=== PATIENT | male | born 1935 | race Caucasian/White ===

== ENCOUNTER → 2020-03-21 13:08 | Outpatient (BNVA) | payer MEDICARE, SELFPAY | PROVIDERS: PCP Internal Medicine; Referring Provider Internal Medicine; Visit Provider Internal Medicine | DX: R60.0 Localized edema (principal); T78.3XXS Angioneurotic edema, sequela; I10 Essential (primary) hypertension | CPT/HCPCS: 99214 ==

== ENCOUNTER → 2020-03-22 09:27 | Outpatient (REF) | payer MEDICARE, SELFPAY ==
--- NOTE | 2020-03-22 09:38 | CA_ITS ---
Transthoracic Echocardiogram Patient (Last, First, Middle): Corby Faith R Gender: Male Date of : 1935 Age: 85 Procedure Date: 03/22/2020 Procedure Type: Transthoracic Echocardiogram Location: OP Height: 175.26 cm Weight: 77.11 kg BSA: 1.93 m2 Heart Rate: bpm BP: 137 / 64 mmHg Non Destructive Testing Inspector: DSG Referring MD: Meño Shepherd MD Symptoms: HMC R60.0 Leg Edema Study Quality: Good ECG Rhythm: Sinus Conclusions: - The left ventricular systolic function is normal. The visually estimated ejection fraction is between 60-65%. Findings Left Ventricle Normal left ventricular cavity size. The left ventricular systolic function is normal. The visually estimated ejection fraction is between 60-65%. There is no evidence of regional wall motion abnormalities. Right Ventricle Normal right ventricular cavity size and systolic function. Prior Study Comparison No significant change compared to prior study dated: 01/08/2020. Measurements 2D Systolic Function EF 4C: 69.60 >55% Mitral Valve MV Pk E: 0.90 MV PK A: 0.45 MV Decel Time: 190.00 E/A: 2.00 E'Lateral: 8.41 E'Medial: 7.45 E/E' Med: 12.10 E/E' Lat: 10.70 PHT: 56.00 MVA PHT: 3.93 Decel [place]: 4.74 Diastolic Function MV Pk E: 0.90 MV Pk A: 0.45 E/A: 2.00 E'Medial: 7.45 E/E' Med: 12.10 E' Laterial: 8.41 E/E' Lat: 10.70 Updated in Other Vendor System with Status of Final Meño Shepherd MD electronically signed on 03/23/2020 4:31:31 PM with status of Final
== END ==
LOC: HO.CARD 09:27
PROVIDERS: PCP Internal Medicine; Visit Provider Internal Medicine
DX: R60.0 Localized edema (principal)
CPT/HCPCS: 93308

== ENCOUNTER 2020-03-30 13:25 | Outpatient (REF) | payer MEDICARE, SELFPAY ==
--- NOTE | 2020-04-01 09:24 | MHC.AU.P13 ---
Adult Audiological Evaluation Date of Visit: 03/30/20 Reason for Appointment: Patient has been noticing gradually increasing hearing difficulty over the last 5 years. 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 History: History: No Medical History: Medical History: High Blood Pressure Otoscopy: Right Ear: Unremarkable Left Ear: Unremarkable Tympanometry: Right Ear: Reduced Middle Ear Compliance (Type As) Left Ear: Reduced Middle Ear Compliance (Type As) Hearing Evaluation: Transducer(s) Used: Insert Earphones Method: Conventional Audiometry Stimuli Used: Pure Tones Right Ear: Description of Hearing: Borderline/mild sloping to moderately-severe sensorineural hearing loss Left Ear: Description of Hearing: Borderline/mild sloping to moderately-severe sensorineural hearing loss Speech Recognition Threshold (SRT): Method Used: Recorded Lists Stimuli Used: [place] Words Right Ear: 40 Left Ear: 35 Word Discrimination: Method: Recorded Lists Word Lists Used: NU-6 Right Ear: With inserts: 76% at 75 dBHL, 72% at 80 dBHL With circumaural headphones: 64% at 75 dBHL Significantly lower scores compared to left-ear word discrimination Left Ear: 92% at 75 dBHL Most Comfortable Level (MCL): Right Ear: 75 dBHL Left Ear: 75 dBHL Recommendations: Recommendations: Audiological re-evaluation in one year. Patient reports that he recently had a follow-up with ENT, Dr. Ny, but hearing testing was not performed that day. Another follow-up with Dr. Ny is recommended to address the newly-discovered word discrimination asymmetry. Patient is interested in amplification. See hearing aid evaluation report for more details. Diagnosis: Primary Diagnosis: H90.3 Bilateral Sensorineural Hearing Loss Services Performed: Services Performed: Comprehensive Audiological Evaluation (CPT 39215) Tympanometry (CPT 35113) Signature: Provider: Gosia Richardson, [facility]
--- NOTE | 2020-04-01 09:27 | MHC.AU.P13 ---
Hearing Aid Evaluation- Right Ear Date of Visit: 03/30/20 Description of Hearing: Borderline/mild sloping to moderately-severe sensorineural hearing loss bilaterally Summary: Patient is interested in amplification. He feels strongly that he only wants one hearing aid, and wants a CIC. His has a Jose 3 Series CIC that she is pleased with, and he would like something similar. Discussed possible benefits of right-sided vs. left-sided vs. binaural amplification, as his word discrimination is in the 64-76% range in the right ear vs. 92% in the left ear. Patient talks on the phone with his right ear, and would prefer the hearing aid for his right ear. An impression was taken of the right ear without complication. Hearing Instrument Selection: Right Ear: Community Cultural Development Officer: Amadesa Model: Solomon Battery Size: 312 Color: [place] faceplate/clear shell Recommendations: Recommendations: Fitting will be scheduled when all materials have arrived. Diagnosis Code(s): Primary Diagnosis: H90.3 Bilateral Sensorineural Hearing Loss Secondary Diagnosis: N/A Signature: Provider: Gosia Richardson, [facility]
== END 2020-03-30 13:26 | disposition home or self-care (01) ==
LOC: HO.SH 13:25
PROVIDERS: Visit Provider Internal Medicine
DX: Z46.1 Encounter for fitting and adjustment of hearing aid (principal)
CPT/HCPCS: 92557; 92567

== ENCOUNTER → 2020-04-07 11:00 | Outpatient (BNVA) | payer MEDICARE, SELFPAY | PROVIDERS: PCP Internal Medicine; Referring Provider Internal Medicine; Visit Provider Urology | DX: R35.1 Nocturia (principal); N40.1 Benign prostatic hyperplasia with lower urinary tract symptoms; N52.9 Male erectile dysfunction, unspecified; R30.0 Dysuria; N64.4 Mastodynia; I10 Essential (primary) hypertension; T78.3XXA Angioneurotic edema, initial encounter; Z88.1 Allergy status to other antibiotic agents; Z88.8 Allergy status to other drugs, medicaments and biological substances | CPT/HCPCS: 99214 ==

== ENCOUNTER 2020-04-28 08:49 | Outpatient (REF) | payer SELFPAY ==
--- NOTE | 2020-04-28 13:05 | MHC.AU.P13 ---
Hearing Instrument Fitting- Adult- Right Ear Date of Visit: 04/28/20 Hearing Instrument(s) Dispensed: Right Ear: Amortization Schedule Clerk: Guidesly Model: Solomon Serial Number: [id number] Color: [place] faceplate/clear shell Warranty: 05/09/2022 Battery Size: 312 Summary of Fitting: Feedback canceler run. Experience level set to 2. Verifit performed and levels adjusted to better reach targets. At first patient felt his voice was too loud, but this improved as the appointment went on. Patient was pleased with the sound of the instrument. Program button is deactivated for now. Hearing aid care and maintenance discussed and practiced. Recommendations: Recommendations: A hearing instrument follow-up was scheduled. Please call our clinic with any questions or concerns. Paid $800 Diagnosis Code(s): Primary Diagnosis: H90.3 Bilateral Sensorineural Hearing Loss Secondary Diagnosis: N/A Services Performed: Hearing Instrument Services: LUZ 2 R Signature: Provider: Gosia Richardson, [facility]
== END 2020-04-28 08:50 | disposition home or self-care (01) ==
LOC: HO.HAP 08:49
PROVIDERS: PCP Internal Medicine; Referring Provider Internal Medicine; Visit Provider Internal Medicine
DX: Z46.1 Encounter for fitting and adjustment of hearing aid (principal); H90.3 Sensorineural hearing loss, bilateral
CPT/HCPCS: V5255

== ENCOUNTER → 2020-05-06 10:58 | Outpatient (BNVA) | payer MEDICARE, SELFPAY | PROVIDERS: PCP Internal Medicine; Visit Provider Urology | DX: R39.15 Urgency of urination (principal); R35.1 Nocturia; N52.9 Male erectile dysfunction, unspecified; Z79.899 Other long term (current) drug therapy | CPT/HCPCS: 81002; 99212 ==

== ENCOUNTER 2020-05-10 08:23 | Outpatient (REF) | payer MEDICARE, SELFPAY ==
[2020-05-10 10:22] LABS: Alanine Aminotransferase 17 U/L (0-40); Albumin Level 4.4 g/dL (3.5-5.0); Alkaline Phosphatase 50 U/L (39-117); Anion Gap 15 (12-20); Aspartate Amino Transferase 19 U/L (5-37); Bilirubin Direct 0.2 mg/dL (0.0-0.5); Bilirubin Total 0.4 mg/dL (0.0-1.0); Blood Urea Nitrogen 19 mg/dL (9-16); Calcium 9.3 mg/dL (8.4-10.2); Carbon Dioxide 24 mmol/L (22-29); Chloride 102 mmol/L (96-108); Cholesterol 298 mg/dL; Estimated Glomerular Filt Rate > 60; Glucose Random 156 mg/dL (60-115); HDL Cholesterol 46 mg/dL; LDL Cholesterol Calculated 174 mg/dl; Potassium 4.1 mmol/l (3.3-5.1); Sodium 137 mmol/L (135-145); Total Protein 7.1 g/dL (6.5-8.0); Triglycerides 391 mg/dL
== END 2020-05-10 08:24 | disposition home or self-care (01) ==
LOC: HO.LAB 08:23
PROVIDERS: PCP Internal Medicine; Visit Provider Internal Medicine
DX: E78.00 Pure hypercholesterolemia, unspecified (principal)
CPT/HCPCS: 80048; 80061; 80076

== ENCOUNTER 2020-05-19 10:48 | Outpatient (REF) | payer SELFPAY ==
--- NOTE | 2020-05-19 15:49 | MHC.AU.P13 ---
Hearing Instrument Follow-Up Date of Visit: 05/19/20 Right Ear: Dairy Technician: Jose Model: Solomon Serial Number: [id number] Warranty: 05/09/2022 Battery Size: 312 Color: [place] faceplate/clear shell Dispensed By: [facility] Follow-Up Summary: Patient reports that he has overall been pleased with the hearing aid sound. He has noticed he places the television at a lower level. He thinks he is ready to have the volume slightly increased. He also noted that he cannot get the hearing aid in by himself. His has to pull up on his ear and force it in. The hearing aid does have a sharp appearing curve in it. A new impression was taken and will be sent along with the hearing aid to [employer] for remake. Recommendations: Patient will be contacted when materials have arrived. Adjustments to the hearing aid will be made at the next visit when the hearing aid has returned. Diagnosis Code(s): Primary Diagnosis: H90.3 Bilateral Sensorineural Hearing Loss Signature: Provider: Gosia Richardson, CCC-A
== END 2020-05-19 10:49 | disposition home or self-care (01) ==
LOC: HO.HAP 10:48
PROVIDERS: PCP Internal Medicine; Referring Provider Internal Medicine; Visit Provider Internal Medicine
DX: Z13.89 Encounter for screening for other disorder (principal)
CPT/HCPCS: 92700

== ENCOUNTER → 2020-05-25 13:00 | Outpatient (BNVA) | payer MEDICARE, SELFPAY | PROVIDERS: PCP Internal Medicine; Referring Provider Internal Medicine; Visit Provider Internal Medicine | DX: I10 Essential (primary) hypertension (principal); T78.3XXS Angioneurotic edema, sequela | CPT/HCPCS: 99212 ==

== ENCOUNTER → 2020-05-27 09:35 | Outpatient (BNVA) | payer MEDICARE, SELFPAY | PROVIDERS: PCP Internal Medicine; Visit Provider Student in an Organized Health Care Education/Training Program | DX: M05.9 Rheumatoid arthritis with rheumatoid factor, unspecified (principal); M10.9 Gout, unspecified; R60.0 Localized edema | CPT/HCPCS: Q3014 ==

== ENCOUNTER 2020-06-06 11:37 | Outpatient (REF) | payer MEDICARE, SELFPAY ==
[2020-06-06 14:46] LABS: MANUAL DIFF FLAG NO
[2020-06-06 14:56] LABS: Basophils Absolute Auto 0.1 X10*3/uL (0.0-0.2); Basophils Percent Auto 0.9 % (0-2); Eosinophils Absolute Auto 0.1 X10*3/uL (0.0-0.4); Eosinophils Percent Auto 1.1 % (0-4); Hematocrit 39.7 % (42-52); Hemoglobin 12.8 g/dl (14.0-18.0); Imm Gran Abs Auto 0.13 X10*3/uL (0.00-0.03); Imm Gran Pct Auto 1.1 % (0.0-0.4); Lymphocytes Absolute Auto 1.1 X10*3/uL (1.2-4.9); Lymphocytes Percent Auto 8.8 % (20-40); Mean Corpuscular HGB Conc 32.2 g/dl (31.0-36.0); Mean Corpuscular Hemoglobin 28.4 pg (27.0-33.0); Mean Corpuscular Volume 88.2 fL (80-98); Mean Platelet Volume 12.4 fL (9.4-12.4); Monocytes Percent Auto 8.4 % (2-11); Neutrophils Absolute Auto 9.7 X10*3/uL (2.0-8.3); Neutrophils Percent Auto 79.7 % (45-73); Platelet Count 375 X10*3/uL (160-400); Red Cell Distribution Width 13.8 % (11.0-16.0); White Blood Count 12.2 X10*3/uL (4.8-10.8)
[2020-06-06 16:02] LABS: Erythrocyte Sedimentation Rate 34 MM/HR (0-15)
[2020-06-06 17:14] LABS: Alanine Aminotransferase 14 U/L (0-40); Albumin Level 4.6 g/dL (3.5-5.0); Alkaline Phosphatase 53 U/L (39-117); Anion Gap 18 (12-20); Aspartate Amino Transferase 18 U/L (5-37); Bilirubin Total 0.5 mg/dL (0.0-1.0); Blood Urea Nitrogen 33 mg/dL (9-16); C Reactive Protein 0.36 mg/dL (< or = 0.50); Calcium 9.5 mg/dL (8.4-10.2); Carbon Dioxide 24 mmol/L (22-29); Chloride 99 mmol/L (96-108); Estimated Glomerular Filt Rate > 60; Glucose Random 168 mg/dL (60-115); Potassium 4.2 mmol/l (3.3-5.1); Sodium 137 mmol/L (135-145); Total Protein 7.6 g/dL (6.5-8.0); Uric Acid 6.5 mg/dL (3.4-7.0)
== END 2020-06-06 11:38 | disposition home or self-care (01) ==
LOC: HO.HMGCLDS 11:37
PROVIDERS: Student in an Organized Health Care Education/Training Program; PCP Internal Medicine; Visit Provider Internal Medicine
DX: M05.9 Rheumatoid arthritis with rheumatoid factor, unspecified (principal); M10.9 Gout, unspecified; Z20.828 Contact with and (suspected) exposure to other viral communicable diseases
CPT/HCPCS: 36415; 80053; 84550; 85025; 85652; 86140; C9803; U0003

== ENCOUNTER 2020-06-13 07:59 | Outpatient (REF) | payer MEDICARE, SELFPAY ==
[2020-06-13 11:48] LABS: Glucose Urine UA NEG (NEG); Leukocyte Esterase Urine NEG (NEG); Nitrite Urine NEG (NEG); PH 5.5 (5.0-8.0); Specific Gravity - Urine 1.025 (1.005-1.025); Urine Blood NEG (NEG); Urine Ketones NEG (NEG); Urine Protein 2+ MG/DL (NEG-TRACE)
[2020-06-13 11:54] LABS: Anion Gap 15 (12-20); Blood Urea Nitrogen 27 mg/dL (9-16); Calcium 9.3 mg/dL (8.4-10.2); Carbon Dioxide 27 mmol/L (22-29); Chloride 100 mmol/L (96-108); Estimated Glomerular Filt Rate > 60; Phosphorus 2.8 mg/dL (2.7-4.5); Potassium 4.1 mmol/l (3.3-5.1); Sodium 138 mmol/L (135-145); Total Protein 7.1 g/dL (6.5-8.0)
[2020-06-13 11:57] LABS: Appearance Urine CLEAR; Color Urine YELLOW
[2020-06-13 12:04] LABS: Creatinine Urine 124.63 mg/dL; Microalbum/Creatinine Ratio Ur 376.3 ug/mg cr
[2020-06-13 12:05] LABS: Creatinine Urine 125.27 mg/dL; Protein/Creatinine Ratio, Ur 0.66 (<0.2); Total Protein Urine Random 83 mg/dL (<12)
[2020-06-13 12:40] LABS: RBC Urine 0 /HPF (0); WBC Urine 0 /HPF (0-4)
[2020-06-13 13:15] LABS: Renal w Reflex Lab Use Only Order verified
== END 2020-06-13 08:00 | disposition home or self-care (01) ==
LOC: HO.HMGCLDS 07:59
PROVIDERS: PCP Internal Medicine; Visit Provider Internal Medicine Nephrology
DX: I12.9 Hypertensive chronic kidney disease with stage 1 through stage 4 chronic kidney disease, or unspecified chronic kidney disease (principal); N18.30 Chronic kidney disease, stage 3 unspecified; E78.5 Hyperlipidemia, unspecified
CPT/HCPCS: 80051; 81001; 82043; 82310; 82565; 84100; 84155; 84156; 84520

== ENCOUNTER → 2020-06-16 11:06 | Outpatient (BNVA) | payer MEDICARE, SELFPAY | PROVIDERS: PCP Internal Medicine; Visit Provider Urology | DX: N40.1 Benign prostatic hyperplasia with lower urinary tract symptoms (principal); N13.8 Other obstructive and reflux uropathy; R35.1 Nocturia; R39.15 Urgency of urination | CPT/HCPCS: Q3014 ==

== ENCOUNTER 2020-06-23 10:42 | Outpatient (REF) | payer SELFPAY | END 2020-06-23 10:43 | disposition home or self-care (01) | LOC: HO.HAP 10:42 | PROVIDERS: Visit Provider Internal Medicine | DX: Z13.89 Encounter for screening for other disorder (principal) ==

== ENCOUNTER 2020-08-26 09:21 | Outpatient (REF) | payer MEDICARE, SELFPAY ==
[2020-08-26 10:54] LABS: MANUAL DIFF FLAG NO
[2020-08-26 10:59] LABS: Basophils Absolute Auto 0.1 X10*3/uL (0.0-0.2); Eosinophils Absolute Auto 0.3 X10*3/uL (0.0-0.4); Eosinophils Percent Auto 2.9 % (0-4); Hematocrit 38.8 % (42-52); Hemoglobin 12.7 g/dl (14.0-18.0); Imm Gran Abs Auto 0.07 X10*3/uL (0.00-0.03); Imm Gran Pct Auto 0.8 % (0.0-0.4); Lymphocytes Percent Auto 11.2 % (20-40); Mean Corpuscular HGB Conc 32.7 g/dl (31.0-36.0); Mean Corpuscular Hemoglobin 28.7 pg (27.0-33.0); Mean Corpuscular Volume 87.6 fL (80-98); Mean Platelet Volume 11.8 fL (9.4-12.4); Monocytes Absolute Auto 0.9 X10*3/uL (0.1-1.2); Monocytes Percent Auto 9.9 % (2-11); Neutrophils Absolute Auto 6.9 X10*3/uL (2.0-8.3); Neutrophils Percent Auto 74.2 % (45-73); Platelet Count 326 X10*3/uL (160-400); Red Blood Count 4.43 X10*6/uL (4.60-5.80); Red Cell Distribution Width 13.6 % (11.0-16.0); White Blood Count 9.3 X10*3/uL (4.8-10.8)
[2020-08-26 11:24] LABS: Alanine Aminotransferase 19 U/L (0-40); Albumin Level 4.4 g/dL (3.5-5.0); Alkaline Phosphatase 62 U/L (39-117); Anion Gap 14 (12-20); Aspartate Amino Transferase 20 U/L (5-37); Bilirubin Total 0.4 mg/dL (0.0-1.0); Blood Urea Nitrogen 22 mg/dL (9-16); C Reactive Protein 0.81 mg/dL (< or = 0.50); Calcium 9.7 mg/dL (8.4-10.2); Carbon Dioxide 26 mmol/L (22-29); Chloride 98 mmol/L (96-108); Estimated Glomerular Filt Rate > 60; Glucose Random 239 mg/dL (60-115); Potassium 4.3 mmol/L (3.3-5.1); Sodium 134 mmol/L (135-145); Total Protein 7.1 g/dL (6.5-8.0); Uric Acid 6.1 mg/dL (3.4-7.0)
[2020-08-26 12:03] LABS: Erythrocyte Sedimentation Rate 34 MM/HR (0-15)
== END 2020-08-26 09:22 | disposition home or self-care (01) ==
LOC: HO.LAB 09:21
PROVIDERS: PCP Internal Medicine; Visit Provider Student in an Organized Health Care Education/Training Program
DX: M05.9 Rheumatoid arthritis with rheumatoid factor, unspecified (principal); M10.9 Gout, unspecified; Z79.899 Other long term (current) drug therapy
CPT/HCPCS: 36415; 80053; 84550; 85025; 85652; 86140; 99212

== ENCOUNTER → 2020-09-12 13:07 | Outpatient (BNVA) | payer OTHER, SELFPAY | PROVIDERS: PCP Internal Medicine; Visit Provider Internal Medicine ==

== ENCOUNTER → 2020-09-14 10:52 | Outpatient (BNVA) | payer MEDICARE, SELFPAY | PROVIDERS: PCP Internal Medicine; Visit Provider Urology | DX: R97.20 Elevated prostate specific antigen [PSA] (principal); R35.1 Nocturia | CPT/HCPCS: 51798; 99212 ==

== ENCOUNTER → 2020-09-28 09:57 | Outpatient (BNVA) | payer MEDICARE, SELFPAY | PROVIDERS: PCP Internal Medicine; Visit Provider Urology | DX: Z13.89 Encounter for screening for other disorder (principal) | CPT/HCPCS: Q3014 ==

== ENCOUNTER → 2020-10-13 10:24 | Outpatient (BNVA) | payer MEDICARE, SELFPAY | PROVIDERS: PCP Internal Medicine; Visit Provider Surgery Vascular Surgery | DX: M79.89 Other specified soft tissue disorders (principal) | CPT/HCPCS: 99202 ==

== ENCOUNTER 2020-12-13 15:12 | Outpatient (REF) | payer MEDICARE, SELFPAY ==
[2020-12-13 16:48] LABS: MANUAL DIFF FLAG NO
[2020-12-13 16:50] LABS: Basophils Absolute Auto 0.1 X10*3/uL (0.0-0.2); Basophils Percent Auto 1.1 % (0-2); Eosinophils Absolute Auto 0.3 X10*3/uL (0.0-0.4); Eosinophils Percent Auto 3.8 % (0-4); Hematocrit 38.2 % (42-52); Hemoglobin 12.2 g/dl (14.0-18.0); Imm Gran Abs Auto 0.04 X10*3/uL (0.00-0.03); Imm Gran Pct Auto 0.5 % (0.0-0.4); Lymphocytes Absolute Auto 1.2 X10*3/uL (1.2-4.9); Lymphocytes Percent Auto 15.3 % (20-40); Mean Corpuscular HGB Conc 31.9 g/dl (31.0-36.0); Mean Corpuscular Hemoglobin 28.3 pg (27.0-33.0); Mean Corpuscular Volume 88.6 fL (80-98); Mean Platelet Volume 11.9 fL (9.4-12.4); Monocytes Absolute Auto 0.8 X10*3/uL (0.1-1.2); Monocytes Percent Auto 10.7 % (2-11); Neutrophils Absolute Auto 5.2 X10*3/uL (2.0-8.3); Neutrophils Percent Auto 68.6 % (45-73); Platelet Count 306 X10*3/uL (160-400); Red Blood Count 4.31 X10*6/uL (4.60-5.80); Red Cell Distribution Width 13.5 % (11.0-16.0); White Blood Count 7.5 X10*3/uL (4.8-10.8)
[2020-12-13 17:11] LABS: Alanine Aminotransferase 15 U/L (0-40); Albumin Level 4.5 g/dL (3.5-5.0); Alkaline Phosphatase 63 U/L (39-117); Anion Gap 16 (12-20); Aspartate Amino Transferase 20 U/L (5-37); Bilirubin Total 0.2 mg/dL (0.0-1.0); Blood Urea Nitrogen 25 mg/dL (9-16); C Reactive Protein 0.56 mg/dL (< or = 0.50); Calcium 9.7 mg/dL (8.4-10.2); Carbon Dioxide 23 mmol/L (22-29); Chloride 101 mmol/L (96-108); Estimated Glomerular Filt Rate 56; Glucose Random 167 mg/dL (60-115); Sodium 136 mmol/L (135-145); Total Protein 7.2 g/dL (6.5-8.0)
[2020-12-13 17:35] LABS: Erythrocyte Sedimentation Rate 34 MM/HR (0-15)
== END 2020-12-13 15:13 | disposition home or self-care (01) ==
LOC: HO.LAB 15:12
PROVIDERS: PCP Internal Medicine; Visit Provider Student in an Organized Health Care Education/Training Program
DX: M05.9 Rheumatoid arthritis with rheumatoid factor, unspecified (principal); M10.9 Gout, unspecified
CPT/HCPCS: 36415; 80053; 84550; 85025; 85652; 86140; 99212

== ENCOUNTER 2020-12-28 13:42 | Outpatient (REF) | payer MEDICARE, SELFPAY ==
--- NOTE | ~2020-12-28 | XR_ITS ---
EXAMINATION: XR LUMBOSACRAL SPINE CLINICAL INFORMATION: Lower back pain. COMPARISON: Lumbar spine MRI dated 04/22/2017. TECHNIQUE: Three views of the lumbosacral spine. FINDINGS: Minimal grade 1 retrolisthesis of L3 and L4, unchanged. No acute fracture. No loss of vertebral body height. Multilevel loss of intervertebral disc height with prominent degenerative endplate changes and endplate osteophytes. Bilateral facet arthropathy at L4-S1. Atherosclerotic calcifications. XR/XR lumbar spine 2-3V IMPRESSION: Minimal grade 1 retrolisthesis of L3 on L4, unchanged. Prominent multilevel degenerative disc disease as well as bilateral facet arthropathy are unchanged.
== END 2020-12-28 13:43 | disposition home or self-care (01) ==
LOC: HO.XRAY 13:42
PROVIDERS: PCP Internal Medicine; Visit Provider Student in an Organized Health Care Education/Training Program
DX: M54.5 Low back pain (principal)
CPT/HCPCS: 72100

== ENCOUNTER → 2021-01-12 12:54 | Outpatient (BNVA) | payer MEDICARE, SELFPAY | PROVIDERS: PCP Internal Medicine; Referring Provider Internal Medicine; Visit Provider Internal Medicine | DX: I10 Essential (primary) hypertension (principal); T78.3XXS Angioneurotic edema, sequela | CPT/HCPCS: 93005; 99212 ==

== ENCOUNTER 2021-02-08 09:00 | Outpatient (RCR) | payer MEDICARE, SELFPAY ==
--- NOTE | 2021-01-25 10:00 | MHC.PT.EP ---
[facility] [place] Office [place] Office [place] Office [address] Anne-Marie Velazquez [address] [phone] F: [phone] F: [phone] F: [phone] F: [phone] Physical Therapy Plan of Care Date of Evaluation: Date of Surgery: n/a Diagnosis: Low back pain Assessment: Patient is an 86 year old R handed male who presents with s/s consistent with low back/hip pain. He does not work but does enjoy walking and taking care of his house. He does tend to carry his wallet in his L back pocket and he has been educated about this. Patient past medical history includes gout and hernia repair. Current impairments include pain, ROM, strength, activity tolerance and functional mobility. Functional limitations include decreased ability to walk, stand, transfer, negotiate stairs, and perform weight bearing activities.. Patient is motivated with good rehab potential. Skilled PT will address impairments and functional limitations in order to achieve goals. Frequency and Duration: The patient will be seen 2x/week for 5 weeks Short Term Goals: I with HEP - 2 weeks No longer with wallet in back pocket - 2 weeks TTP min in piriformis - 3 weeks Family Support Worker Goals: Sit <> stand pain - 2/10 - 4 weeks Oswestry 20% or less - 5 weeks Pain with ADLs 2/10 max - 5 weeks Treatment Plan: Modalities to reduce pain, spasms and effusion. Manual therapy to restore motion and function. Therapeutic exercise to improve strength and flexibility. Neuromuscular re-education for posture and balance. Therapeutic activities to return to functional activities of daily living. Electronically signed by: Coleman Olsen, PT Please sign and return to therapist. Thank you for your referral.
--- NOTE | 2021-05-24 13:30 | MHC.PT.DC ---
[facility] [place] Office [place] Office [place] Office [address] Anne-Marie Velazquez 140 [facility] [phone] F: [phone] F: [phone] F: [phone] F: [phone] Physical Therapy Discharge Report Diagnosis: Low back pain Date of Surgery: n/a Date of Evaluation: 01/25/21 Date of Discharge: 03/10/21 Treatments to Date: 3 Cancellations to Date: 0 No Shows to Date: 0 Discharge Status: Patient Elected to Stop Discharge Summary: Pt decided to stop PT due to lack of progress through a few visits. Electronically signed by: Coleman Olsen, PT Please sign and return to therapist. Thank you for your referral.
== END 2021-05-24 13:31 | disposition home or self-care (01) ==
LOC: HO.PTCHIC 09:00
PROVIDERS: PCP Internal Medicine; Visit Provider Internal Medicine
DX: M54.5 Low back pain (principal)
CPT/HCPCS: 97110; 97116; 97161; 97530

== ENCOUNTER 2021-03-02 08:41 | Outpatient (REF) | payer MEDICARE, SELFPAY ==
[2021-03-02 11:15] LABS: MANUAL DIFF FLAG NO
[2021-03-02 11:24] LABS: Basophils Absolute Auto 0.1 X10*3/uL (0.0-0.2); Basophils Percent Auto 1.1 % (0-2); Eosinophils Absolute Auto 0.3 X10*3/uL (0.0-0.4); Hematocrit 37.4 % (42-52); Hemoglobin 12.2 g/dl (14.0-18.0); Imm Gran Abs Auto 0.03 X10*3/uL (0.00-0.03); Imm Gran Pct Auto 0.5 % (0.0-0.4); Lymphocytes Absolute Auto 0.8 X10*3/uL (1.2-4.9); Lymphocytes Percent Auto 14.2 % (20-40); Mean Corpuscular HGB Conc 32.6 g/dl (31.0-36.0); Mean Corpuscular Hemoglobin 28.8 pg (27.0-33.0); Mean Corpuscular Volume 88.2 fL (80-98); Mean Platelet Volume 12.5 fL (9.4-12.4); Monocytes Absolute Auto 0.7 X10*3/uL (0.1-1.2); Monocytes Percent Auto 11.7 % (2-11); Neutrophils Absolute Auto 3.8 X10*3/uL (2.0-8.3); Neutrophils Percent Auto 67.5 % (45-73); Platelet Count 283 X10*3/uL (160-400); Red Blood Count 4.24 X10*6/uL (4.60-5.80); Red Cell Distribution Width 13.7 % (11.0-16.0); White Blood Count 5.6 X10*3/uL (4.8-10.8)
[2021-03-02 11:38] LABS: Estimated Average Glucose 140 mg/dL; Hemoglobin A1c % 6.5 %
[2021-03-02 11:40] LABS: Mean Corpuscular HGB Conc 32.4 g/dl (31.0-36.0); Mean Corpuscular Hemoglobin 28.8 pg (27.0-33.0); Mean Corpuscular Volume 88.7 fL (80-98); Mean Platelet Volume 12.2 fL (9.4-12.4); Platelet Count 264 X10*3/uL (160-400); Red Blood Count 4.17 X10*6/uL (4.60-5.80); Red Cell Distribution Width 13.7 % (11.0-16.0); White Blood Count 5.5 X10*3/uL (4.8-10.8)
[2021-03-02 11:46] LABS: Alanine Aminotransferase 18 U/L (0-40); Albumin Level 4.5 g/dL (3.5-5.0); Alkaline Phosphatase 52 U/L (39-117); Anion Gap 12 (12-20); Appearance Urine CLEAR; Aspartate Amino Transferase 22 U/L (5-37); Bilirubin Direct 0.2 mg/dL (0.0-0.5); Bilirubin Total 0.6 mg/dL (0.0-1.0); Blood Urea Nitrogen 23 mg/dL (9-16); Calcium 9.7 mg/dL (8.4-10.2); Carbon Dioxide 24 mmol/L (22-29); Chloride 102 mmol/L (96-108); Cholesterol 259 mg/dL; Color Urine YELLOW; Estimated Glomerular Filt Rate > 60; Glucose Random 196 mg/dL (60-115); Glucose Urine UA 250 MG/DL (NEG); HDL Cholesterol 45 mg/dL; LDL Cholesterol Calculated 141 mg/dl; Leukocyte Esterase Urine NEG (NEG); Nitrite Urine NEG (NEG); PH 5.5 (5.0-8.0); Potassium 4.2 mmol/L (3.3-5.1); Sodium 134 mmol/L (135-145); Specific Gravity - Urine >= 1.030 (1.005-1.025); Total Protein 7.1 g/dL (6.5-8.0); Triglycerides 365 mg/dL; Urine Blood NEG (NEG); Urine Ketones NEG (NEG); Urine Protein 2+ MG/DL (NEG-TRACE)
[2021-03-02 11:51] LABS: Albumin Level 4.4 g/dL (3.5-5.0); Anion Gap 13 (12-20); Blood Urea Nitrogen 23 mg/dL (9-16); Calcium 9.7 mg/dL (8.4-10.2); Carbon Dioxide 23 mmol/L (22-29); Chloride 102 mmol/L (96-108); Estimated Glomerular Filt Rate > 60; Magnesium 2.1 mg/dL (1.6-2.6); Phosphorus 2.8 mg/dL (2.7-4.5); Potassium 4.2 mmol/L (3.3-5.1); Sodium 134 mmol/L (135-145)
[2021-03-02 12:02] LABS: Vitamin D 25-OH Total 29.7 ng/mL (>30)
[2021-03-02 12:03] LABS: RBC Urine 0 /HPF (0); WBC Urine 0-2 /HPF (0-4)
[2021-03-02 12:12] LABS: Thyroid Stimulating Hormone 2.46 uIU/mL (0.32-4.0)
[2021-03-02 12:48] LABS: Creatinine Urine 124.48 mg/dL; Microalbum/Creatinine Ratio Ur 441.8 ug/mg cr; Protein/Creatinine Ratio, Ur 0.83 (<0.2); Total Protein Urine Random 103 mg/dL (<12)
[2021-03-06 14:02] LABS: Calcium (PTHI) 9.8 mg/dL (8.6-10.3); PTHI 24 pg/mL (14-64)
== END 2021-03-02 08:42 | disposition home or self-care (01) ==
LOC: HO.HMGCLDS 08:41
PROVIDERS: PCP Internal Medicine; Visit Provider Internal Medicine Nephrology
DX: I12.9 Hypertensive chronic kidney disease with stage 1 through stage 4 chronic kidney disease, or unspecified chronic kidney disease (principal); N18.31 Chronic kidney disease, stage 3a; E78.5 Hyperlipidemia, unspecified; M54.5 Low back pain
CPT/HCPCS: 36415; 80048; 80051; 80061; 80076; 81001; 82040; 82043; 82306; 82310; 82565; 83036; 83735; 83970; 84100; 84156; 84443; 84520; 85025; 85027; 87086

== ENCOUNTER → 2021-03-23 12:48 | Outpatient (BNVA) | payer MEDICARE, SELFPAY | PROVIDERS: PCP Internal Medicine; Referring Provider Internal Medicine; Visit Provider Internal Medicine | DX: T78.3XXD Angioneurotic edema, subsequent encounter (principal); I10 Essential (primary) hypertension; R60.0 Localized edema | CPT/HCPCS: 99212 ==

== ENCOUNTER 2021-04-18 09:27 | Outpatient (REF) | payer MEDICARE, SELFPAY ==
--- NOTE | ~2021-04-18 | XR_ITS ---
EXAMINATION: X-RAY RIGHT AND LEFT HANDS CLINICAL INFORMATION: Rheumatoid arthritis. Unspecified rheumatoid factor. COMPARISON: Radiograph of the hands dated from 12/08/2018. TECHNIQUE: 3 views of each hand were obtained. FINDINGS: Right hand: No evidence of acute fractures or malalignment. Redemonstration of mild osteoarthritis at the first carpometacarpal joint and triscaphe space manifested by joint space narrowing and subcortical sclerosis. There are stable enthesophytes in the distal interphalangeal joint of the second digit and marginal erosions in the distal interphalangeal joint of the fifth digit. Chronic deformity at the tuft of the fourth digit. Similar rounded lucency in the head of the third proximal phalanx. Minimal anterior osteophyte in the ulnar surface of the third interphalangeal joint. Left hand: No evidence of acute fractures or malalignment. There is redemonstration of moderate osteoarthritis at the first carpometacarpal joint and triscaphe space, more prominent than when compared to the right side and not significantly changed since 2019. There are also mild to moderate degenerative changes in the interphalangeal joints, more prominent in the third proximal interphalangeal joint. No erosive changes. XR/XR hand LT min 3V IMPRESSION: Overall the examination remains stable since 2019 without evidence of acute fractures or malalignment. The degree of osteoarthritis remains unchanged as above.
--- NOTE | ~2021-04-18 | XR_ITS ---
EXAMINATION: X-RAY RIGHT AND LEFT HANDS CLINICAL INFORMATION: Rheumatoid arthritis. Unspecified rheumatoid factor. COMPARISON: Radiograph of the hands dated from 12/08/2018. TECHNIQUE: 3 views of each hand were obtained. FINDINGS: Right hand: No evidence of acute fractures or malalignment. Redemonstration of mild osteoarthritis at the first carpometacarpal joint and triscaphe space manifested by joint space narrowing and subcortical sclerosis. There are stable enthesophytes in the distal interphalangeal joint of the second digit and marginal erosions in the distal interphalangeal joint of the fifth digit. Chronic deformity at the tuft of the fourth digit. Similar rounded lucency in the head of the third proximal phalanx. Minimal anterior osteophyte in the ulnar surface of the third interphalangeal joint. Left hand: No evidence of acute fractures or malalignment. There is redemonstration of moderate osteoarthritis at the first carpometacarpal joint and triscaphe space, more prominent than when compared to the right side and not significantly changed since 2019. There are also mild to moderate degenerative changes in the interphalangeal joints, more prominent in the third proximal interphalangeal joint. No erosive changes. XR/XR hand RT min 3V IMPRESSION: Overall the examination remains stable since 2019 without evidence of acute fractures or malalignment. The degree of osteoarthritis remains unchanged as above.
[2021-04-18 10:37] LABS: MANUAL DIFF FLAG NO
[2021-04-18 10:57] LABS: Basophils Absolute Auto 0.1 X10*3/uL (0.0-0.2); Basophils Percent Auto 0.9 % (0-2); Eosinophils Absolute Auto 0.3 X10*3/uL (0.0-0.4); Eosinophils Percent Auto 3.7 % (0-4); Hematocrit 36.7 % (42.0-52.0); Hemoglobin 11.8 g/dl (14.0-18.0); Imm Gran Abs Auto 0.05 X10*3/uL (0.00-0.03); Imm Gran Pct Auto 0.6 % (0.0-0.4); Lymphocytes Percent Auto 12.8 % (20-40); Mean Corpuscular HGB Conc 32.2 g/dl (31.0-36.0); Mean Corpuscular Hemoglobin 28.9 pg (27.0-33.0); Mean Platelet Volume 11.8 fL (9.4-12.4); Monocytes Absolute Auto 0.8 X10*3/uL (0.1-1.2); Monocytes Percent Auto 9.8 % (2-11); Neutrophils Absolute Auto 5.67 x10*3/uL (2.0-8.3); Neutrophils Percent Auto 72.2 % (45-73); Platelet Count 268 X10*3/uL (160-400); Red Blood Count 4.08 X10*6/uL (4.60-5.80); White Blood Count 7.9 X10*3/uL (4.8-10.8)
[2021-04-18 11:15] LABS: Estimated Average Glucose 146 mg/dL; Hemoglobin A1c % 6.7 %
[2021-04-18 11:27] LABS: Alanine Aminotransferase 23 U/L (0-40); Albumin Level 4.4 g/dL (3.5-5.0); Alkaline Phosphatase 77 U/L (39-117); Anion Gap 14 (12-20); Aspartate Amino Transferase 22 U/L (5-37); Bilirubin Direct 0.2 mg/dL (0.0-0.5); Bilirubin Total 0.4 mg/dL (0.0-1.0); Blood Urea Nitrogen 24 mg/dL (9-16); C Reactive Protein 1.79 mg/dL (< or = 0.50); Calcium 9.5 mg/dL (8.4-10.2); Carbon Dioxide 25 mmol/L (22-29); Chloride 100 mmol/L (96-108); Cholesterol 268 mg/dL; Estimated Glomerular Filt Rate > 60; Glucose Random 189 mg/dL (60-115); HDL Cholesterol 43 mg/dL; Potassium 4.5 mmol/L (3.3-5.1); Sodium 134 mmol/L (135-145); Triglycerides 408 mg/dL
[2021-04-18 11:45] LABS: Appearance Urine CLEAR; Color Urine YELLOW; Glucose Urine UA NEG (NEG); Leukocyte Esterase Urine NEG (NEG); Nitrite Urine NEG (NEG); PH 6.5 (5.0-8.0); Specific Gravity - Urine 1.015 (1.005-1.025); Urine Blood NEG (NEG); Urine Ketones NEG (NEG); Urine Protein TRACE MG/DL (NEG-TRACE)
[2021-04-18 11:45] LABS: Uric Acid 4.5 mg/dL (3.4-7.0)
[2021-04-18 11:49] LABS: Thyroid Stimulating Hormone 4.87 uIU/mL (0.32-4.0)
[2021-04-18 12:12] LABS: Erythrocyte Sedimentation Rate 46 MM/HR (0-15)
[2021-04-18 12:13] LABS: Creatinine Urine 50.97 mg/dL; Microalbum/Creatinine Ratio Ur 207.9 ug/mg cr
== END 2021-04-18 09:28 | disposition home or self-care (01) ==
LOC: HO.XRAY 09:27
PROVIDERS: PCP Internal Medicine; Visit Provider Nurse Practitioner Family
DX: M05.9 Rheumatoid arthritis with rheumatoid factor, unspecified (principal); M10.9 Gout, unspecified; M79.642 Pain in left hand; M79.641 Pain in right hand; M54.50 Low back pain, unspecified; E11.9 Type 2 diabetes mellitus without complications; F41.1 Generalized anxiety disorder; I10 Essential (primary) hypertension
CPT/HCPCS: 36415; 73130; 80053; 80061; 80076; 81003; 82043; 82248; 83036; 84443; 84550; 85025; 85652; 86140; 99212

== ENCOUNTER → 2021-04-20 12:18 | Outpatient (BNVA) | payer MEDICARE, SELFPAY | PROVIDERS: PCP Internal Medicine; Referring Provider Internal Medicine; Visit Provider Internal Medicine | DX: T78.3XXD Angioneurotic edema, subsequent encounter (principal); I10 Essential (primary) hypertension; R60.0 Localized edema | CPT/HCPCS: 99212 ==

== ENCOUNTER 2021-04-24 09:46 | Outpatient (REF) | payer MEDICARE, SELFPAY ==
--- NOTE | ~2021-04-24 | XR_ITS ---
EXAMINATION: XR PELVIS CLINICAL INFORMATION: Pain in unspecified hip. COMPARISON: None TECHNIQUE: AP view of the pelvis. FINDINGS: Postsurgical changes of prior hernia repair is noted. Significant aortoiliac atherosclerotic disease is noted. Significant fecal residual is noted within the rectum. The bony alignments are intact. Multilevel degenerative spondylosis is seen within the visualized lower part of the lumbosacral spine. Diffuse joint space, subchondral sclerosis, subtle subchondral radiolucencies with [id number] osteoarthrosis is noted at the right hip. Note is made of periarticular soft tissue calcification seen overlying the superolateral part of the acetabulum. Radiographically unremarkable left hip. No evidence of any acute fracture, subluxation or dislocation. XR/XR pelvis 1-2V IMPRESSION: 1. [id number] osteoarthrosis of the right hip associated with periarticular calcification. 2. Radiographically unremarkable left hip. 3. Multilevel moderate degenerative spondylosis within the included visualized lower part of the lumbosacral spine 4. Postsurgical changes of prior hernia repair. 5. Calcific atherosclerotic disease of the aortoiliofemoral arteries.
== END 2021-04-24 09:47 | disposition home or self-care (01) ==
LOC: HO.HOSX 09:46
PROVIDERS: Visit Provider Orthopaedic Surgery
DX: M54.16 Radiculopathy, lumbar region (principal); M25.552 Pain in left hip
CPT/HCPCS: 72170; 99202

== ENCOUNTER → 2021-04-26 13:16 | Outpatient (BNVA) | payer MEDICARE, SELFPAY | PROVIDERS: PCP Internal Medicine; Visit Provider Urology | DX: N40.1 Benign prostatic hyperplasia with lower urinary tract symptoms (principal); R35.1 Nocturia; N13.8 Other obstructive and reflux uropathy; I11.9 Hypertensive heart disease without heart failure; I10 Essential (primary) hypertension; E78.00 Pure hypercholesterolemia, unspecified; M10.9 Gout, unspecified; Z83.3 Family history of diabetes mellitus; Z82.49 Family history of ischemic heart disease and other diseases of the circulatory system; Z88.1 Allergy status to other antibiotic agents; Z88.8 Allergy status to other drugs, medicaments and biological substances | CPT/HCPCS: 51798; 99212 ==

== ENCOUNTER → 2021-05-29 09:20 | Outpatient (BNVA) | payer MEDICARE, SELFPAY | PROVIDERS: PCP Internal Medicine; Visit Provider Anesthesiology | DX: M47.816 Spondylosis without myelopathy or radiculopathy, lumbar region (principal); M48.00 Spinal stenosis, site unspecified; M06.9 Rheumatoid arthritis, unspecified; M10.9 Gout, unspecified; G89.4 Chronic pain syndrome | CPT/HCPCS: 99202 ==

== ENCOUNTER 2021-06-02 10:14 | Outpatient (REF) | payer MEDICARE, SELFPAY ==
--- NOTE | ~2021-06-02 | MR_ITS ---
EXAMINATION: MR LUMBAR SPINE WITHOUT CONTRAST CLINICAL INFORMATION: Spinal stenosis. COMPARISON: Lumbar spine MRI April 22, 2017. TECHNIQUE: MRI of the lumbar spine was obtained using routine sequences without contrast. FINDINGS: The lumbar vertebral bodies maintain normal heights. There is mild retrolisthesis of L3 on L4 and mild anterolisthesis of L5 on S1. There is advanced disc height loss at L3-L4, L4-L5, and moderate disc height loss at L2-L3 and L5-S1. Endplate edema is seen from L2 through S1 and is most advanced at the L5-S1 level and is new compared with prior. The distal spinal cord appears normal. Conus medullaris terminates normally at the L1 level. The visualized paraspinal muscles and intra-abdominal and pelvic contents are within normal limits. Scattered colonic diverticula are incidentally noted. SPINAL LEVELS: L1-L2: No posterior disc abnormality. No spinal canal or neural foraminal stenosis. L2-L3: Progressive disc bulging with narrowing of the bilateral subarticular zones. Mild bilateral neural foraminal stenosis. New mild spinal canal stenosis. L3-L4: Disc bulging with ligamentum flavum infolding, moderate facet arthropathy, and bilateral foraminal protrusions resulting in moderate spinal canal stenosis, progressed from prior with bilateral subarticular stenosis. Abutment of the extraforaminal segment of the exiting right L3 nerve root, unchanged. L4-L5: Disc bulging with severe facet arthropathy and ligamentum flavum infolding resulting in left subarticular stenosis, with compression of the traversing left L5 nerve root, similar to prior. Bilateral neural foraminal stenosis with mild compression of the exiting left more than right L4 nerve roots, mildly progressed. L5-S1: Progressive disc height loss with disc bulging and severe facet arthropathy. No spinal canal stenosis. Severe right and moderate left neural foraminal stenosis, mildly progressed. MR/MR lumbar spine wo con IMPRESSION: Multilevel degenerative spondylotic changes are redemonstrated with some interval progression compared with April 22, 2017. Significant endplate edema is seen at L5-S1, progressed from prior. Milder endplate edema is also seen at L2-L3, L3-L4, and L4-L5. At L3-L4 there is progressive moderate spinal canal stenosis and unchanged abutment of the extraforaminal segment of the right L3 nerve root. At L4-L5 there is compression of the traversing left L5 nerve root without interval change. Mild progression of the left more than right L4 nerve root, mildly progressed. At L5-S1 there is severe right and moderate left neural foraminal stenosis, mildly progressed.
== END 2021-06-02 10:15 | disposition home or self-care (01) ==
LOC: HO.MRI 10:14
PROVIDERS: Visit Provider Anesthesiology
DX: M48.00 Spinal stenosis, site unspecified (principal); M47.816 Spondylosis without myelopathy or radiculopathy, lumbar region
CPT/HCPCS: 72148

== ENCOUNTER → 2021-06-28 10:06 | Outpatient (BNVA) | payer MEDICARE, SELFPAY | PROVIDERS: PCP Internal Medicine; Visit Provider Anesthesiology | DX: M47.26 Other spondylosis with radiculopathy, lumbar region (principal); M51.16 Intervertebral disc disorders with radiculopathy, lumbar region; G89.4 Chronic pain syndrome | CPT/HCPCS: 99212 ==

== ENCOUNTER → 2021-08-09 11:28 | Outpatient (BNVA) | payer MEDICARE, SELFPAY | PROVIDERS: PCP Internal Medicine; Visit Provider Urology | DX: N32.81 Overactive bladder (principal); R39.15 Urgency of urination; N40.1 Benign prostatic hyperplasia with lower urinary tract symptoms; N13.8 Other obstructive and reflux uropathy | CPT/HCPCS: 51798; 99212 ==

== ENCOUNTER 2021-08-15 10:02 | Outpatient (REF) | payer MEDICARE, SELFPAY ==
[2021-08-15 11:41] LABS: MANUAL DIFF FLAG NO
[2021-08-15 11:49] LABS: Basophils Absolute Auto 0.1 X10*3/uL (0.0-0.2); Basophils Percent Auto 1.1 % (0-2); Eosinophils Absolute Auto 0.4 X10*3/uL (0.0-0.4); Hematocrit 38.9 % (42.0-52.0); Hemoglobin 12.3 g/dl (14.0-18.0); Imm Gran Abs Auto 0.05 X10*3/uL (0.00-0.03); Imm Gran Pct Auto 0.6 % (0.0-0.4); Lymphocytes Absolute Auto 1.2 X10*3/uL (1.2-4.9); Mean Corpuscular HGB Conc 31.6 g/dl (31.0-36.0); Mean Corpuscular Hemoglobin 28.2 pg (27.0-33.0); Mean Corpuscular Volume 89.2 fL (80.0-98.0); Mean Platelet Volume 12.6 fL (9.4-12.4); Monocytes Absolute Auto 0.9 X10*3/uL (0.1-1.2); Monocytes Percent Auto 10.4 % (2-11); Neutrophils Absolute Auto 5.7 x10*3/uL (2.0-8.3); Neutrophils Percent Auto 68.9 % (45-73); Platelet Count 278 X10*3/uL (160-400); Red Blood Count 4.36 X10*6/uL (4.60-5.80); Red Cell Distribution Width 13.8 % (11.0-16.0); White Blood Count 8.3 X10*3/uL (4.8-10.8)
[2021-08-15 12:14] LABS: Alanine Aminotransferase 19 U/L (0-40); Albumin Level 4.4 g/dL (3.5-5.0); Alkaline Phosphatase 66 U/L (39-117); Anion Gap 16 (12-20); Aspartate Amino Transferase 23 U/L (5-37); Bilirubin Total 0.3 mg/dL (0.0-1.0); Blood Urea Nitrogen 25 mg/dL (9-16); C Reactive Protein 0.54 mg/dL (< or = 0.50); Calcium 9.8 mg/dL (8.4-10.2); Carbon Dioxide 20 mmol/L (22-29); Chloride 103 mmol/L (96-108); Estimated Glomerular Filt Rate > 60; Glucose Random 208 mg/dL (60-115); Potassium 4.2 mmol/L (3.3-5.1); Sodium 135 mmol/L (135-145); Total Protein 7.4 g/dL (6.5-8.0)
[2021-08-15 12:39] LABS: Erythrocyte Sedimentation Rate 28 MM/HR (0-15)
== END 2021-08-15 10:03 | disposition home or self-care (01) ==
LOC: HO.HMGCLDS 10:02
PROVIDERS: PCP Internal Medicine; Visit Provider Nurse Practitioner Family
DX: M06.9 Rheumatoid arthritis, unspecified (principal)
CPT/HCPCS: 36415; 80053; 85025; 85652; 86140

== ENCOUNTER → 2021-08-16 09:51 | Outpatient (BNVA) | payer MEDICARE, SELFPAY | PROVIDERS: PCP Internal Medicine; Visit Provider Nurse Practitioner Family | DX: M05.9 Rheumatoid arthritis with rheumatoid factor, unspecified (principal); M10.9 Gout, unspecified | CPT/HCPCS: 99212 ==

== ENCOUNTER → 2021-10-24 11:44 | Outpatient (BNVA) | payer MEDICARE, SELFPAY | PROVIDERS: PCP Internal Medicine; Visit Provider Urology | DX: N32.81 Overactive bladder (principal) | CPT/HCPCS: 99212 ==

== ENCOUNTER → 2021-10-25 12:16 | Outpatient (BNVA) | payer MEDICARE, SELFPAY | PROVIDERS: PCP Internal Medicine; Referring Provider Internal Medicine; Visit Provider Internal Medicine | DX: I10 Essential (primary) hypertension (principal); R60.0 Localized edema; T78.3XXS Angioneurotic edema, sequela | CPT/HCPCS: 99212 ==

== ENCOUNTER 2021-11-10 06:08 | Outpatient (REF) | payer MEDICARE, SELFPAY ==
--- NOTE | ~2021-11-10 | FL_ITS ---
EXAMINATION: XR FLUOROSCOPY WITH IMAGES CLINICAL INFORMATION: Radiculopathy. COMPARISON: None. TECHNIQUE: Fluoroscopy performed by Jess Vizcarra Fluoroscopy time: 0.5 minutes DAP: 1.30 Gycm2 Images: 3 FINDINGS: There is a needle positioned inferior to left L4 pedicle with contrast opacifying extradural space. There is loss of disc height virtually at every disc level with moderate ventral spondylosis. No aggressive lytic or sclerotic process seen. FL/FL guidance in treatment room IMPRESSION: Degenerative disc changes with moderate spondylosis. No visible acute fracture, dislocation or subluxation seen.
== END 2021-11-10 06:09 | disposition home or self-care (01) ==
LOC: HO.RADIR 06:08
PROVIDERS: Visit Provider Internal Medicine
DX: M54.16 Radiculopathy, lumbar region (principal)
CPT/HCPCS: 64483; J1100; Q9967

== ENCOUNTER 2021-11-17 09:58 | Outpatient (REF) | payer MEDICARE, SELFPAY ==
[2021-11-17 11:24] LABS: MANUAL DIFF FLAG NO
[2021-11-17 12:07] LABS: Basophils Absolute Auto 0.1 X10*3/uL (0.0-0.2); Basophils Percent Auto 1.3 % (0-2); Eosinophils Absolute Auto 0.4 X10*3/uL (0.0-0.4); Eosinophils Percent Auto 4.3 % (0-4); Hematocrit 39.4 % (42.0-52.0); Hemoglobin 12.6 g/dl (14.0-18.0); Imm Gran Pct Auto 1.2 % (0.0-0.4); Lymphocytes Absolute Auto 1.1 X10*3/uL (1.2-4.9); Lymphocytes Percent Auto 12.8 % (20-40); Mean Corpuscular Hemoglobin 28.8 pg (27.0-33.0); Mean Platelet Volume 12.6 fL (9.4-12.4); Monocytes Absolute Auto 0.9 X10*3/uL (0.1-1.2); Monocytes Percent Auto 10.5 % (2-11); Neutrophils Percent Auto 69.9 % (45-73); Platelet Count 268 X10*3/uL (160-400); Red Blood Count 4.38 X10*6/uL (4.60-5.80); Red Cell Distribution Width 13.8 % (11.0-16.0); White Blood Count 8.6 X10*3/uL (4.8-10.8)
[2021-11-17 12:29] LABS: Appearance Urine HAZY; Color Urine YELLOW; Glucose Urine UA NEG (NEG); Leukocyte Esterase Urine NEG (NEG); Nitrite Urine NEG (NEG); PH 7.5 (5.0-8.0); Specific Gravity - Urine 1.015 (1.005-1.025); Urine Blood NEG (NEG); Urine Ketones NEG (NEG); Urine Protein NEG (NEG-TRACE)
[2021-11-17 12:51] LABS: Creatinine Urine 34.03 mg/dL; Microalbum/Creatinine Ratio Ur 246.8 ug/mg cr; Protein/Creatinine Ratio, Ur 0.53 (<0.2); Total Protein Urine Random 18 mg/dL (<12)
[2021-11-17 14:09] LABS: Albumin Level 4.4 g/dL (3.5-5.0); Anion Gap 15 (12-20); Blood Urea Nitrogen 21 mg/dL (9-16); Carbon Dioxide 21 mmol/L (22-29); Chloride 103 mmol/L (96-108); Estimated Glomerular Filt Rate > 60; Phosphorus 2.7 mg/dL (2.7-4.5); Potassium 4.3 mmol/L (3.3-5.1); Sodium 135 mmol/L (135-145)
[2021-11-17 14:27] LABS: Vitamin D 25-OH Total 26.8 ng/mL (>30)
[2021-11-20 15:53] LABS: PTHI 21 pg/mL (16-77)
== END 2021-11-17 09:59 | disposition home or self-care (01) ==
LOC: HO.LAB 09:58
PROVIDERS: PCP Internal Medicine; Referring Provider Internal Medicine Nephrology; Visit Provider Nurse Practitioner Family
DX: E78.5 Hyperlipidemia, unspecified (principal); I10 Essential (primary) hypertension; M10.9 Gout, unspecified; M05.9 Rheumatoid arthritis with rheumatoid factor, unspecified; Z79.899 Other long term (current) drug therapy
CPT/HCPCS: 36415; 80051; 81003; 82040; 82043; 82306; 82310; 82565; 83735; 83970; 84100; 84156; 84520; 85025; 87086; 99212

== ENCOUNTER → 2021-12-11 08:46 | Outpatient (BNVA) | payer MEDICARE, SELFPAY | PROVIDERS: PCP Internal Medicine; Visit Provider Anesthesiology | DX: G89.4 Chronic pain syndrome (principal); M47.816 Spondylosis without myelopathy or radiculopathy, lumbar region; M48.00 Spinal stenosis, site unspecified; M06.9 Rheumatoid arthritis, unspecified; M10.9 Gout, unspecified; Z98.890 Other specified postprocedural states | CPT/HCPCS: 99212 ==

== ENCOUNTER 2021-12-29 08:38 | Outpatient (REF) | payer MEDICARE, SELFPAY ==
[2021-12-29 12:05] LABS: Alanine Aminotransferase 20 U/L (0-40); Aspartate Amino Transferase 21 U/L (5-37); Estimated Glomerular Filt Rate 58
== END 2021-12-29 08:39 | disposition home or self-care (01) ==
LOC: HO.HMGCLDS 08:38
PROVIDERS: PCP Internal Medicine; Visit Provider Nurse Practitioner Family
DX: Z79.899 Other long term (current) drug therapy (principal)
CPT/HCPCS: 36415; 82565; 84450; 84460

== ENCOUNTER 2022-02-11 18:05 | Observation (INO) | payer MEDICARE, SELFPAY ==
[2022-02-11] VITALS (7 sets, daily range): BP systolic 182–206; BP diastolic 72–79; PULSE 72–80; RESP 17–21; TEMP 36.7–37.1; O2SAT 92–96; BMI 25.8
--- NOTE | ~2022-02-11 | CT_ITS ---
EXAMINATION: HEAD CT WITHOUT CONTRAST CERVICAL SPINE CT WITHOUT CONTRAST CLINICAL INFORMATION: Fall. COMPARISON: None. TECHNIQUE: Contiguous axial imaging of the head was performed without the administration of IV contrast. Axial multidetector volumetric images were also performed through the cervical spine without intravenous contrast. Multiplanar reconstructed images in coronal and sagittal orientations were submitted. This CT examination was performed using dose optimization techniques as appropriate, variously including the following: *Automated exposure control *Adjustment of mA and/or kV according to patient size (this includes techniques or standardized protocols for targeted exams where dose is matched to indication/reason for exam; i.e. extremities or head) *Use of iterative reconstruction technique DOSE: 976 mGy-cm FINDINGS: HEAD: There is no evidence of acute intracranial hemorrhage or territorial infarction. No abnormal mass-effect or midline shift. No extra-axial fluid collections. Bey to white matter differentiation is well preserved. The ventricles are normal in size and configuration. A few subtle foci of hypoattenuation in the subcortical and periventricular white matter are most consistent with chronic microangiopathic changes. Calcific atherosclerosis is present within the cavernous segments of the internal carotid arteries. The soft tissues and osseous structures are normal. The sinuses and mastoid air cells are clear. CERVICAL SPINE: Vertebral body heights are normal. No fractures of the vertebral bodies or posterior elements. There is anterolisthesis of C3 on C4 by 3 mm. This is chronic and related to the facet arthropathy at this level. No additional malalignment. Degenerative changes are present at the craniocervical and atlantoaxial articulations, though normal alignment is maintained. Severe multilevel degenerative disc disease is noted from C3-C4 through C6-C7 with marked loss of vertebral disc height, end plate osteophytes, uncovertebral osteophytes, vacuum phenomenon, endplate sclerosis, and cystic change. There is ankylosis at C2-C3 involving both the vertebral bodies and facet joints. Marked multilevel facet arthropathy is seen bilaterally. Posterior disc osteophyte complexes produce central canal stenoses at multiple levels, most notably at C4-C5 and C5-C6. Multilevel neural foraminal encroachment due to uncovertebral osteophytes and facet osteophytes is noted from C3-C4 through C6-C7. No significant paravertebral soft tissue swelling. Atherosclerotic calcifications are present in the carotid arteries. Imaged portions of the lung apices are clear. CT/CT cervical spine wo con IMPRESSION: 1. No acute intracranial pathology. 2. No acute fracture or acute malalignment in the cervical spine. 3. Severe multilevel degenerative spondylosis in the cervical spine with chronic grade 1 anterolisthesis of C3 and C4 and multilevel central canal and neural foraminal narrowing.
--- NOTE | ~2022-02-11 | CT_ITS ---
EXAMINATION: CT CHEST WITHOUT CONTRAST CLINICAL INFORMATION: Status post fall COMPARISON: None TECHNIQUE: Multidetector volumetric CT imaging of the chest was done. Axial MIP volume rendering provided. Sagittal and coronal reformatted images were obtained. This CT examination was performed using dose optimization techniques as appropriate, variously including the following: *Automated exposure control *Adjustment of mA and/or kV according to patient size (this includes techniques or standardized protocols for targeted exams where dose is matched to indication/reason for exam; i.e. extremities or head) *Use of iterative reconstruction technique DLP: 338 mGy-cm FINDINGS: LUNGS: Mild bibasilar atelectasis. No airspace consolidation. No pneumothorax or emphysematous change. Multiple small lateral calcified granulomas. There is 7 mm mean diameter subpleural pulmonary nodule in the lingula on series 5 image 370. Small sub-6 mm perifissural nodule along the right ager fissure and 4 mm right upper lobe pulmonary nodule on image 236. Central through segmental airways are clear. MEDIASTINUM: No cardiomegaly or pericardial effusion. Moderate LAD coronary calcifications. Normal caliber thoracic aorta with mild vascular calcification. Nondilated central pulmonary trunk. No mediastinal or hilar lymphadenopathy. Small calcified right hilar and subcarinal lymph nodes noted. PLEURA: No pleural effusion. No pneumothorax. AXILLA: No lymphadenopathy. UPPER ABDOMEN: Possible small hiatal hernia. Diverticulosis of the colon at the splenic flexure. Imaged upper abdominal viscera otherwise unremarkable. OSSEOUS STRUCTURES: Minimally displaced fracture the anterolateral right seventh rib. Nondisplaced fractures of the anterolateral right fifth and sixth ribs. Nondisplaced left lateral fifth rib fracture. Mildly displaced left lateral sixth and seventh rib fractures. No traumatic subluxation or acute fracture in the thoracic spine. Mild multilevel degenerative disc disease. Small subcentimeter sclerotic lesion likely a bone island at T9. CT/CT chest wo con IMPRESSION: 1. Acute fractures of the bilateral fifth through seventh ribs. 2. No acute pulmonary process. 3. 3 small noncalcified pulmonary nodules, largest 7 mm in mean diameter in the lingula. Suggest follow-up CT in 3-6 months time per Fleischner Society guidelines. 4. Multiple calcified granulomas compatible with prior granulomatous infection/disease. Fleischner guidelines were followed.
--- NOTE | ~2022-02-11 | CT_ITS ---
EXAMINATION: CT ABDOMEN AND PELVIS WITH CONTRAST CLINICAL INFORMATION: Fall, bilateral rib fracture COMPARISON: Chest CT from earlier today TECHNIQUE: Multidetector volumetric images were obtained from the superior aspect of the liver through the pubic symphysis following administration 85 mL of Omnipaque 350 intravenous contrast. Sagittal and coronal reformatted images were obtained on the technologist's workstation. Oral contrast: No This CT examination was performed using dose optimization techniques as appropriate, variously including the following: *Automated exposure control *Adjustment of mA and/or kV according to patient size (this includes techniques or standardized protocols for targeted exams where dose is matched to indication/reason for exam; i.e. extremities or head) *Use of iterative reconstruction technique DLP: 623 mGy-cm FINDINGS: LUNG BASES: Dependent bibasilar opacities favor atelectasis. LIVER, GALLBLADDER, AND BILIARY TREE: There is hypoattenuation of the liver suggesting steatosis. No biliary ductal dilatation. Cholelithiasis is noted. PANCREAS: Unremarkable. SPLEEN: Unremarkable. ADRENAL GLANDS: Unremarkable. KIDNEYS AND URETERS: No hydronephrosis or obstructing calculus. There are multiple bilateral hypodense renal lesions favoring cysts, measuring up to approximately 4 cm in the left kidney; no follow-up recommended. BLADDER: Unremarkable. GASTROINTESTINAL TRACT: No evidence of bowel obstruction. There is colonic diverticulosis without convincing diverticulitis. Large amount of stool in the rectum. The appendix is unremarkable. No free fluid or free air is seen. ABDOMINAL WALL: No significant hernia is appreciated. LYMPH NODES: Normal. VASCULAR: There is atherosclerotic calcification along the aorta and iliac arteries. PELVIC VISCERA: Unremarkable. OSSEOUS STRUCTURES: Redemonstrated fractures of the bilateral anterior fifth, sixth, and seventh ribs. Degenerative changes are noted in the spine. CT/CT abdomen pelvis w con IMPRESSION: Redemonstrated bilateral fifth, sixth, and seventh rib fractures. No additional acute traumatic findings identified in the abdomen/pelvis. Chronic appearing changes as noted above.
--- NOTE | 2022-02-11 18:38 | ED_ITS ---
HPI - Syncope General Chief Complaint: Syncope Stated Complaint: Fall/Rib pain Time Seen by Provider: 02/11/22 18:38 Source: patient Mode of arrival: ambulatory Limitations: no limitations History of Present Illness HPI narrative: Patient wityh history of diabetes, htn no known coronary artery disease apparently eating was reddish choked on it start coughing and passed out fell to the ground woke up complaining of pain in bilateral ribs and slight headache no history of syncope in the past no history of cardiac arrhythmias or coronary disease no seizures post episode patient was alert oriented x3 complaining of pain bilateral ribs no headache no neck pain no hip pain no other injuries no history of similar episode in the past blood pressure on arrival was 203/78 pulse rate 75 Related Data Home Medications Medication Instructions Recorded Confirmed torsemide 10 mg tablet 10 mg PO DAILY 09/12/20 11/17/21 doxazosin 4 mg tablet (Cardura) 4 mg PO DAILY 08/16/21 11/17/21 blood-glucose meter (FreeStyle #1 ea 10/24/21 11/17/21 Lite Meter kit) Previous Rx's Medication Instructions Recorded spironolactone 25 mg tablet 25 mg PO DAILY 90 days #90 tabs 03/29/20 nifedipine 60 mg tablet,extended 60 mg PO DAILY #90 tabs 04/14/21 release blood-glucose meter #1 ea 08/03/21 metformin 500 mg tablet 500 mg PO DAILY 90 days #90 tabs 09/26/21 hydralazine 100 mg tablet 100 mg PO TID 90 days #270 tabs 10/03/21 solifenacin 10 mg tablet 10 mg PO DAILY 30 days #90 tabs 10/30/21 carvedilol 25 mg tablet (Coreg) 25 mg PO BID #180 tabs 12/19/21 fenofibrate nanocrystallized 145 145 mg PO DAILY #90 tabs 12/22/21 mg tablet lancets 28 gauge (FreeStyle #100 ea 12/29/21 Lancets) leflunomide 20 mg tablet 20 mg PO DAILY #90 caps 12/29/21 blood sugar diagnostic (Blood #50 ea 01/01/22 Glucose Test strips) lorazepam 0.5 mg tablet 0.5 mg PO BEDTIME #90 tabs 01/25/22 allopurinol 100 mg tablet 100 mg PO DAILY #90 tabs 02/05/22 Allergies Allergy/AdvReac Type Severity Reaction Status Date / Time levofloxacin [From LEVAQUIN] Allergy Severe ANGIOEDEMA Verified 12/11/21 09:03 (EXACT SOURCE UNCERTAIN) lisinopril [LISINOPRIL] Allergy Severe ANGIOEDEMA Verified 12/11/21 09:03 ( EXACT SOURCE UNCERTAIN) Review of Systems Review of Systems: Yes all other systems are reviewed and are negative PMFSH Past Medical History Medical History Angioedema Chronic pain syndrome Diabetes mellitus Diabetes mellitus Disc degeneration, lumbar Essential hypertension Gout, arthritis Hypercholesterolemia Leg edema Podagra Rheumatoid arthritis Seropositive rheumatoid arthritis Spinal stenosis Spondylosis of lumbar region without myelopathy or radiculopathy Swelling of both parotid glands Surgical History History of bilateral cataract extraction History of bladder surgery History of cryosurgery History of endoscopy History of hernia repair Family History Family History Father Cardiovascular disease Diabetes Mother Diabetes Brother No problems noted. Brother No problems noted. Sister No problems noted. Sister No problems noted. Son No problems noted. Son No problems noted. Daughter No problems noted. Daughter No problems noted. Daughter No problems noted. Other Mental health disorder Social History Social History Housing: House Alcohol intake: never Patient Tobacco Use Status: Never used Tobacco e-Cigarette/Vaping Use: Never Used Second Hand Smoke Exposure: No Use of substances other than those prescribed or required for medical reasons: No Advance Directives: No Advance Directives Information Provided: No service: No Current occupational status: retired Cognitive needs: No Hearing needs: No Vision needs: No Physical Exam Vital Signs: Vital Signs: Last Vital Signs Temp 98.1 F 02/11/22 19:53 Pulse 79 02/11/22 23:50 Resp 17 02/11/22 23:50 BP 185/75 H 02/11/22 23:50 Pulse Ox 96 02/11/22 23:50 O2 Del Method 02/11/22 23:50 O2 Flow Rate 2 02/11/22 22:46 BMI result Body Mass Index 25.8 Appearance: Alert. Oriented X3. No acute distress. Eyes: PERRLA, No Nystagmus HEENT: Pharynx normal. Oral Mucosa moist atraumatic normocephalic Neck: Normal inspection. Neck supple. No carotid bruit no midline tenderness CVS: Normal heart rate and rhythm. Pulses normal. Respiratory: No respiratory distress. Equal air entry bilateral, no wheezing/rales/rhonchi bilateral lower rib tenderness no ecchymosis or subcutaneous emphysema Abdomen: Soft and nontender. Bowel sounds are present, no mass palpable, no CVA tenderness Skin: Skin warm and dry. Normal skin color. Normal skin turgor. Extremities: No lower extremity edema. No calf tenderness Neuro: Oriented X 3. No motor deficit. No sensory deficit.No cerebellar signs , cranial nerves II-XII intact MDM - Syncope MDM Narrative Medical decision making narrative: 0010 Patient with syncope after choking is with fall with bilateral multiple rib fractures will admit patient for observation to rule out arrhythmia. At this time the snow signs of bleeding patient has slightly elevated D-dimer unable do CTA because of radiation patient denies any shortness of breath no leg swelling will give him prophylactically Lovenox plan for V/Q scan in the a.m. Differential Diagnosis Differential diagnosis: Likely vasovagal syncope Medical Records Attestation: I reviewed the patient's medical records. Lab Data Result diagrams: 02/11/22 19:37 02/11/22 19:37 Labs: Lab Results 02/11/22 02/11/22 02/11/22 Range/Units 19:37 19:37 19:37 WBC 8.8 (4.8-10.8) X10*3/uL RBC 4.23 L (4.60-5.80) X10*6/uL Hgb 12.2 L (14.0-18.0) g/dl Hct 36.8 L (42.0-52.0) % MCV 87.0 (80.0-98.0) fL MCH 28.8 (27.0-33.0) pg MCHC 33.2 (31.0-36.0) g/dl RDW 13.8 (11.0-16.0) % Plt Count 240 (160-400) X10*3/uL MPV 11.6 (9.4-12.4) fL Immature Gran % (Auto) 0.3 (0.0-0.4) % Neut % (Auto) 73.9 H (45-73) % Lymph % (Auto) 10.5 L (20-40) % Harmon % (Auto) 11.1 H (2-11) % Eos % (Auto) 3.4 (0-4) % Baso % (Auto) 0.8 (0-2) % Lymph # (Auto) 0.9 L (1.2-4.9) X10*3/uL Harmon # (Auto) 1.0 (0.1-1.2) X10*3/uL Eos # (Auto) 0.3 (0.0-0.4) X10*3/uL Baso # (Auto) 0.1 (0.0-0.2) X10*3/uL Abs Immat Gran (auto) 0.03 (0.00-0.03) X10*3/uL Absolute Neuts (auto) 6.5 (2.0-8.3) x10*3/uL Absolute Nucleated RBC 0.000 (0.0-0.012) X10*3/uL Nucleated RBC % (auto) 0.0 (0.0-0.2) /100WBC D-Dimer High Sensitivty NG/ML Sodium (135-145) mmol/L Potassium (3.3-5.1) mmol/L Chloride (96-108) mmol/L Carbon Dioxide (22-29) mmol/L Anion Gap (12-20) BUN (9-16) mg/dL Creatinine (0.5-1.4) mg/dL Estim Creat Clear Calc Estimated GFR Random Glucose (60-115) mg/dL Calcium (8.4-10.2) mg/dL Total Bilirubin (0.0-1.0) mg/dL AST (5-37) U/L ALT (0-40) U/L Alkaline Phosphatase (39-117) U/L Troponin I High Sens 14.6 (<3.5-35.0) ng/L Total Protein (6.5-8.0) g/dL Albumin (3.5-5.0) g/dL COVID-19 ([facility]) Negative (Negative) COVID-19 Clin Com See Note 08/28/22 08/28/22 Range/Units 19:37 21:04 WBC (4.8-10.8) X10*3/uL RBC (4.60-5.80) X10*6/uL Hgb (14.0-18.0) g/dl Hct (42.0-52.0) % MCV (80.0-98.0) fL MCH (27.0-33.0) pg MCHC (31.0-36.0) g/dl RDW (11.0-16.0) % Plt Count (160-400) X10*3/uL MPV (9.4-12.4) fL Immature Gran % (Auto) (0.0-0.4) % Neut % (Auto) (45-73) % Lymph % (Auto) (20-40) % Harmon % (Auto) (2-11) % Eos % (Auto) (0-4) % Baso % (Auto) (0-2) % Lymph # (Auto) (1.2-4.9) X10*3/uL Harmon # (Auto) (0.1-1.2) X10*3/uL Eos # (Auto) (0.0-0.4) X10*3/uL Baso # (Auto) (0.0-0.2) X10*3/uL Abs Immat Gran (auto) (0.00-0.03) X10*3/uL Absolute Neuts (auto) (2.0-8.3) x10*3/uL Absolute Nucleated RBC (0.0-0.012) X10*3/uL Nucleated RBC % (auto) (0.0-0.2) /100WBC D-Dimer High Sensitivty 420 NG/ML Sodium 134 L (135-145) mmol/L Potassium 4.0 (3.3-5.1) mmol/L Chloride 99 (96-108) mmol/L Carbon Dioxide 23 (22-29) mmol/L Anion Gap 16 (12-20) BUN 21 H (9-16) mg/dL Creatinine 1.13 (0.5-1.4) mg/dL Estim Creat Clear Calc 46.0 Estimated GFR > 60 Random Glucose 147 H (60-115) mg/dL Calcium 9.1 D (8.4-10.2) mg/dL Total Bilirubin 0.5 (0.0-1.0) mg/dL AST 31 D (5-37) U/L ALT 28 (0-40) U/L Alkaline Phosphatase 58 (39-117) U/L Troponin I High Sens (<3.5-35.0) ng/L Total Protein 7.0 (6.5-8.0) g/dL Albumin 4.4 (3.5-5.0) g/dL COVID-19 ([facility]) (Negative) COVID-19 Clin Com ECG Data Attestation: I personally reviewed and interpreted this ECG as follows: Interpretation: Normal sinus rhythm heart rate 67 beats per minute inverted nonspecific T-waves inverted inferior leads no acute ischemia Critical Care Time Critical Care Time Critical Care Time: Yes Total Critical Care Time: 55 Attestation: I spent 55 minutes of critical care, with interventions, assessments, speaking to patient, consultants, and family. Discharge Plan Discharge Clinical Impression: Fracture of multiple ribs of both sides, Syncope and collapse Patient Disposition: Admitted As Inpatient
--- NOTE | 2022-02-11 18:52 | ECG_ITS ---
Test Reason : FALL Blood Pressure : / mmHG Vent. Rate : 067 BPM Atrial Rate : 067 BPM P-R Int : 170 ms QRS Dur : 088 ms QT Int : 396 ms P-R-T Axes : 047 018 004 degrees QTc Int : 418 ms Normal sinus rhythm Nonspecific ST abnormality Abnormal ECG When compared with ECG of 08-DEC-2019 04:28, T wave inversion now evident in Inferior leads T wave amplitude has decreased in Lateral leads Referred By: Glenroy Lopez Electronically Signed By:GLORIA MORGAN
[2022-02-11 19:42] LABS: MANUAL DIFF FLAG NO
[2022-02-11 19:43] LABS: Basophils Absolute Auto 0.1 X10*3/uL (0.0-0.2); Basophils Percent Auto 0.8 % (0-2); Eosinophils Absolute Auto 0.3 X10*3/uL (0.0-0.4); Eosinophils Percent Auto 3.4 % (0-4); Hematocrit 36.8 % (42.0-52.0); Hemoglobin 12.2 g/dl (14.0-18.0); Imm Gran Abs Auto 0.03 X10*3/uL (0.00-0.03); Imm Gran Pct Auto 0.3 % (0.0-0.4); Lymphocytes Absolute Auto 0.9 X10*3/uL (1.2-4.9); Lymphocytes Percent Auto 10.5 % (20-40); Mean Corpuscular HGB Conc 33.2 g/dl (31.0-36.0); Mean Corpuscular Hemoglobin 28.8 pg (27.0-33.0); Mean Platelet Volume 11.6 fL (9.4-12.4); Monocytes Percent Auto 11.1 % (2-11); Neutrophils Absolute Auto 6.5 x10*3/uL (2.0-8.3); Neutrophils Percent Auto 73.9 % (45-73); Platelet Count 240 X10*3/uL (160-400); Red Blood Count 4.23 X10*6/uL (4.60-5.80); Red Cell Distribution Width 13.8 % (11.0-16.0); White Blood Count 8.8 X10*3/uL (4.8-10.8)
--- NOTE | 2022-02-11 19:44 | PC.NURSE ---
Assumed care of pt at 1900. Pt states he lost consciousness and fell at around noon time yesterday. He was eating a radish and choked on it prior to losing consciousness. Pt fell back and struck his head. Pt denies head pain, but states he has pain in his ribs. Pt states when he takes a deep breath he experiences pain in his ribs.
[2022-02-11 19:59] LABS: COVID-19 Test Negative (Negative); IDNOW Serial# 16C4AD1C
[2022-02-11 20:00] LABS: Alanine Aminotransferase 28 U/L (0-40); Albumin Level 4.4 g/dL (3.5-5.0); Alkaline Phosphatase 58 U/L (39-117); Anion Gap 16 (12-20); Aspartate Amino Transferase 31 U/L (5-37); Bilirubin Total 0.5 mg/dL (0.0-1.0); Blood Urea Nitrogen 21 mg/dL (9-16); Calcium 9.1 mg/dL (8.4-10.2); Carbon Dioxide 23 mmol/L (22-29); Chloride 99 mmol/L (96-108); Estimated Glomerular Filt Rate > 60; Glucose Random 147 mg/dL (60-115); Sodium 134 mmol/L (135-145)
[2022-02-11 20:06] LABS: Troponin-I High Sensitivity 14.6 ng/L (<3.5-35.0)
[2022-02-11 21:21] LABS: D Dimer High Sensitivity 420 NG/ML
[2022-02-11] MEDS: hydrALAZINE HCl 20 MG/ML VIAL 10 MG IVPUSH (21:48)
--- NOTE | 2022-02-11 22:55 | PC.NURSE ---
Pt bp of 182/72. MD aware.
[2022-02-11] MEDS: ondansetron HCL 4 MG/2 ML VIAL IVPUSH (22:56)
[2022-02-11] MEDS: Morphine Sulfate 4 MG/ML CARTRIDGE IVPUSH (22:57)
[2022-02-11] MEDS: iohexoL 350 MG/ML 100 ML INFUS..BTL IV (23:33)
--- NOTE | 2022-02-11 23:57 | PC.NURSE ---
Pt no longer on 2L O2 as he is maintaining O2Sat of 96% RA
[2022-02-12] VITALS (9 sets, daily range): BP systolic 126–197; BP diastolic 56–93; PULSE 65–96; RESP 16–21; TEMP 35.3–36.9; O2SAT 90–97
--- NOTE | 2022-02-12 01:01 | P.HPHOSP_ITS ---
History of Present Illness Date of Service: 02/12/22 Chief Complaint: syncope 87-year-old male with past medical history of chronic pain syndrome, diabetes, HTN, HLD, RA, spinal stenosis, BPH, DJD, presents the the ED with an episode of syncope. Patient reports that he was eating a reddish when all of a sudden he started choking on the reddish, he was coughing and choking for few minutes when all of a sudden he passed out. He was down to the floor for about 5 seconds, when his son ran to him after hearing a thud, he had already regained consciousness, he had no postictal symptoms. He denies feeling any palpitations, no chest pain, no dizziness or change in vision prior to passing out. He denies any loss of bladder or bowel control. Reports no previous similar episode. Reports no difficulty with Swallowing patient otherwise denies any abdominal pain nausea or vomiting, no diarrhea constipation, no urinary symptoms and no lower extremity edema. On arrival patient found to have blood pressure of 203/78 Labs are significant for WBC of 8.8, hemoglobin of 12.2, hematocrit 36.8, sodium 134, BUN of 21, creatinine of 1.13 which is around his baseline, he has a D- dimer of 420, troponin of 14.6, EKG shows normal sinus rhythm with T-wave inversion in leads 3 with no other abnormal findings on EKG, imaging including chest, abdominal pelvic CT shows acute fractures of the bilateral 5th through 7 ribs, no acute pulmonary process, 3 small noncalcified pulmonary nodules largest 7 mm, recommend follow-up CT in 3-6 month, multiple calcified granulomas compatible with prior granulomatous infection/disease patient will be admitted for observation Review of Systems Review of Systems: Yes all other systems are reviewed and are negative [facility] Medical History Angioedema Chronic pain syndrome Diabetes mellitus Diabetes mellitus Disc degeneration, lumbar Essential hypertension Gout, arthritis Hypercholesterolemia Leg edema Podagra Rheumatoid arthritis Seropositive rheumatoid arthritis Spinal stenosis Spondylosis of lumbar region without myelopathy or radiculopathy Swelling of both parotid glands Family History Father Cardiovascular disease Diabetes Mother Diabetes Brother No problems noted. Brother No problems noted. Sister No problems noted. Sister No problems noted. Son No problems noted. Son No problems noted. Daughter No problems noted. Daughter No problems noted. Daughter No problems noted. Other Mental health disorder Surgical History History of bilateral cataract extraction History of bladder surgery History of cryosurgery History of endoscopy History of hernia repair Social History Housing: House Alcohol intake: never Patient Tobacco Use Status: Never used Tobacco e-Cigarette/Vaping Use: Never Used Second Hand Smoke Exposure: No Use of substances other than those prescribed or required for medical reasons: No Advance Directives: No Advance Directives Information Provided: No service: No Current occupational status: retired Cognitive needs: No Hearing needs: No Vision needs: No Meds Allergies Allergy/AdvReac Type Severity Reaction Status Date / Time levofloxacin [From LEVAQUIN] Allergy Severe ANGIOEDEMA Verified 12/11/21 09:03 (EXACT SOURCE UNCERTAIN) lisinopril [LISINOPRIL] Allergy Severe ANGIOEDEMA Verified 12/11/21 09:03 ( EXACT SOURCE UNCERTAIN) Home Medications Medication Instructions Recorded Confirmed Last Taken Type torsemide 10 mg tablet 10 mg PO DAILY 09/12/20 02/12/22 Unknown History doxazosin 4 mg tablet (Cardura) 4 mg PO DAILY 08/16/21 02/12/22 Unknown History blood-glucose meter (FreeStyle #1 ea 10/24/21 11/17/21 Unknown History Lite Meter kit) Physical Exam Vital Signs and Narrative: Vital Signs: Last Vital Signs Temp 98.1 F 02/11/22 19:53 Pulse 79 02/11/22 23:50 Resp 17 02/11/22 23:50 BP 185/75 H 02/11/22 23:50 Pulse Ox 96 02/11/22 23:50 O2 Del Method 02/11/22 23:50 O2 Flow Rate 2 02/11/22 22:46 BMI result Body Mass Index 25.8 Const: General: cooperative and no acute distress Orientation/co nsciousness: patient oriented x3 Eyes: General: appearance normal, both eyes and all related structures Pupils: Equal, round and reactive pupils present Resp: Effort & Inspection: normal respiratory effort Auscultation: clear to auscultation bilaterally Cardio: Rate: regular rate Rhythm: regular rhythm GI: Palpation (GI): Soft to palpation Auscultation: normal bowel sounds Skin: General skin exam: no rashes or lesions noted Neuro: Other: no neurological deficits, cranial nerves 2-12 intact, strength 5/5 in all extremities General: patient oriented x3 Cranial nerves: Yes Equal, round and reactive pupils present Cognition (Neuro): normal cognition Extrem: General: Yes normal to inspection and Yes no pedal edema Results Labs CBC and Chem 7: 02/12/22 04:40 02/12/22 04:40 Labs: Laboratory Results - last 24 hr 02/11/22 02/11/22 02/11/22 19:37 19:37 19:37 MCV 87.0 MCH 28.8 MCHC 33.2 RDW 13.8 Plt Count 240 MPV 11.6 Immature Gran % (Auto) 0.3 Neut % (Auto) 73.9 H Lymph % (Auto) 10.5 L Lipscomb % (Auto) 11.1 H Eos % (Auto) 3.4 Baso % (Auto) 0.8 Lymph # (Auto) 0.9 L [place]comb # (Auto) 1.0 Eos # (Auto) 0.3 Baso # (Auto) 0.1 Abs Immat Gran (auto) 0.03 Absolute Neuts (auto) 6.5 Absolute Nucleated RBC 0.000 Nucleated RBC % (auto) 0.0 D-Dimer High Sensitivty Anion Gap 16 Estim Creat Clear Calc 46.0 Estimated GFR > 60 Random Glucose 147 H Calcium 9.1 D Total Bilirubin 0.5 AST 31 D ALT 28 Alkaline Phosphatase 58 Total Protein 7.0 Albumin 4.4 COVID-19 ([facility]) Negative COVID-19 Clin Com See Note 02/11/22 21:04 MCV MCH MCHC RDW Plt Count MPV Immature Gran % (Auto) Neut % (Auto) Lymph % (Auto) Lipscomb % (Auto) Eos % (Auto) Baso % (Auto) Lymph # (Auto) Lipscomb # (Auto) Eos # (Auto) Baso # (Auto) Abs Immat Gran (auto) Absolute Neuts (auto) Absolute Nucleated RBC Nucleated RBC % (auto) D-Dimer High Sensitivty 420 Anion Gap Estim Creat Clear Calc Estimated GFR Random Glucose Calcium Total Bilirubin AST ALT Alkaline Phosphatase Total Protein Albumin COVID-19 ([facility]) COVID-19 Clin Com Imaging Radiologist's Impressions: Impressions Head CT 02/11/22 20:42 IMPRESSION: 1. No acute intracranial pathology. 2. No acute fracture or acute malalignment in the cervical spine. 3. Severe multilevel degenerative spondylosis in the cervical spine with chronic grade 1 anterolisthesis of C3 and C4 and multilevel central canal and neural foraminal narrowing. Cervical Spine CT 02/11/22 20:48 IMPRESSION: 1. No acute intracranial pathology. 2. No acute fracture or acute malalignment in the cervical spine. 3. Severe multilevel degenerative spondylosis in the cervical spine with chronic grade 1 anterolisthesis of C3 and C4 and multilevel central canal and neural foraminal narrowing. Chest CT 02/11/22 20:49 IMPRESSION: 1. Acute fractures of the bilateral fifth through seventh ribs. 2. No acute pulmonary process. 3. 3 small noncalcified pulmonary nodules, largest 7 mm in mean diameter in the lingula. Suggest follow-up CT in 3-6 months time per Fleischner Society guidelines. 4. Multiple calcified granulomas compatible with prior granulomatous infection/disease. Fleischner guidelines were followed. Abdomen/Pelvis CT 02/11/22 23:32 IMPRESSION: Redemonstrated bilateral fifth, sixth, and seventh rib fractures. No additional acute traumatic findings identified in the abdomen/pelvis. Chronic appearing changes as noted above. Assessment and Plan (1) Syncope and collapse: Status: Acute (2) Fracture of multiple ribs of both sides: Status: Acute (3) Dysphagia: Status: Acute Plan is is an 87-year-old male with past medical history of diabetes, hypertension, GED, HLD, BPH, presents to the hospital with syncopal episode after choking on food # syncope - likely vasovagal secondary to choking episode - but given his age, and comorbidities, we cannot rule out rhythm - troponin negative, EKG shows no significant ST T wave changes - will admit to telemetry, will obtain echocardiogram # fracture of multiple ribs of both side - patient denies any pain at this time, no difficulty with respiration - incentive spirometry - p.r.n. pain control # dysphagia - denies any history of dysphagia - will obtain speech eval # diabetes - low-dose sliding scale insulin - diabetic diet # hypertension - elevated - received 2 doses of hydralazine with improvement his blood pressure - will resume home medications # history of gout - continue allopurinol DVT prophylaxis: Lovenox Quality Stroke Does the patient have a stroke diagnosis?: No VTE Prior VTE?: No VTE Risk Level:: Medical - low VTE Device Contraindication: N/A - Device Ordered VTE Drug Contraindication: Treatment Not Indicated
[2022-02-12] MEDS: Enoxaparin Sodium 80 MG/0.8 ML SYRINGE SUBCUT (01:56)
--- NOTE | 2022-02-12 01:58 | PC.NURSE ---
Pt resting quietly. VS and pain level assessed. Lovenox 80 mg administered per AUG. Will continue to monitor
--- NOTE | 2022-02-12 02:07 | PC.NURSE ---
Notified MD that pt's RR drops to 9 when sleeping. MD wants 2L NC O2 applied. Pt now on 2L NC.
[2022-02-12] MEDS: hydrALAZINE HCl 20 MG/ML VIAL 5 MG IVPUSH (02:31)
[2022-02-12 04:55] LABS: MANUAL DIFF FLAG NO
[2022-02-12 04:56] LABS: Basophils Absolute Auto 0.1 X10*3/uL (0.0-0.2); Basophils Percent Auto 0.8 % (0-2); Eosinophils Absolute Auto 0.3 X10*3/uL (0.0-0.4); Eosinophils Percent Auto 3.6 % (0-4); Hematocrit 36.5 % (42.0-52.0); Hemoglobin 12.1 g/dl (14.0-18.0); Imm Gran Abs Auto 0.02 X10*3/uL (0.00-0.03); Imm Gran Pct Auto 0.3 % (0.0-0.4); Lymphocytes Percent Auto 12.9 % (20-40); Mean Corpuscular HGB Conc 33.2 g/dl (31.0-36.0); Mean Corpuscular Hemoglobin 29.2 pg (27.0-33.0); Mean Platelet Volume 12.1 fL (9.4-12.4); Monocytes Absolute Auto 0.8 X10*3/uL (0.1-1.2); Monocytes Percent Auto 10.9 % (2-11); Neutrophils Absolute Auto 5.4 x10*3/uL (2.0-8.3); Neutrophils Percent Auto 71.5 % (45-73); Platelet Count 234 X10*3/uL (160-400); Red Blood Count 4.15 X10*6/uL (4.60-5.80); Red Cell Distribution Width 13.7 % (11.0-16.0); White Blood Count 7.6 X10*3/uL (4.8-10.8)
[2022-02-12 05:27] LABS: Anion Gap 14 (12-20); Blood Urea Nitrogen 16 mg/dL (9-16); Carbon Dioxide 26 mmol/L (22-29); Chloride 100 mmol/L (96-108); Creatinine Clr Calc Pharmacy 56.5; Estimated Glomerular Filt Rate > 60; Glucose Random 136 mg/dL (60-115); Sodium 136 mmol/L (135-145)
--- NOTE | 2022-02-12 07:00 | CA_ITS ---
Transthoracic Echocardiogram Patient (Last, First, Middle): Corby Faith R Gender: Male Date of : 1935 Age: 87 Procedure Date: 02/12/2022 Procedure Type: Transthoracic Echocardiogram Location: ER Height: 172.72 cm Weight: 79.38 kg BSA: 1.93 m2 Heart Rate: 63 bpm BP: 161 / 72 mmHg Day Habilitation Specialist: MEJIA Referring MD: Karen Logan MD Food And Beverage Controller: Reagan Candelario MD Symptoms: syncope Study Quality: Adequate ECG Rhythm: Sinus Conclusions: - 1. Normal LV systolic function with impaired relaxation filling pattern 2. Early to mild aortic stenosis 3. No gross pericardial effusion Findings Left Ventricle Normal left ventricular size, thickness, and systolic function. The visually estimated ejection fraction is between 60-65%. Spectral Doppler is indicative of an impaired relaxation filling pattern. Right Ventricle Normal right ventricular cavity size and systolic function. Atria The left atrium is likely dilated. Interatrial shunt cannot be excluded. The right atrium is normal in size. Aortic Valve There is mild calcification of the aortic valve. There is mild thickening of the aortic valve. There is mild aortic valve stenosis. The mean gradient is 9 mmHg. The aortic valve area is 1.85 cm2. There is no aortic valve regurgitation. Mitral Valve There is mild anterior and posterior mitral leaflet thickening. There is moderate mitral annular calcification. There is trace mitral valve regurgitation. There is no mitral valve stenosis. Pulmonic Valve The pulmonic valve was not well visualized. Tricuspid Valve Likely normal tricuspid valve structure and function. Tricuspid regurgitation envelope is inadequate for calculation of right ventricular systolic pressure. Normal right atrial pressure. Great Vessels All visible segments of the aorta are normal in size. The pulmonary artery was not well visualized. Venous The inferior vena cava is normal in size and collapses greater than 50% with inspiration. Pericardium/Pleural There is no evidence of pericardial effusion. Prior Study Comparison Changes noted compared to prior study dated: 03/22/2020. Early to mild aortic stenosis Measurements 2D Linear Measurements IVSd: 0.99 0.6-0.9/0.6-1.0 cm LVIDd: 4.36 3.9-5.3/4.2-5.9 cm LVIDd Index: 2.26 2.4-3.2/2.2-3.1 cm/m2 LVIDs: 2.64 2.0-3.6 cm LVPWd: 0.74 0.7-1.1 cm LA Diam: 3.90 2.7-3.8/3.0-4.0 cm LAIDs Index: 2.02 1.5-2.3 cm/m2 LV Mass: 148.47 67-162/88-224 g LV Mass Index: 76.93 43-95/49-115 g/m2 LVOT Diam: 2.10 3.0+(-)1.3 cm 2D Systolic Function EF 4C: 63.40 >55% EF 2C: 75.70 >55% EF BiP: 69.90 >55% Mitral Valve MV Pk E: 0.90 MV PK A: 0.96 MV Decel Time: 277.00 E/A: 0.90 E'Lateral: 9.03 E'Medial: 7.29 E/E' Med: 12.30 E/E' Lat: 10.00 PHT: 81.00 MVA PHT: 2.72 Decel Routt: 3.25 Aortic Valve AoV Pk Rohith: 2.02 AoV Mn Rohith: 1.48 AoV VTI: 0.48 AoV Pk Grad: 16.00 Aov Mn Grad: 9.00 ALVIN Cont.VTI: 1.85 LVOT LVOT Pk Rohith: 0.99 LVOT Mn Rohith: 0.72 LVOT VTI: 0.26 LVOT Pk Grad: 4.00 LVOT Mn Grad: 3.00 LVOT Diam: 2.10 LVOT Area: 3.46 Diastolic Function MV Pk E: 0.90 MV Pk A: 0.96 E/A: 0.90 E'Medial: 7.29 E/E' Med: 12.30 E' Laterial: 9.03 E/E' Lat: 10.00 Right Ventricle TAPSE (mm): 22.40 TVS' Rohith: 13.20 Tricuspid Valve RA Press: 3.00 Great Vessels Aorta Sinus of Valsalva: 2.70 2.0-3.5 cm Ao Asc: 3.40 2.1-3.4 cm Pulmonary Veins Pulm Vein S/D 2.00 Pulmonary Valve PV Pk Rohith: 0.94 Peak PV Grad: 4.00 Updated in Other Vendor System with Status of Final Reagan Candelario MD electronically signed on 02/12/2022 11:25:10 AM with status of Final
--- NOTE | 2022-02-12 07:11 | PHA.MEDREC ---
Pharmacy Consult ? Medication Reconciliation Pharmacy has reviewed the medication reconciliation completed by nursing. Jacklyn Gonzales, SusieD
[2022-02-12 07:23] LABS: Glucose, Whole Blood 145 mg/dL (60-115)
--- NOTE | 2022-02-12 09:43 | PC.NURSE ---
Pt alert to self this am, calm and cooperative. Pt has no complaints of pain. Awaiting transport to bed upstairs, report called 8:15am. Ambulated to bathroom with target aircraft technicianrobert Zhou.
--- NOTE | 2022-02-12 09:57 | PC.NURSE ---
US TECH IN ROOM @ THIS TIME WITH PT
[2022-02-12] MEDS: allopurinoL 100 MG TABLET PO (10:26)
[2022-02-12] MEDS: carvediloL 25 MG TABLET PO ×2 (10:26→20:34)
[2022-02-12] MEDS: Doxazosin Mesylate 2 MG TABLET 4 MG PO (10:26)
[2022-02-12] MEDS: Torsemide 20 MG TABLET 10 MG PO (10:26)
[2022-02-12] MEDS: hydrALAZINE HCl 50 MG TABLET 100 MG PO ×3 (10:28→20:34)
[2022-02-12] MEDS: Spironolactone 25 MG TABLET PO (10:28)
[2022-02-12] MEDS: Tolterodine Tartrate LA 4 MG CAP.ER.24H PO (11:32)
[2022-02-12] MEDS: Fenofibrate 160 MG TABLET PO (11:32)
[2022-02-12] MEDS: NIFEdipine ER 60 MG TAB.ER.24 PO (11:32)
[2022-02-12 11:51] LABS: Glucose, Whole Blood 174 mg/dL (60-115)
--- NOTE | 2022-02-12 12:12 | P.PNIM_ITS ---
Subjective Subjective Date of Service: 02/12/22 Review of Systems Follow up Syncope no dizziness Physical Exam Vital Signs: Vital Signs: Last Vital Signs Temp 97.7 F 02/12/22 11:02 Pulse 73 02/12/22 11:02 Resp 18 02/12/22 11:02 BP 197/91 H 02/12/22 11:02 Pulse Ox 95 02/12/22 11:02 O2 Del Method 02/12/22 11:02 O2 Flow Rate 2 02/12/22 11:02 BMI result Body Mass Index 25.8 Appearing in no acute distress lung sounds are clear to auscultation heart regular rate rhythm, clear S1, S2 positive bowel sounds, abdomen is soft, nontender neuro patient is alert x3, no focal deficits Objective Data Active Medications Acetaminophen (Acetaminophen 325 Mg Tablet) 650 mg PO Q6H PRN PRN Reason: Pain, Mild (Pain Scale 1-3) Allopurinol (Allopurinol 100 Mg Tablet) 100 mg PO DAILY [facility] Last Admin: 02/12/22 10:26 Dose: 100 mg Documented By: ARSENIO Carvedilol (Carvedilol 25 Mg Tablet) 25 mg PO BID [facility]; Protocol Last Admin: 02/12/22 10:26 Dose: 25 mg Documented By: ARSENIO Dextrose (Dextrose 50 % 25 Gm/50 Ml Syringe) 25 gm IVPUSH Q15M PRN; Protocol PRN Reason: per Hypoglycemia Standing Ord. Docusate Sodium (Docusate Sodium 100 Mg Capsule) 100 mg PO DAILY PRN PRN Reason: Constipation Doxazosin Mesylate (Doxazosin Mesylate 2 Mg Tablet) 4 mg PO DAILY [facility]; Protocol Last Admin: 02/12/22 10:26 Dose: 4 mg Documented By: ARSENIO Fenofibrate (Fenofibrate 160 Mg Tablet) 160 mg PO DAILY [facility] Last Admin: 02/12/22 11:32 Dose: 160 mg Documented By: ROSELYN Glucose (Glucose Gel 15 Gm Gel..Gram.) 15 gm PO Q15M PRN; Protocol PRN Reason: per Hypoglycemia Standing Ord. Hydralazine HCl (Hydralazine Hcl 50 Mg Tablet) 100 mg PO TID [facility]; Protocol Last Admin: 02/12/22 10:28 Dose: 100 mg Documented By: ARSENIO Insulin Human Lispro (Insulin Lispro 100 Unit/Ml 3 Ml Vial) 0 unit SUBCUT QIDACHS [facility]; Protocol Last Admin: 02/12/22 07:37 Dose: Not Given Documented By: TRENT Non-Admin Reason: No Insulin Coverage Comments: No insulin coverage needed Lorazepam (Lorazepam 0.5 Mg Tablet) 0.5 mg PO BEDTIME [facility] Nifedipine (Nifedipine Er 60 Mg Tab.Er.24) 60 mg PO DAILY [facility] Last Admin: 02/12/22 11:32 Dose: 60 mg Documented By: ROSELYN Non-Formulary Medication (Leflunomide) 20 mg PO DAILY [facility] Ondansetron HCl (Ondansetron Hcl 4 Mg/2 Ml Vial) 4 mg IVPUSH Q8H PRN PRN Reason: Nausea and Vomiting Sodium Chloride (0.9 % Sodium Chloride Flush 3 Ml Syringe) 3 ml IVFLUSH QSHIFT [facility] Last Admin: 02/12/22 09:04 Dose: Not Given Documented By: TRENT Non-Admin Reason: Med Not Available Spironolactone (Spironolactone 25 Mg Tablet) 25 mg PO DAILY [facility]; Protocol Last Admin: 02/12/22 10:28 Dose: 25 mg Documented By: ARSENIO Tolterodine Tartrate (Tolterodine Tartrate La 4 Mg Cap.Er.24h) 4 mg PO DAILY [facility] Last Admin: 02/12/22 11:32 Dose: 4 mg Documented By: ROSELYN Torsemide (Torsemide 20 Mg Tablet) 10 mg PO DAILY [facility]; Protocol Last Admin: 02/12/22 10:26 Dose: 10 mg Documented By: ARSENIO Labs CBC & Chem 7: 02/12/22 04:40 02/12/22 04:40 Labs: Laboratory Results - last 24 hr 02/11/22 02/11/22 02/11/22 19:37 19:37 19:37 MCV 87.0 MCH 28.8 MCHC 33.2 RDW 13.8 Plt Count 240 MPV 11.6 Immature Gran % (Auto) 0.3 Neut % (Auto) 73.9 H Lymph % (Auto) 10.5 L [place] % (Auto) 11.1 H Eos % (Auto) 3.4 Baso % (Auto) 0.8 Lymph # (Auto) 0.9 L [place] # (Auto) 1.0 Eos # (Auto) 0.3 Baso # (Auto) 0.1 Abs Immat Gran (auto) 0.03 Absolute Neuts (auto) 6.5 Absolute Nucleated RBC 0.000 Nucleated RBC % (auto) 0.0 D-Dimer High Sensitivty Anion Gap 16 Estim Creat Clear Calc 46.0 Estimated GFR > 60 POC Glucose Random Glucose 147 H Calcium 9.1 D Total Bilirubin 0.5 AST 31 D ALT 28 Alkaline Phosphatase 58 Total Protein 7.0 Albumin 4.4 COVID-19 ([facility]) Negative COVID-19 Clin Com See Note 02/11/22 02/12/22 02/12/22 21:04 04:40 04:40 MCV 88.0 MCH 29.2 MCHC 33.2 RDW 13.7 Plt Count 234 MPV 12.1 Immature Gran % (Auto) 0.3 Neut % (Auto) 71.5 Lymph % (Auto) 12.9 L [place] % (Auto) 10.9 Eos % (Auto) 3.6 Baso % (Auto) 0.8 Lymph # (Auto) 1.0 L [place] # (Auto) 0.8 Eos # (Auto) 0.3 Baso # (Auto) 0.1 Abs Immat Gran (auto) 0.02 Absolute Neuts (auto) 5.4 Absolute Nucleated RBC 0.000 Nucleated RBC % (auto) 0.0 D-Dimer High Sensitivty 420 Anion Gap 14 Estim Creat Clear Calc 56.5 Estimated GFR > 60 POC Glucose Random Glucose 136 H Calcium 9.0 Total Bilirubin AST ALT Alkaline Phosphatase Total Protein Albumin COVID-19 ([facility]) COVID-19 Clin Com 02/12/22 02/12/22 07:18 11:00 MCV MCH MCHC RDW Plt Count MPV Immature Gran % (Auto) Neut % (Auto) Lymph % (Auto) [place] % (Auto) Eos % (Auto) Baso % (Auto) Lymph # (Auto) [place] # (Auto) Eos # (Auto) Baso # (Auto) Abs Immat Gran (auto) Absolute Neuts (auto) Absolute Nucleated RBC Nucleated RBC % (auto) D-Dimer High Sensitivty Anion Gap Estim Creat Clear Calc Estimated GFR POC Glucose 145 H 174 H Random Glucose Calcium Total Bilirubin AST ALT Alkaline Phosphatase Total Protein Albumin COVID-19 ([facility]) COVID-19 Clin Com Quality Stroke Does the patient have a stroke diagnosis?: No VTE Prior VTE?: No VTE Risk Level:: Medical - low VTE Device Contraindication: N/A - Device Ordered VTE Drug Contraindication: Treatment Not Indicated
[2022-02-12] MEDS: Insulin Lispro 100 UNIT/ML 3 ML VIAL SUBCUT ×2 (12:39→16:46)
--- NOTE | 2022-02-12 12:39 | PM.EVENT ---
Event Note Date of Service: 02/12/22 Event Note: is is an 87-year-old? male with past medical history of diabetes, hypertension, GED, HLD, BPH, presents to the hospital with syncopal episode after choking on? food Syncope Likely vasovagal secondary to choking episode Negative troponin, no ST wave abnormalities No arrhythmia on telemetry Normal echocardiogram Bilateral rib fractures Secondary to fall Encourage incentive spirometer Pain control Dysphagia/choking episode Speech evaluation pending Diabetes mellitus type 2 Sliding scale, ADA diet Hypertension Elevated blood pressure Continue nifedipine, hydralazine, Coreg and Cardura 9 follow blood pressure closely Gout Continue allopurinol DVT prophylaxis Lovenox Attending Dr. [place] Full code Observation
--- NOTE | 2022-02-12 12:48 | MHC.CM.PN ---
spoke with pts who explains that she and her were managing at home with servceis she does not expect they will need servceis when dc d ,her is vax x 4 pt will have own bray sport home
[2022-02-12] MEDS: oxyCODONE HCl Immed Release 5 MG TABLET PO (12:57)
[2022-02-12 16:15] LABS: Glucose, Whole Blood 175 mg/dL (60-115)
[2022-02-12] MEDS: 0.9 % Sodium Chloride Flush 3 ML SYRINGE IVFLUSH ×2 (16:48→20:34)
--- NOTE | 2022-02-12 17:09 | MHC.SL.SWA ---
Speech Pathologist Impression: WFL Risk of Aspiration Due to: None Dysphasia Diet Status: No Change Liquid Consistency and Strategies for Safe Swallow: Liquid Intake Recommendation: Thin Liquid Intake Strategies: Small Sips Solid Food Consistency: Dietary Recommendations: Regular Additional Modifications to Solid Foods: Bedside dysphagia evaluation was unremarkable. Recommend REGULAR solids (w/ sauces and gravies as needed) and THIN liquids, pills WHOLE with LIQUID. Recommend safe eating strategies: take small bites, moisten w/ sauce and gravy as needed, chew food well, alternate bites of food with sips of liquid, upright 90 degree position when eating and drinking). Avoid certain foods which cause more difficulty (i.e. apples, radishes). Pt reports difficulty chewing apples and radishes, but otherwise denies dysphagia. No changes made to diet order. Updated MD, RN, RD via [facility] Message. Further ST intervention no longer warranted. Please re-refer w/ any further concern. Oral Medication Intake: Whole with Liquid Please contact the pharmacy regarding appropriate crushable or liquid drug formulations that are available whenever modified delivery is recommended. Compensatory Strategies and Precautions to be Taken for Safe Swallow: Sitting Upright (90 deg) Small Bites and Sips Alternate Liquids/Solids Rate of Ingestion Change Avoid Specific Foods Supervision While Eating and Drinking for Safe Swallow: Intermittent Supervision Foods to Avoid: hard difficult to chew solids Swallowing Recommended Treatments: Recommendation for Speech: NA:Typical Evaluation Joint Maker Machine Clinican/Clinical Fellow: No Supervisory Statement: I have reviewed and agree with the student/clinical fellow's documentation: N/A Speech Language Pathologist: Debbie Chaney M.A., CCC-METER READER
[2022-02-12 19:46] LABS: Glucose, Whole Blood 147 mg/dL (60-115)
[2022-02-13] MEDS: oxyCODONE HCl Immed Release 5 MG TABLET PO ×3 (00:15→21:06)
[2022-02-13] MEDS: LORazepam 0.5 MG TABLET PO ×2 (00:18→21:03)
[2022-02-13 02:59] VITALS: BP 174/79; PULSE 74; RESP 16; TEMP 36.4; O2SAT 96
[2022-02-13 07:15] VITALS: BP 162/70; PULSE 84; RESP 18; TEMP 36.6; O2SAT 97
[2022-02-13 07:35] LABS: Glucose, Whole Blood 141 mg/dL (60-115)
[2022-02-13] MEDS: Torsemide 20 MG TABLET 10 MG PO (08:32)
[2022-02-13] MEDS: Lidocaine 4 % Patch ADH..PATCH 1 PATCH TRANSDERMA (08:33)
[2022-02-13] MEDS: hydrALAZINE HCl 50 MG TABLET 100 MG PO ×3 (08:33→21:03)
[2022-02-13] MEDS: allopurinoL 100 MG TABLET PO (08:34)
[2022-02-13] MEDS: Tolterodine Tartrate LA 4 MG CAP.ER.24H PO (08:34)
[2022-02-13] MEDS: Spironolactone 25 MG TABLET PO (08:34)
[2022-02-13] MEDS: Doxazosin Mesylate 2 MG TABLET 4 MG PO (08:34)
[2022-02-13] MEDS: NIFEdipine ER 60 MG TAB.ER.24 PO (08:34)
[2022-02-13] MEDS: Fenofibrate 160 MG TABLET PO (08:34)
[2022-02-13] MEDS: carvediloL 25 MG TABLET PO ×2 (08:34→21:03)
[2022-02-13] MEDS: 0.9 % Sodium Chloride Flush 3 ML SYRINGE IVFLUSH ×3 (08:42→21:04)
[2022-02-13] MEDS: Leflunomide 10 MG TABLET 20 MG PO (09:40)
[2022-02-13 11:16] LABS: Glucose, Whole Blood 192 mg/dL (60-115)
[2022-02-13 11:31] VITALS: BP 154/69; PULSE 70; RESP 16; TEMP 36.7; O2SAT 95
[2022-02-13] MEDS: Insulin Lispro 100 UNIT/ML 3 ML VIAL SUBCUT ×3 (11:42→21:03)
[2022-02-13] MEDS: Acetaminophen 325 MG TABLET 650 MG PO ×3 (11:42→23:30)
--- NOTE | 2022-02-13 12:37 | HO.PM.IMPN ---
Subjective Subjective Date of Service: 02/13/22 Review of Systems Follow up syncope feeling better oob to bathroom pain to right rib fx Physical Exam Vital Signs: Vital Signs: Last Vital Signs Temp 98.0 F 02/13/22 11:31 Pulse 70 02/13/22 11:31 Resp 16 02/13/22 11:31 BP 154/69 H 02/13/22 11:31 Pulse Ox 95 02/13/22 11:31 O2 Del Method 02/13/22 11:31 O2 Flow Rate 2 02/13/22 11:31 BMI result Body Mass Index 25.8 Appearing in no acute distress lung sounds are clear to auscultation heart regular rate rhythm, clear S1, S2 positive bowel sounds, abdomen is soft, nontender neuro patient is alert x3, no focal deficits Objective Data Active Medications Acetaminophen (Acetaminophen 325 Mg Tablet) 650 mg PO Q6H PRN PRN Reason: Pain, Mild (Pain Scale 1-3) Last Admin: 02/13/22 11:42 Dose: 650 mg Documented By: MERCY Allopurinol (Allopurinol 100 Mg Tablet) 100 mg PO DAILY [facility] Last Admin: 02/13/22 08:34 Dose: 100 mg Documented By: MERCY Carvedilol (Carvedilol 25 Mg Tablet) 25 mg PO BID [facility]; Protocol Last Admin: 02/13/22 08:34 Dose: 25 mg Documented By: MERCY Dextrose (Dextrose 50 % 25 Gm/50 Ml Syringe) 25 gm IVPUSH Q15M PRN; Protocol PRN Reason: per Hypoglycemia Standing Ord. Docusate Sodium (Docusate Sodium 100 Mg Capsule) 100 mg PO DAILY PRN PRN Reason: Constipation Doxazosin Mesylate (Doxazosin Mesylate 2 Mg Tablet) 4 mg PO DAILY [facility]; Protocol Last Admin: 02/13/22 08:34 Dose: 4 mg Documented By: MERCY Fenofibrate (Fenofibrate 160 Mg Tablet) 160 mg PO DAILY [facility] Last Admin: 02/13/22 08:34 Dose: 160 mg Documented By: MERCY Glucose (Glucose Gel 15 Gm Gel..Gram.) 15 gm PO Q15M PRN; Protocol PRN Reason: per Hypoglycemia Standing Ord. Hydralazine HCl (Hydralazine Hcl 50 Mg Tablet) 100 mg PO TID [facility]; Protocol Last Admin: 02/13/22 08:33 Dose: 100 mg Documented By: MERCY Insulin Human Lispro (Insulin Lispro 100 Unit/Ml 3 Ml Vial) 0 unit SUBCUT QIDACHS [facility]; Protocol Last Admin: 02/13/22 11:42 Dose: 2 unit Documented By: MERCY Leflunomide (Leflunomide 10 Mg Tablet) 20 mg PO DAILY [facility] Last Admin: 02/13/22 09:40 Dose: 20 mg Documented By: MERCY Lidocaine (Lidocaine 4 % Patch Adh..Patch) 1 patch TRANSDERMA DAILY [facility]; Protocol Last Admin: 02/13/22 08:33 Dose: 1 patch Documented By: MRECY Lorazepam (Lorazepam 0.5 Mg Tablet) 0.5 mg PO BEDTIME [facility] Last Admin: 02/13/22 00:18 Dose: 0.5 mg Documented By: FLAVIO Nifedipine (Nifedipine Er 60 Mg Tab.Er.24) 60 mg PO DAILY [facility] Last Admin: 02/13/22 08:34 Dose: 60 mg Documented By: EMRCY Ondansetron HCl (Ondansetron Hcl 4 Mg/2 Ml Vial) 4 mg IVPUSH Q8H PRN PRN Reason: Nausea and Vomiting Oxycodone HCl (Oxycodone Hcl Immed Release 5 Mg Tablet) 5 mg PO Q4H PRN PRN Reason: Pain, Moderate (Pain Scale 4-6 Last Admin: 02/13/22 08:30 Dose: 5 mg Documented By: MERCY Sodium Chloride (0.9 % Sodium Chloride Flush 3 Ml Syringe) 3 ml IVFLUSH [facility] Last Admin: 02/13/22 08:42 Dose: 3 ml Documented By: MERCY Spironolactone (Spironolactone 25 Mg Tablet) 25 mg PO DAILY [facility]; Protocol Last Admin: 02/13/22 08:34 Dose: 25 mg Documented By: MERCY Tolterodine Tartrate (Tolterodine Tartrate La 4 Mg Cap.Er.24h) 4 mg PO DAILY [facility] Last Admin: 02/13/22 08:34 Dose: 4 mg Documented By: MERCY Torsemide (Torsemide 20 Mg Tablet) 10 mg PO DAILY [facility]; Protocol Last Admin: 02/13/22 08:32 Dose: 10 mg Documented By: MERCY Labs CBC & Chem 7: 02/12/22 04:40 02/12/22 04:40 Labs: Laboratory Results - last 24 hr 02/12/22 02/12/22 02/13/22 15:57 19:42 07:14 POC Glucose 175 H 147 H 141 H 02/13/22 11:07 POC Glucose 192 H Assessment and Plan (1) Fracture of multiple ribs of both sides: Status: Acute Plan 87-year-old? male with past medical history of diabetes, hypertension, GED, HLD, BPH, presents to the hospital with syncopal episode after choking on? food Syncope Likely vasovagal secondary to choking episode Negative troponin, no ST wave abnormalities No arrhythmia on telemetry Normal echocardiogram Bilateral rib fractures still with some rib pain, added lidocaine patch Secondary to fall Encourage incentive spirometer Pain control with scheduled tylenol Dysphagia/choking episode Speech evaluation pending Diabetes mellitus type 2 Sliding scale, ADA diet Hypertension Elevated blood pressure Continue nifedipine, hydralazine, Coreg and Cardura 9 follow blood pressure closely Gout Continue allopurinol DVT prophylaxis Lovenox Attending Dr. Denton Full code Observation Quality Stroke Does the patient have a stroke diagnosis?: No VTE Prior VTE?: No VTE Risk Level:: Medical - low VTE Device Contraindication: N/A - Device Ordered VTE Drug Contraindication: Treatment Not Indicated
[2022-02-13 15:31] VITALS: BP 143/69; PULSE 75; RESP 20; TEMP 37; O2SAT 90
[2022-02-13 16:23] LABS: Glucose, Whole Blood 194 mg/dL (60-115)
[2022-02-13 19:20] VITALS: BP 153/70; PULSE 77; RESP 20; TEMP 37.3; O2SAT 92
[2022-02-13 20:02] LABS: Glucose, Whole Blood 185 mg/dL (60-115)
[2022-02-13 23:06] VITALS: BP 151/70; PULSE 72; RESP 20; TEMP 36.4; O2SAT 92
[2022-02-14 03:24] VITALS: BP 160/75; PULSE 73; RESP 20; TEMP 36.6; O2SAT 94
[2022-02-14] MEDS: Acetaminophen 325 MG TABLET 650 MG PO ×2 (05:51→12:26)
[2022-02-14 07:36] VITALS: BP 165/76; PULSE 76; RESP 17; TEMP 36.5; O2SAT 93
[2022-02-14 07:49] LABS: Glucose, Whole Blood 158 mg/dL (60-115)
[2022-02-14] MEDS: Lidocaine 4 % Patch ADH..PATCH 1 PATCH TRANSDERMA (08:09)
[2022-02-14] MEDS: carvediloL 25 MG TABLET PO (08:10)
[2022-02-14] MEDS: allopurinoL 100 MG TABLET PO (08:10)
[2022-02-14] MEDS: Tolterodine Tartrate LA 4 MG CAP.ER.24H PO (08:10)
[2022-02-14] MEDS: Spironolactone 25 MG TABLET PO (08:10)
[2022-02-14] MEDS: hydrALAZINE HCl 50 MG TABLET 100 MG PO (08:10)
[2022-02-14] MEDS: Doxazosin Mesylate 2 MG TABLET 4 MG PO (08:10)
[2022-02-14] MEDS: Fenofibrate 160 MG TABLET PO (08:10)
[2022-02-14] MEDS: Leflunomide 10 MG TABLET 20 MG PO (08:10)
[2022-02-14] MEDS: 0.9 % Sodium Chloride Flush 3 ML SYRINGE IVFLUSH (08:11)
[2022-02-14] MEDS: NIFEdipine ER 60 MG TAB.ER.24 PO (08:11)
[2022-02-14] MEDS: Torsemide 20 MG TABLET 10 MG PO (08:11)
[2022-02-14] MEDS: Insulin Lispro 100 UNIT/ML 3 ML VIAL SUBCUT ×2 (08:11→12:27)
[2022-02-14 09:18] VITALS: BP 165/76; PULSE 76; O2SAT 93
[2022-02-14 11:27] VITALS: BP 174/75; PULSE 73; RESP 18; TEMP 36.2; O2SAT 92
--- NOTE | 2022-02-14 11:36 | MHC.CM.PN ---
pt dcd home no skilled servceis ordered by
[2022-02-14 11:37] LABS: Glucose, Whole Blood 199 mg/dL (60-115)
--- NOTE | 2022-02-14 12:18 | P.DS_ITS ---
DS: Providers Provider Date of Service: 02/14/22 Date of admission: 02/12/22 00:56 Primary care physician: Kenney Beal MD DS: Diagnosis Discharge Diagnosis (1) Fracture of multiple ribs of both sides: Status: Acute DS: Summary Hospital Course Hospital Course: from initial hpi: Chief Complaint:? syncope ?87-year-old male with past medical history of chronic pain syndrome, diabetes, HTN, HLD, RA, spinal stenosis, BPH, DJD,? presents the? the ED with an episode of syncope.? Patient reports that he was eating a reddish when all of a sudden he started choking on the reddish, he was coughing and choking for few minutes when all of a sudden he passed out.? He? was down to the floor for about 5 seconds, when his son ran to him after hearing a thud, he had already regained consciousness, he had no postictal symptoms. ? He denies feeling any palpitations, no chest pain, no dizziness or change in vision prior to passing out.? He denies any loss of bladder or bowel control.? Reports no previous similar episode.? Reports no difficulty with ? Swallowing ?patient otherwise denies any abdominal pain nausea or vomiting, no diarrhea constipation, no urinary symptoms and no lower extremity edema.? On arrival patient found to have blood pressure of 203/78 Labs are significant for WBC of 8.8, hemoglobin of 12.2, hematocrit 36.8, sodium 134, BUN of 21, creatinine of 1.13 which is around his baseline, he has a D- dimer of 420, troponin of 14.6, ?EKG shows normal sinus rhythm with T-wave inversion? in leads 3 with no other abnormal findings on EKG, ?imaging including chest, abdominal pelvic CT shows acute fractures of the bilateral 5th through 7 ribs,? no acute pulmonary process, 3 small noncalcified pulmonary nodules largest 7 mm, recommend follow-up CT in 3-6 month, multiple calcified granulomas compatible with prior granulomatous infection/disease? hospital course: Patient was admitted for syncope likely vasovagal in the setting of choking event. Tele was unremarkable and echocardiogram was unremarkable. Patient was seen by [employer]OL DES[employer]ER APPRENTICE who recommended regular solids with thin liquids. Patient had chest pain due to rib fractures from fall. He said pain decently controlled with Lidoderm patch and oxycodone which will be continued on discharge. For his diabetes he was continued on insulin. For hypertension he was continued on nifedipine, hydralazine, carvedilol, Cardura. For his gout he was continued on allopurinol. Patient is feeling better and will be discharged home. Time Spent with Patient Time attestation: Total time spent providing and/or coordinating discharge services: Discharge coordination time: Greater than 30 minutes Quality: Safe Use of Opioids Does Pt have an Active Cancer Diagnosis on the Problem List?: No Quality: Stroke Does the patient have a stroke diagnosis?: No Physical Exam Vital Signs: Vital Signs: Last Vital Signs Temp 97.1 F 02/14/22 11:27 Pulse 73 02/14/22 11:27 Resp 18 02/14/22 11:27 BP 174/75 H 02/14/22 11:27 Pulse Ox 92 02/14/22 11:27 O2 Del Method 02/14/22 11:27 O2 Flow Rate 2 02/13/22 11:31 BMI result Body Mass Index 25.8 General: AO X 3, no acute distress Resp: CTA bilateral, no accessory muscles used CVS: S1,S2,RRR GI: soft, non tender, non distended Neuro: motor grossly intact, alert Psych: appropriate affect, appropriate insight DS: Data Data Completed and Pending Labs on day of discharge: Laboratory Results - last 24 hr 02/13/22 02/13/22 02/14/22 16:19 19:57 07:40 POC Glucose 194 H 185 H 158 H 02/14/22 11:30 POC Glucose 199 H Discharge Plan Discharge Patient Disposition: Home Health Service Discharge Diagnosis: choking syncope Referrals: Kenney Beal MD [Primary Care Provider] - 1 Week Discharge Medications: New lidocaine [Lidocaine Pain Relief] 4 % Adhesive Patch,Medicated 1 patch transdermal DAILY Qty: 30 0RF Protocol: Apply to: Apply to: ribs oxycodone 5 mg Tablet 5 mg PO Q4H PRN (Reason: Pain, Moderate (Pain Scale 4-6) Qty: 15 0RF Rx Instructions: Partial Fill upon patient request. Continued spironolactone 25 mg tablet 25 mg PO DAILY 90 Days Qty: 90 3RF nifedipine 60 mg tablet extended release 60 mg PO DAILY Qty: 90 3RF (DME) blood-glucose meter Misc See Rx Instructions .Route Qty: 1 0RF Rx Instructions: Test Daily - [place] Blood glucose Meter metformin 500 mg tablet 500 mg PO DAILY 90 Days Qty: 90 1RF hydralazine 100 mg tablet 100 mg PO TID 90 Days Qty: 270 3RF solifenacin 10 mg tablet 10 mg PO DAILY 30 Days Qty: 90 1RF carvedilol [Coreg] 25 mg tablet 25 mg PO BID Qty: 180 3RF Rx Instructions: must administer with a meal/food fenofibrate nanocrystallized 145 mg tablet 145 mg PO DAILY Qty: 90 0RF leflunomide 20 mg tablet 20 mg PO DAILY Qty: 90 0RF (DME) lancets [FreeStyle Lancets] 28 gauge misc See Rx Instructions .ROUTE .COMPLEX Qty: 100 1RF Dose Instruction: USE TO TEST DAILY Rx Instructions: USE TO TEST DAILY (DME) Blood Glucose Test Strip See Rx Instructions .Route Qty: 50 1RF Rx Instructions: Test Daily lorazepam 0.5 mg tablet 0.5 mg PO BEDTIME Qty: 90 0RF allopurinol 100 mg tablet 100 mg PO DAILY Qty: 90 1RF torsemide 10 mg tablet 10 mg PO DAILY doxazosin [Cardura] 4 mg tablet 4 mg PO DAILY (DME) blood-glucose meter [FreeStyle Lite Meter] Kit See Rx Instructions .ROUTE DAILY Qty: 1 Rx Instructions: As directed Discharge Orders: Discharge Order (Routine); Ordered 02/14/22 Ordered By: Dalton King Diet: Advance to usual diet Activity on Discharge: As tolerated Stand Alone Forms: Patient Portal Discharge page Care Plan Goals: pain control Health Concerns: rib fractures Plan of Treatment: lidoderm, oxycodone Assessment: see above
--- NOTE | 2022-02-14 13:24 | P.F2F_ITS ---
Service Date Service Date: 02/14/22 Encounter Date of encounter: 02/14/22 Reasons for Services Signs and symptoms assessed: weakness Reason for senior care: medication management, medication treatment and teach disease management Reason for physical therapy: home safety and mobility and therapeutic exercises Homebound: Leaving the home is medically contraindicated at this time without the asist of a device and/or another person due th the listed conditions above and below. Reason homebound: unsteady gait / fall risk Certification: Based on the above findings, I certify that this patient is confined to the home and needs intermittent senior care care, physical therapy and/or speech therapy, or continues to need occupational therapy. The patient is under my care, and I have initiated the establishment of the plan of care. The patient will be followed by a physician who will periodically review the plan of care.
--- NOTE | 2022-02-14 14:26 | MHC.CM.PN ---
pt dc home with [facility] dgter and aware and willl be transporting pt home
== END 2022-02-14 15:07 | disposition home health service (06) ==
LOC: HO.ED 02-12 01:03 → HO.EDOVER 02-12 01:10 → HO.IMC 02-12 07:32
PROVIDERS: Nurse Practitioner Acute Care; Admitting Provider Internal Medicine; Emergency Provider Internal Medicine; PCP Internal Medicine; Visit Provider Internal Medicine
DX: R55 Syncope and collapse (principal); R13.10 Dysphagia, unspecified; S22.43XA Multiple fractures of ribs, bilateral, initial encounter for closed fracture; W17.89XA Other fall from one level to another, initial encounter; E11.9 Type 2 diabetes mellitus without complications; I10 Essential (primary) hypertension; E78.5 Hyperlipidemia, unspecified; G89.4 Chronic pain syndrome; N32.81 Overactive bladder; M05.9 Rheumatoid arthritis with rheumatoid factor, unspecified; M48.00 Spinal stenosis, site unspecified; M51.36 Other intervertebral disc degeneration, lumbar region; M47.812 Spondylosis without myelopathy or radiculopathy, cervical region; M47.816 Spondylosis without myelopathy or radiculopathy, lumbar region; N40.0 Benign prostatic hyperplasia without lower urinary tract symptoms; M10.9 Gout, unspecified; F41.1 Generalized anxiety disorder; Y93.89 Activity, other specified; Y92.019 Unspecified place in single-family (private) house as the place of occurrence of the external cause; Y99.9 Unspecified external cause status; Z20.822 Contact with and (suspected) exposure to COVID-19; Z79.84 Long term (current) use of oral hypoglycemic drugs; Z79.899 Other long term (current) drug therapy
CPT/HCPCS: 36415; 70450; 71250; 72125; 74177; 80048; 80053; 82947; 84484; 85025; 85379; 87635; 92610; 93005; 93306; 94010; 96372; 96374; 96375; 96376; 97116; 97162; 99219; 99285; J1650; J2270; J2405; Q9967

== ENCOUNTER 2022-04-09 09:03 | Outpatient (REF) | payer MEDICARE, SELFPAY ==
[2022-04-09 11:16] LABS: MANUAL DIFF FLAG NO
[2022-04-09 11:34] LABS: Basophils Absolute Auto 0.1 X10*3/uL (0.0-0.2); Basophils Percent Auto 1.5 % (0-2); Eosinophils Absolute Auto 0.4 X10*3/uL (0.0-0.4); Hematocrit 38.2 % (42.0-52.0); Hemoglobin 12.2 g/dl (14.0-18.0); Imm Gran Abs Auto 0.06 X10*3/uL (0.00-0.03); Imm Gran Pct Auto 0.9 % (0.0-0.4); Lymphocytes Absolute Auto 1.1 X10*3/uL (1.2-4.9); Lymphocytes Percent Auto 16.7 % (20-40); Mean Corpuscular HGB Conc 31.9 g/dl (31.0-36.0); Mean Corpuscular Hemoglobin 28.2 pg (27.0-33.0); Mean Corpuscular Volume 88.4 fL (80.0-98.0); Mean Platelet Volume 12.4 fL (9.4-12.4); Monocytes Absolute Auto 0.7 X10*3/uL (0.1-1.2); Monocytes Percent Auto 10.5 % (2-11); Neutrophils Absolute Auto 4.3 x10*3/uL (2.0-8.3); Neutrophils Percent Auto 64.4 % (45-73); Platelet Count 299 X10*3/uL (160-400); Red Blood Count 4.32 X10*6/uL (4.60-5.80); Red Cell Distribution Width 14.3 % (11.0-16.0); White Blood Count 6.7 X10*3/uL (4.8-10.8)
[2022-04-09 12:18] LABS: C Reactive Protein 0.32 mg/dL (< or = 0.50); Uric Acid 5.2 mg/dL (3.4-7.0)
[2022-04-09 12:27] LABS: Erythrocyte Sedimentation Rate 23 MM/HR (0-15)
== END 2022-04-09 09:04 | disposition home or self-care (01) ==
LOC: HO.HMGCLDS 09:03
PROVIDERS: PCP Internal Medicine; Visit Provider Nurse Practitioner Family
DX: M05.9 Rheumatoid arthritis with rheumatoid factor, unspecified (principal)
CPT/HCPCS: 36415; 84550; 85025; 85652; 86140

== ENCOUNTER → 2022-04-11 10:18 | Outpatient (BNVA) | payer MEDICARE, SELFPAY | PROVIDERS: PCP Internal Medicine; Visit Provider Nurse Practitioner Family | DX: M05.9 Rheumatoid arthritis with rheumatoid factor, unspecified (principal); M10.9 Gout, unspecified | CPT/HCPCS: 99212 ==

== ENCOUNTER 2022-04-11 11:29 | Outpatient (REF) | payer MEDICARE, SELFPAY ==
[2022-04-11 14:21] LABS: Alanine Aminotransferase 19 U/L (0-40); Aspartate Amino Transferase 24 U/L (5-37); Blood Urea Nitrogen 22 mg/dL (9-16); Estimated Glomerular Filt Rate > 60
== END 2022-04-11 11:30 | disposition home or self-care (01) ==
LOC: HO.10HDL 11:29
PROVIDERS: Visit Provider Nurse Practitioner Family
DX: M06.9 Rheumatoid arthritis, unspecified (principal); Z79.899 Other long term (current) drug therapy
CPT/HCPCS: 36415; 82565; 84450; 84460; 84520

== ENCOUNTER → 2022-04-26 08:21 | Outpatient (BNVA) | payer MEDICARE, SELFPAY | PROVIDERS: PCP Internal Medicine; Visit Provider Urology | DX: N40.1 Benign prostatic hyperplasia with lower urinary tract symptoms (principal); N32.81 Overactive bladder; R39.15 Urgency of urination; N13.8 Other obstructive and reflux uropathy | CPT/HCPCS: Q3014 ==

== ENCOUNTER → 2022-05-02 12:24 | Outpatient (BNVA) | payer MEDICARE, SELFPAY | PROVIDERS: PCP Internal Medicine; Referring Provider Internal Medicine; Visit Provider Internal Medicine | DX: I10 Essential (primary) hypertension (principal); T78.3XXD Angioneurotic edema, subsequent encounter | CPT/HCPCS: 99212 ==

== ENCOUNTER 2022-06-12 06:22 | Outpatient (REF) | payer MEDICARE, SELFPAY ==
--- NOTE | ~2022-06-12 | FL_ITS ---
EXAMINATION: XR FLUOROSCOPY WITH IMAGES CLINICAL INFORMATION: M54.16 - Radiculopathy, lumbar region COMPARISON: Fluoroscopic spot views 11/10/2021 TECHNIQUE: Fluoroscopy Supervised By: Dr. Anjel Garrett. Fluoroscopy Time: 0.8 minutes. Cumulative Dose: 34.9 mGy. DAP: 9.51 Gycm2. Images: 3. FINDINGS: There are spinal needles overlying the outer left L4 and outer right L5 neural foramen. There is contrast seen in the respective nerve sheaths. Some early transforaminal epidural extension is suggested. No visible vascular communication. There are multilevel degenerative changes lumbosacral spine. FL/FL guidance in treatment room IMPRESSION: Fluoroscopy for pain management procedures.
== END 2022-06-12 06:23 | disposition home or self-care (01) ==
LOC: CF 06:22
PROVIDERS: Visit Provider Anesthesiology
DX: M54.16 Radiculopathy, lumbar region (principal); M51.36 Other intervertebral disc degeneration, lumbar region; G89.4 Chronic pain syndrome; M48.00 Spinal stenosis, site unspecified
CPT/HCPCS: 64483; 64484; J3301

== ENCOUNTER 2022-07-13 09:53 | Outpatient (REF) | payer MEDICARE, SELFPAY ==
--- NOTE | ~2022-07-13 | XR_ITS ---
EXAMINATION: XR FOOT, RIGHT CLINICAL INFORMATION: Rheumatoid arthritis; pain. COMPARISON: None TECHNIQUE: AP, lateral, and oblique views of the right foot. FINDINGS: Bony alignment and mineralization are normal. No fracture, dislocation or joint effusion is seen. Boehler's angle is normal. There are small posterior and plantar calcaneal spurs. No abnormal bone erosion is noted. There is no focal soft tissue swelling, gas or foreign body. XR/XR foot LT 2V IMPRESSION: 1. No fracture, dislocation or right ankle joint effusion is seen. 2. There is no abnormal bone erosion. 3. There are small calcaneal spurs, as detailed. EXAMINATION: XR FOOT, LEFT CLINICAL INFORMATION: Rheumatoid arthritis; pain. COMPARISON: None TECHNIQUE: AP, lateral, and oblique views of the left foot. FINDINGS: Bony alignment and mineralization are normal. There is no calcaneal fracture of the second metatarsal shaft. No acute fracture, dislocation or left ankle joint effusion is seen. Boehler's angle is normal. There are small posterior and plantar calcaneal spurs. No focal soft tissue swelling, gas or foreign body is seen. There are atherosclerotic calcifications. IMPRESSION: 1. No acute fracture, dislocation or left ankle joint effusion is seen. 2. There is no abnormal bone erosion. 3. There are small calcaneal spurs.
--- NOTE | ~2022-07-13 | XR_ITS ---
EXAMINATION: XR FOOT, RIGHT CLINICAL INFORMATION: Rheumatoid arthritis; pain. COMPARISON: None TECHNIQUE: AP, lateral, and oblique views of the right foot. FINDINGS: Bony alignment and mineralization are normal. No fracture, dislocation or joint effusion is seen. Boehler's angle is normal. There are small posterior and plantar calcaneal spurs. No abnormal bone erosion is noted. There is no focal soft tissue swelling, gas or foreign body. XR/XR foot RT 2V IMPRESSION: 1. No fracture, dislocation or right ankle joint effusion is seen. 2. There is no abnormal bone erosion. 3. There are small calcaneal spurs, as detailed. EXAMINATION: XR FOOT, LEFT CLINICAL INFORMATION: Rheumatoid arthritis; pain. COMPARISON: None TECHNIQUE: AP, lateral, and oblique views of the left foot. FINDINGS: Bony alignment and mineralization are normal. There is no calcaneal fracture of the second metatarsal shaft. No acute fracture, dislocation or left ankle joint effusion is seen. Boehler's angle is normal. There are small posterior and plantar calcaneal spurs. No focal soft tissue swelling, gas or foreign body is seen. There are atherosclerotic calcifications. IMPRESSION: 1. No acute fracture, dislocation or left ankle joint effusion is seen. 2. There is no abnormal bone erosion. 3. There are small calcaneal spurs.
--- NOTE | ~2022-07-13 | XR_ITS ---
EXAMINATION: XR HAND, RIGHT CLINICAL INFORMATION: Rheumatoid arthritis. COMPARISON: None TECHNIQUE: PA, lateral, and oblique views of the right hand. FINDINGS: Bony alignment and mineralization are normal. There is a slight ulnar minus variance. 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 Mild osteoarthritic change is seen of the second and third distal interphalangeal joints and of the third proximal interphalangeal joint. Again, there is a marginal erosion of the fifth distal interphalangeal joint. No fracture or dislocation is seen. The ulnar styloid is intact. No focal soft tissue swelling, gas or foreign body is seen. XR/XR hand RT min 3V IMPRESSION: Osteoarthritic changes are seen of the right hand and wrist. Again, there is marginal erosion of the fifth distal interphalangeal joint. No fracture or dislocation is seen. EXAMINATION: XR HAND, LEFT CLINICAL INFORMATION: Rheumatoid arthritis. COMPARISON: None TECHNIQUE: PA, lateral, and oblique views of the left hand. FINDINGS: Bony alignment and mineralization are normal. There is a neutral ulnar variance. There is marked osteoarthritic change of the first carpometacarpal joint. There is moderate osteoarthritic change of the fifth distal interphalangeal joint. There is mild osteoarthritic change of the third proximal interphalangeal joint. No fracture or dislocation is seen. No focal bone erosion is seen. The ulnar styloid is intact. No focal soft tissue swelling, gas or foreign body is seen. IMPRESSION: Osteoarthritic change is seen of the left hand and wrist, most pronounced of the first carpometacarpal joint and the fifth distal interphalangeal joint. No focal bone erosion is appreciated. There is no fracture or dislocation.
--- NOTE | ~2022-07-13 | XR_ITS ---
EXAMINATION: XR HAND, RIGHT CLINICAL INFORMATION: Rheumatoid arthritis. COMPARISON: None TECHNIQUE: PA, lateral, and oblique views of the right hand. FINDINGS: Bony alignment and mineralization are normal. There is a slight ulnar minus variance. 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 Mild osteoarthritic change is seen of the second and third distal interphalangeal joints and of the third proximal interphalangeal joint. Again, there is a marginal erosion of the fifth distal interphalangeal joint. No fracture or dislocation is seen. The ulnar styloid is intact. No focal soft tissue swelling, gas or foreign body is seen. XR/XR hand LT min 3V IMPRESSION: Osteoarthritic changes are seen of the right hand and wrist. Again, there is marginal erosion of the fifth distal interphalangeal joint. No fracture or dislocation is seen. EXAMINATION: XR HAND, LEFT CLINICAL INFORMATION: Rheumatoid arthritis. COMPARISON: None TECHNIQUE: PA, lateral, and oblique views of the left hand. FINDINGS: Bony alignment and mineralization are normal. There is a neutral ulnar variance. There is marked osteoarthritic change of the first carpometacarpal joint. There is moderate osteoarthritic change of the fifth distal interphalangeal joint. There is mild osteoarthritic change of the third proximal interphalangeal joint. No fracture or dislocation is seen. No focal bone erosion is seen. The ulnar styloid is intact. No focal soft tissue swelling, gas or foreign body is seen. IMPRESSION: Osteoarthritic change is seen of the left hand and wrist, most pronounced of the first carpometacarpal joint and the fifth distal interphalangeal joint. No focal bone erosion is appreciated. There is no fracture or dislocation.
[2022-07-13 11:30] LABS: MANUAL DIFF FLAG NO
[2022-07-13 11:41] LABS: Basophils Absolute Auto 0.1 X10*3/uL (0.0-0.2); Basophils Percent Auto 1.4 % (0-2); Eosinophils Absolute Auto 0.4 X10*3/uL (0.0-0.4); Eosinophils Percent Auto 5.3 % (0-4); Hematocrit 36.6 % (42.0-52.0); Hemoglobin 12.2 g/dl (14.0-18.0); Imm Gran Abs Auto 0.06 X10*3/uL (0.00-0.03); Imm Gran Pct Auto 0.8 % (0.0-0.4); Lymphocytes Absolute Auto 1.2 X10*3/uL (1.2-4.9); Lymphocytes Percent Auto 16.5 % (20-40); Mean Corpuscular HGB Conc 33.3 g/dl (31.0-36.0); Mean Corpuscular Hemoglobin 29.7 pg (27.0-33.0); Mean Corpuscular Volume 89.1 fL (80.0-98.0); Mean Platelet Volume 11.6 fL (9.4-12.4); Monocytes Absolute Auto 0.8 X10*3/uL (0.1-1.2); Monocytes Percent Auto 10.4 % (2-11); Neutrophils Absolute Auto 4.8 x10*3/uL (2.0-8.3); Neutrophils Percent Auto 65.6 % (45-73); Platelet Count 282 X10*3/uL (160-400); Red Blood Count 4.11 X10*6/uL (4.60-5.80); White Blood Count 7.3 X10*3/uL (4.8-10.8)
[2022-07-13 12:20] LABS: Erythrocyte Sedimentation Rate 38 MM/HR (0-15)
[2022-07-13 12:25] LABS: Alanine Aminotransferase 17 U/L (0-40); Aspartate Amino Transferase 19 U/L (5-37); C Reactive Protein 0.79 mg/dL (< or = 0.50); Estimated Glomerular Filt Rate > 60; Uric Acid 4.1 mg/dL (3.4-7.0)
== END 2022-07-13 09:54 | disposition home or self-care (01) ==
LOC: HO.LAB 09:53
PROVIDERS: PCP Internal Medicine; Visit Provider Nurse Practitioner Family
DX: M05.9 Rheumatoid arthritis with rheumatoid factor, unspecified (principal); M10.9 Gout, unspecified; R60.9 Edema, unspecified; N18.9 Chronic kidney disease, unspecified; Z79.899 Other long term (current) drug therapy
CPT/HCPCS: 36415; 73130; 73620; 82565; 84450; 84460; 84550; 85025; 85652; 86140; 99212

== ENCOUNTER → 2022-07-16 09:55 | Outpatient (BNVA) | payer MEDICARE, SELFPAY | PROVIDERS: PCP Internal Medicine; Visit Provider Anesthesiology | DX: M47.816 Spondylosis without myelopathy or radiculopathy, lumbar region (principal); M48.00 Spinal stenosis, site unspecified; M06.9 Rheumatoid arthritis, unspecified; M10.9 Gout, unspecified; G89.4 Chronic pain syndrome | CPT/HCPCS: 99212 ==

== ENCOUNTER 2022-09-18 09:27 | Outpatient (REF) | payer MEDICARE, SELFPAY ==
[2022-09-18 12:45] LABS: Thyroid Stimulating Hormone 3.04 uIU/mL (0.32-4.0); Vitamin B12 1027 pg/mL (200-900)
[2022-09-21 00:39] LABS: Prot Elec - Albumin 4.4 g/dL (3.8-4.8); Prot Elec - Alpha1 0.3 g/dL (0.2-0.3); Prot Elec - Alpha2 0.9 g/dL (0.5-0.9); Prot Elec - Beta 1 0.5 g/dL (0.4-0.6); Prot Elec - Beta 2 0.3 g/dL (0.2-0.5); Prot Elec - Gamma 0.7 g/dL (0.8-1.7)
[2022-09-21 15:14] LABS: Anti Nuclear Antibody Screen NEGATIVE (NEGATIVE)
== END 2022-09-18 09:28 | disposition home or self-care (01) ==
LOC: HO.HMGCLDS 09:27
PROVIDERS: Internal Medicine; PCP Internal Medicine; Visit Provider Psychiatry & Neurology Neurology
DX: R20.0 Anesthesia of skin (principal); G62.9 Polyneuropathy, unspecified
CPT/HCPCS: 36415; 82607; 84165; 84443; 86038; 86039

== ENCOUNTER 2022-10-05 08:07 | Outpatient (REF) | payer MEDICARE, SELFPAY ==
--- NOTE | ~2022-10-05 | MR_ITS ---
MR CERVICAL SPINE WITHOUT CONTRAST CLINICAL INFORMATION: Ataxia. COMPARISON: None available. TECHNIQUE: MRI of the cervical spine was obtained using routine sequences without contrast. FINDINGS: There is mild anterior subluxation of C3 on C4 and there is retrosubluxation of C4 on C5. Severe disc volume loss at all cervical levels with exception of C7-T1. There are no acute fractures. Multilevel endplate osteophytes. There is a left atlantooccipital joint effusion. Partially attenuated proximal cervical arterial flow voids bilaterally that could result plaque underlying significant stenoses or partial occlusions. No significant extraspinal soft tissue findings. Partially imaged intracranial compartment is unremarkable. C2-C3: Uncovertebral joint spurring and facet arthropathy result in mild to moderate right and mild left foraminal encroachment. C3-C4: Mild anterior subluxation. Disc osteophyte and ligamentum flavum thickening result in moderate central canal stenosis and flattening of the cord. Advanced uncovertebral joint hypertrophy and hypertrophic facet arthropathy result in moderate to severe bilateral foraminal stenosis. C4-C5: Disc osteophyte and ligamentum flavum thickening result in moderate central canal stenosis and flattening of the cord. Advanced uncovertebral joint hypertrophy and hypertrophic facet arthropathy result in severe bilateral foraminal stenosis. C5-C6: Disc osteophyte and ligamentum flavum thickening result in mild central canal stenosis. Uncovertebral joint spurring and facet arthropathy result in severe right and moderate left foraminal stenosis. C6-C7: Disc osteophyte mildly narrows the central canal. Uncovertebral joint spurring and facet arthropathy result in moderate right-sided foraminal stenosis. No central canal and no left foraminal stenosis. C7-T1: Disc contour is normal. No central canal stenosis and no foraminal stenosis. MR/MR cervical spine wo con IMPRESSION: - Advanced cervical spondylosis with spondylitic changes resulting in moderate central canal stenosis and flattening of the cervical spinal cord at C3-C4 and C4-C5 as well as varying degrees of moderate to severe foraminal stenosis throughout the cervical spine as described. - There is a left atlantooccipital joint effusion. - Partially attenuated proximal cervical arterial flow voids bilaterally that could result plaque underlying significant stenoses or partial occlusions.
[2022-10-05 09:03] LABS: MANUAL DIFF FLAG NO
[2022-10-05 09:06] LABS: Basophils Absolute Auto 0.1 X10*3/uL (0.0-0.2); Basophils Percent Auto 1.5 % (0-2); Eosinophils Absolute Auto 0.4 X10*3/uL (0.0-0.4); Eosinophils Percent Auto 5.5 % (0-4); Hematocrit 38.8 % (42.0-52.0); Hemoglobin 12.7 g/dl (14.0-18.0); Imm Gran Abs Auto 0.04 X10*3/uL (0.00-0.03); Imm Gran Pct Auto 0.6 % (0.0-0.4); Lymphocytes Percent Auto 13.9 % (20-40); Mean Corpuscular HGB Conc 32.7 g/dl (31.0-36.0); Mean Corpuscular Hemoglobin 29.3 pg (27.0-33.0); Mean Corpuscular Volume 89.4 fL (80.0-98.0); Mean Platelet Volume 11.9 fL (9.4-12.4); Monocytes Absolute Auto 0.8 X10*3/uL (0.1-1.2); Monocytes Percent Auto 10.5 % (2-11); Neutrophils Absolute Auto 4.9 x10*3/uL (2.0-8.3); Platelet Count 250 X10*3/uL (160-400); Red Blood Count 4.34 X10*6/uL (4.60-5.80); Red Cell Distribution Width 13.5 % (11.0-16.0); White Blood Count 7.2 X10*3/uL (4.8-10.8)
[2022-10-05 09:49] LABS: Alanine Aminotransferase 17 U/L (0-40); Albumin Level 4.4 g/dL (3.5-5.0); Alkaline Phosphatase 64 U/L (39-117); Anion Gap 14 (12-20); Aspartate Amino Transferase 21 U/L (5-37); Bilirubin Total 0.4 mg/dL (0.0-1.0); Blood Urea Nitrogen 22 mg/dL (9-16); C Reactive Protein 0.27 mg/dL (< or = 0.50); Calcium 9.9 mg/dL (8.4-10.2); Carbon Dioxide 22 mmol/L (22-29); Chloride 103 mmol/L (96-108); Erythrocyte Sedimentation Rate 26 MM/HR (0-15); Estimated Glomerular Filt Rate > 60; Glucose Random 179 mg/dL (60-115); Potassium 4.4 mmol/L (3.3-5.1); Sodium 135 mmol/L (135-145); Total Protein 6.9 g/dL (6.5-8.0)
== END 2022-10-05 08:08 | disposition home or self-care (01) ==
LOC: HO.MRI 08:07
PROVIDERS: Nurse Practitioner Family; PCP Internal Medicine; Visit Provider Psychiatry & Neurology Neurology
DX: M06.9 Rheumatoid arthritis, unspecified (principal); R20.0 Anesthesia of skin; R26.0 Ataxic gait
CPT/HCPCS: 36415; 72141; 80053; 85025; 85652; 86140

== ENCOUNTER → 2022-10-26 10:00 | Outpatient (BNVA) | payer MEDICARE, SELFPAY | PROVIDERS: PCP Internal Medicine; Visit Provider Nurse Practitioner Family | DX: M05.9 Rheumatoid arthritis with rheumatoid factor, unspecified (principal); M10.9 Gout, unspecified | CPT/HCPCS: 99212 ==

== ENCOUNTER → 2022-11-02 08:37 | Outpatient (BNVA) | payer MEDICARE, SELFPAY | PROVIDERS: PCP Internal Medicine; Visit Provider Urology | DX: R39.15 Urgency of urination (principal); R35.1 Nocturia; E11.69 Type 2 diabetes mellitus with other specified complication; N52.1 Erectile dysfunction due to diseases classified elsewhere | CPT/HCPCS: 51798; 99212 ==

== ENCOUNTER 2022-11-07 09:52 | Outpatient (REF) | payer MEDICARE, SELFPAY ==
--- NOTE | ~2022-11-07 | US_ITS ---
EXAMINATION: US EXTRACRANIAL CAROTID DUPLEX, BILATERAL CLINICAL INFORMATION: Carotid stenosis. Syncope. Diabetes. COMPARISON: None available. TECHNIQUE: Real-time ultrasound and Doppler techniques (integrating B-mode 2-D vascular images, Doppler spectral analysis and color-flow Doppler imaging) were utilized to interrogate the extracranial carotid arteries, the vertebral arteries and proximal subclavian arteries bilaterally. The degree of stenosis is determined by criteria similar to NASCET. FINDINGS: Right Side: 1. There is moderate atherosclerotic plaque seen in the bifurcation/proximal ICA region. 2. The common carotid artery PSV proximally is 137 cm/s and distally 114 cm/s. 3. The proximal internal carotid artery velocities are 111 cm/s systolic and 21 cm/s diastolic. 4. The proximal external carotid artery PSV is 164 cm/s. 5. The vertebral artery shows antegrade flow. 6. The subclavian artery waveforms are normal. Left Side: 1. There is moderate atherosclerotic plaque seen in the bifurcation/proximal ICA region. 2. The common carotid artery PSV proximally is 107 cm/s and distally 97 cm/s. 3. The proximal internal carotid artery velocities are 151 cm/s systolic and 32 cm/s diastolic. 4. The proximal external carotid artery PSV is 153 cm/s. 5. The vertebral artery shows antegrade flow. 6. The subclavian artery waveforms are normal. US/US carotid duplex BI IMPRESSION: 1. RIGHT: Minimal, non-hemodynamically significant stenosis of the proximal right internal carotid artery corresponding to a 0-49% stenosis by velocity criteria. 2. LEFT: Moderate, hemodynamically significant stenosis of the proximal left internal carotid artery corresponding to a 50-79% stenosis by velocity criteria.
== END 2022-11-07 09:53 | disposition home or self-care (01) ==
LOC: HO.US 09:52
PROVIDERS: PCP Internal Medicine; Visit Provider Psychiatry & Neurology Neurology
DX: I65.23 Occlusion and stenosis of bilateral carotid arteries (principal); I10 Essential (primary) hypertension; T78.3XXS Angioneurotic edema, sequela; X58.XXXS Exposure to other specified factors, sequela; Z79.899 Other long term (current) drug therapy
CPT/HCPCS: 93880; 99212

== ENCOUNTER 2022-12-10 08:39 | Outpatient (REF) | payer MEDICARE, SELFPAY ==
[2022-12-10 11:21] LABS: MANUAL DIFF FLAG NO
[2022-12-10 11:39] LABS: Basophils Absolute Auto 0.1 X10*3/uL (0.0-0.2); Basophils Percent Auto 1.1 % (0-2); Eosinophils Absolute Auto 0.4 X10*3/uL (0.0-0.4); Eosinophils Percent Auto 4.7 % (0-4); Hematocrit 36.5 % (42.0-52.0); Hemoglobin 11.8 g/dl (14.0-18.0); Imm Gran Abs Auto 0.05 X10*3/uL (0.00-0.03); Imm Gran Pct Auto 0.5 % (0.0-0.4); Lymphocytes Absolute Auto 1.1 X10*3/uL (1.2-4.9); Lymphocytes Percent Auto 12.1 % (20-40); Mean Corpuscular HGB Conc 32.3 g/dl (31.0-36.0); Mean Corpuscular Hemoglobin 29.1 pg (27.0-33.0); Mean Corpuscular Volume 90.1 fL (80.0-98.0); Mean Platelet Volume 12.9 fL (9.4-12.4); Monocytes Absolute Auto 0.8 X10*3/uL (0.1-1.2); Monocytes Percent Auto 8.4 % (2-11); Neutrophils Absolute Auto 6.9 x10*3/uL (2.0-8.3); Neutrophils Percent Auto 73.2 % (45-73); Platelet Count 270 X10*3/uL (160-400); Red Blood Count 4.05 X10*6/uL (4.60-5.80); Red Cell Distribution Width 14.1 % (11.0-16.0); White Blood Count 9.5 X10*3/uL (4.8-10.8)
[2022-12-10 11:58] LABS: Alanine Aminotransferase 15 U/L (0-40); Albumin Level 4.3 g/dL (3.5-5.0); Alkaline Phosphatase 52 U/L (39-117); Anion Gap 14 (12-20); Aspartate Amino Transferase 19 U/L (5-37); Bilirubin Total 0.4 mg/dL (0.0-1.0); Blood Urea Nitrogen 22 mg/dL (9-16); C Reactive Protein 0.42 mg/dL (< or = 0.50); Calcium 9.7 mg/dL (8.4-10.2); Carbon Dioxide 23 mmol/L (22-29); Chloride 104 mmol/L (96-108); Estimated Glomerular Filt Rate > 60; Glucose Random 168 mg/dL (60-115); Potassium 4.1 mmol/L (3.3-5.1); Sodium 137 mmol/L (135-145); Total Protein 7.1 g/dL (6.5-8.0)
[2022-12-10 13:04] LABS: Erythrocyte Sedimentation Rate 23 MM/HR (0-15)
[2022-12-10 14:22] LABS: Appearance Urine Clear; Color Urine Yellow; Glucose Urine UA Negative (Negative); Leukocyte Esterase Urine Negative (Negative); Nitrite Urine Negative (Negative); PH 5.5 (5.0-9.0); UMIC TRIGGER UA YES; Urine Blood Negative (Negative); Urine Ketones Negative (Negative); Urine Protein 100 (2+) mg/dL (Neg-Trace)
[2022-12-10 14:39] LABS: Bacteria Urine None Seen (None Seen); Hyaline Casts Urine 0-2 /LPF (0-2)
[2022-12-10 14:56] LABS: Creatinine Urine 93.17 mg/dL; Protein/Creatinine Ratio, Ur 0.96 (<0.2); Total Protein Urine Random 89 mg/dL (<12)
== END 2022-12-10 08:40 | disposition home or self-care (01) ==
LOC: HO.HMGCLDS 08:39
PROVIDERS: Absent Provider Internal Medicine Nephrology; PCP Internal Medicine; Visit Provider Nurse Practitioner Family
DX: M05.9 Rheumatoid arthritis with rheumatoid factor, unspecified (principal); N18.2 Chronic kidney disease, stage 2 (mild)
CPT/HCPCS: 36415; 80053; 81001; 82043; 84156; 85025; 85652; 86140

== ENCOUNTER 2023-01-08 14:53 | Outpatient (AMB) | payer MEDICARE, SELFPAY ==
--- NOTE | 2023-01-08 15:53 | A.SPINEOV_ITS ---
Intake Intake Visit Reasons: F/u from [facility] Intake Note: Mr. Faith is here to f/u last seen @ [place] office. 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 Faith who is here to follow-up and discuss his MRI and his EMG results. I saw the copy of your note, and it seems compatible with the previous diagnosis of neuropathy that we suspected during our visit back in August of this year. He does have stenosis in his lumbar spine, however he is very clear about the fact that his symptoms improve when he stands and walks. The majority of his symptoms are burning pain in his legs when he is sitting or an active. I reviewed his cervical MRI done at [facility], and while he does have a slight spondylolisthesis at C3-4 with moderate stenosis at C3-4 and C4-5 without cord signal change, clinically he is not reporting any of the classic signs of myelopathy but rather just to tingling in the left side of his hand in the 4th and 5th digits which I suspect may be also due to an ulnar nerve entrapment or some kind of peripheral neuropathy. On exam he is not demonstrating any signs of myelopathy either, has no discernible hand weakness atrophy, increased tone or hyperreflexia. He tells me he is able to do 30 pushups every day. I suspect what we are seeing is an incidental finding. He is going to follow-up with your office in March to discuss workup for his neuropathy. We would be glad to see him back if any of his symptoms change. I did educate him on the symptoms of myelopathy. Total amount of time spent in this visit was 20 minutes in discussion of symptoms, cervical spine imaging results and subsequent plan of care Jimenez Duggan MD,PhD [facility] [employer] Coding Level of Care Code Est Pt Level 3 (46102) Diagnoses Spinal stenosis M48.00
== END 2023-01-08 16:57 | disposition home or self-care (01) ==
PROVIDERS: PCP Internal Medicine; Visit Provider Neurological Surgery
DX: M48.00 Spinal stenosis, site unspecified (principal)
CPT/HCPCS: 99213

== ENCOUNTER → 2023-01-08 14:53 | Outpatient (BNVA) | payer MEDICARE, SELFPAY | PROVIDERS: PCP Internal Medicine; Visit Provider Neurological Surgery | DX: M48.02 Spinal stenosis, cervical region (principal); M43.12 Spondylolisthesis, cervical region | CPT/HCPCS: 99212 ==

== ENCOUNTER 2023-01-31 08:36 | Outpatient (AMB) | payer MEDICARE, SELFPAY ==
--- NOTE | 2023-01-31 08:37 | MHC.OFFVIS ---
Intake Vital Signs 01/31/23 08:38 Height 5 ft 9 in Weight 172 lb 2.896 oz BMI 25.4 BP 142/64 H Blood Pressure Location Rt brachial Position Sitting Pulse 81 Pulse Source Pulse Oximeter Temp 96.8 F Temp Source Skin Pulse Oximetry (%) 96 Intake Visit Reasons: rheumatoid arthritis Intake Note: Pt seen today for RA follow up. 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 Accompanied by: Spouse Allergies levofloxacin [From LEVAQUIN] Allergy (Severe, Verified 01/31/23 08:40) ANGIOEDEMA (EXACT SOURCE UNCERTAIN) lisinopril [LISINOPRIL] Allergy (Severe, Verified 01/31/23 08:40) ANGIOEDEMA ( EXACT SOURCE UNCERTAIN) Medication List - Last Reconciled 01/31/23 by Zechariah Munroe MD acetaminophen (Tylenol) 650 mg PO Q6H PRN allopurinol 100 mg PO DAILY blood sugar diagnostic ([employer]en MODStyle Lite Strips) USE TO TEST DAILY blood-glucose meter Test Daily - [employer] Blood glucose Meter blood-glucose meter (FreeStyle Lite Meter kit) As directed carvedilol (Coreg) 25 mg PO BID doxazosin (Cardura) 4 mg PO DAILY 90 days fenofibrate nanocrystallized 145 mg PO DAILY hydralazine 100 mg PO TID 90 days lancets ([employer]en MODStyle Lancets) USE TO TEST DAILY leflunomide 20 mg PO DAILY lorazepam 0.5 mg PO BEDTIME metformin 500 mg PO DAILY 90 days nifedipine ER 90 mg PO DAILY solifenacin 10 mg PO DAILY 90 days spironolactone 25 mg PO DAILY 90 days tadalafil 5 mg PO DAILY 90 days torsemide 10 mg PO DAILY tramadol 50 mg PO DAILY PRN HPI HPI Comments History of Present Illness Details This is an 88-year-old male with seropositive RA who returns for follow-up. On leflunomide 20 mg daily. Also on allopurinol 100 mg daily prescribed by his PCP. States that over the last 6 months or so he has been having burning pain in his toes, numbness in his feet. feels that his toes are turning. He has minor left big toe pain. He also has been having right ankle swelling, that is not tender, usually worse at night and improves in the morning. He was evaluated by a neurologist about 6 months ago and had an EMG done of his lower extremities. Patient does not know the results [facility] Medical History Angioedema Chronic pain syndrome Diabetes mellitus Diabetes mellitus Disc degeneration, lumbar Essential hypertension Gout, arthritis Hypercholesterolemia Leg edema Podagra Rheumatoid arthritis Seropositive rheumatoid arthritis Spinal stenosis Spondylosis of lumbar region without myelopathy or radiculopathy Swelling of both parotid glands Surgical History History of bilateral cataract extraction History of bladder surgery History of cryosurgery History of endoscopy History of hernia repair Family History Father Cardiovascular disease Diabetes Mother Diabetes Brother No problems noted. Brother No problems noted. Sister No problems noted. Sister No problems noted. Son No problems noted. Son No problems noted. Daughter No problems noted. Daughter No problems noted. Daughter No problems noted. Other Mental health disorder Social History Household Members: Spouse and Children Housing: House Do you presently have visiting nurse or other home services: No Alcohol intake: never Patient Tobacco Use Status: Never used Tobacco e-Cigarette/Vaping Use: Never Used Second Hand Smoke Exposure: No service: No Current occupational status: retired Cognitive needs: No Hearing needs: No Vision needs: No Review of Systems Musc Reports joint swelling and Reports numbness Neuro Reports numbness Physical Exam Vital Signs: Last Vital Signs Temp 96.8 F 01/31/23 08:38 Pulse 81 01/31/23 08:38 BP 142/64 H 01/31/23 08:38 Pulse Ox 96 01/31/23 08:38 BMI result Body Mass Index 25.4 Const General: cooperative, healthy appearing and comfortable Nutritional Appearance: average body habitus Orientation/consciousness: patient oriented x3 Limitations: no limitations HEENT Head: Yes normocephalic and Yes atraumatic Mouth: moist mucous membranes Resp Effort & Inspection: normal respiratory effort and able to speak in complete sentences Auscultation: clear to auscultation bilaterally Cardio Rate: regular rate Rhythm: regular rhythm Neuro General: patient oriented x3 Extrem Other: Osteoarthritic changes of both hands with no active synovitis A small non tender cyst on the dorsal aspect of the right wrist Small cyst in the right index DIP Trace pitting edema of right ankle without tenderness or warmth Bilateral feet numbness to palpation Osteoarthritic changes of both feet nontender to palpation Results Reviewed Results Reviewed: Laboratory Tests C-Reactive Protein 0.27 Ordering Physician: Key Bray TELECOMMUNICATIONS FIELD ENGINEER Date of Service: 07/13/22 Procedure(s): XR hand RT min 3V Accession Number(s): [id number] EXAMINATION: XR HAND, RIGHT CLINICAL INFORMATION: Rheumatoid arthritis.? COMPARISON: None? TECHNIQUE: PA, lateral, and oblique views of the right hand. FINDINGS: Bony alignment and mineralization are normal. There is a slight ulnar minus variance. 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 Mild osteoarthritic change is seen of the second and third distal interphalangeal joints and of the third proximal interphalangeal joint. Again, there is a marginal erosion of the fifth distal interphalangeal joint. No fracture or dislocation is seen. The ulnar styloid is intact. No focal soft tissue swelling, gas or foreign body is seen. XR/XR hand RT min 3V IMPRESSION: Osteoarthritic changes are seen of the right hand and wrist. Again, there is marginal erosion of the fifth distal interphalangeal joint. No fracture or dislocation is seen. ? ? EXAMINATION: XR HAND, LEFT ? CLINICAL INFORMATION: Rheumatoid arthritis.? ? COMPARISON: None? ? TECHNIQUE: PA, lateral, and oblique views of the left hand. ? FINDINGS: Bony alignment and mineralization are normal. There is a neutral ulnar variance. There is marked osteoarthritic change of the first carpometacarpal joint. There is moderate osteoarthritic change of the fifth distal interphalangeal joint. There is mild osteoarthritic change of the third proximal interphalangeal joint. No fracture or dislocation is seen. No focal bone erosion is seen. The ulnar styloid is intact. No focal soft tissue swelling, gas or foreign body is seen. ? IMPRESSION: Osteoarthritic change is seen of the left hand and wrist, most pronounced of the first carpometacarpal joint and the fifth distal interphalangeal joint. No focal bone erosion is appreciated. There is no fracture or dislocation. Ordering Physician: Key Bray TELECOMMUNICATIONS FIELD ENGINEER Date of Service: 07/13/22 Procedure(s): XR foot RT 2V Accession Number(s): [id number] EXAMINATION: XR FOOT, RIGHT CLINICAL INFORMATION: Rheumatoid arthritis; pain.? COMPARISON: None? TECHNIQUE: AP, lateral, and oblique views of the right foot. FINDINGS: Bony alignment and mineralization are normal. No fracture, dislocation or joint effusion is seen. Boehler's angle is normal. There are small posterior and plantar calcaneal spurs. No abnormal bone erosion is noted. There is no focal soft tissue swelling, gas or foreign body.? XR/XR foot RT 2V IMPRESSION: ? 1. No fracture, dislocation or right ankle joint effusion is seen. ? 2. There is no abnormal bone erosion. ? 3. There are small calcaneal spurs, as detailed. ? ? EXAMINATION: XR FOOT, LEFT ? CLINICAL INFORMATION: Rheumatoid arthritis; pain.? ? COMPARISON: None? ? TECHNIQUE: AP, lateral, and oblique views of the left foot. ? FINDINGS: Bony alignment and mineralization are normal. There is no calcaneal fracture of the second metatarsal shaft. No acute fracture, dislocation or left ankle joint effusion is seen. Boehler's angle is normal. There are small posterior and plantar calcaneal spurs. No focal soft tissue swelling, gas or foreign body is seen. There are atherosclerotic calcifications.? ? IMPRESSION: ? 1. No acute fracture, dislocation or left ankle joint effusion is seen. ? 2. There is no abnormal bone erosion. ? 3. There are small calcaneal spurs. Assessment & Plan Assessment & Plan (1) Seropositive rheumatoid arthritis: Comment: Plaquenil started age 50-stopped February 2019 Leflunomide 10 mg- December 2018 to May 2019 Leflunomide 20 mg- May 2019 to present Code(s): M05.9 - Rheumatoid arthritis with rheumatoid factor, unspecified Plan: This is an 88-year-old male with seropositive RA returns for follow-up. Doing well overall. No active synovitis on exam. Inflammatory markers within normal. Patient symptoms of burning pain and numbness of his feet is likely related to neuropathy. Follow-up with his neurologist Continue leflunomide 20 mg daily Labs before next visit in 4 month (2) Gout, arthritis: Code(s): M10.9 - Gout, unspecified Plan: History of gout. He is on allopurinol 100 mg daily. No gout flares for a long period of time. Most recent uric acid level was at goal Check uric acid level before next visit Plan I spent 27 minutes reviewing patient's chart, evaluating patient, ordering diagnostic workup, counseling patient and documenting in the chart Orders: Orders Comprehensive Met. Panel 4 Months M06.9 - Rheumatoid arthritis, unspecified C Reactive Protein 4 Months M06.9 - Rheumatoid arthritis, unspecified Hemoglobin A1c 4 Months E11.9 - Type 2 diabetes mellitus without complications Complete Blood Count Auto Diff 4 Months M06.9 - Rheumatoid arthritis, unspecified Erythrocyte Sedimentation Rate 4 Months M06.9 - Rheumatoid arthritis, unspecified Uric Acid 4 Months M10.9 - Gout, unspecified Coding Level of Care Code Est Pt Level 4 (99368) Diagnoses Seropositive rheumatoid arthritis M05.9 Gout, arthritis M10.9
[2023-01-31 08:38] VITALS: BP 142/64; PULSE 81; TEMP 36; O2SAT 96; BMI 25.4
== END 2023-01-31 09:13 | disposition home or self-care (01) ==
PROVIDERS: PCP Internal Medicine; Visit Provider Student in an Organized Health Care Education/Training Program
DX: M05.79 Rheumatoid arthritis with rheumatoid factor of multiple sites without organ or systems involvement (principal); M10.9 Gout, unspecified
CPT/HCPCS: 99214

== ENCOUNTER → 2023-01-31 08:36 | Outpatient (BNVA) | payer MEDICARE, SELFPAY | PROVIDERS: PCP Internal Medicine; Visit Provider Student in an Organized Health Care Education/Training Program | DX: M05.9 Rheumatoid arthritis with rheumatoid factor, unspecified (principal); M10.9 Gout, unspecified | CPT/HCPCS: 99212 ==

== ENCOUNTER 2023-02-05 09:24 | Outpatient (AMB) | payer MEDICARE, SELFPAY ==
--- NOTE | 2023-02-05 09:26 | A.OFFVIS_ITS ---
Intake Intake Visit Reasons: 3m follow up Intake Note: Patient is present for Telephone Follow up Urology Med: Doxazosin, Solifenacin, Tadalafil Antibiotic Allergy: Levoflaxacin Blood Thinner: None Pharmacy: [facility] Allergies levofloxacin [From LEVAQUIN] Allergy (Severe, Verified 01/31/23 08:40) ANGIOEDEMA (EXACT SOURCE UNCERTAIN) lisinopril [LISINOPRIL] Allergy (Severe, Verified 01/31/23 08:40) ANGIOEDEMA ( EXACT SOURCE UNCERTAIN) Medication List - Last Reconciled 02/05/23 by Barney Byrd MD acetaminophen (Tylenol) 650 mg PO Q6H PRN allopurinol 100 mg PO DAILY blood sugar diagnostic (Boondyle Lite Strips) USE TO TEST DAILY blood-glucose meter Test Daily - [employer] Blood glucose Meter blood-glucose meter ([employer]icon[employer]Style Lite Meter kit) As directed carvedilol (Coreg) 25 mg PO BID doxazosin (Cardura) 4 mg PO DAILY 90 days fenofibrate nanocrystallized 145 mg PO DAILY hydralazine 100 mg PO TID 90 days lancets ([employer] Lancets) USE TO TEST DAILY leflunomide 20 mg PO DAILY lorazepam 0.5 mg PO BEDTIME metformin 500 mg PO DAILY 90 days nifedipine ER 90 mg PO DAILY solifenacin 10 mg PO DAILY 90 days spironolactone 25 mg PO DAILY 90 days torsemide 10 mg PO DAILY tramadol 50 mg PO DAILY PRN HPI HPI Comments History of Present Illness Details Corby is a pleasant male. He is a patient of Dr. Beal. He is seen for the following urologic issues - lower urinary tract symptoms - nocturia - diabetic cystopathy with overactive bladder Telemedicine Evaluation 15 min Consultation [facility] Video attempted Stable bladder performance Current saroj combination therapy - nocturia x2 Minimal benefit from tadalafil Continued good response to solifenacin 10 mg with doxazosin 4 mg 6 month follow-up Lower Urinary Tract Symptoms: - bladder instability in diabetic Current visit is for further evaluation of, lower urinary tract symptoms, predominate obstructive symptoms - baseline 6x nocturia Current treatment includes solifenacin with doxazosin and tadalafil Prior treatments TURP, repeat BNC 04/04 Prostate Symptom Score 6/19 , Moderate (9-19), Bother 3. Symptoms include 12/03 , incomplete emptying, weak stream, nocturia (>2), and are progressing. Results from testing include cystoscopy BNC 04/04 - prior TURP PSA 11/02 PSA 10 (last PSA 2011 3.8) 04/04 3.3. Prostate volume 30-50gm. Associated conditions CAD No CVA No diabetes yes elevated PSA No Treatment plan legs higher than body in afternoon Erectile dysfunction Good result with Viagra 100 mg April 2020 [facility] Medical History Angioedema Chronic pain syndrome Diabetes mellitus Diabetes mellitus Disc degeneration, lumbar Essential hypertension Gout, arthritis Hypercholesterolemia Leg edema Podagra Rheumatoid arthritis Seropositive rheumatoid arthritis Spinal stenosis Spondylosis of lumbar region without myelopathy or radiculopathy Swelling of both parotid glands Surgical History History of bilateral cataract extraction History of bladder surgery History of cryosurgery History of endoscopy History of hernia repair Family History Father Cardiovascular disease Diabetes Mother Diabetes Brother No problems noted. Brother No problems noted. Sister No problems noted. Sister No problems noted. Son No problems noted. Son No problems noted. Daughter No problems noted. Daughter No problems noted. Daughter No problems noted. Other Mental health disorder Social History Household Members: Spouse and Children Housing: House Do you presently have visiting nurse or other home services: No Alcohol intake: never Patient Tobacco Use Status: Never used Tobacco e-Cigarette/Vaping Use: Never Used Second Hand Smoke Exposure: No service: No Current occupational status: retired Cognitive needs: No Hearing needs: No Vision needs: No Review of Systems Const All systems reviewed & are unremarkable except as noted in HPI and below Reports no additional complaints Resp Reports no additional complaints GI Reports no additional complaints Reports as per HPI Musc Reports no additional complaints Physical Exam Telemedicine evaluation Appropriate responses Regular breathing rate and rhythm HEENT Head: Yes normal to inspection Ears: hearing grossly normal bilaterally Eyes General: appearance normal, both eyes and all related structures Neck Neck: Yes normal visual inspection Chest Chest palpation & inspection: normal inspection of the chest Resp Effort & Inspection: normal respiratory effort and able to speak in complete sentences Assessment & Plan Assessment & Plan (1) Erectile dysfunction associated with type 2 diabetes mellitus: Code(s): E11.69 - Type 2 diabetes mellitus with other specified complication; N52.1 - Erectile dysfunction due to diseases classified elsewhere (2) Overactive bladder: Code(s): N32.81 - Overactive bladder Plan 6 month follow-up Orders: Orders Prostate Specific Antigen 6 Months N13.8 - Other obstructive and reflux uropathy, N40.1 - Benign prostatic hyperplasia with lower urinary tract symptoms Medications: Refilled solifenacin 10 mg PO DAILY 90 days 90 tabs 1RF N32.81 - Overactive bladder, R39.15 - Urgency of urination doxazosin (Cardura) 4 mg PO DAILY 90 days 90 tabs 1RF N32.81 - Overactive bladder Discontinued tadalafil Discontinued Reason: Doctor's Order 5 mg PO DAILY 90 days 90 tabs 0RF bph E11.69 - Type 2 diabetes mellitus with other specified complication, N52.1 - Erectile dysfunction due to diseases classified elsewhere Patient Instructions: Imaging studies, laboratory and physical exam results were discussed and reviewed in detail. No major barriers to patient understanding were identified. An opportunity to ask questions regarding the treatment plan was provided. All questions were answered. The patient expressed understanding and agreement with the above treatment plan. The patient is aware they should contact our office by phone for worsening of their current condition or the appearance of new urologic symptoms. Compliance is encouraged with any medications and followup testing that is ordered. It is a privilege to participate in the urologic care of your patient. If you have any questions or concerns regarding treatment for the above conditions, or other urologic issues, please do not hesitate to contact me. The office telephone contact is [phone]. This note is constructed using voice recognition software. While every effort has been made to ensure accuracy package liner errors may have been included. Yours sincerely, Dr Barney Byrd MD, [facility] - Urology Providers of Expert, Compassionate Care for the Genitourinary System Telehealth Telehealth Location of provider rendering services: practice address Location of patient: address on file Patient Identification confirmed using: Name, : Yes Telehealth method: video Patient verbally consented to treatment: Yes Patient verbally consented to billing insurance company: Yes Patient informed of any privacy concerns related to visit: Yes Coding Level of Care Code Tele Est Pt Level 3 (43526) Diagnoses Erectile dysfunction associated with type 2 diabetes mellitus E11.69; N52.1 Overactive bladder N32.81
== END 2023-02-05 11:58 | disposition home or self-care (01) ==
LOC: HO.HUSH 09:24
PROVIDERS: PCP Internal Medicine; Visit Provider Urology
DX: N32.81 Overactive bladder (principal); N52.1 Erectile dysfunction due to diseases classified elsewhere; E11.69 Type 2 diabetes mellitus with other specified complication
CPT/HCPCS: 99213

== ENCOUNTER → 2023-02-05 09:24 | Outpatient (BNVA) | payer MEDICARE, SELFPAY | PROVIDERS: PCP Internal Medicine; Visit Provider Urology | DX: E11.69 Type 2 diabetes mellitus with other specified complication (principal); N52.1 Erectile dysfunction due to diseases classified elsewhere; N32.81 Overactive bladder | CPT/HCPCS: Q3014 ==

== ENCOUNTER 2023-03-14 08:51 | Outpatient (AMB) | payer MEDICARE, SELFPAY ==
--- NOTE | 2023-03-14 08:55 | A.OFFPC_ITS ---
Vital Signs 03/14/23 08:57 03/14/23 09:06 Height 5 ft 9 in Weight 171 lb 8 oz BMI 25.3 BP 170/100 H 150/88 H Blood Pressure Location Lt brachial Lt brachial Position Sitting Sitting Pulse 74 Pulse Source Pulse Oximeter Pulse Oximetry (%) 97 Oxygen Delivery Method Room Air Intake Visit Reasons: 6mth f/u Intake Note: Patient is here to follow up on DM, RA, HTN, . Binder Stripper Hand Required: No Garage Door Hanger: Present Accompanied by: Spouse Allergies levofloxacin [From LEVAQUIN] Allergy (Severe, Verified 03/14/23 09:23) ANGIOEDEMA (EXACT SOURCE UNCERTAIN) lisinopril [LISINOPRIL] Allergy (Severe, Verified 03/14/23 09:23) ANGIOEDEMA ( EXACT SOURCE UNCERTAIN) Medication List - Last Reconciled 03/14/23 by Kenney Beal MD acetaminophen (Tylenol) 650 mg PO Q6H PRN allopurinol 100 mg PO DAILY blood sugar diagnostic (MeMeMeStyle Lite Strips) USE TO TEST DAILY blood-glucose meter Test Daily - [email or web address] Blood glucose Meter blood-glucose meter (FreeStyle Lite Meter kit) As directed carvedilol (Coreg) 25 mg PO BID doxazosin (Cardura) 4 mg PO DAILY 90 days fenofibrate nanocrystallized 145 mg PO DAILY hydralazine 100 mg PO TID 90 days lancets (FreeStyle Lancets) USE TO TEST DAILY leflunomide 20 mg PO DAILY NS lorazepam 0.5 mg PO BEDTIME metformin 500 mg PO DAILY 90 days nifedipine ER 90 mg PO DAILY solifenacin 10 mg PO DAILY 90 days spironolactone 25 mg PO DAILY 90 days torsemide 10 mg PO DAILY tramadol 50 mg PO DAILY PRN Tobacco use date assessed: 03/14/23 Fall risk assessment: No Falls in past year Last assessed Fall Risk: 03/14/23 Dental Screening Dental Screen Date: 03/14/23 Did you have a dental visit in the last 12 months?: Yes Did you have a dental problem in the last 6 months where you did not have access to dental care?: No Was dental information given to patient?: Patient has dentist HPI 6mth f/u HPI Details 88-year-old male presents to the office to discuss his chronic medical conditions. Patient has been having clear expectoration for the past few days. No fevers or chills. He is also complaining of ankle pain. Able to function and do activities of daily living. Does not drive. Compliant with all his medications. [facility] Medical History Diabetes mellitus Disc degeneration, lumbar Chronic pain syndrome Gout, arthritis Rheumatoid arthritis Spinal stenosis Spondylosis of lumbar region without myelopathy or radiculopathy Diabetes mellitus Swelling of both parotid glands Podagra Seropositive rheumatoid arthritis Hypercholesterolemia Leg edema Essential hypertension Angioedema Surgical History History of cryosurgery History of endoscopy History of bladder surgery History of bilateral cataract extraction History of hernia repair Family History Father Cardiovascular disease Diabetes Mother Diabetes Brother No problems noted. Brother No problems noted. Sister No problems noted. Sister No problems noted. Son No problems noted. Son No problems noted. Daughter No problems noted. Daughter No problems noted. Daughter No problems noted. Other Mental health disorder Social History Household Members: Spouse and Children Housing: House Do you presently have visiting nurse or other home services: No Alcohol intake: never Patient Tobacco Use Status: Never used Tobacco e-Cigarette/Vaping Use: Never Used Second Hand Smoke Exposure: No service: No Current occupational status: retired Cognitive needs: No Hearing needs: No Vision needs: No Questionnaire Thrive Questionnaire Date Thrive assessed: 10/12/22 REGINA-7 AMB Questionnaire REGINA-7 Date REGINA - 7 assessed: 10/12/22 Source: Developed by Drs. Poncho Morataya, Megan Callahan, Shane Hooper and colleagues, with an educational linus from [employer]. Physical exam (Primary Care) Vital Signs: Last Vital Signs Pulse 74 03/14/23 08:57 BP 150/88 H 03/14/23 09:06 Pulse Ox 97 03/14/23 08:57 Oxygen Delivery Method Room Air 03/14/23 08:57 Care Plan Goal for BP management: Elevated blood pressure noted. This is appropriate for him. Continue medications at same dosage. BMI result Body Mass Index 25.3 Tobacco/Smoking Status: Tobacco use Status Tobacco use date assessed 03/14/23 03/14/23 09:04 Patient Tobacco Use Status Never used Tobacco 03/14/23 09:04 e-Cigarette/Vaping Use Never Used 03/14/23 09:04 Thrive Assessment: Date of Thrive Assessment Date Thrive assessed 10/12/22 03/14/23 09:04 Const General: cooperative and healthy appearing Nutritional Appearance: well nourished Orientation/consciousness: patient oriented x3 Limitations: no limitations HENMT Head: Yes normal to inspection Eyes General: appearance normal, both eyes and all related structures Neck Neck: Yes normal visual inspection Chest Chest palpation & inspection: normal palpation of entire chest wall Resp Effort & Inspection: normal respiratory effort Neuro General: patient oriented x3 Results AMB Hemoglobin A1c AMB Hemoglobin A1c 5.8 % Last Edit by ALEXSANDER Flores on 03/14/23 09:13 Results Reviewed Results Reviewed: Laboratory Last Values Hgb A1c (Clinic) 5.8 % (4.0-6.0) 03/14/23 08:55 Assessment and Plan Assessment & Plan (1) Spinal stenosis: Code(s): M48.00 - Spinal stenosis, site unspecified Plan: Condition is stable. Continue current medications. (2) Rheumatoid arthritis: Code(s): M06.9 - Rheumatoid arthritis, unspecified Plan: Ankle pain is a part of his RA. Continue disease modifying agents. Continue to use tramadol once a day. (3) Diabetes mellitus: Code(s): E11.9 - Type 2 diabetes mellitus without complications Qualifiers: Diabetes mellitus type: type 2 Diabetes mellitus termite technician insulin use: without termite technician use Diabetes mellitus complication status: with hyperglycemia Qualified Code(s): E11.65 - Type 2 diabetes mellitus with hyperglycemia Plan: A1c is in range. Continue medications at same dosage. Orders: Orders AMB Hemoglobin A1c Today E11.9 - Type 2 diabetes mellitus without complications Coding Level of Care Code Est Pt Level 4 (30875) Diagnoses Spinal stenosis M48.00 Rheumatoid arthritis M06.9 Type 2 diabetes mellitus with hyperglycemia, without long-term current use of insulin E11.65 Diabetes mellitus type: type 2 Diabetes mellitus skilled nursing insulin use: without skilled nursing use Diabetes mellitus complication status: with hyperglycemia
[2023-03-14 08:57] VITALS: BP 170/100; PULSE 74; O2SAT 97; BMI 25.3
[2023-03-14 09:06] VITALS: BP 150/88
== END 2023-03-14 09:23 | disposition home or self-care (01) ==
PROVIDERS: Visit Provider Internal Medicine
DX: M48.00 Spinal stenosis, site unspecified (principal); M06.9 Rheumatoid arthritis, unspecified; E11.65 Type 2 diabetes mellitus with hyperglycemia; E11.9 Type 2 diabetes mellitus without complications
CPT/HCPCS: 83036; 99214

== ENCOUNTER 2023-05-16 10:11 | Outpatient (AMB) | payer MEDICARE, SELFPAY ==
[2023-05-16 10:26] VITALS: BP 180/80; PULSE 78; BMI 24.9
--- NOTE | 2023-05-16 10:26 | MHC.OFFVIS ---
Intake Vital Signs 05/16/23 10:26 Height 5 ft 8 in Weight 164 lb 0.383 oz BMI 24.9 BP 180/80 H Blood Pressure Location Lt brachial Position Sitting Pulse 78 Intake Visit Reasons: 6 mth f/up Intake Note: 6 month follow up w/ EKG Mail Clerk Required: No Accompanied by: Self / Same As Patient Allergies levofloxacin [From LEVAQUIN] Allergy (Severe, Verified 03/14/23 09:23) ANGIOEDEMA (EXACT SOURCE UNCERTAIN) lisinopril [LISINOPRIL] Allergy (Severe, Verified 03/14/23 09:23) ANGIOEDEMA ( EXACT SOURCE UNCERTAIN) Medication List - Last Reconciled 05/16/23 by Meño Shepherd MD acetaminophen (Tylenol) 650 mg PO Q6H PRN allopurinol 100 mg PO DAILY blood sugar diagnostic (FreeStyle Lite Strips) USE TO TEST DAILY blood-glucose meter Test Daily - [employer] Blood glucose Meter blood-glucose meter (FreeStyle Lite Meter kit) As directed carvedilol (Coreg) 25 mg PO BID doxazosin (Cardura) 4 mg PO DAILY 90 days fenofibrate nanocrystallized 145 mg PO DAILY hydralazine 100 mg PO TID 90 days lancets (FreeStyle Lancets) USE TO TEST DAILY leflunomide 20 mg PO DAILY lorazepam 0.5 mg PO BEDTIME metformin 500 mg PO DAILY 90 days nifedipine ER 90 mg PO DAILY solifenacin 10 mg PO DAILY 90 days spironolactone 25 mg PO DAILY 90 days torsemide 10 mg PO DAILY tramadol 50 mg PO DAILY PRN HPI HPI Comments History of Present Illness Details Corby returns for follow-up regarding hypertension. To recall, he originally came in 2019 for a urological procedure, but then subsequently developed swelling in the throat and submandibular area/ tongue and was diagnosed with angioedema. He was then admitted to the ICU and intubated. He was on lisinopril at that time, which was then stopped. Subsequently he improved and then was able to go home. Over the last few 3 years or so, blood pressures have been difficult to manage. Current med list includes Coreg, hydralazine, doxazosin, nifedipine, spironolactone, torsemide and blood pressure is still high. He states home blood pressure bit better than this but still around 150s or so. Sometimes lower than that. Clinically, he has got no symptoms like angina or anything else. [facility] Medical History Diabetes mellitus Disc degeneration, lumbar Chronic pain syndrome Gout, arthritis Rheumatoid arthritis Spinal stenosis Spondylosis of lumbar region without myelopathy or radiculopathy Diabetes mellitus Swelling of both parotid glands Podagra Seropositive rheumatoid arthritis Hypercholesterolemia Leg edema Essential hypertension Angioedema Surgical History History of cryosurgery History of endoscopy History of bladder surgery History of bilateral cataract extraction History of hernia repair Family History Father Cardiovascular disease Diabetes Mother Diabetes Brother No problems noted. Brother No problems noted. Sister No problems noted. Sister No problems noted. Son No problems noted. Son No problems noted. Daughter No problems noted. Daughter No problems noted. Daughter No problems noted. Other Mental health disorder Social History Household Members: Spouse and Children Housing: House Do you presently have visiting nurse or other home services: No Alcohol intake: never Patient Tobacco Use Status: Never used Tobacco e-Cigarette/Vaping Use: Never Used Second Hand Smoke Exposure: No service: No Current occupational status: retired Cognitive needs: No Hearing needs: No Vision needs: No Review of Systems Const Denies weakness ENT Denies dizziness Card Denies chest pain, Denies chest pain with activity, Denies syncope, Denies rapid heart rate, Denies pedal edema, Denies leg edema, Denies lightheadedness, Denies palpitations, Denies dyspnea, Denies dyspnea on exertion and Denies orthopnea Resp Denies cough, Denies dyspnea and Denies dyspnea on exertion GI Denies hematochezia and Denies change in stool character Musc Denies abnormal gait, Denies muscle cramps, Denies muscle weakness, Denies numbness, Denies radiating pain into limb and Denies tingling Neuro Denies abnormal gait, Denies dizziness, Denies syncope, Denies numbness, Denies tingling and Denies weakness Endo Denies palpitations Physical Exam Vital Signs: Last Vital Signs Pulse 78 05/16/23 10:26 BP 180/80 H 05/16/23 10:26 BMI result Body Mass Index 24.9 Const General: comfortable and no acute distress Orientation/consciousness: patient oriented x3 HEENT Other: Unremarkable Head: Yes normal to inspection Neck Neck: Yes normal visual inspection Chest Chest palpation & inspection: normal inspection of the chest Resp Auscultation: clear to auscultation bilaterally Cardio Palpation: normal PMI Heart sounds: S1 normal heart sound present, S2 normal heart sound present, no gallops, no murmurs and no rubs GI Palpation (GI): Soft to palpation Back/Spine/Pelvis Other: unremarkable Skin General skin exam: no rashes or lesions noted Neuro General: patient oriented x3 Extrem General: Yes normal to inspection Psych Mental Status: mental status grossly normal Office Procedures EKG Details: EKG with sinus rhythm at 78/Min; left ventricular hypertrophy with repolarization changes. [id number], Complete Assessment & Plan Assessment & Plan (1) Essential hypertension: Code(s): I10 - Essential (primary) hypertension Plan: Current regimen includes carvedilol, hydralazine, nifedipine, Cardura, spironolactone, torsemide. In the past, anaphylaxis when he was on lisinopril but do not know the true etiology. Hence not on EMILIANO inhibitor or ARB. Otherwise, has had amlodipine related leg swelling in the past. We will go up on the Coreg dose further to 37.5 mg b.i.d.. Referred to Nephrology as he has not seen anyone in a while. Consider 24 hour blood pressure monitor. (2) Leg edema: Code(s): R60.0 - Localized edema Plan: Suspected venous insufficiency. In the past echocardiogram as well as ultrasound unremarkable. No significant edema today. (3) Angioedema: Code(s): T78.3XXA - Angioneurotic edema, initial encounter Qualifiers: Encounter type: sequela Qualified Code(s): T78.3XXS - Angioneurotic edema, sequela Plan: Resolved. Uncertain culprit. Could have been lisinopril. Not on this anymore. Plan Discussed with who came for appointment. Orders: Referrals Nephrology Referral I10 - Essential (primary) hypertension Medications: Changed From leflunomide 20 mg PO DAILY 30 tabs 0RF To leflunomide 20 mg PO DAILY From carvedilol (Coreg) must administer with a meal/food 25 mg PO BID 180 tabs 3RF To carvedilol (Coreg) must administer with a meal/food 37.5 mg (1.5 x 25 mg) PO BID 270 tabs 3RF 90 days Coding Level of Care Code Est Pt Level 4 (57219) Diagnoses Essential hypertension I10 Leg edema R60.0 Angioedema, sequela T78.3XXS Encounter type: sequela CPT Codes EKG - CPT: 34629-[id number], Complete ([id number])
== END 2023-05-16 10:48 | disposition home or self-care (01) ==
PROVIDERS: Visit Provider Internal Medicine
DX: I10 Essential (primary) hypertension (principal); R60.0 Localized edema; T78.3XXS Angioneurotic edema, sequela
CPT/HCPCS: 93010; 99214

== ENCOUNTER → 2023-05-16 10:11 | Outpatient (BNVA) | payer MEDICARE, SELFPAY | PROVIDERS: Visit Provider Internal Medicine ==

== ENCOUNTER 2023-05-16 11:17 | Outpatient (REF) | payer MEDICARE, SELFPAY ==
[2023-05-16 13:06] LABS: MANUAL DIFF FLAG NO
[2023-05-16 13:25] LABS: Basophils Absolute Auto 0.1 X10*3/uL (0.0-0.2); Basophils Percent Auto 1.5 % (0-2); Eosinophils Absolute Auto 0.4 X10*3/uL (0.0-0.4); Eosinophils Percent Auto 5.1 % (0-4); Hematocrit 38.9 % (42.0-52.0); Hemoglobin 12.6 g/dl (14.0-18.0); Imm Gran Abs Auto 0.04 X10*3/uL (0.00-0.03); Imm Gran Pct Auto 0.6 % (0.0-0.4); Lymphocytes Absolute Auto 1.2 X10*3/uL (1.2-4.9); Lymphocytes Percent Auto 16.8 % (20-40); Mean Corpuscular HGB Conc 32.4 g/dl (31.0-36.0); Mean Corpuscular Hemoglobin 28.5 pg (27.0-33.0); Mean Platelet Volume 12.9 fL (9.4-12.4); Monocytes Absolute Auto 0.8 X10*3/uL (0.1-1.2); Monocytes Percent Auto 11.4 % (2-11); Neutrophils Absolute Auto 4.7 x10*3/uL (2.0-8.3); Neutrophils Percent Auto 64.6 % (45-73); Platelet Count 303 X10*3/uL (160-400); Red Blood Count 4.42 X10*6/uL (4.60-5.80); Red Cell Distribution Width 13.6 % (11.0-16.0); White Blood Count 7.3 X10*3/uL (4.8-10.8)
[2023-05-16 13:42] LABS: Estimated Average Glucose 148 mg/dL; Hemoglobin A1c % 6.8 % (<6.0)
[2023-05-16 13:57] LABS: Alanine Aminotransferase 16 U/L (0-40); Albumin Level 4.5 g/dL (3.5-5.0); Alkaline Phosphatase 68 U/L (39-117); Anion Gap 16 (12-20); Aspartate Amino Transferase 22 U/L (5-37); Bilirubin Total 0.3 mg/dL (0.0-1.0); Blood Urea Nitrogen 23 mg/dL (9-16); Calcium 9.9 mg/dL (8.4-10.2); Carbon Dioxide 22 mmol/L (22-29); Chloride 101 mmol/L (96-108); Estimated Glomerular Filt Rate > 60; Glucose Random 161 mg/dL (60-115); Potassium 3.9 mmol/L (3.3-5.1); Sodium 135 mmol/L (135-145); Total Protein 7.9 g/dL (6.5-8.0); Uric Acid 5.2 mg/dL (3.4-7.0)
[2023-05-16 14:35] LABS: Erythrocyte Sedimentation Rate 38 MM/HR (0-15)
== END 2023-05-16 11:18 | disposition home or self-care (01) ==
LOC: HO.HMGCLDS 11:17
PROVIDERS: PCP Internal Medicine; Visit Provider Student in an Organized Health Care Education/Training Program
DX: I10 Essential (primary) hypertension (principal); T78.3XXS Angioneurotic edema, sequela; M10.9 Gout, unspecified; M06.9 Rheumatoid arthritis, unspecified; E11.9 Type 2 diabetes mellitus without complications
CPT/HCPCS: 36415; 80053; 83036; 84550; 85025; 85652; 86140; 93005; 99212

== ENCOUNTER 2023-05-20 11:17 | Outpatient (AMB) | payer MEDICARE, SELFPAY ==
--- NOTE | 2023-05-20 11:18 | MHC.OFFVIS ---
Intake Vital Signs 05/20/23 11:19 Height 5 ft 8 in Weight 174 lb BMI 26.5 BP 186/90 H Blood Pressure Location Lt brachial Position Sitting Pulse 76 Pulse Source Pulse Oximeter Pulse Oximetry (%) 98 Oxygen Delivery Method Room Air Intake Visit Reasons: Hypertension Intake Note: New pt presents today for hypertension consult. Saw Dr Blanchard 05/16/23, carvedilol was increased. Senior Sql Server Developer Required: No Accompanied by: Spouse Allergies levofloxacin [From LEVAQUIN] Allergy (Severe, Verified 05/20/23 11:21) ANGIOEDEMA (EXACT SOURCE UNCERTAIN) lisinopril [LISINOPRIL] Allergy (Severe, Verified 05/20/23 11:21) ANGIOEDEMA ( EXACT SOURCE UNCERTAIN) HPI HPI Comments History of Present Illness Details Anthony is a elderly man with a history of longstanding hypertension which has been rather difficult to control. He is on multiple antihypertensive medications. He has undergone a 24 hour blood pressure monitoring back in 2020 which revealed suboptimally controlled blood pressure and a question of superimposed white coat effect. He has been re-referred for the management of hypertension and possible 24 hour ambulatory blood pressure monitoring. He was seen by different mental retardation aide in the past and has had no further follow-up since 2020. He is allergic to lisinopril which has caused angioedema. Today he is complaining of leg edema. He has been on nifedipine 90 mg a day. He has no shortness of breath. Has been marginal blood pressure at home and usually systolic blood pressure is in the 150s at home. [facility] Medical History Diabetes mellitus Disc degeneration, lumbar Chronic pain syndrome Gout, arthritis Rheumatoid arthritis Spinal stenosis Spondylosis of lumbar region without myelopathy or radiculopathy Diabetes mellitus Swelling of both parotid glands Podagra Seropositive rheumatoid arthritis Hypercholesterolemia Leg edema Essential hypertension Angioedema Surgical History History of cryosurgery History of endoscopy History of bladder surgery History of bilateral cataract extraction History of hernia repair Family History Father Cardiovascular disease Diabetes Mother Diabetes Brother No problems noted. Brother No problems noted. Sister No problems noted. Sister No problems noted. Son No problems noted. Son No problems noted. Daughter No problems noted. Daughter No problems noted. Daughter No problems noted. Other Mental health disorder Social History Household Members: Spouse and Children Housing: House Do you presently have visiting nurse or other home services: No Alcohol intake: never Patient Tobacco Use Status: Never used Tobacco e-Cigarette/Vaping Use: Never Used Second Hand Smoke Exposure: No service: No Current occupational status: retired Cognitive needs: No Hearing needs: No Vision needs: No Review of Systems Const Denies anorexia, Denies fever(s) and Denies weakness Eyes Denies blurry vision Card Denies no additional complaints and Denies dyspnea Resp Reports no additional complaints, Reports cough and Denies dyspnea GI Denies melena and Denies diarrhea Denies hematuria Musc Denies tingling Skin/Breast Denies rash Neuro Denies focal weakness, Denies tingling, Denies tremor(s) and Denies weakness Physical Exam Vital Signs: Last Vital Signs Pulse 76 05/20/23 11:19 BP 186/90 H 05/20/23 11:19 Pulse Ox 98 05/20/23 11:19 Oxygen Delivery Method Room Air 05/20/23 11:19 BMI result Body Mass Index 26.5 Const General: comfortable; No acute distress Orientation/consciousness: patient oriented x3 Eyes General: appearance normal, both eyes and all related structures Visual Headley: normal visual headley by confrontation Neck Neck: Yes supple and Yes no JVD Resp Effort & Inspection: normal respiratory effort and respiratory effort not decreased Auscultation: rhonchi Cardio Palpation: no palpable S3 and no palpable S4 Heart sounds: no rubs GI Inspection: Yes normal to inspection Palpation (GI): Soft to palpation Percussion: Yes normal to percussion Auscultation: normal bowel sounds General: Yes no CVA tenderness Back/Spine/Pelvis Back: no CVA tenderness Skin General skin exam: no petechiae and no purpura Neuro General: patient oriented x3 and no focal motor deficits Extrem General: No clubbing and Yes edema Results Reviewed Results Reviewed: Carotid Doppler in 2022 showed moderate atherosclerotic plaque at the bifurcation. Assessment & Plan Assessment & Plan (1) Essential hypertension: Code(s): I10 - Essential (primary) hypertension Plan: Elderly man with resistant hypertension. In the past he was told that he has superimposed white coat effect. At home systolic blood pressure is still around 150 mm Hg. Secondary causes should be considered. Underlying renal artery stenosis is a possibility. I will track down to see if he had any imaging for the same. I will recheck the 24 hour ABPM (2) CKD (chronic kidney disease): Code(s): N18.9 - Chronic kidney disease, unspecified Qualifiers: Chronic kidney disease stage: stage 2 (mild) Qualified Code(s): N18.2 - Chronic kidney disease, stage 2 (mild) Plan: Mild age-related decline in EGFR. Baseline serum creatinine is around 0.8 mg/dL. Back in 2020 serum creatinine was as high as 1.6 but this has since resolved. Goal is to slow the progression of renal disease Continue overt nephrotoxic agents. She will continue to monitor renal function closely (3) Edema: Code(s): R60.9 - Edema, unspecified Plan: Most likely due to high dose of calcium channel olimpia. With your permission I will decrease nifedipine from 90 mg down to 60 mg and see whether any improvement in the leg edema. In the meantime increase him to stay on low-sodium diet. Medications: New nifedipine ER 60 mg PO DAILY 30 tabs 3RF Discontinued nifedipine ER Discontinued Reason: Doctor's Order 90 mg PO DAILY 90 tabs 3RF Coding Level of Care Code New Pt Level 4 (33163) Diagnoses Essential hypertension I10 Stage 2 chronic kidney disease N18.2 Chronic kidney disease stage: stage 2 (mild) Edema R60.9
[2023-05-20 11:19] VITALS: BP 186/90; PULSE 76; O2SAT 98; BMI 26.5
== END 2023-05-20 11:44 | disposition home or self-care (01) ==
LOC: HO.HKA 11:17
PROVIDERS: PCP Internal Medicine; Visit Provider Internal Medicine Hypertension Specialist
DX: I12.9 Hypertensive chronic kidney disease with stage 1 through stage 4 chronic kidney disease, or unspecified chronic kidney disease (principal); N18.2 Chronic kidney disease, stage 2 (mild); R60.9 Edema, unspecified
CPT/HCPCS: 99204

== ENCOUNTER → 2023-05-20 11:17 | Outpatient (BNVA) | payer MEDICARE, SELFPAY | PROVIDERS: PCP Internal Medicine; Visit Provider Internal Medicine Hypertension Specialist | DX: I12.9 Hypertensive chronic kidney disease with stage 1 through stage 4 chronic kidney disease, or unspecified chronic kidney disease (principal); E11.9 Type 2 diabetes mellitus without complications; N18.2 Chronic kidney disease, stage 2 (mild); R60.9 Edema, unspecified | CPT/HCPCS: 99202 ==

== ENCOUNTER 2023-06-04 08:10 | Outpatient (AMB) | payer MEDICARE, SELFPAY ==
[2023-06-04 08:16] VITALS: BP 146/64; PULSE 71; TEMP 35.9; O2SAT 97; BMI 26.5
--- NOTE | 2023-06-04 08:16 | A.OFFVIS_ITS ---
Intake Vital Signs 06/04/23 08:16 Height 5 ft 8 in Weight 174 lb 2.643 oz BMI 26.5 BP 146/64 H Blood Pressure Location Rt brachial Position Sitting Pulse 71 Pulse Source Pulse Oximeter Temp 96.7 F L Temp Source Skin Pulse Oximetry (%) 97 Oxygen Delivery Method Room Air Intake Visit Reasons: RA Intake Note: Pt last seen 01/31/23, presents today for follow up and test results. Continues using leflunomide and allopurinol. Reports pain everywhere. Exchange Specialist Required: No Accompanied by: Spouse Allergies levofloxacin [From LEVAQUIN] Allergy (Severe, Verified 06/04/23 08:18) ANGIOEDEMA (EXACT SOURCE UNCERTAIN) lisinopril [LISINOPRIL] Allergy (Severe, Verified 06/04/23 08:18) ANGIOEDEMA ( EXACT SOURCE UNCERTAIN) Medication List - Last Reconciled 06/04/23 by Zechariah Munroe MD acetaminophen (Tylenol) 650 mg PO Q6H PRN allopurinol 100 mg PO DAILY blood sugar diagnostic ([employer] Lite Strips) USE TO TEST DAILY blood-glucose meter Test Daily - [employer] Blood glucose Meter blood-glucose meter (FreeStyle Lite Meter kit) As directed carvedilol (Coreg) 37.5 mg (1.5 x 25 mg) PO BID 90 days doxazosin (Cardura) 4 mg PO DAILY 90 days fenofibrate nanocrystallized 145 mg PO DAILY hydralazine 100 mg PO TID 90 days lancets ([employer] Lancets) USE TO TEST DAILY leflunomide 20 mg PO DAILY lorazepam 0.5 mg PO BEDTIME metformin 500 mg PO DAILY 90 days nifedipine ER 60 mg PO DAILY solifenacin 10 mg PO DAILY 90 days spironolactone 25 mg PO DAILY 90 days torsemide 10 mg PO DAILY tramadol 50 mg PO DAILY PRN HPI HPI Comments History of Present Illness Details This is an 88-year-old male with seropositive RA who returns for follow-up. On leflunomide 20 mg daily. Also on allopurinol 100 mg daily prescribed by his PCP. Patient states that he has multiple pains including his hands, ankles, forearms. States that his ankles are swollen, they are better in the morning. [facility] Medical History (Updated 06/04/23 @ 08:50 by Zechariah Munroe MD) Diabetes mellitus Disc degeneration, lumbar Chronic pain syndrome Gout, arthritis Spinal stenosis Spondylosis of lumbar region without myelopathy or radiculopathy Diabetes mellitus Swelling of both parotid glands Podagra Seropositive rheumatoid arthritis Hypercholesterolemia Leg edema Essential hypertension Angioedema Surgical History History of cryosurgery History of endoscopy History of bladder surgery History of bilateral cataract extraction History of hernia repair Family History Father Cardiovascular disease Diabetes Mother Diabetes Brother No problems noted. Brother No problems noted. Sister No problems noted. Sister No problems noted. Son No problems noted. Son No problems noted. Daughter No problems noted. Daughter No problems noted. Daughter No problems noted. Other Mental health disorder Social History Household Members: Spouse and Children Housing: House Do you presently have visiting nurse or other home services: No Alcohol intake: never Patient Tobacco Use Status: Never used Tobacco e-Cigarette/Vaping Use: Never Used Second Hand Smoke Exposure: No service: No Current occupational status: retired Cognitive needs: No Hearing needs: No Vision needs: No Review of Systems Musc Reports joint swelling and Reports numbness Neuro Reports numbness Physical Exam Vital Signs: Last Vital Signs Temp 96.7 F L 06/04/23 08:16 Pulse 71 06/04/23 08:16 BP 146/64 H 06/04/23 08:16 Pulse Ox 97 06/04/23 08:16 Oxygen Delivery Method Room Air 06/04/23 08:16 BMI result Body Mass Index 26.5 Const General: cooperative, healthy appearing and comfortable Nutritional Appearance: average body habitus Orientation/consciousness: patient oriented x3 Limitations: no limitations HEENT Head: Yes normocephalic and Yes atraumatic Mouth: moist mucous membranes Resp Effort & Inspection: normal respiratory effort and able to speak in complete sentences Auscultation: clear to auscultation bilaterally Cardio Rate: regular rate Rhythm: regular rhythm Neuro General: patient oriented x3 Extrem Other: Osteoarthritic changes of both hands with no active synovitis A small non tender cyst on the dorsal aspect of the right wrist Small cyst in the right index DIP Trace pitting edema of right ankle without tenderness or warmth Bilateral feet numbness to palpation Osteoarthritic changes of both feet nontender to palpation Results Reviewed Results Reviewed: Laboratory Tests C-Reactive Protein 0.27 Ordering Physician: Key Bray TOBACCO DRIER OPERATOR Date of Service: 07/13/22 Procedure(s): XR hand RT min 3V Accession Number(s): [id number] EXAMINATION: XR HAND, RIGHT CLINICAL INFORMATION: Rheumatoid arthritis.? COMPARISON: None? TECHNIQUE: PA, lateral, and oblique views of the right hand. FINDINGS: Bony alignment and mineralization are normal. There is a slight ulnar minus variance. 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 Mild osteoarthritic change is seen of the second and third distal interphalangeal joints and of the third proximal interphalangeal joint. Again, there is a marginal erosion of the fifth distal interphalangeal joint. No fracture or dislocation is seen. The ulnar styloid is intact. No focal soft tissue swelling, gas or foreign body is seen. XR/XR hand RT min 3V IMPRESSION: Osteoarthritic changes are seen of the right hand and wrist. Again, there is marginal erosion of the fifth distal interphalangeal joint. No fracture or dislocation is seen. ? ? EXAMINATION: XR HAND, LEFT ? CLINICAL INFORMATION: Rheumatoid arthritis.? ? COMPARISON: None? ? TECHNIQUE: PA, lateral, and oblique views of the left hand. ? FINDINGS: Bony alignment and mineralization are normal. There is a neutral ulnar variance. There is marked osteoarthritic change of the first carpometacarpal joint. There is moderate osteoarthritic change of the fifth distal interphalangeal joint. There is mild osteoarthritic change of the third proximal interphalangeal joint. No fracture or dislocation is seen. No focal bone erosion is seen. The ulnar styloid is intact. No focal soft tissue swelling, gas or foreign body is seen. ? IMPRESSION: Osteoarthritic change is seen of the left hand and wrist, most pronounced of the first carpometacarpal joint and the fifth distal interphalangeal joint. No focal bone erosion is appreciated. There is no fracture or dislocation. Ordering Physician: Key Bray TOBACCO DRIER OPERATOR Date of Service: 07/13/22 Procedure(s): XR foot RT 2V Accession Number(s): [id number] EXAMINATION: XR FOOT, RIGHT CLINICAL INFORMATION: Rheumatoid arthritis; pain.? COMPARISON: None? TECHNIQUE: AP, lateral, and oblique views of the right foot. FINDINGS: Bony alignment and mineralization are normal. No fracture, dislocation or joint effusion is seen. Boehler's angle is normal. There are small posterior and plantar calcaneal spurs. No abnormal bone erosion is noted. There is no focal soft tissue swelling, gas or foreign body.? XR/XR foot RT 2V IMPRESSION: ? 1. No fracture, dislocation or right ankle joint effusion is seen. ? 2. There is no abnormal bone erosion. ? 3. There are small calcaneal spurs, as detailed. ? ? EXAMINATION: XR FOOT, LEFT ? CLINICAL INFORMATION: Rheumatoid arthritis; pain.? ? COMPARISON: None? ? TECHNIQUE: AP, lateral, and oblique views of the left foot. ? FINDINGS: Bony alignment and mineralization are normal. There is no calcaneal fracture of the second metatarsal shaft. No acute fracture, dislocation or left ankle joint effusion is seen. Boehler's angle is normal. There are small posterior and plantar calcaneal spurs. No focal soft tissue swelling, gas or foreign body is seen. There are atherosclerotic calcifications.? ? IMPRESSION: ? 1. No acute fracture, dislocation or left ankle joint effusion is seen. ? 2. There is no abnormal bone erosion. ? 3. There are small calcaneal spurs. Assessment & Plan Assessment & Plan (1) Seropositive rheumatoid arthritis: Comment: Plaquenil started age 50-stopped February 2019 Leflunomide 10 mg- December 2018 to May 2019 Leflunomide 20 mg- May 2019 to present Code(s): M05.9 - Rheumatoid arthritis with rheumatoid factor, unspecified Plan: This is an 88-year-old male with seropositive RA returns for follow-up. Doing well overall. No active synovitis on exam. Patient symptoms of burning pain and numbness of his feet is likely related to neuropathy. He was recently evaluated by his neurologist Continue leflunomide 20 mg daily Labs before next visit in 4 month (2) Gout, arthritis: Code(s): M10.9 - Gout, unspecified Plan: History of gout. He is on allopurinol 100 mg daily prescribed by PCP. No gout flares for a long period of time. Most recent uric acid level was at goal (3) Immunization counseling: Code(s): Z71.85 - Encounter for immunization safety counseling Plan: Patient is up-to-date on his flu vaccine for this season and new COVID booster. (4) Screening for osteoporosis: Code(s): Z13.820 - Encounter for screening for osteoporosis Plan: Patient's gait is a little unsteady likely due to feet neuropathy. He has not had any recent falls per his but I would like to screen him for osteoporosis. Will check a DEXA scan Plan I spent 27 minutes reviewing patient's chart, evaluating patient, ordering diagnostic workup, counseling patient and documenting in the chart Orders: Orders Comprehensive Met. Panel 4 Months M05.9 - Rheumatoid arthritis with rheumatoid factor, unspecified C Reactive Protein 4 Months M05.9 - Rheumatoid arthritis with rheumatoid factor, unspecified XR DEXA axial skeleton Today M81.0 - Age-related osteoporosis without current pathological fracture Complete Blood Count Auto Diff 4 Months M05.9 - Rheumatoid arthritis with rheumatoid factor, unspecified Erythrocyte Sedimentation Rate 4 Months M05.9 - Rheumatoid arthritis with rheumatoid factor, unspecified Coding Level of Care Code Est Pt Level 4 (37364) Diagnoses Seropositive rheumatoid arthritis M05.9 Gout, arthritis M10.9 Immunization counseling Z71.85 Screening for osteoporosis Z13.820
== END 2023-06-04 08:48 | disposition home or self-care (01) ==
LOC: HO.RHE 08:10
PROVIDERS: PCP Internal Medicine; Visit Provider Student in an Organized Health Care Education/Training Program
DX: M05.79 Rheumatoid arthritis with rheumatoid factor of multiple sites without organ or systems involvement (principal); M10.9 Gout, unspecified; Z71.85 Encounter for immunization safety counseling; Z13.820 Encounter for screening for osteoporosis
CPT/HCPCS: 99214

== ENCOUNTER → 2023-06-04 08:10 | Outpatient (BNVA) | payer MEDICARE, SELFPAY | PROVIDERS: PCP Internal Medicine; Visit Provider Student in an Organized Health Care Education/Training Program | DX: M05.9 Rheumatoid arthritis with rheumatoid factor, unspecified (principal); Z71.85 Encounter for immunization safety counseling; Z13.820 Encounter for screening for osteoporosis; M10.9 Gout, unspecified | CPT/HCPCS: 99212 ==

== ENCOUNTER 2023-06-13 09:45 | Outpatient (AMB) | payer MEDICARE, SELFPAY ==
--- NOTE | 2023-06-13 09:47 | MHC.PC.OV ---
Vital Signs 06/13/23 09:48 06/13/23 09:54 Height 5 ft 8 in Weight 172 lb 2 oz BMI 26.2 BP 160/64 H 140/68 H Blood Pressure Location Lt brachial Lt brachial Position Sitting Sitting Pulse 77 Pulse Source Pulse Oximeter Pulse Oximetry (%) 97 Oxygen Delivery Method Room Air Intake Visit Reasons: pe Intake Note: Patient is here today for a physical. Train Controller Required: No Aircraft Inspector: Present Accompanied by: Spouse Allergies levofloxacin [From LEVAQUIN] Allergy (Severe, Verified 06/24/23 05:05) ANGIOEDEMA (EXACT SOURCE UNCERTAIN) lisinopril [LISINOPRIL] Allergy (Severe, Verified 06/24/23 05:05) ANGIOEDEMA ( EXACT SOURCE UNCERTAIN) Medication List - Last Reconciled 06/24/23 by Kenney Beal MD acetaminophen (Tylenol) 650 mg PO Q6H PRN allopurinol 100 mg PO DAILY blood sugar diagnostic ([employer]Style Lite Strips) USE TO TEST DAILY blood-glucose meter Test Daily - [employer] Blood glucose Meter blood-glucose meter (FreeStyle Lite Meter kit) As directed carvedilol (Coreg) 37.5 mg (1.5 x 25 mg) PO BID 90 days doxazosin (Cardura) 4 mg PO DAILY 90 days fenofibrate nanocrystallized 145 mg PO DAILY hydralazine 100 mg PO TID 90 days lancets (FreeStyle Lancets) USE TO TEST DAILY leflunomide 20 mg PO DAILY lorazepam 0.5 mg PO BEDTIME metformin 500 mg PO DAILY 90 days nifedipine ER 60 mg PO DAILY solifenacin 10 mg PO DAILY 90 days spironolactone 25 mg PO DAILY 90 days torsemide 10 mg PO DAILY tramadol 50 mg PO DAILY PRN Tobacco use date assessed: 06/13/23 Fall risk assessment: No Falls in past year Last assessed Fall Risk: 06/13/23 Dental Screening Dental Screen Date: 06/13/23 Did you have a dental visit in the last 12 months?: Yes Did you have a dental problem in the last 6 months where you did not have access to dental care?: No Was dental information given to patient?: Patient has dentist HPI pe HPI Details 88-year-old male presents to the office requesting an annual physical. For the last 2 weeks patient has been having an irritating cough. Nonproductive. Minimal postnasal drip. No fevers or chills. Patient is up-to-date on his flu vaccination. Compliant with all his medications. [facility] Medical History Diabetes mellitus Disc degeneration, lumbar Chronic pain syndrome Gout, arthritis Spinal stenosis Spondylosis of lumbar region without myelopathy or radiculopathy Diabetes mellitus Swelling of both parotid glands Podagra Seropositive rheumatoid arthritis Hypercholesterolemia Leg edema Essential hypertension Angioedema Surgical History History of cryosurgery History of endoscopy History of bladder surgery History of bilateral cataract extraction History of hernia repair Family History Father Cardiovascular disease Diabetes Mother Diabetes Brother No problems noted. Brother No problems noted. Sister No problems noted. Sister No problems noted. Son No problems noted. Son No problems noted. Daughter No problems noted. Daughter No problems noted. Daughter No problems noted. Other Mental health disorder Social History Household Members: Spouse and Children Housing: House Do you presently have visiting nurse or other home services: No Alcohol intake: never Patient Tobacco Use Status: Never used Tobacco e-Cigarette/Vaping Use: Never Used Second Hand Smoke Exposure: No service: No Current occupational status: retired Cognitive needs: No Hearing needs: No Vision needs: No Questionnaire Thrive Questionnaire Date Thrive assessed: 10/12/22 REGINA-7 AMB Questionnaire REGINA-7 Date REGINA - 7 assessed: 10/12/22 Source: Developed by Drs. Poncho Morataya, Megan Callahan, Shane Hooper and colleagues, with an educational linus from [employer]. Physical exam (Primary Care) Vital Signs: Last Vital Signs Pulse 77 06/13/23 09:48 BP 140/68 H 06/13/23 09:54 Pulse Ox 97 06/13/23 09:48 Oxygen Delivery Method Room Air 06/13/23 09:48 BMI result Body Mass Index 26.2 Tobacco/Smoking Status: Tobacco use Status Tobacco use date assessed 06/13/23 06/13/23 09:55 Patient Tobacco Use Status Never used Tobacco 06/13/23 09:55 e-Cigarette/Vaping Use Never Used 06/13/23 09:55 Thrive Assessment: Date of Thrive Assessment Date Thrive assessed 10/12/22 06/13/23 09:55 Const General: cooperative and healthy appearing Nutritional Appearance: well nourished Orientation/consciousness: patient oriented x3 Limitations: no limitations HENMT Head: Yes normal to inspection Eyes General: appearance normal, both eyes and all related structures Neck Neck: Yes normal visual inspection Chest Chest palpation & inspection: normal palpation of entire chest wall Resp Effort & Inspection: normal respiratory effort Neuro General: patient oriented x3 Assessment and Plan Assessment & Plan (1) Annual physical exam: Code(s): Z00.00 - Encounter for general adult medical examination without abnormal findings Plan: Patient is up-to-date on all his screening procedures. (2) Low back pain: Code(s): M54.5 - Low back pain Plan: Condition is stable. (3) Cough: Code(s): R05.9 - Cough, unspecified Plan: Chest x-ray has been ordered. Will call with the results. Orders: Orders XR chest 2V 06/13/23 R05.9 - Cough, unspecified Coding Level of Care Code Est Pt Prev Care >65y(88423) Diagnoses Annual physical exam Z00.00 Low back pain M54.5 Cough R05.9
[2023-06-13 09:48] VITALS: BP 160/64; PULSE 77; O2SAT 97; BMI 26.2
[2023-06-13 09:54] VITALS: BP 140/68
== END 2023-06-13 10:26 | disposition home or self-care (01) ==
PROVIDERS: PCP Internal Medicine; Visit Provider Internal Medicine
DX: Z00.00 Encounter for general adult medical examination without abnormal findings (principal); M54.50 Low back pain, unspecified; R05.9 Cough, unspecified
CPT/HCPCS: 99397

== ENCOUNTER 2023-06-13 12:16 | Outpatient (REF) | payer MEDICARE, SELFPAY ==
--- NOTE | ~2023-06-13 | XR_ITS ---
EXAMINATION: XR CHEST CLINICAL INFORMATION: Cough COMPARISON: Chest x-ray January 2020 CTA chest January 2022 TECHNIQUE: 2 views of the chest were obtained. FINDINGS: Lungs and pleural spaces: Rounded 3 mm nodular density in the right midlung and 2 mm nodular in the left midlung corresponds to calcific nodules on prior CT compatible with granuloma. Lungs otherwise clear. No effusion. Cardiac mediastinal silhouette normal. Bone and soft tissues: Spondylosis of the dorsal spine. XR/XR chest 2V IMPRESSION: 1. No acute pulmonary disease. 2. Evidence of prior granulomatous disease stable.
== END 2023-06-13 12:17 | disposition home or self-care (01) ==
LOC: HO.HMGCX 12:16
PROVIDERS: PCP Internal Medicine; Visit Provider Internal Medicine
DX: R05.9 Cough, unspecified (principal)
CPT/HCPCS: 71046

== ENCOUNTER 2023-06-26 10:41 | Outpatient (REF) | payer MEDICARE, SELFPAY ==
[2023-06-26 13:57] LABS: Appearance Urine Clear; Color Urine Yellow; Glucose Urine UA Negative (Negative); Leukocyte Esterase Urine Negative (Negative); Nitrite Urine Negative (Negative); PH 5.5 (5.0-9.0); UMIC TRIGGER UA YES; Urine Blood Moderate (2+) (Negative); Urine Ketones Negative (Negative); Urine Protein Trace mg/dL (Neg-Trace)
[2023-06-26 14:01] LABS: Bacteria Urine None Seen (None Seen); RBC Urine >20 /HPF (0-2); Squamous Epithelial Cell Urine 0-2 /HPF (0-2); WBC Urine 0-5 /HPF (0-5)
== END 2023-06-26 10:42 | disposition home or self-care (01) ==
LOC: HO.HMGCLDS 10:41
PROVIDERS: PCP Internal Medicine; Visit Provider Urology
DX: N40.1 Benign prostatic hyperplasia with lower urinary tract symptoms (principal); N13.8 Other obstructive and reflux uropathy
CPT/HCPCS: 81001; 87086

== ENCOUNTER 2023-07-09 13:16 | Emergency (ER) | payer MEDICARE, SELFPAY ==
--- NOTE | ~2023-07-09 | CT_ITS ---
EXAMINATION: CT ABDOMEN AND PELVIS WITHOUT CONTRAST CLINICAL INFORMATION: Gross hematuria COMPARISON: CT of chest, abdomen pelvis 02/11/2022 TECHNIQUE: Multidetector volumetric imaging was performed from the superior aspect of the liver through the pubic symphysis. Sagittal and coronal reformatted images were obtained on the technologist's workstation. This CT examination was performed using dose optimization techniques as appropriate, variously including the following: *Automated exposure control *Adjustment of mA and/or kV according to patient size (this includes techniques or standardized protocols for targeted exams where dose is matched to indication/reason for exam; i.e. extremities or head) *Use of iterative reconstruction technique DLP: 465 mGy-cm FINDINGS: LUNG BASES: There is a 7 mm noncalcified nodule present in the lingula (6:10), unchanged from 02/11/2022 (4:71). No other lung nodules are seen. No infiltrates or effusions. LIVER, GALLBLADDER, AND BILIARY TREE: The liver is normal in size, shape, and attenuation. No focal hepatic lesion or biliary ductal dilatation is present. The gallbladder contains a densely calcified 1.3 cm stone plus some other smaller dependent densities. No evidence of cholecystitis. PANCREAS: Unremarkable. SPLEEN: Unremarkable. ADRENAL GLANDS: Unremarkable. KIDNEYS AND URETERS: The kidneys are normal in size, shape, and attenuation. No hydronephrosis, hydroureter, or calculi seen. Multiple bilateral benign Bosniak class I and probably Bosniak class II renal cysts are noted, the largest measuring 4.7 cm which require no additional imaging or follow-up. The tube Bosniak class II cysts are all under a centimeter in size and measure 60-65 Hounsfield units on the noncontrast scans. All of these findings are unchanged when compared to 02/11/2022. No suspicious definite solid renal masses are seen. BLADDER AND PROSTATE: There is a lobular mass at the bladder base measuring 2.7 x 2.9 x 1.9 cm slightly to the left of midline which appears to be separate from the prostate. Finding is suspicious for transitional cell carcinoma. Was not present on the 02/11/2022 CT scan. The seminal vesicles appear normal. The prostate is mildly prominent. A TURP defect may be present. GASTROINTESTINAL TRACT: Extensive diverticular changes are present predominantly in the left colon without evidence of diverticulitis. The small and large bowel are otherwise unremarkable. The appendix is unremarkable. ABDOMINAL WALL: No significant hernia is appreciated. There has been prior abdominal wall surgery in the pelvis. LYMPH NODES: No retroperitoneal lymphadenopathy. VASCULAR: Calcific atherosclerotic changes are present in the aorta and iliofemoral vessels. There is no evidence of an abdominal aortic aneurysm. PELVIC VISCERA: No free fluid OSSEOUS STRUCTURES: Marked degenerative changes are present throughout the spine. No bony destructive lesions are seen. CT/CT abdomen pelvis wo IV con IMPRESSION: 1. 2.9 cm bladder mass suspicious for transitional cell carcinoma. Cystoscopy is recommended for further evaluation. 2. Incidental note made of cholelithiasis, benign Bosniak class I and Bosniak class II renal cysts which require no additional imaging or follow-up, colonic diverticulosis without diverticulitis and marked degenerative changes in the spine. 3. A 7 mm noncalcified nodule is present in the lingula, unchanged from 02/11/2022. Fleischner guidelines were followed.
[2023-07-09 13:18] VITALS: BP 193/76; PULSE 88; RESP 17; TEMP 36.6; O2SAT 97; BMI 25.8
--- NOTE | 2023-07-09 13:19 | ED.ABDPAIN ---
HPI - Abdominal Pain General Chief Complaint: Urogenital-Male Stated Complaint: Blood in Urine Time Seen by Provider: 07/09/23 20:30 Source: patient Mode of arrival: ambulatory Limitations: no limitations History of Present Illness HPI narrative: Patient is diabetic with history of overactive bladder no history of bladder cancer no history of kidney stone comes here for gross hematuria started earlier today. Patient has gross hematuria about 2 weeks call the PCP use and the urine for examination and gave him antibiotics after 1 week. Patient had hematuria lasted only for a day. Again today since morning patient has been having gross hematuria initially has clear urine done it becomes like pinkish coloration with small amounts of clots with some lower abdominal discomfort no flank pain no fever no chills also has bilateral flank pain patient not on any blood thinner Related Data Home Medications Medication Instructions Recorded Confirmed blood-glucose meter (FreeStyle #1 ea 10/24/21 06/24/23 Lite Meter kit) torsemide 10 mg tablet 10 mg PO DAILY 05/02/22 06/24/23 acetaminophen 325 mg tablet 650 mg PO Q6H PRN 07/16/22 06/24/23 (Tylenol) tramadol 50 mg tablet 50 mg PO DAILY PRN 01/31/23 06/24/23 Previous Rx's Medication Instructions Recorded spironolactone 25 mg tablet 25 mg PO DAILY 90 days #90 tabs 03/29/20 blood-glucose meter #1 ea 08/03/21 hydralazine 100 mg tablet 100 mg PO TID 90 days #270 tabs 10/04/22 fenofibrate nanocrystallized 145 145 mg PO DAILY #90 tabs 12/04/22 mg tablet doxazosin 4 mg tablet (Cardura) 4 mg PO DAILY 90 days #90 tabs 02/05/23 solifenacin 10 mg tablet 10 mg PO DAILY 90 days #90 tabs 02/05/23 blood sugar diagnostic (FreeStyle #50 strips 04/08/23 Lite Strips) allopurinol 100 mg tablet 100 mg PO DAILY #90 tabs 05/05/23 metformin 500 mg tablet 500 mg PO DAILY 90 days #90 tabs 05/05/23 carvedilol 25 mg tablet (Coreg) 37.5 mg (1.5 x 25 mg) PO BID 90 05/16/23 days #270 tabs lorazepam 0.5 mg tablet 0.5 mg PO BEDTIME #90 tabs 12/01/23 lancets 28 gauge (FreeStyle #100 ea 06/08/23 Lancets) nifedipine 60 mg tablet,extended 60 mg PO DAILY #90 tabs 06/14/23 release leflunomide 20 mg tablet 20 mg PO DAILY #30 tabs 06/24/23 Allergies Allergy/AdvReac Type Severity Reaction Status Date / Time levofloxacin [From LEVAQUIN] Allergy Severe ANGIOEDEMA Verified 07/09/23 13:18 (EXACT SOURCE UNCERTAIN) lisinopril [LISINOPRIL] Allergy Severe ANGIOEDEMA Verified 07/09/23 13:18 ( EXACT SOURCE UNCERTAIN) Review of Systems Review of Systems Yes all other systems are reviewed and are negative [facility] Past Medical History Medical History Diabetes mellitus Disc degeneration, lumbar Chronic pain syndrome Gout, arthritis Spinal stenosis Spondylosis of lumbar region without myelopathy or radiculopathy Diabetes mellitus Swelling of both parotid glands Podagra Seropositive rheumatoid arthritis Hypercholesterolemia Leg edema Essential hypertension Angioedema Surgical History History of cryosurgery History of endoscopy History of bladder surgery History of bilateral cataract extraction History of hernia repair Family History Family History Father Cardiovascular disease Diabetes Mother Diabetes Brother No problems noted. Brother No problems noted. Sister No problems noted. Sister No problems noted. Son No problems noted. Son No problems noted. Daughter No problems noted. Daughter No problems noted. Daughter No problems noted. Other Mental health disorder Social History Social History Household Members: Spouse and Children Housing: House Do you presently have visiting nurse or other home services: No Alcohol intake: never Patient Tobacco Use Status: Never used Tobacco Smoked in Last 30 Days: No e-Cigarette/Vaping Use: Never Used Second Hand Smoke Exposure: No Use of substances other than those prescribed or required for medical reasons: No Advance Directives: No Advance Directives Information Provided: No service: No Current occupational status: retired Cognitive needs: No Hearing needs: No Vision needs: No Physical Exam ED Vital Signs: Vital Signs - 24 hr 07/09/23 13:18 07/09/23 20:27 07/09/23 22:52 Temperature 98 F 97.7 F 98.0 F Pulse Rate 88 81 78 Respiratory Rate 17 14 16 Blood Pressure 193/76 H 188/79 H 177/76 H Pulse Oximetry 97 96 96 Oxygen Delivery Method Room Air Room Air Room Air BMI result Body Mass Index 25.8 Appearance: Alert. Oriented X3. No acute distress. Eyes: No pallor or icterus ENT: Pharynx normal. Oral Mucosa moist Neck: Normal inspection. Neck supple. CVS: Normal heart rate and rhythm. Pulses normal. Respiratory: No respiratory distress. Equal air entry bilateral, no wheezing/rales/rhonchi Abdomen: Soft and nontender. Bowel sounds are present, no mass palpable, no CVA tenderness Skin: Skin warm and dry. Normal skin color. Normal skin turgor. Extremities: No lower extremity edema. No calf tenderness Neuro: Oriented X 3. Course Course Course Narrative: RME: 88 year-old M w/ PMHx DM, HTN, BPH, Gout, presenting to the ED c/o gross hematuria x yesterday w/penile pain/dysuria and low back pain. Admits was recently tx w/abx for ?UTI which improved sx Labs, UA ordered Full HPI, ROS and PE to be performed by primary ED provider. Medical Decision Making Medical Decision Making [facility] Narrative: Patient intermittent hematuria workup showed 2.9 cm mass in the bladder likely the cause patient advised to follow with urologist, H&H stable no signs of UTI Differential Diagnosis Differential Diagnoses: The differential diagnosis associated with the presentation includes Kidney stone/bladder mass/UTI Lab Data [facility] Lab Attestation statement: I reviewed the patient's lab results. 07/09/23 16:23 07/09/23 16:23 Labs: Lab Results 07/09/23 Range/Units 16:23 WBC 11.7 H (4.8-10.8) X10*3/uL RBC 4.03 L (4.60-5.80) X10*6/uL Hgb 11.1 L (14.0-18.0) g/dl Hct 34.5 L (42.0-52.0) % MCV 85.6 (80.0-98.0) fL MCH 27.5 (27.0-33.0) pg MCHC 32.2 (31.0-36.0) g/dl RDW 15.0 (11.0-16.0) % Plt Count 389 D (160-400) X10*3/uL MPV 12.0 (9.4-12.4) fL Immature Gran % (Auto) 0.9 H (0.0-0.4) % Neut % (Auto) 73.4 H (45-73) % Lymph % (Auto) 11.8 L (20-40) % [place] % (Auto) 9.7 (2-11) % Eos % (Auto) 3.3 (0-4) % Baso % (Auto) 0.9 (0-2) % Lymph # (Auto) 1.4 (1.2-4.9) X10*3/uL [place] # (Auto) 1.1 (0.1-1.2) X10*3/uL Eos # (Auto) 0.4 (0.0-0.4) X10*3/uL Baso # (Auto) 0.1 (0.0-0.2) X10*3/uL Abs Immat Gran (auto) 0.10 H (0.00-0.03) X10*3/uL Absolute Neuts (auto) 8.6 H (2.0-8.3) x10*3/uL Absolute Nucleated RBC 0.000 (0.0-0.012) X10*3/uL Nucleated RBC % (auto) 0.0 (0.0-0.2) /100WBC PT 12.3 (11.1-13.3) SEC INR 1.0 (0.9-1.1) Sodium 135 (135-145) mmol/L Potassium 4.0 (3.3-5.1) mmol/L Chloride 102 (96-108) mmol/L Carbon Dioxide 23 (22-29) mmol/L Anion Gap 14 (12-20) BUN 27 H (9-16) mg/dL Creatinine 1.10 (0.5-1.4) mg/dL Estim Creat Clear Calc 44.9 Estimated GFR > 60 Random Glucose 159 H (60-115) mg/dL Calcium 10.3 H (8.4-10.2) mg/dL Total Bilirubin 0.4 (0.0-1.0) mg/dL Direct Bilirubin 0.2 (0.0-0.5) mg/dL AST 21 (5-37) U/L ALT 14 (0-40) U/L Alkaline Phosphatase 87 (39-117) U/L Total Protein 7.9 (6.5-8.0) g/dL Albumin 4.3 (3.5-5.0) g/dL Urine Color Yellow Urine Appearance Clear Urine pH 6.5 (5.0-9.0) Ur Specific [place] 1.020 (1.005-1.025) Urine Protein 300 (3+) H (Neg-Trace) mg/dL Urine Glucose (UA) Negative (Negative) mg/dL Urine Ketones Trace (Negative) mg/dL Urine Blood Large (3+) H (Negative) Urine Nitrite Negative (Negative) Ur Leukocyte Esterase Negative (Negative) Urine RBC >20 H (0-2) /HPF Urine WBC 0-5 (0-5) /HPF Ur Squamous Epith Cells 0-2 (0-2) /HPF Urine Bacteria None Seen (None Seen) Hyaline Casts 0-2 (0-2) /LPF Independent Interpretation I performed an independent interpretation of an: CT Scan Radiology Impression Discussion of test interpretation with radiology: I have reviewed the radiologist's reading. Radiologist Impression: [place] [id number] CT Scan Report Signed Patient: Corby Faith MR#: [id number] : 1935 Acct:[id number] Age/Sex: 88 / M ADM Date: 07/09/23 Loc: .ED Attending Dr: Ordering Physician: Glenroy Lopez MD Date of Service: 07/09/23 Procedure(s): CT abdomen pelvis wo IV con Accession Number(s): [id number] cc: Kenney Beal MD; Glenroy Lopez MD~ EXAMINATION: CT ABDOMEN AND PELVIS WITHOUT CONTRAST CLINICAL INFORMATION: Gross hematuria COMPARISON: CT of chest, abdomen pelvis 02/11/2022 TECHNIQUE: Multidetector volumetric imaging was performed from the superior aspect of the liver through the pubic symphysis. Sagittal and coronal reformatted images were obtained on the technologist's workstation. This CT examination was performed using dose optimization techniques as appropriate, variously including the following: *Automated exposure control *Adjustment of mA and/or kV according to patient size (this includes techniques or standardized protocols for targeted exams where dose is matched to indication/reason for exam; i.e. extremities or head) *Use of iterative reconstruction technique DLP: 465 mGy-cm FINDINGS: LUNG BASES: There is a 7 mm noncalcified nodule present in the lingula (6:10), unchanged from 02/11/2022 (4:71). No other lung nodules are seen. No infiltrates or effusions. LIVER, GALLBLADDER, AND BILIARY TREE: The liver is normal in size, shape, and attenuation. No focal hepatic lesion or biliary ductal dilatation is present. The gallbladder contains a densely calcified 1.3 cm stone plus some other smaller dependent densities. No evidence of cholecystitis. PANCREAS: Unremarkable. SPLEEN: Unremarkable. ADRENAL GLANDS: Unremarkable. KIDNEYS AND URETERS: The kidneys are normal in size, shape, and attenuation. No hydronephrosis, hydroureter, or calculi seen. Multiple bilateral benign Bosniak class I and probably Bosniak class II renal cysts are noted, the largest measuring 4.7 cm which require no additional imaging or follow-up. The tube Bosniak class II cysts are all under a centimeter in size and measure 60-65 Hounsfield units on the noncontrast scans. All of these findings are unchanged when compared to 02/11/2022. No suspicious definite solid renal masses are seen. BLADDER AND PROSTATE: There is a lobular mass at the bladder base measuring 2.7 x 2.9 x 1.9 cm slightly to the left of midline which appears to be separate from the prostate. Finding is suspicious for transitional cell carcinoma. Was not present on the 02/11/2022 CT scan. The seminal vesicles appear normal. The prostate is mildly prominent. A TURP defect may be present. GASTROINTESTINAL TRACT: Extensive diverticular changes are present predominantly in the left colon without evidence of diverticulitis. The small and large bowel are otherwise unremarkable. The appendix is unremarkable. ABDOMINAL WALL: No significant hernia is appreciated. There has been prior abdominal wall surgery in the pelvis. LYMPH NODES: No retroperitoneal lymphadenopathy. VASCULAR: Calcific atherosclerotic changes are present in the aorta and iliofemoral vessels. There is no evidence of an abdominal aortic aneurysm. PELVIC VISCERA: No free fluid OSSEOUS STRUCTURES: Marked degenerative changes are present throughout the spine. No bony destructive lesions are seen. CT/CT abdomen pelvis wo IV con IMPRESSION: 1. 2.9 cm bladder mass suspicious for transitional cell carcinoma. Cystoscopy is recommended for further evaluation. 2. Incidental note made of cholelithiasis, benign Bosniak class I and Bosniak class II renal cysts which require no additional imaging or follow-up, colonic diverticulosis without diverticulitis and marked degenerative changes in the spine. 3. A 7 mm noncalcified nodule is present in the lingula, unchanged from 02/11/2022. Fleischner guidelines were followed. Discharge Plan Discharge Clinical Impression: Hematuria, Bladder mass Patient Disposition: Home, Self-Care Instructions: Bladder Cancer (DC), Hematuria (ED) Additional Instructions: Drink plenty of fluid See urologist for further evaluation Prescriptions: No Action spironolactone 25 mg tablet 25 mg PO DAILY 90 Days Qty: 90 3RF (DME) blood-glucose meter Misc See Rx Instructions .Route Qty: 1 0RF Rx Instructions: Test Daily - [place] Blood glucose Meter hydralazine 100 mg tablet 100 mg PO TID 90 Days Qty: 270 3RF fenofibrate nanocrystallized 145 mg tablet 145 mg PO DAILY Qty: 90 3RF (DME) FreeStyle Lite Strips Strip See Rx Instructions .ROUTE .COMPLEX Qty: 50 1RF Dose Instruction: USE TO TEST DAILY Rx Instructions: USE TO TEST DAILY metformin 500 mg tablet 500 mg PO DAILY 90 Days Qty: 90 1RF allopurinol 100 mg tablet 100 mg PO DAILY Qty: 90 1RF lorazepam 0.5 mg tablet 0.5 mg PO BEDTIME Qty: 90 0RF (DME) lancets [FreeStyle Lancets] 28 gauge misc See Rx Instructions .ROUTE .COMPLEX Qty: 100 1RF Dose Instruction: USE TO TEST DAILY Rx Instructions: USE TO TEST DAILY nifedipine 60 mg tablet extended release 60 mg PO DAILY Qty: 90 1RF leflunomide 20 mg tablet 20 mg PO DAILY Qty: 30 0RF torsemide 10 mg tablet 10 mg PO DAILY (DME) blood-glucose meter [FreeStyle Lite Meter] Kit See Rx Instructions .ROUTE DAILY Qty: 1 Rx Instructions: As directed acetaminophen [Tylenol] 325 mg tablet 650 mg PO Q6H PRN tramadol 50 mg tablet 50 mg PO DAILY PRN carvedilol [Coreg] 25 mg tablet 37.5 mg PO BID 90 Days Qty: 270 3RF Rx Instructions: must administer with a meal/food solifenacin 10 mg tablet 10 mg PO DAILY 90 Days Qty: 90 1RF doxazosin [Cardura] 4 mg tablet 4 mg PO DAILY 90 Days Qty: 90 1RF Referrals: Barney Byrd MD [Physician] - 3 days Interventions: ED Discharge Assessment Last Done: 07/10/23 00:45 Discharge Date/Time: 07/10/23 00:46
[2023-07-09 16:29] LABS: MANUAL DIFF FLAG NO
[2023-07-09 16:44] LABS: Basophils Absolute Auto 0.1 X10*3/uL (0.0-0.2); Basophils Percent Auto 0.9 % (0-2); Eosinophils Absolute Auto 0.4 X10*3/uL (0.0-0.4); Eosinophils Percent Auto 3.3 % (0-4); Hematocrit 34.5 % (42.0-52.0); Hemoglobin 11.1 g/dl (14.0-18.0); Imm Gran Pct Auto 0.9 % (0.0-0.4); Lymphocytes Absolute Auto 1.4 X10*3/uL (1.2-4.9); Lymphocytes Percent Auto 11.8 % (20-40); Mean Corpuscular HGB Conc 32.2 g/dl (31.0-36.0); Mean Corpuscular Hemoglobin 27.5 pg (27.0-33.0); Mean Corpuscular Volume 85.6 fL (80.0-98.0); Monocytes Absolute Auto 1.1 X10*3/uL (0.1-1.2); Monocytes Percent Auto 9.7 % (2-11); Neutrophils Absolute Auto 8.6 x10*3/uL (2.0-8.3); Neutrophils Percent Auto 73.4 % (45-73); Platelet Count 389 X10*3/uL (160-400); Red Blood Count 4.03 X10*6/uL (4.60-5.80); White Blood Count 11.7 X10*3/uL (4.8-10.8)
[2023-07-09 16:54] LABS: Prothrombin Time 12.3 SEC (11.1-13.3)
[2023-07-09 16:57] LABS: Alanine Aminotransferase 14 U/L (0-40); Albumin Level 4.3 g/dL (3.5-5.0); Alkaline Phosphatase 87 U/L (39-117); Anion Gap 14 (12-20); Aspartate Amino Transferase 21 U/L (5-37); Bilirubin Direct 0.2 mg/dL (0.0-0.5); Bilirubin Total 0.4 mg/dL (0.0-1.0); Blood Urea Nitrogen 27 mg/dL (9-16); Calcium 10.3 mg/dL (8.4-10.2); Carbon Dioxide 23 mmol/L (22-29); Chloride 102 mmol/L (96-108); Creatinine Clr Calc Pharmacy 44.9; Estimated Glomerular Filt Rate > 60; Glucose Random 159 mg/dL (60-115); Sodium 135 mmol/L (135-145); Total Protein 7.9 g/dL (6.5-8.0)
[2023-07-09 20:27] VITALS: BP 188/79; PULSE 81; RESP 14; TEMP 36.5; O2SAT 96
[2023-07-09 22:52] VITALS: BP 177/76; PULSE 78; RESP 16; TEMP 36.7; O2SAT 96
[2023-07-09 23:06] LABS: Appearance Urine Clear; Color Urine Yellow; Glucose Urine UA Negative (Negative); Leukocyte Esterase Urine Negative (Negative); Nitrite Urine Negative (Negative); PH 6.5 (5.0-9.0); UMIC TRIGGER UACC YES; Urine Blood Large (3+) (Negative); Urine Ketones Trace mg/dL (Negative); Urine Protein 300 (3+) mg/dL (Neg-Trace)
[2023-07-09 23:08] LABS: Bacteria Urine None Seen (None Seen); Hyaline Casts Urine 0-2 /LPF (0-2); RBC Urine >20 /HPF (0-2); Squamous Epithelial Cell Urine 0-2 /HPF (0-2); WBC Urine 0-5 /HPF (0-5)
== END 2023-07-10 00:46 | disposition home or self-care (01) ==
PROVIDERS: Physician Assistant; Emergency Provider Internal Medicine; PCP Internal Medicine
DX: R31.0 Gross hematuria (principal); N32.9 Bladder disorder, unspecified; E11.9 Type 2 diabetes mellitus without complications; I10 Essential (primary) hypertension; E78.00 Pure hypercholesterolemia, unspecified; M05.9 Rheumatoid arthritis with rheumatoid factor, unspecified; Z79.84 Long term (current) use of oral hypoglycemic drugs
CPT/HCPCS: 36415; 74176; 80048; 80076; 81001; 85025; 85610; 99284

== ENCOUNTER 2023-07-16 12:55 | Outpatient (AMB) | payer MEDICARE, SELFPAY ==
--- NOTE | 2023-07-16 13:06 | A.OFFVIS_ITS ---
Intake Intake Visit Reasons: Cysto(BPH) Intake Note: Patient presents today for a CYSTOSCOPY Procedure: Meds: None Allergies to Antibiotic: Levofloxacin Blood Thinner: None Urinalysis test clear for cysto? yes Disposable Uro-G Cystoscope Cannula: Lot: [id number] Exp: 10/24/2024 Director Clinical Data Required: No Accompanied by: Self / Same As Patient Allergies levofloxacin [From LEVAQUIN] Allergy (Severe, Verified 07/16/23 13:07) ANGIOEDEMA (EXACT SOURCE UNCERTAIN) lisinopril [LISINOPRIL] Allergy (Severe, Verified 07/16/23 13:07) ANGIOEDEMA ( EXACT SOURCE UNCERTAIN) HPI HPI Comments History of Present Illness Details Corby is a pleasant male. He is a patient of Dr. Beal. 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 Symptoms include / , incomplete emptying, weak stream, nocturia (>2), and are progressing. Results from testing include cystoscopy [facility] 04/04 - prior TURP PSA 11/02 PSA 10 (last PSA 2011 3.8) 04/04 3.3. Prostate volume 30-50gm. Associated conditions CAD No CVA No diabetes yes elevated PSA No Treatment plan legs higher than body in afternoon Erectile dysfunction Good result with Viagra 100 mg April 2020 PFS Medical History Diabetes mellitus Disc degeneration, lumbar Chronic pain syndrome Gout, arthritis Spinal stenosis Spondylosis of lumbar region without myelopathy or radiculopathy Diabetes mellitus Swelling of both parotid glands Podagra Seropositive rheumatoid arthritis Hypercholesterolemia Leg edema Essential hypertension Angioedema Surgical History History of cryosurgery History of endoscopy History of bladder surgery History of bilateral cataract extraction History of hernia repair Family History Father Cardiovascular disease Diabetes Mother Diabetes Brother No problems noted. Brother No problems noted. Sister No problems noted. Sister No problems noted. Son No problems noted. Son No problems noted. Daughter No problems noted. Daughter No problems noted. Daughter No problems noted. Other Mental health disorder Social History Household Members: Spouse and Children Housing: House Do you presently have visiting nurse or other home services: No Alcohol intake: never Patient Tobacco Use Status: Never used Tobacco e-Cigarette/Vaping Use: Never Used Second Hand Smoke Exposure: No service: No Current occupational status: retired Cognitive needs: No Hearing needs: No Vision needs: No Review of Systems Const Denies chills and Denies fever(s) Card Reports no additional complaints and Denies syncope Resp Denies cough GI Denies abdominal pain and Denies heartburn Reports as per HPI and Denies change in libido Neuro Denies syncope Psych Denies change in libido Endo Denies change in libido Physical Exam Const General: cooperative, healthy appearing, comfortable and no acute distress Orientation/consciousness: patient oriented x3 HEENT Face and sinus: Yes normal facial exam Mouth: moist mucous membranes Neck Neck: Yes normal visual inspection, Yes full ROM and Yes trachea midline Chest Chest palpation & inspection: normal inspection of the chest Resp Effort & Inspection: normal respiratory effort, able to speak in complete sentences and no respiratory distress GI Inspection: Yes normal to inspection Back/Spine/Pelvis Cervical Spine: normal cervical lordosis Thoracic/Lumbar Spine: thoracic and lumbar spine normal to inspection Skin General skin exam: no rashes or lesions noted Neuro General: patient oriented x3, gait normal, tone normal and moves all extremities Extrem General: Yes normal to inspection and Yes capillary refill normal Office Procedures Cystoscopy Consent Discussed risk and benefit or proposed procedure with the patient. Information consent for procedure given to the patient. Discussed technical aspects, risks, benefits and alternatives in full. Addressed all of the patient's questions and concerns regarding the procedure. The patient demonstrated knowledge and understanding. They wish to proceed with this procedure. Preparation The patient was prepped in the usual manner. A family assistant was present and in the room. Genitalia was prepped with betadine solution in a sterile manner. Lidocaine Jelly 2% was placed into the urethra and 16Fr flexible Olympus cystoscope was inserted into the meatus after adequate lubrication. Procedure Meatus circumcised Urethra anterior and posterior urethra normal Prostatic Urethra unremarkable Bladder examination with retroflexion of cystoscope Bladder Orifices normal shape and position Bladder Capacity medium Trabeculations grade 2 Cellule Formation - Diverticulum Formation - Mucosal Erythema - Bladder Tumor small tumor left side [id number] DISPOSABLE SCOPE URO-G FLEXIBLE SCOPE Procedure code (CPT) selection complete Office Meds lidocaine HCl 2 % mucosal jelly in applicator Performing Provider: Barney Byrd MD [place] [facility] [place] [facility] Administered by: Jenny March RN on 07/16/23 13:18 Dose Route Admin Location Dispensed Lot Number Expiration Date NDC Relations Director 10 mL intra-urethral 10 mL nitrofurantoin monohydrate/macrocrystals 100 mg capsule Performing Provider: Barney Byrd MD [place] [facility] [place] [facility] Administered by: Jenny March RN on 07/16/23 13:18 Dose Route Admin Location Dispensed Lot Number Expiration Date NDC Relations Director 100 mg PO 1 cap naproxen 500 mg tablet Performing Provider: Barney Byrd MD [place] [facility] [place] [facility] Administered by: Jenny March RN on 07/16/23 13:18 Dose Route Admin Location Dispensed Lot Number Expiration Date NDC Relations Director 500 mg PO 1 tab Results AMB Urinalysis, Automated UA Leukoctes 0 Neto/uL Last Edit by Josie Bell CMA on 07/16/23 13 :17 UA Nitrite Negative Last Edit by Josie Bell CMA on 07/16/23 13: 17 UA Urobilinogen 0.2 mg/dL Last Edit by Josie Bell CMA on 4 13:17 UA Protein 30 mg/dL Last Edit by Josie Salesa, [facility] on 07/16/23 13:1 7 UA pH 6.0 [facility] on 07/16/23 13:17 UA Blood 0 Alejandro/uL Last Edit by [facility], [facility] on 07/16/23 13:17 UA Specific [place] 1.020 Last Edit by [facility] on 13:17 UA Ketone Negative Last Edit by [facility] on 07/16/23 13:1 7 UA Bilirubin 0 mg/dL Last Edit by [facility] on 07/16/23 13: 17 UA Glucose 1000 mg/dL Last Edit by [facility] on 07/16/23 13 :17 Results Reviewed Results Reviewed: Laboratory Last Values Urine pH (Auto) 6.0 07/16/23 13:15 Specific [place] (Auto) 1.020 07/16/23 13:15 Urine Protein (Auto) 30 mg/dL 07/16/23 13:15 Glucose (UA)(Auto) 1000 mg/dL 07/16/23 13:15 Urine Ketones (Auto) Negative 07/16/23 13:15 Urine Blood (Auto) 0 Alejandro/uL 07/16/23 13:15 Urine Nitrite (Auto) Negative 07/16/23 13:15 Urine Bilirubin (Auto) 0 mg/dL 07/16/23 13:15 Urine Urobilinogen (Auto) 0.2 mg/dL 07/16/23 13:15 Leukocyte Esterase (Auto) 0 Neto/uL 07/16/23 13:15 Assessment & Plan Assessment & Plan (1) BPH w urinary obs/LUTS: Code(s): N40.1 - Benign prostatic hyperplasia with lower urinary tract symptoms; N13.8 - Other obstructive and reflux uropathy (2) Bladder cancer: Code(s): C67.9 - Malignant neoplasm of bladder, unspecified Plan Transurethral resection of bladder tumor with/without adjuvant cytotoxic bladder installation We discussed the nature of the decision and reasonable options for performing the above surgery. Interventions include TURBT with or without intravesical administration of immunotherapy or cytotoxic medication. The relative uncertainties and benefits related to each alternate procedure were adequately discussed. General surgical risks including, but not limited to, pain, bleeding, infection, myocardial infarction, pulmonary embolus, deep vein thrombosis and cerebrovascular accident which may result in further hospitalization were discussed. Full disclosure of the procedure as well as all major risks, benefits and complications were discussed including but not limited to damage to the urethra or bladder neck, need for ureteric stenting, perforation of the bladder, chemical cystitis, chemical peritonitis, epididymitis, and meatal stenosis. The success rate of the procedure was discussed. Success of the procedure in the short-term does not necessarily guarantee that long-term success will be maintained. Suitable follow up will need to be maintained. The patient showed understanding of discussion and wishes to proceed as above. Orders: Orders AMB Cystoscopy 07/16/23 N40.1 - Benign prostatic hyperplasia with lower urinary tract symptoms, N13.8 - Other obstructive and reflux uropathy AMB Urinalysis Automated 07/16/23 R33.9 - Retention of urine, unspecified Patient Instructions: Imaging studies, laboratory and physical exam results were discussed and reviewed in detail. No major barriers to patient understanding were identified. An opportunity to ask questions regarding the treatment plan was provided. All questions were answered. The patient expressed understanding and agreement with the above treatment plan. The patient is aware they should contact our office by phone for worsening of their current condition or the appearance of new urologic symptoms. Compliance is encouraged with any medications and followup testing that is ordered. It is a privilege to participate in the urologic care of your patient. If you have any questions or concerns regarding treatment for the above conditions, or other urologic issues, please do not hesitate to contact me. The office telephone contact is [phone]. This note is constructed using voice recognition software. While every effort has been made to ensure accuracy rehabilitation manager errors may have been included. Yours sincerely, Dr Barney Byrd MD, [facility] - Urology Providers of Expert, Compassionate Care for the Genitourinary System Coding Level of Care Code Est Pt Level 4 (24431) Diagnoses BPH w urinary obs/LUTS N40.1; N13.8 Bladder cancer C67.9 CPT Codes Cystoscopy - CPT: [id number] ([id number])
== END 2023-07-16 14:40 | disposition home or self-care (01) ==
PROVIDERS: PCP Internal Medicine; Visit Provider Urology
DX: N40.1 Benign prostatic hyperplasia with lower urinary tract symptoms (principal); N13.8 Other obstructive and reflux uropathy; R33.9 Retention of urine, unspecified
CPT/HCPCS: 52000; 99214

== ENCOUNTER → 2023-07-16 12:55 | Outpatient (BNVA) | payer MEDICARE, SELFPAY | PROVIDERS: PCP Internal Medicine; Visit Provider Urology | DX: C67.9 Malignant neoplasm of bladder, unspecified (principal); N40.1 Benign prostatic hyperplasia with lower urinary tract symptoms; N13.8 Other obstructive and reflux uropathy | CPT/HCPCS: 52000; 81003; 99212 ==

== ENCOUNTER 2023-07-26 15:35 | Outpatient (AMB) | payer MEDICARE, SELFPAY ==
[2023-07-26 15:40] VITALS: BP 182/70; PULSE 77; TEMP 36.6; O2SAT 97; BMI 26.2
--- NOTE | 2023-07-26 15:40 | AM.OFFWIN_ITS ---
Intake Vital Signs 07/26/23 15:40 Height 5 ft 8 in Weight 172 lb 4 oz BMI 26.2 BP 182/70 H Blood Pressure Location Rt brachial Position Sitting Pulse 77 Pulse Source Pulse Oximeter Temp 97.8 F Temp Source Oral Pulse Oximetry (%) 97 Oxygen Delivery Method Room Air Intake Visit Reasons: EP Mid back and down-pain Intake Note: Pt is here today for lower back pain, states it's been going on for quite a while. Patient Tobacco Use Status: Never used Tobacco Allergies levofloxacin [From LEVAQUIN] Allergy (Severe, Verified 07/26/23 15:41) ANGIOEDEMA (EXACT SOURCE UNCERTAIN) lisinopril [LISINOPRIL] Allergy (Severe, Verified 07/26/23 15:41) ANGIOEDEMA ( EXACT SOURCE UNCERTAIN) Do you need a note to return to daycare/school/sports/work: No HPI HPI Comments History of Present Illness Details 88 y/o male patient presents to walk in clinic with c/o Mid to lower back pain. This is a chronic issue, going on for years. Currently takes Tramadol daily with no relief. Reports numbness and tingling lower extremities. He has been using Heat pad with relief. Denies bowel or bladder incontinence. [facility] Medical History Diabetes mellitus Disc degeneration, lumbar Chronic pain syndrome Gout, arthritis Spinal stenosis Spondylosis of lumbar region without myelopathy or radiculopathy Diabetes mellitus Swelling of both parotid glands Podagra Seropositive rheumatoid arthritis Hypercholesterolemia Leg edema Essential hypertension Angioedema Surgical History History of cryosurgery History of endoscopy History of bladder surgery History of bilateral cataract extraction History of hernia repair Family History Father Cardiovascular disease Diabetes Mother Diabetes Brother No problems noted. Brother No problems noted. Sister No problems noted. Sister No problems noted. Son No problems noted. Son No problems noted. Daughter No problems noted. Daughter No problems noted. Daughter No problems noted. Other Mental health disorder Social History Household Members: Spouse and Children Housing: House Do you presently have visiting nurse or other home services: No Alcohol intake: never Patient Tobacco Use Status: Never used Tobacco e-Cigarette/Vaping Use: Never Used Second Hand Smoke Exposure: No service: No Current occupational status: retired Cognitive needs: No Hearing needs: No Vision needs: No Review of Systems Const All systems reviewed & are unremarkable except as noted in HPI and below Physical Exam Vital Signs: Last Vital Signs Temp 97.8 F 07/26/23 15:40 Pulse 77 07/26/23 15:40 BP 182/70 H 07/26/23 15:40 Pulse Ox 97 07/26/23 15:40 Oxygen Delivery Method Room Air 07/26/23 15:40 BMI result Body Mass Index 26.2 General: Yes no CVA tenderness Back/Spine/Pelvis Other: Tenderness to palpation lower bilateral back. No swelling,no trauma. Normal ROM, but limited due to pain. Back: no CVA tenderness Cervical Spine: normal cervical lordosis Thoracic/Lumbar Spine: bend over test abnormal, No mass and lumbar spinal tenderness at L1 and at L5 Results AMB Urinalysis, Automated UA Leukoctes 0 Neto/uL Last Edit by Huyen March CMA on 07/26/23 15:57 UA Nitrite Negative Last Edit by Huyen March CMA on 07/26/23 15:57 UA Urobilinogen 0.2 mg/dL Last Edit by Huyen March CMA on 07/26/23 15:57 UA Protein 15 mg/dL Last Edit by Huyen March CMA on 07/26/23 15:57 UA pH 6.0 Last Edit by Huyen March CMA on 07/26/23 15:57 UA Blood 0 Alejandro/uL Last Edit by Huyen March CMA on 07/26/23 15:57 UA Specific [place] 1.015 Last Edit by Huyen March CMA on 07/26/23 15:57 UA Ketone Negative Last Edit by Huyen March CMA on 07/26/23 15:57 UA Bilirubin 0 mg/dL Last Edit by Huyen March CMA on 07/26/23 15:57 UA Glucose 0 mg/dL Last Edit by Huyen March CMA on 07/26/23 15:57 Assessment & Plan Assessment & Plan (1) Lumbar radicular pain: Code(s): M54.16 - Radiculopathy, lumbar region Plan: - UA negative - This is a chronic issue, he has failed PT and Tramadol/NSAIDs and Acetaminophen not helping - Pt might benefit having referral to Ortho and pain management. - Advised Pt and to go Emergency room if pain severe. Orders: Orders AMB Urinalysis Automated Today Z13.9 - Encounter for screening, unspecified Coding Level of Care Code Est Pt Level 3 (67325) Diagnoses Lumbar radicular pain M54.16 Time Spent (min) 15
== END 2023-07-26 16:09 | disposition home or self-care (01) ==
PROVIDERS: PCP Internal Medicine; Visit Provider Nurse Practitioner Family
DX: M54.16 Radiculopathy, lumbar region (principal)
CPT/HCPCS: 81003; 99213

== ENCOUNTER 2023-09-11 12:31 | Outpatient (AMB) | payer MEDICARE, SELFPAY ==
--- NOTE | 2023-09-11 12:32 | A.OFFVIS_ITS ---
Intake Intake Visit Reasons: H&P TURBT w Gemcitabine Intake Note: Patient presents today for a telehealth follow up on H&P TURBT Meds- Solifenacin, Doxazosin Allergies to Antibiotic- Levofloxacin Blood Thinner- None Electron Gun Inspector Required: No Allergies levofloxacin [From LEVAQUIN] Allergy (Severe, Verified 09/11/23 12:37) ANGIOEDEMA (EXACT SOURCE UNCERTAIN) lisinopril [LISINOPRIL] Allergy (Severe, Verified 09/11/23 12:37) ANGIOEDEMA ( EXACT SOURCE UNCERTAIN) HPI HPI Comments History of Present Illness Details Corby is a pleasant male. He is a patient of Dr. Beal. He is seen for the following urologic issues - lower urinary tract symptoms - nocturia - diabetic cystopathy with overactive bl adder Telemedicine Evaluation 15 min Consultation Access Network Lonnie Video attempted Answered questions Will stay away from aspirin anti-inflammatories Cystoscopy with small bladder cancer - TURBT with mitomycin-C installation a nd cytarabine Lower Urinary Tract Symptoms: - bladder instability in diabetic Current visit is for further evaluation of, lower urinary tract symptoms, predominate obstructive symptoms - baseline 6x nocturia Current treatment includes solifenacin with doxazosin and tadalafil Prior treatments TURP, repeat [facility] 04/04 Prostate Symptom Score 6/19 , Moderate (9-19), Bother 3. Symptoms include / , incomplete emptying, weak stream, nocturia (>2), and are progressing. Results from testing include cystoscopy [facility] 04/04 - prior TURP PSA 11/02 PSA 10 (last PSA 2011 3.8) 04/04 3.3. Prostate volume 30-50gm. Associated conditions CAD No CVA No diabetes yes elevated PSA No Treatment plan legs higher than body in afternoon Erectile dysfunction Good result with Viagra 100 mg April 2020 PFS Medical History Diabetes mellitus Disc degeneration, lumbar Chronic pain syndrome Gout, arthritis Spinal stenosis Spondylosis of lumbar region without myelopathy or radiculopathy Diabetes mellitus Swelling of both parotid glands Podagra Seropositive rheumatoid arthritis Hypercholesterolemia Leg edema Essential hypertension Angioedema Surgical History History of cryosurgery History of endoscopy History of bladder surgery History of bilateral cataract extraction History of hernia repair Family History Father Cardiovascular disease Diabetes Mother Diabetes Brother No problems noted. Brother No problems noted. Sister No problems noted. Sister No problems noted. Son No problems noted. Son No problems noted. Daughter No problems noted. Daughter No problems noted. Daughter No problems noted. Other Mental health disorder Social History Household Members: Spouse and Children Housing: House Do you presently have visiting nurse or other home services: No Alcohol intake: never Patient Tobacco Use Status: Never used Tobacco e-Cigarette/Vaping Use: Never Used Second Hand Smoke Exposure: No service: No Current occupational status: retired Cognitive needs: No Hearing needs: No Vision needs: No Review of Systems Const All systems reviewed & are unremarkable except as noted in HPI and below Reports no additional complaints Resp Reports no additional complaints GI Reports no additional complaints Reports as per HPI Musc Reports no additional complaints Physical Exam Telemedicine evaluation Appropriate responses Regular breathing rate and rhythm HEENT Head: Yes normal to inspection Ears: hearing grossly normal bilaterally Eyes General: appearance normal, both eyes and all related structures Neck Neck: Yes normal visual inspection Chest Chest palpation & inspection: normal inspection of the chest Resp Effort & Inspection: normal respiratory effort and able to speak in complete sentences Assessment & Plan Assessment & Plan (1) Bladder cancer: Code(s): C67.9 - Malignant neoplasm of bladder, unspecified (2) Overactive bladder: Code(s): N32.81 - Overactive bladder Plan Risks, benefits and alternatives to therapy were discussed. These include but are not limited to infection, bleeding, damage to local organs and tissues, need for further interventions. Anesthetic risks regarding cardiac arrhythmia, blood clots, and potential mortality were discussed. The patient understands the typical recovery time and the outpatient nature of the procedure. After consideration of these risks the patient gives full informed consent and they wish to move ahead with the procedure. TURBT with installation Patient Instructions: Imaging studies, laboratory and physical exam results were discussed and reviewed in detail. No major barriers to patient understanding were identified. An opportunity to ask questions regarding the treatment plan was provided. All questions were answered. The patient expressed understanding and agreement with the above treatment plan. The patient is aware they should contact our office by phone for worsening of their current condition or the appearance of new urologic symptoms. Compliance is encouraged with any medications and followup testing that is ordered. It is a privilege to participate in the urologic care of your patient. If you have any questions or concerns regarding treatment for the above conditions, or other urologic issues, please do not hesitate to contact me. The office telephone contact is [phone]. This note is constructed using voice recognition software. While every effort has been made to ensure accuracy asp net software developer errors may have been included. Yours sincerely, Dr Barney Byrd MD, [facility] [place] - Urology Providers of Expert, Compassionate Care for the Genitourinary System Telehealth Telehealth Location of provider rendering services: practice address Location of patient: address on file Patient Identification confirmed using: Name, : Yes Telehealth method: video Patient verbally consented to treatment: Yes Patient verbally consented to billing insurance company: Yes Patient informed of any privacy concerns related to visit: Yes Coding Level of Care Code Tele Est Pt Level 3 (51809) Diagnoses Bladder cancer C67.9 Overactive bladder N32.81
== END 2023-09-11 14:05 | disposition home or self-care (01) ==
LOC: HO.HUSH 12:32
PROVIDERS: PCP Internal Medicine; Visit Provider Urology
DX: C67.9 Malignant neoplasm of bladder, unspecified (principal); N32.81 Overactive bladder
CPT/HCPCS: 99213

== ENCOUNTER → 2023-09-11 12:31 | Outpatient (BNVA) | payer MEDICARE, SELFPAY | PROVIDERS: PCP Internal Medicine; Visit Provider Urology ==

== ENCOUNTER 2023-09-13 15:04 | Outpatient (AMB) | payer MEDICARE, SELFPAY ==
[2023-09-13 15:37] VITALS: BP 180/80; PULSE 78; BMI 25.2
--- NOTE | 2023-09-13 15:37 | MHC.OFFVIS ---
Intake Vital Signs 09/13/23 15:37 Height 5 ft 8 in Weight 165 lb 12.602 oz BMI 25.2 BP 180/80 H Blood Pressure Location Lt brachial Position Sitting Pulse 78 Intake Visit Reasons: follow up/ clearance for Urology. (don`t R/S) Intake Note: PT HAS OV FOR CLEARANCE FOR PRE OP NO CHEST PAIN PT FEELS GOOD Allergies levofloxacin [From LEVAQUIN] Allergy (Severe, Verified 09/11/23 12:37) ANGIOEDEMA (EXACT SOURCE UNCERTAIN) lisinopril [LISINOPRIL] Allergy (Severe, Verified 09/11/23 12:37) ANGIOEDEMA ( EXACT SOURCE UNCERTAIN) Medication List - Last Reconciled 09/13/23 by Shira Mcclendon NP acetaminophen (Tylenol) 650 mg PO Q6H PRN allopurinol 100 mg PO DAILY blood sugar diagnostic (FreeStyle Lite Strips) USE TO TEST DAILY blood-glucose meter Test Daily - [employer] Blood glucose Meter blood-glucose meter (FreeStyle Lite Meter kit) As directed carvedilol (Coreg) 37.5 mg (1.5 x 25 mg) PO BID 90 days doxazosin (Cardura) 4 mg PO DAILY 90 days fenofibrate nanocrystallized 145 mg PO DAILY hydralazine 100 mg PO TID lancets (FreeStyle Lancets) USE TO TEST DAILY leflunomide 20 mg PO DAILY lorazepam 0.5 mg PO BEDTIME metformin 500 mg PO DAILY 90 days nifedipine ER 60 mg PO DAILY solifenacin 10 mg PO DAILY spironolactone 25 mg PO DAILY 90 days torsemide 10 mg PO DAILY tramadol 50 mg PO DAILY PRN HPI HPI Comments History of Present Illness Details Patient is here for a pre-operative clearance. He reports he is ungoing cyst removal of the bladder. He reports he has been doing well since last visit. Reports his blood pressures at home are 130s/60s. He deneis any chest pains, shortness of breath, or palpitations. Mows lawn and does stairs without issues. [facility] Medical History Diabetes mellitus Disc degeneration, lumbar Chronic pain syndrome Gout, arthritis Spinal stenosis Spondylosis of lumbar region without myelopathy or radiculopathy Diabetes mellitus Swelling of both parotid glands Podagra Seropositive rheumatoid arthritis Hypercholesterolemia Leg edema Essential hypertension Angioedema Surgical History History of cryosurgery History of endoscopy History of bladder surgery History of bilateral cataract extraction History of hernia repair Family History Father Cardiovascular disease Diabetes Mother Diabetes Brother No problems noted. Brother No problems noted. Sister No problems noted. Sister No problems noted. Son No problems noted. Son No problems noted. Daughter No problems noted. Daughter No problems noted. Daughter No problems noted. Other Mental health disorder Social History Household Members: Spouse and Children Housing: House Do you presently have visiting nurse or other home services: No Alcohol intake: never Patient Tobacco Use Status: Never used Tobacco e-Cigarette/Vaping Use: Never Used Second Hand Smoke Exposure: No service: No Current occupational status: retired Cognitive needs: No Hearing needs: No Vision needs: No Review of Systems Const Denies weakness ENT Denies dizziness Card Denies chest pain, Denies chest pain with activity, Denies syncope, Denies rapid heart rate, Denies pedal edema, Denies edema, Denies leg edema, Denies lightheadedness, Denies palpitations, Denies dyspnea, Denies dyspnea on exertion and Denies orthopnea Resp Denies cough, Denies dyspnea and Denies dyspnea on exertion GI Denies hematochezia and Denies change in stool character Musc Denies abnormal gait, Denies muscle cramps, Denies muscle weakness, Denies numbness, Denies radiating pain into limb and Denies tingling Neuro Denies abnormal gait, Denies dizziness, Denies syncope, Denies numbness, Denies tingling and Denies weakness Endo Denies palpitations Physical Exam Vital Signs: Last Vital Signs Pulse 78 09/13/23 15:37 BP 180/80 H 09/13/23 15:37 BMI result Body Mass Index 25.2 Assessment & Plan Assessment & Plan (1) Pre-procedural cardiovascular examination: Code(s): Z01.810 - Encounter for preprocedural cardiovascular examination (2) Uncontrolled hypertension: Code(s): I10 - Essential (primary) hypertension Plan Based on the current information at current patient will be an intermediate risk for surgery on 4/1/24. Currently no anginal symptoms. History of white coat syndrome. Blood pressures at home are 130s/60s at home. Will increase Nifedipine from 60mg to 90mg. But if blood pressure is elevated day of procedure may need to postpone procedure. Medications: New nifedipine ER 90 mg PO DAILY 30 days 30 tabs 1RF Changed From hydralazine 100 mg PO TID 90 days 270 tabs 3RF I10 - Essential (primary) hypertension To hydralazine 100 mg PO TID I10 - Essential (primary) hypertension From leflunomide 20 mg PO DAILY 90 tabs 0RF M05.9 - Rheumatoid arthritis with rheumatoid factor, unspecified To leflunomide 20 mg PO DAILY M05.9 - Rheumatoid arthritis with rheumatoid factor, unspecified From solifenacin 10 mg PO DAILY 90 days 90 tabs 1RF N32.81 - Overactive bladder, R39.15 - Urgency of urination To solifenacin 10 mg PO DAILY N32.81 - Overactive bladder, R39.15 - Urgency of urination Coding Level of Care Code Est Pt Level 3 (98815) Diagnoses Pre-procedural cardiovascular examination Z01.810 Uncontrolled hypertension I10
== END 2023-09-13 16:43 | disposition home or self-care (01) ==
PROVIDERS: PCP Internal Medicine; Visit Provider Nurse Practitioner
DX: Z01.810 Encounter for preprocedural cardiovascular examination (principal); I10 Essential (primary) hypertension
CPT/HCPCS: 99213

== ENCOUNTER → 2023-09-13 15:04 | Outpatient (BNVA) | payer MEDICARE, SELFPAY | PROVIDERS: PCP Internal Medicine; Visit Provider Nurse Practitioner | DX: Z01.810 Encounter for preprocedural cardiovascular examination (principal); I10 Essential (primary) hypertension | CPT/HCPCS: 99212 ==

== ENCOUNTER 2023-09-16 10:10 | Day surgery (SDC) | payer MEDICARE, SELFPAY ==
[2023-09-12 10:17] VITALS: BMI 26.5
--- NOTE | 2023-09-13 09:29 | HO.ANESPROP2 ---
Documented by User: Selma Brower NP 09/13/23 09:53 HPI - Anesthesia Eval Consult details Narrative: 88yo M for TUR Bladder Tumor with Gencitabine Cardiology office visit 09/13/2311/2021 - SSS for urological procedure, OK post-op and d/c'd home. Subsequently developed swelling in the throat and submandibular area/ tongue and was diagnosed with angioedema. He was then admitted to the ICU and intubated. He was on lisinopril at that time, which was then stopped. Subsequently he improved and then was able to go home. [facility] Active Problems Active Problems: All Active Problems (Updated 07/25/23 @ 15:22 by Barney Byrd MD) Bladder cancer (Acute) Screening for osteoporosis (Acute) Immunization counseling (Acute) Edema (Acute) CKD (chronic kidney disease) (Acute) Erectile dysfunction associated with type 2 diabetes mellitus (Acute) Annual physical exam (Acute) Dysphagia (Acute) Fracture of multiple ribs of both sides (Acute) Syncope and collapse (Acute) Diabetes mellitus (Acute) Overactive bladder (Acute) Disc degeneration, lumbar (Acute) Chronic pain syndrome (Acute) Gout, arthritis (Acute) Spinal stenosis (Acute) Spondylosis of lumbar region without myelopathy or radiculopathy (Acute) Lumbar radicular pain (Acute) Uncontrolled hypertension (Acute) Annual physical exam (Acute) Left hip pain (Acute) Low back pain (Acute) Diabetes mellitus (Acute) Swelling of lower extremity (Acute) REGINA (generalized anxiety disorder) (Acute) Bunion (Acute) Swelling of both parotid glands (Acute) Podagra (Acute) Seropositive rheumatoid arthritis (Acute) Hypercholesterolemia (Acute) Urinary urgency (Acute) Nocturia more than twice per night (Acute) BPH w urinary obs/LUTS (Acute) Erectile dysfunction (Acute) Leg edema (Acute) Essential hypertension (Acute) Angioedema (Acute) Past Medical History Medical History Diabetes mellitus Disc degeneration, lumbar Chronic pain syndrome Gout, arthritis Spinal stenosis Spondylosis of lumbar region without myelopathy or radiculopathy Diabetes mellitus Swelling of both parotid glands Podagra Seropositive rheumatoid arthritis Hypercholesterolemia Leg edema Essential hypertension Angioedema Family History Family History Father Cardiovascular disease Diabetes Mother Diabetes Brother No problems noted. Brother No problems noted. Sister No problems noted. Sister No problems noted. Son No problems noted. Son No problems noted. Daughter No problems noted. Daughter No problems noted. Daughter No problems noted. Other Mental health disorder Surgical History Surgical History History of cryosurgery History of endoscopy History of bladder surgery History of bilateral cataract extraction History of hernia repair Social History Social History Household Members: Spouse and Children Housing: House Do you presently have visiting nurse or other home services: No Alcohol intake: never Patient Tobacco Use Status: Former Tobacco user e-Cigarette/Vaping Use: Never Used Second Hand Smoke Exposure: No Are you DNR?: No Advance Directives: No Advance Directives Information Provided: Yes Nutrition Risks: No Nutritional Risk service: No Current occupational status: retired Cognitive needs: No Hearing needs: No Vision needs: No Meds Allergies Allergy/AdvReac Type Severity Reaction Status Date / Time levofloxacin [From LEVAQUIN] Allergy Severe ANGIOEDEMA Verified 09/11/23 12:37 (EXACT SOURCE UNCERTAIN) lisinopril [LISINOPRIL] Allergy Severe ANGIOEDEMA Verified 09/11/23 12:37 ( EXACT SOURCE UNCERTAIN) Home Medications Medication Instructions Recorded Confirmed Last Taken Type blood-glucose meter (InStore FinanceStyle #1 ea 10/24/21 06/24/23 Unknown History Lite Meter kit) torsemide 10 mg tablet 10 mg PO DAILY 05/02/22 09/13/23 Unknown History acetaminophen 325 mg tablet 650 mg PO Q6H PRN Pain 07/16/22 09/13/23 Unknown History (Tylenol) hydralazine 100 mg tablet 100 mg PO TID 09/13/23 09/16/23 09/16/23 07:30 History leflunomide 20 mg tablet 20 mg PO DAILY 09/13/23 09/13/23 Unknown History solifenacin 10 mg tablet 10 mg PO DAILY 09/13/23 09/13/23 Unknown History Exam Height,Weight and Vital Signs: Height 5 ft 8 in Weight 78.925 kg Pertinent Lab Results Pertinent Lab Results: Laboratory Tests 07/09/23 16:23 WBC 11.7 H Hgb 11.1 L Hct 34.5 L Plt Count 389 D Sodium 135 Potassium 4.0 Chloride 102 Carbon Dioxide 23 BUN 27 H Creatinine 1.10 Narrative Narrative: EKG 04/2023 sinus rhythm at 78/Min; left ventricular hypertrophy with repolarization changes. ECHO 2021 Conclusions: - 1. Normal LV systolic function with impaired relaxation filling pattern 2. Early to mild aortic stenosis 3. No gross pericardial effusion Assessment and Plan Assessment Anesthesia Assessment: Chart Reviewed Documented by User: Zayra Munoz MD 09/16/23 13:25 PMFSH Active Problems Active Problems: All Active Problems (Updated 09/16/23 @ 10:26 by Zayra Munoz MD) Bladder cancer (Acute) Screening for osteoporosis (Acute) Immunization counseling (Acute) CKD (chronic kidney disease) (Acute) Erectile dysfunction associated with type 2 diabetes mellitus (Acute) Dysphagia (Acute) Fracture of multiple ribs of both sides following syncopal attack and fall after choking while eating 01/2022 Syncope and collapse 2021 Diabetes mellitus (Acute) Overactive bladder (Acute) Disc degeneration, lumbar (Acute) Chronic pain syndrome (Acute) Gout, arthritis (Acute) Spinal stenosis (Acute) Spondylosis of lumbar region without myelopathy or radiculopathy (Acute) Lumbar radicular pain (Acute) Uncontrolled hypertension (Acute) Left hip pain (Acute) Low back pain (Acute) Swelling of lower extremity (Acute) REGINA (generalized anxiety disorder) (Acute) Bunion (Acute) Swelling of both parotid glands (Acute) Podagra (Gout of big toe) Seropositive rheumatoid arthritis (Acute) Hypercholesterolemia (Acute) Urinary urgency (Acute) Nocturia more than twice per night (Acute) BPH w urinary obs/LUTS (Acute) Leg edema (Acute) Angioedema 11/2019 Past Medical History Medical History Diabetes mellitus Disc degeneration, lumbar Chronic pain syndrome Gout, arthritis Spinal stenosis Spondylosis of lumbar region without myelopathy or radiculopathy Diabetes mellitus Swelling of both parotid glands Podagra Seropositive rheumatoid arthritis Hypercholesterolemia Leg edema Essential hypertension Angioedema Family History Family History Father Cardiovascular disease Diabetes Mother Diabetes Brother No problems noted. Brother No problems noted. Sister No problems noted. Sister No problems noted. Son No problems noted. Son No problems noted. Daughter No problems noted. Daughter No problems noted. Daughter No problems noted. Other Mental health disorder Family history of problems with anesthesia: No Surgical History Surgical History History of cryosurgery History of endoscopy History of bladder surgery History of bilateral cataract extraction History of hernia repair History of Problems with Anesthesia: No Social History Social History Household Members: Spouse and Children Housing: House Do you presently have visiting nurse or other home services: No Alcohol intake: never Patient Tobacco Use Status: Former Tobacco user e-Cigarette/Vaping Use: Never Used Second Hand Smoke Exposure: No Are you DNR?: No Advance Directives: No Advance Directives Information Provided: Yes Nutrition Risks: No Nutritional Risk service: No Current occupational status: retired Cognitive needs: No Hearing needs: No Vision needs: No Meds Allergies Allergy/AdvReac Type Severity Reaction Status Date / Time levofloxacin [From LEVAQUIN] Allergy Severe ANGIOEDEMA Verified 09/11/23 12:37 (EXACT SOURCE UNCERTAIN) lisinopril [LISINOPRIL] Allergy Severe ANGIOEDEMA Verified 09/11/23 12:37 ( EXACT SOURCE UNCERTAIN) Home Medications Medication Instructions Recorded Confirmed Last Taken Type blood-glucose meter (FreeStyle #1 ea 10/24/21 06/24/23 Unknown History Lite Meter kit) torsemide 10 mg tablet 10 mg PO DAILY 05/02/22 09/13/23 Unknown History acetaminophen 325 mg tablet 650 mg PO Q6H PRN Pain 07/16/22 09/13/23 Unknown History (Tylenol) hydralazine 100 mg tablet 100 mg PO TID 09/13/23 09/16/23 09/16/23 07:30 History leflunomide 20 mg tablet 20 mg PO DAILY 09/13/23 09/13/23 Unknown History solifenacin 10 mg tablet 10 mg PO DAILY 09/13/23 09/13/23 Unknown History Exam Height,Weight and Vital Signs: Height 5 ft 8 in Weight 78.925 kg Vital Signs Temp Pulse Resp BP Pulse Ox O2 Del Method 97.8 F 83 18 194/69 H 96 Room Air 09/16/23 10:30 09/16/23 10:30 09/16/23 10:30 09/16/23 10:30 09/16/23 10:30 09/16/23 10:30 Pertinent Lab Results Pertinent Lab Results: Laboratory Tests 07/09/23 16:23 WBC 11.7 H Hgb 11.1 L Hct 34.5 L Plt Count 389 D Sodium 135 Potassium 4.0 Chloride 102 Carbon Dioxide 23 BUN 27 H Creatinine 1.10 Lab Results 09/16/23 Range/Units 10:30 POC Glucose 165 H (60-115) mg/dL Airway Mallampati Class: II TM Dist: >3cm Neck ROM: Full Partial: Upper Loose/Missing/Broken Teeth: Yes (Denies broken or loose teeth) Heart: RRR Lungs: CTAB Assessment and Plan Assessment Anesthesia Assessment: Anesthesia Plan Discussed and Chart Reviewed Final Anesthetic Review Family History of Problems with Anesthesia: No History of Problems with Anesthesia: No NPO: Yes ASA Class: III Final Preanesthetic Review: No Changes in Pt Med Stat, Meds/Allgs Chart Reviewed, Consent Obtained/Reviewed and Anes Risks/Benef Reviewed Patient Risk: Intermediate Procedure Risk: Low Assessment/Block/Sedation in SS: Assess/Block/Sedation-SS Anesthetic Plan Anesthetic Plan: GA Disposition: Standard PACU
[2023-09-16] VITALS (11 sets, daily range): BP systolic 165–207; BP diastolic 64–89; PULSE 70–83; RESP 16–18; TEMP 36.4–36.7; O2SAT 95–98; BMI 24.6
[2023-09-16 10:48] LABS: Glucose, Whole Blood 165 mg/dL (60-115)
--- NOTE | 2023-09-16 10:48 | MHC.SHP ---
Pre-Procedural Eval Section A - 24 Hr Update-Section A only Date of Service: 09/16/23 The patient is an INPATIENT: No Changes since office visit: No Cold of Flu in the past 2 weeks, No New Medical Problems, No Changes in Medication and No Patient answered all questions The patient has been examined within 24 hours of the surgical procedure. The History & Physical has been completed within 30 days and I have reviewed it.: Yes Section B - Complete if H&P > 30 days Chief Complaint: Malignant neoplasm of bladder, unspecified Allergies: Allergies Allergy/AdvReac Type Severity Reaction Status Date / Time levofloxacin [From LEVAQUIN] Allergy Severe ANGIOEDEMA Verified 09/11/23 12:37 (EXACT SOURCE UNCERTAIN) lisinopril [LISINOPRIL] Allergy Severe ANGIOEDEMA Verified 09/11/23 12:37 ( EXACT SOURCE UNCERTAIN) Review of Systems Sugical H&P ROS: Negative: Constitution, Cardiovascular, Respiratory, Neurological, Psychiatric, Hem-Onc, Allergic/Immunologic, Gastrointestinal, Genitourinary, Musculoskeletal, Integumentary, Endocrine and Eyes/Ears/Nose/Throat Exam Surgical H&P Exam: Normal: HEENT, Normal: Heart, Normal: Lungs, Normal: Extremities, Normal: Abdomen, Normal: Skin and Normal: Neurological Plan Diagnosis/Plan: Unchanged (TURBT with gemcitabine instillation) I have reviewed the history and physical and performed a pertinent physical examination on my patient. No changes have occurred unless specified. Time Spent With Patient Time: Total time managing care of this patient today ____ minutes.
--- NOTE | 2023-09-16 11:29 | P.OP_ITS ---
Operative Note Operative Note Date of Service: 09/16/23 Narrative: PreOperative Diagnosis: bladder cancer multifocal Post Operative Diagnosis: bladder cancer multifocal- Tumor size 5 cm, location bladder base, 1 cm left bladder sidewall Procedure: TURBT and Gemcitabine installation Surgeon: Dr Barney Byrd Anesthesia: general Indications for procedure: Urinary urgency and frequency. Cystoscopy in office with bladder lesion found Procedure: After informed consent was verified the patient was brought to the operating room and placed in a supine position. Anesthesia was administered per protocol. The patient was placed in a modified dorsal lithotomy position and prepped and draped in a sterile fashion. Safety pause time-out was performed. Antibiotics were confirmed. A 26 Romansh continuous flow resectoscope was inserted per urethra. The visual obturator was used in order to minimize potential for urethral damage. 5 cm bladder lesion found at bladder base. 1 cm bladder lesion on left sidewall. Initial bladder lesion 5 cm bladder base was addressed. Resection was performed. The tumor went within 1 cm of the left ureteric orifice. Fulguration was performed around the base of the resection site. Bladder examined in its entirety. 1 cm lesion left bladder sidewall. This lesion was also removed. Two other areas of change mucosal seen and these were fulgurated. At the completion of the procedure the bladder was irrigated. The cystoscope was removed. A [address] Salazar catheter was inserted into the bladder. 10 cc was placed in the balloon. 2 g of gemcitabine in 100 cc of normal saline was instilled into the bladder. The flow from the catheter was left clamped. The inflow to the catheter was attached to a 3 L normal saline bag. The patient tolerated the procedure well. They were extubated in the operating room and transferred in stable condition to the recovery area. Gemcitabine will remain in the bladder for 1 hour. At the completion of 1 hour the clamp will be removed. The gemcitabine will be allowed to egress to the urine collection bag. The 3 L bag of normal saline will be run at maximum rate through the bladder in order to dilute any residual gemcitabine. The Salazar catheter will then be removed. Pathology: Bladder tumor Drains: Salazar catheter
== END 2023-09-16 13:49 | disposition home or self-care (01) ==
PROVIDERS: PCP Internal Medicine; Visit Provider Urology
PROC: 0TBB8ZZ Excision of Bladder, Via Natural or Artificial Opening Endoscopic (ICD-10-PCS; CPT 52240; principal; 2023-09-16 13:20)
DX: C67.9 Malignant neoplasm of bladder, unspecified (principal); N32.81 Overactive bladder; E11.9 Type 2 diabetes mellitus without complications; I10 Essential (primary) hypertension; E78.00 Pure hypercholesterolemia, unspecified; G89.4 Chronic pain syndrome; M10.9 Gout, unspecified; M05.9 Rheumatoid arthritis with rheumatoid factor, unspecified; M47.816 Spondylosis without myelopathy or radiculopathy, lumbar region; R60.9 Edema, unspecified; Z79.899 Other long term (current) drug therapy; Z88.1 Allergy status to other antibiotic agents; Z88.8 Allergy status to other drugs, medicaments and biological substances; Z98.890 Other specified postprocedural states
CPT/HCPCS: 52240; 51720; 82947; 88307; J0690; J2704; J3010; J9201

== ENCOUNTER → 2023-09-16 10:10 | Outpatient (BNV) | payer MEDICARE, SELFPAY | PROVIDERS: PCP Internal Medicine; Visit Provider Urology | DX: C67.8 Malignant neoplasm of overlapping sites of bladder (principal) | CPT/HCPCS: 52240 ==

== ENCOUNTER 2023-09-24 08:56 | Outpatient (AMB) | payer MEDICARE, SELFPAY ==
--- NOTE | 2023-09-24 10:31 | HO.NEPHOV ---
HPI HPI Comments History of Present Illness Details Anthony is a elderly man with a history of longstanding hypertension which has been rather difficult to control. He is on multiple antihypertensive medications. He has undergone a 24 hour blood pressure monitoring back in 2020 which revealed suboptimally controlled blood pressure and a question of superimposed white coat effect. He has been re-referred for the management of hypertension and possible 24 hour ambulatory blood pressure monitoring. He was seen by different defence intelligence analyst in the past and has had no further follow-up since 2020. He is allergic to lisinopril which has caused angioedema. Today he is complaining of leg edema. He has been on nifedipine 90 mg a day. He has no shortness of breath. Has been marginal blood pressure at home and usually systolic blood pressure is in the 150s at home. 09/24/2023. Overall doing well. 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 Waiting for urology follow-up FOR[facility]LY [facility], [facility] Medical History Diabetes mellitus Disc degeneration, lumbar Chronic pain syndrome Gout, arthritis Spinal stenosis Spondylosis of lumbar region without myelopathy or radiculopathy Diabetes mellitus Swelling of both parotid glands Podagra Seropositive rheumatoid arthritis Hypercholesterolemia Leg edema Essential hypertension Angioedema Surgical History History of cryosurgery History of endoscopy History of bladder surgery History of bilateral cataract extraction History of hernia repair Family History Father Cardiovascular disease Diabetes Mother Diabetes Brother No problems noted. Brother No problems noted. Sister No problems noted. Sister No problems noted. Son No problems noted. Son No problems noted. Daughter No problems noted. Daughter No problems noted. Daughter No problems noted. Other Mental health disorder Social History Household Members: Spouse and Children Housing: House Do you presently have visiting nurse or other home services: No Alcohol intake: never Patient Tobacco Use Status: Former Tobacco user e-Cigarette/Vaping Use: Never Used Second Hand Smoke Exposure: No service: No Current occupational status: retired Cognitive needs: No Hearing needs: No Vision needs: No Vital Signs 09/24/23 10:36 Height 5 ft 8 in Weight 166 lb BMI 25.2 BP 140/83 H Blood Pressure Location Lt brachial Position Sitting Pulse 75 Pulse Source Pulse Oximeter Pulse Oximetry (%) 98 Oxygen Delivery Method Room Air Physical Exam Vital Signs: Last Vital Signs Pulse 75 09/24/23 10:36 BP 140/83 H 09/24/23 10:36 Pulse Ox 98 09/24/23 10:36 Oxygen Delivery Method Room Air 09/24/23 10:36 BMI result Body Mass Index 25.2 Const General: comfortable; No acute distress Orientation/consciousness: patient oriented x3 Eyes General: appearance normal, both eyes and all related structures Visual Evans: normal visual evans by confrontation Neck Neck: Yes supple and Yes no JVD Resp Effort & Inspection: normal respiratory effort and respiratory effort not decreased Auscultation: rhonchi Cardio Palpation: no palpable S3 and no palpable S4 Heart sounds: no rubs GI Inspection: Yes normal to inspection Palpation (GI): Soft to palpation Percussion: Yes normal to percussion Auscultation: normal bowel sounds General: Yes no CVA tenderness Back/Spine/Pelvis Back: no CVA tenderness Skin General skin exam: no petechiae and no purpura Neuro General: patient oriented x3 and no focal motor deficits Extrem General: No clubbing and Yes edema Assessment & Plan Assessment & Plan (1) Essential hypertension: Code(s): I10 - Essential (primary) hypertension Plan: Elderly man with resistant hypertension. In the past he was told that he has superimposed white coat effect. At home systolic blood pressure is still around 150 mm Hg. Secondary causes should be considered. Underlying renal artery stenosis is a possibility. I will track down to see if he had any imaging for the same. I will reorder the 24 hour ABPM (2) CKD (chronic kidney disease): Code(s): N18.9 - Chronic kidney disease, unspecified Qualifiers: Chronic kidney disease stage: stage 2 (mild) Qualified Code(s): N18.2 - Chronic kidney disease, stage 2 (mild) Plan: Mild age-related decline in EGFR. Baseline serum creatinine is around 0.8 mg/dL. Back in 2020 serum creatinine was as high as 1.6 but this has since resolved. Goal is to slow the progression of renal disease Continue overt nephrotoxic agents. She will continue to monitor renal function closely (3) Edema: Code(s): R60.9 - Edema, unspecified Plan: Most likely due to high dose of calcium channel olimpia. With your permission I decreased nifedipine from 90 mg down to 60 mg edema has been. In the meantime increase him to stay on low-sodium diet. Orders: Orders AMB 24 Hour Blood Pressure Monitor PLACEMENT Today I10 - Essential (primary) hypertension Coding Level of Care Code Est Pt Level 4 (71556) Diagnoses Essential hypertension I10 Stage 2 chronic kidney disease N18.2 Chronic kidney disease stage: stage 2 (mild) Edema R60.9 Results Reviewed Results Reviewed: 09/16/2023 Bladder, tumor, transurethral resection: -Low-grade papillary urothelial carcinoma, invading lamina propria. -Muscularis propria present, without tumor. Nephrology Results: Hgb 11.1 g/dl (14.0-18.0) L 07/09/23 WBC 11.7 X10*3/uL (4.8-10.8) H 07/09/23 Plt Count 389 X10*3/uL (160-400) 07/09/23 Sodium 135 mmol/L (135-145) 07/09/23 Potassium 4.0 mmol/L (3.3-5.1) 07/09/23 Chloride 102 mmol/L (96-108) 07/09/23 Carbon Dioxide 23 mmol/L (22-29) 07/09/23 BUN 27 mg/dL (9-16) H 07/09/23 Creatinine 1.10 mg/dL (0.5-1.4) 07/09/23 Calcium 10.3 mg/dL (8.4-10.2) H 07/09/23 Urine Protein 300 (3+) mg/dL (Neg-Trace) H 07/09/23
[2023-09-24 10:36] VITALS: BP 140/83; PULSE 75; O2SAT 98; BMI 25.2
== END 2023-09-24 10:52 | disposition home or self-care (01) ==
PROVIDERS: PCP Internal Medicine; Visit Provider Internal Medicine Hypertension Specialist
DX: I12.9 Hypertensive chronic kidney disease with stage 1 through stage 4 chronic kidney disease, or unspecified chronic kidney disease (principal); N18.2 Chronic kidney disease, stage 2 (mild); R60.9 Edema, unspecified
CPT/HCPCS: 99214

== ENCOUNTER → 2023-09-24 08:56 | Outpatient (BNVA) | payer MEDICARE, SELFPAY | PROVIDERS: PCP Internal Medicine; Visit Provider Internal Medicine Hypertension Specialist | DX: I12.9 Hypertensive chronic kidney disease with stage 1 through stage 4 chronic kidney disease, or unspecified chronic kidney disease (principal); N18.2 Chronic kidney disease, stage 2 (mild); R60.9 Edema, unspecified | CPT/HCPCS: 99212 ==

== ENCOUNTER 2023-10-01 13:45 | Outpatient (AMB) | payer MEDICARE, SELFPAY ==
--- NOTE | 2023-10-01 13:45 | MHC.OFFVIS ---
Intake Intake Visit Reasons: 2wk follow up/TURBT w Gemcitabine(Confirmed) Intake Note: Patient is Present for Telephone Follow Up Urology Med: Doxazosin, Solifenacin Antibiotic Allergy: Levofloxacin Blood Thinner: None Allergies levofloxacin [From LEVAQUIN] Allergy (Severe, Verified 09/24/23 10:32) ANGIOEDEMA (EXACT SOURCE UNCERTAIN) lisinopril [LISINOPRIL] Allergy (Severe, Verified 09/24/23 10:32) ANGIOEDEMA ( EXACT SOURCE UNCERTAIN) Medication List - Last Reconciled 10/01/23 by Barney Byrd MD acetaminophen (Tylenol) 650 mg PO Q6H PRN allopurinol 100 mg PO DAILY blood sugar diagnostic (CompellonStyle Lite Strips) USE TO TEST DAILY blood-glucose meter Test Daily - [employer] Blood glucose Meter blood-glucose meter (CompellonStyle Lite Meter kit) As directed carvedilol (Coreg) 37.5 mg (1.5 x 25 mg) PO BID 90 days doxazosin (Cardura) 4 mg PO DAILY 90 days fenofibrate nanocrystallized 145 mg PO DAILY hydralazine 100 mg PO TID lancets (CompellonStyle Lancets) USE TO TEST DAILY leflunomide 20 mg PO DAILY lorazepam 0.5 mg PO BEDTIME metformin 500 mg PO DAILY 90 days nifedipine ER 90 mg PO DAILY 30 days solifenacin 10 mg PO DAILY spironolactone 25 mg PO DAILY 90 days torsemide 10 mg PO DAILY tramadol 50 mg PO DAILY PRN HPI HPI Comments History of Present Illness Details Corby is a pleasant male. He is a patient of Dr. Beal. He is seen for the following urologic issues - bladder cancer - lower urinary tract symptoms - nocturia - diabetic cystopathy with overactive bladder Telemedicine Evaluation 15 min Consultation [employer] Bladder cancer diagnosis Discussed pathology 10/07 - TURBT Low-grade higher volume with no evidence of invasion T1 Due to volume of disease and satellite lesions plan for induction gemcitabine Lower Urinary Tract Symptoms: - bladder instability in diabetic Current visit is for further evaluation of, lower urinary tract symptoms, predominate obstructive symptoms - baseline 6x nocturia Current treatment includes solifenacin with doxazosin and tadalafil Prior treatments TURP, repeat BNC 04/04 Prostate Symptom Score 6/19 , Moderate (9-19), Bother 3. Symptoms include 12/03 , incomplete emptying, weak stream, nocturia (>2), and are progressing. Results from testing include cystoscopy BNC 04/04 - prior TURP PSA 11/02 PSA 10 (last PSA 2011 3.8) 04/04 3.3. Prostate volume 30-50gm. Associated conditions CAD No CVA No diabetes yes elevated PSA No Treatment plan legs higher than body in afternoon Erectile dysfunction Good result with Viagra 100 mg April 2020 PFSH Medical History Diabetes mellitus Disc degeneration, lumbar Chronic pain syndrome Gout, arthritis Spinal stenosis Spondylosis of lumbar region without myelopathy or radiculopathy Diabetes mellitus Swelling of both parotid glands Podagra Seropositive rheumatoid arthritis Hypercholesterolemia Leg edema Essential hypertension Angioedema Surgical History History of cryosurgery History of endoscopy History of bladder surgery History of bilateral cataract extraction History of hernia repair Family History Father Cardiovascular disease Diabetes Mother Diabetes Brother No problems noted. Brother No problems noted. Sister No problems noted. Sister No problems noted. Son No problems noted. Son No problems noted. Daughter No problems noted. Daughter No problems noted. Daughter No problems noted. Other Mental health disorder Social History Household Members: Spouse and Children Housing: House Do you presently have visiting nurse or other home services: No Alcohol intake: never Patient Tobacco Use Status: Former Tobacco user e-Cigarette/Vaping Use: Never Used Second Hand Smoke Exposure: No service: No Current occupational status: retired Cognitive needs: No Hearing needs: No Vision needs: No Review of Systems Const All systems reviewed & are unremarkable except as noted in HPI and below Reports no additional complaints Resp Reports no additional complaints GI Reports no additional complaints Reports as per HPI Musc Reports no additional complaints Physical Exam Telemedicine evaluation Appropriate responses Regular breathing rate and rhythm HEENT Head: Yes normal to inspection Ears: hearing grossly normal bilaterally Eyes General: appearance normal, both eyes and all related structures Neck Neck: Yes normal visual inspection Chest Chest palpation & inspection: normal inspection of the chest Resp Effort & Inspection: normal respiratory effort and able to speak in complete sentences Assessment & Plan Assessment & Plan (1) Bladder cancer: Code(s): C67.9 - Malignant neoplasm of bladder, unspecified Plan Will need 5 weeks of outpatient gemcitabine installations Bladder immunotherapy Bladder immuno/chemotherapy was discussed today. These medications are used to create an immune reaction against bladder cancer. The intention is to destroy any tumor cells left on the bladder surface. Since BCG and gemcitabine involved immunostimulation they are not indicated in situations where there is immune weakness. Medications are placed directly into the bladder. It should be held for one to 2 hours. The toilet should be disinfected with a cap full of household bleach prior to urination. Side effects from BCG and gemcitabine generally include mucosa-related changes such as urinary urgency and/or frequency, and hematuria BCG may also invoke an infection type response. An elevated temperature may be indicative of more serious issues and should be reported to the Dr. The intention with bladder immunotherapy is to reduce the frequency of bladder cancer recurrence by 50%. Multiple protocols are available - [facility] plus Cytarabine for alkalinization - 40mg/200mg in 40mg - Sequential Gemcitabine/Docetaxel - 1gm in 50cc NSal 60min/37.5mg in 50cc NSal 60min Will undergo - 5 weeks of weekly gemcitabine Patient Instructions: Imaging studies, laboratory and physical exam results were discussed and reviewed in detail. No major barriers to patient understanding were identified. An opportunity to ask questions regarding the treatment plan was provided. All questions were answered. The patient expressed understanding and agreement with the above treatment plan. The patient is aware they should contact our office by phone for worsening of their current condition or the appearance of new urologic symptoms. Compliance is encouraged with any medications and followup testing that is ordered. It is a privilege to participate in the urologic care of your patient. If you have any questions or concerns regarding treatment for the above conditions, or other urologic issues, please do not hesitate to contact me. The office telephone contact is [phone]. This note is constructed using voice recognition software. While every effort has been made to ensure accuracy cat breeder errors may have been included. Yours sincerely, Dr Barney Byrd MD, [facility] - Urology Providers of Expert, Compassionate Care for the Genitourinary System Telehealth Telehealth Location of provider rendering services: practice address Location of patient: address on file Patient Identification confirmed using: Name, : Yes Telehealth method: video Patient verbally consented to treatment: Yes Patient verbally consented to billing insurance company: Yes Patient informed of any privacy concerns related to visit: Yes Minutes spent on Phone/Video with Pt.: 15 Coding Level of Care Code Tele Est Pt Level 4 (03345) Diagnoses Bladder cancer C67.9
== END 2023-10-01 14:06 | disposition home or self-care (01) ==
LOC: HO.HUSH 13:45
PROVIDERS: PCP Internal Medicine; Visit Provider Urology
DX: C67.9 Malignant neoplasm of bladder, unspecified (principal)
CPT/HCPCS: 99214

== ENCOUNTER → 2023-10-01 13:45 | Outpatient (BNVA) | payer MEDICARE, SELFPAY | PROVIDERS: PCP Internal Medicine; Visit Provider Urology ==

== ENCOUNTER 2023-10-03 08:38 | Outpatient (AMB) | payer MEDICARE, SELFPAY ==
[2023-10-03 08:49] VITALS: BP 156/74; PULSE 64; O2SAT 97; BMI 25.1
--- NOTE | 2023-10-03 08:49 | A.OFFVIS_ITS ---
Intake Vital Signs 10/03/23 08:49 Height 5 ft 8 in Weight 165 lb 2.02 oz BMI 25.1 BP 156/74 H Blood Pressure Location Rt brachial Position Sitting Pulse 64 Pulse Source Pulse Oximeter Pulse Oximetry (%) 97 Oxygen Delivery Method Room Air Intake Visit Reasons: RA Intake Note: Patient last seen 06/04/23 presents today for follow up and test results. Lots of pain from waist down S/p bladder surgery 2wks ago Senior Lead Java Developer Required: No Accompanied by: Spouse Allergies levofloxacin [From LEVAQUIN] Allergy (Severe, Verified 10/03/23 08:56) ANGIOEDEMA (EXACT SOURCE UNCERTAIN) lisinopril [LISINOPRIL] Allergy (Severe, Verified 10/03/23 08:56) ANGIOEDEMA ( EXACT SOURCE UNCERTAIN) Medication List - Last Reconciled 10/03/23 by Zechariah Munroe MD acetaminophen (Tylenol) 650 mg PO Q6H PRN allopurinol 100 mg PO DAILY blood sugar diagnostic (SaludFÁCILStyle Lite Strips) USE TO TEST DAILY blood-glucose meter Test Daily - [employer] Blood glucose Meter blood-glucose meter (SaludFÁCILStyle Lite Meter kit) As directed carvedilol (Coreg) 37.5 mg (1.5 x 25 mg) PO BID 90 days doxazosin (Cardura) 4 mg PO DAILY 90 days fenofibrate nanocrystallized 145 mg PO DAILY hydralazine 100 mg PO TID lancets (SaludFÁCILStyle Lancets) USE TO TEST DAILY leflunomide 20 mg PO DAILY lorazepam 0.5 mg PO BEDTIME metformin 500 mg PO DAILY 90 days nifedipine ER 90 mg PO DAILY 30 days solifenacin 10 mg PO DAILY spironolactone 25 mg PO DAILY 90 days torsemide 10 mg PO DAILY tramadol 50 mg PO DAILY PRN HPI HPI Comments History of Present Illness Details This is an 88-year-old male with seropositive RA who returns for follow-up. On leflunomide 20 mg daily. Also on allopurinol 100 mg daily prescribed by his PCP. States that he recently had a bladder biopsy and it showed bladder cancer. Intravesical gemcitabine therapy was recommended. Patient is scheduled to see an oncologist. His main complaint today is lower back pain radiating down his lower extremities, more significant on the right. States that he was recently evaluated by a spine surgeon and an MRI was ordered, afterwards a bone scan was also ordered but it was not done yet. His hands are doing well with no swelling [facility] Medical History Diabetes mellitus Disc degeneration, lumbar Chronic pain syndrome Gout, arthritis Spinal stenosis Spondylosis of lumbar region without myelopathy or radiculopathy Diabetes mellitus Swelling of both parotid glands Podagra Seropositive rheumatoid arthritis Hypercholesterolemia Leg edema Essential hypertension Angioedema Surgical History History of cryosurgery History of endoscopy History of bladder surgery History of bilateral cataract extraction History of hernia repair Family History Father Cardiovascular disease Diabetes Mother Diabetes Brother No problems noted. Brother No problems noted. Sister No problems noted. Sister No problems noted. Son No problems noted. Son No problems noted. Daughter No problems noted. Daughter No problems noted. Daughter No problems noted. Other Mental health disorder Social History Household Members: Spouse and Children Housing: House Do you presently have visiting nurse or other home services: No Alcohol intake: never Patient Tobacco Use Status: Former Tobacco user e-Cigarette/Vaping Use: Never Used Second Hand Smoke Exposure: No service: No Current occupational status: retired Cognitive needs: No Hearing needs: No Vision needs: No Review of Systems Musc Reports back pain, Reports numbness and Reports radiating pain into limb Neuro Reports numbness Physical Exam Vital Signs: Last Vital Signs Pulse 64 10/03/23 08:49 BP 156/74 H 10/03/23 08:49 Pulse Ox 97 10/03/23 08:49 Oxygen Delivery Method Room Air 10/03/23 08:49 BMI result Body Mass Index 25.1 Const General: cooperative, healthy appearing and comfortable Nutritional Appearance: average body habitus Orientation/consciousness: patient oriented x3 Limitations: no limitations HEENT Head: Yes normocephalic and Yes atraumatic Mouth: moist mucous membranes Resp Effort & Inspection: normal respiratory effort and able to speak in complete sentences Neuro General: patient oriented x3 Extrem Other: Osteoarthritic changes of both hands with no active synovitis A small non tender cyst on the dorsal aspect of the right wrist Small cyst in the right index DIP Trace pitting edema of right ankle without tenderness or warmth Bilateral feet numbness to palpation Osteoarthritic changes of both feet nontender to palpation positive straight leg raise test on the right Results Reviewed Results Reviewed: Laboratory Tests C-Reactive Protein 0.27 Ordering Physician: Key Bray NP Date of Service: 07/13/22 Procedure(s): XR hand RT min 3V Accession Number(s): [id number] EXAMINATION: XR HAND, RIGHT CLINICAL INFORMATION: Rheumatoid arthritis.? COMPARISON: None? TECHNIQUE: PA, lateral, and oblique views of the right hand. FINDINGS: Bony alignment and mineralization are normal. There is a slight ulnar minus variance. 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 Mild osteoarthritic change is seen of the second and third distal interphalangeal joints and of the third proximal interphalangeal joint. Again, there is a marginal erosion of the fifth distal interphalangeal joint. No fracture or dislocation is seen. The ulnar styloid is intact. No focal soft tissue swelling, gas or foreign body is seen. XR/XR hand RT min 3V IMPRESSION: Osteoarthritic changes are seen of the right hand and wrist. Again, there is marginal erosion of the fifth distal interphalangeal joint. No fracture or dislocation is seen. ? ? EXAMINATION: XR HAND, LEFT ? CLINICAL INFORMATION: Rheumatoid arthritis.? ? COMPARISON: None? ? TECHNIQUE: PA, lateral, and oblique views of the left hand. ? FINDINGS: Bony alignment and mineralization are normal. There is a neutral ulnar variance. There is marked osteoarthritic change of the first carpometacarpal joint. There is moderate osteoarthritic change of the fifth distal interphalangeal joint. There is mild osteoarthritic change of the third proximal interphalangeal joint. No fracture or dislocation is seen. No focal bone erosion is seen. The ulnar styloid is intact. No focal soft tissue swelling, gas or foreign body is seen. ? IMPRESSION: Osteoarthritic change is seen of the left hand and wrist, most pronounced of the first carpometacarpal joint and the fifth distal interphalangeal joint. No focal bone erosion is appreciated. There is no fracture or dislocation. Ordering Physician: Key Bray NP Date of Service: 07/13/22 Procedure(s): XR foot RT 2V Accession Number(s): [id number] EXAMINATION: XR FOOT, RIGHT CLINICAL INFORMATION: Rheumatoid arthritis; pain.? COMPARISON: None? TECHNIQUE: AP, lateral, and oblique views of the right foot. FINDINGS: Bony alignment and mineralization are normal. No fracture, dislocation or joint effusion is seen. Boehler's angle is normal. There are small posterior and plantar calcaneal spurs. No abnormal bone erosion is noted. There is no focal soft tissue swelling, gas or foreign body.? XR/XR foot RT 2V IMPRESSION: ? 1. No fracture, dislocation or right ankle joint effusion is seen. ? 2. There is no abnormal bone erosion. ? 3. There are small calcaneal spurs, as detailed. ? ? EXAMINATION: XR FOOT, LEFT ? CLINICAL INFORMATION: Rheumatoid arthritis; pain.? ? COMPARISON: None? ? TECHNIQUE: AP, lateral, and oblique views of the left foot. ? FINDINGS: Bony alignment and mineralization are normal. There is no calcaneal fracture of the second metatarsal shaft. No acute fracture, dislocation or left ankle joint effusion is seen. Boehler's angle is normal. There are small posterior and plantar calcaneal spurs. No focal soft tissue swelling, gas or foreign body is seen. There are atherosclerotic calcifications.? ? IMPRESSION: ? 1. No acute fracture, dislocation or left ankle joint effusion is seen. ? 2. There is no abnormal bone erosion. ? 3. There are small calcaneal spurs. Assessment & Plan Assessment & Plan (1) Seropositive rheumatoid arthritis: Comment: Plaquenil started age 50-stopped February 2019 Leflunomide 10 mg- December 2018 to May 2019 Leflunomide 20 mg- May 2019 to present Code(s): M05.9 - Rheumatoid arthritis with rheumatoid factor, unspecified Plan: This is an 88-year-old male with seropositive RA returns for follow-up. Doing well overall. No active synovitis on exam. Recently diagnosed with bladder cancer and intravesical gemcitabine therapy was suggested. Patient due to see his oncologist Continue leflunomide 20 mg daily Labs before next visit in 4 month (2) Gout, arthritis: Code(s): M10.9 - Gout, unspecified Plan: History of gout. He is on allopurinol 100 mg daily prescribed by PCP. No gout flares for a long period of time. Most recent uric acid level was at goal (3) Screening for osteoporosis: Code(s): Z13.820 - Encounter for screening for osteoporosis Plan: Patient's gait is a little unsteady likely due to feet neuropathy. He has not had any recent falls per his but I would like to screen him for osteoporosis. Will check a DEXA scan (4) Lumbar radicular pain: Code(s): M54.16 - Radiculopathy, lumbar region Plan: Follow-up with spine surgeon Plan I spent 27 minutes reviewing patient's chart, evaluating patient, ordering diagnostic workup, counseling patient and documenting in the chart Orders: Orders Complete Blood Count Auto Diff 4 Months M05.9 - Rheumatoid arthritis with rheumatoid factor, unspecified Comprehensive Met. Panel 4 Months M05.9 - Rheumatoid arthritis with rheumatoid factor, unspecified Erythrocyte Sedimentation Rate 4 Months M05.9 - Rheumatoid arthritis with rheumatoid factor, unspecified C Reactive Protein 4 Months M05.9 - Rheumatoid arthritis with rheumatoid factor, unspecified Coding Level of Care Code Est Pt Level 4 (23639) Diagnoses Seropositive rheumatoid arthritis M05.9 Gout, arthritis M10.9 Screening for osteoporosis Z13.820 Lumbar radicular pain M54.16
== END 2023-10-03 09:45 | disposition home or self-care (01) ==
PROVIDERS: PCP Internal Medicine; Visit Provider Student in an Organized Health Care Education/Training Program
DX: M05.79 Rheumatoid arthritis with rheumatoid factor of multiple sites without organ or systems involvement (principal); M10.9 Gout, unspecified; Z13.820 Encounter for screening for osteoporosis; M54.16 Radiculopathy, lumbar region
CPT/HCPCS: 99214

== ENCOUNTER → 2023-10-03 08:38 | Outpatient (BNVA) | payer MEDICARE, SELFPAY | PROVIDERS: PCP Internal Medicine; Visit Provider Student in an Organized Health Care Education/Training Program | DX: Z13.820 Encounter for screening for osteoporosis (principal); M05.9 Rheumatoid arthritis with rheumatoid factor, unspecified; M10.9 Gout, unspecified; M54.16 Radiculopathy, lumbar region | CPT/HCPCS: 99212 ==

== ENCOUNTER 2023-10-10 09:02 | Outpatient (AMB) | payer MEDICARE, SELFPAY ==
--- NOTE | 2023-10-10 09:12 | A.OFFPC_ITS ---
Vital Signs 10/10/23 09:14 Height 5 ft 8 in Weight 165 lb 2 oz BMI 25.1 BP 130/62 Blood Pressure Location Lt brachial Position Sitting Pulse 73 Pulse Source Pulse Oximeter Pulse Oximetry (%) 97 Oxygen Delivery Method Room Air Intake Visit Reasons: 4mth f/u Intake Note: Patient is here to follow up on CKD, DM, Hypercholesterolemia. Extract Puller Required: No Collection Development Librarian: Present Accompanied by: Spouse Allergies levofloxacin [From LEVAQUIN] Allergy (Severe, Verified 10/10/23 09:14) ANGIOEDEMA (EXACT SOURCE UNCERTAIN) lisinopril [LISINOPRIL] Allergy (Severe, Verified 10/10/23 09:14) ANGIOEDEMA ( EXACT SOURCE UNCERTAIN) Tobacco use date assessed: 06/13/23 Fall risk assessment: No Falls in past year Last assessed Fall Risk: 10/10/23 Dental Screening Dental Screen Date: 10/10/23 Did you have a dental visit in the last 12 months?: Yes Did you have a dental problem in the last 6 months where you did not have access to dental care?: No Was dental information given to patient?: [facility] HPI Details 88-year-old male presents to the office for a follow-up visit. He is accompanied by his . Patient continues to be in discomfort. His pain symptoms are in the lower back around the hip and the spine. He is on tramadol once a day. Patient is seeing a neurosurgeon/orthopedic surgeon at [facility]. An MRI and bone density has been scheduled. He was seen by pain management on 2 separate occasions and had steroid injection injected with minimal relief. His sleep patterns are interrupted due to the pain in the lower back. Cyclobenzaprine that was started was discontinued as he was having no relief. Patient also has been diagnosed recently with bladder cancer. He is starting chemotherapy on October 30. Patient is taking metformin for his diabetes. His A1c is 6.9. [facility] Medical History Diabetes mellitus Disc degeneration, lumbar Chronic pain syndrome Gout, arthritis Spinal stenosis Spondylosis of lumbar region without myelopathy or radiculopathy Diabetes mellitus Swelling of both parotid glands Podagra Seropositive rheumatoid arthritis Hypercholesterolemia Leg edema Essential hypertension Angioedema Surgical History History of cryosurgery History of endoscopy History of bladder surgery History of bilateral cataract extraction History of hernia repair Family History Father Cardiovascular disease Diabetes Mother Diabetes Brother No problems noted. Brother No problems noted. Sister No problems noted. Sister No problems noted. Son No problems noted. Son No problems noted. Daughter No problems noted. Daughter No problems noted. Daughter No problems noted. Other Mental health disorder Social History Household Members: Spouse and Children Housing: House Do you presently have visiting nurse or other home services: No Alcohol intake: never Patient Tobacco Use Status: Former Tobacco user e-Cigarette/Vaping Use: Never Used Second Hand Smoke Exposure: No service: No Current occupational status: retired Cognitive needs: No Hearing needs: Yes (hearing aide) Vision needs: No Questionnaire PHQ-9 Over the last 2 weeks, how often have you been bothered by any of the following problems? 1. Little interest or pleasure in doing things: nearly every day 2. Feeling down, depressed, or hopeless: nearly every day 3. Trouble falling or staying asleep, or sleeping too much: nearly every day 4. Feeling tired or having little energy: more than half the days 5. Poor appetite or overeating: not at all 6. Feeling bad about yourself - or that you are a failure or have let yourself or your family down: several days 7. Trouble concentrating on things, such as reading the newspaper or watching television: not at all 8. Moving or speaking so slowly that other people could have noticed. Or the opposite - being so fidgety or restless that you have been moving around a lot more than usual: several days 9. Thoughts that you would be better off or of hurting yourself in some way: not at all Total score: 13 Depression Screening Interpretation: Negative Depression Screening Done: Yes Source: Developed by Drs. Poncho Morataya, Megan Callahan, Shane Hooper and colleagues, with an educational linus from [employer]. Thrive Questionnaire Date Thrive assessed: 10/10/23 I am a: Patient What is your living situation today?: I have a steady place to live Within the past 12 months, did the food you bought not last and you didn't have the money to get more?: Never true Within the past 12 months, did you worry whether your food would run out before you got money to buy more?: Never true Do you have trouble paying for medicines?: No Do you have trouble getting transportation to medical appointments?: No Do you have trouble paying your heating and electricity bill?: No Do you have trouble taking care of your child, family member or friend?: No Do you have trouble with day-to-day activities such as bathing, preparing meals, shopping, managing finances, etc.?: No Are you currently unemployed and looking for a job?: No Are you interested in more education?: No Currently or been in a relationship where the following occur: no concerns reported THRIVE Score: 0 AUDIT C Alcohol Use Questionnaire (AUDIT-C) 1. How often do you have a drink containing alcohol?: Never Total Score: 0 REGINA-7 AMB Questionnaire REGINA-7 Date REGINA - 7 assessed: 10/10/23 Feeling nervous, anxious, or on edge: 3 = Nearly every day Not being able to stop or control worryin = More than half the days Worrying too much about different things: 2 = More than half the days Trouble relaxin = More than half the days Being so restless that it is hard to sit still: 2 = More than half the days Becoming easily annoyed or irritable: 0 = Not at all Feeling afraid as if something awful might happen: 1 = Several days Total REGINA-7 score (0-4 normal; 5-9 mild; 10-14 moderate; 15-21 severe): 12 Source: Developed by Drs. Poncho Morataya, Megan Callahan, Shane Hooper and colleagues, with an educational linus from [employer]. Physical exam (Primary Care) Vital Signs: Last Vital Signs Pulse 73 10/10/23 09:14 BP 130/62 10/10/23 09:14 Pulse Ox 97 10/10/23 09:14 Oxygen Delivery Method Room Air 10/10/23 09:14 Care Plan Goal for BP management: Blood pressure is in range. BMI result Body Mass Index 25.1 Tobacco/Smoking Status: Tobacco use Status Tobacco use date assessed 06/13/23 10/10/23 09:27 Patient Tobacco Use Status Former Tobacco user 10/10/23 09:27 e-Cigarette/Vaping Use Never Used 10/10/23 09:27 PHQ-9: PHQ-9 Score PHQ-9: Total score 13 10/10/23 09:27 Depression Screening Interpretation: Negative Thrive Assessment: Date of Thrive Assessment Date Thrive assessed 10/10/23 10/10/23 09:27 Currently or been in a relationship where the following occur: no concerns reported Const General: cooperative and healthy appearing Nutritional Appearance: well nourished Orientation/consciousness: patient oriented x3 Limitations: no limitations HENMT Head: Yes normal to inspection Eyes General: appearance normal, both eyes and all related structures Neck Neck: Yes normal visual inspection Chest Chest palpation & inspection: normal palpation of entire chest wall Resp Effort & Inspection: normal respiratory effort Neuro General: patient oriented x3 Results AMB Hemoglobin A1c AMB Hemoglobin A1c 6.9 % Last Edit by ALEXSANDER Flores on 10/10/23 09:28 Results Reviewed Results Reviewed: Laboratory Last Values Hgb A1c (Clinic) 6.9 % (4.0-6.0) H 10/10/23 09:12 Assessment and Plan Assessment & Plan (1) Bladder cancer: Code(s): C67.9 - Malignant neoplasm of bladder, unspecified Plan: This condition is being treated by Urology. He is scheduled for bladder infusion chemotherapy. (2) Diabetes mellitus: Code(s): E11.9 - Type 2 diabetes mellitus without complications Plan: A1c is at 6.9. Continue metformin at same dosage. (3) Disc degeneration, lumbar: Code(s): M51.36 - Other intervertebral disc degeneration, lumbar region Plan: This condition is causing his predominant symptoms. I have increased his tramadol to twice a day to help him have a better quality of living. He is sche duled to see the orthopedic surgeon and I would await their consult. Orders: Orders AMB Hemoglobin A1c Today E11.9 - Type 2 diabetes mellitus without complications Medications: Changed From tramadol 50 mg PO DAILY PRN 30 tabs 0RF pain To tramadol 50 mg PO BID PRN 60 tabs 0RF pain Coding Level of Care Code Est Pt Level 4 (78962) Diagnoses Bladder cancer C67.9 Diabetes mellitus E11.9 Disc degeneration, lumbar M51.36
[2023-10-10 09:14] VITALS: BP 130/62; PULSE 73; O2SAT 97; BMI 25.1
== END 2023-10-10 09:59 | disposition home or self-care (01) ==
PROVIDERS: PCP Internal Medicine; Visit Provider Internal Medicine
DX: E11.9 Type 2 diabetes mellitus without complications (principal); M51.36 Other intervertebral disc degeneration, lumbar region; C67.9 Malignant neoplasm of bladder, unspecified
CPT/HCPCS: 83036; 99214

== ENCOUNTER 2023-10-17 09:40 | Outpatient (REF) | payer MEDICARE, SELFPAY ==
--- NOTE | ~2023-10-17 | MM_ITS ---
EXAMINATION: BONE DENSITOMETRY CLINICAL INDICATION: Age-related osteoporosis without current pathological fracture. COMPARISON: This is the patient's baseline examination. TECHNIQUE: Using a Invisible DXA System (software version: 13.1) manufactured by [employer], dual-energy x-ray absorptiometry was performed of the lumbar spine and left hip. The images are of good technical quality. Summary results are attached. FINDINGS: AP SPINE L1-L4: BMD 1.661 g/cm2, Z-score 4.6, T-score 3.7, normal. LEFT FEMUR, NECK: BMD 1.158 g/cm2, Z-score 2.5, T-score 0.7, normal. LEFT FEMUR, TOTAL: BMD 1.198 g/cm2, Z-score 2.2, T-score 0.7, normal. IDENTIFIED RISK FACTORS: Height loss, history of fracture (adult), family history (parent hip fracture), osteoporosis, rheumatoid arthritis. HISTORY OF FRACTURE: Shoulder, other. MEDICATIONS: Calcium, vitamin D. MM/XR DEXA axial skeleton IMPRESSION: 1. DIAGNOSIS: Normal bone density based on the lowest T-score value of 0.7 in the femur neck and total femur applying World Health Organization criteria. 2. 10-YEAR FRACTURE RISK PREDICTION, FRAX: According to the guidelines, FRAX calculation should only be performed on patients in the osteopenia bone density category. Therefore, FRAX was not performed on this patient. 3. Treatment Recommendations: NOF guidelines recommend consideration for treatment in postmenopausal women and men age 50 and older presenting with the following: -A hip or vertebral (clinical or morphometric) fracture. -T-score less than or equal to -2.5 at the femoral neck or spine after appropriate evaluation to exclude secondary causes. -Low bone mass at the hip or spine and a 10-year fracture probability by FRAX of greater than or equal to 3% for hip fracture or greater than or equal to 20% for major osteoporotic fracture based on the [place] adapted WHO algorithm. 4. Other Recommendations: All treatment decisions require clinical judgment and consideration of individual patient factors, including patient preferences, comorbidities, previous drug use, risk factors not captured in the FRAX model (e.g. frailty, falls, vitamin D deficiency, increased bone turnover, interval significant decline in bone density) and possible under or overestimation of fracture risk by FRAX. FUTURE SCAN RECOMMENDATION: People with diagnosed cases of osteoporosis or at high risk for fracture should have regular bone mineral density tests. For patients eligible for Medicare, routine testing is allowed once every 2 years. The testing frequency can be increased to one year for patients who have rapidly progressing disease, those who are receiving or discontinuing medical therapy to restore bone mass, or have additional risk factors.
== END 2023-10-17 09:41 | disposition home or self-care (01) ==
LOC: HO.MAMMO 09:40
PROVIDERS: PCP Internal Medicine; Visit Provider Student in an Organized Health Care Education/Training Program
DX: Z13.820 Encounter for screening for osteoporosis (principal); M81.0 Age-related osteoporosis without current pathological fracture
CPT/HCPCS: 77080

== ENCOUNTER 2023-12-11 09:51 | Outpatient (AMB) | payer MEDICARE, SELFPAY ==
[2023-12-11 09:56] VITALS: BP 162/68; PULSE 77; BMI 24.8
--- NOTE | 2023-12-11 09:56 | A.OFFVIS_ITS ---
Vital Signs 12/11/23 09:56 Height 5 ft 8 in Weight 163 lb 2.273 oz BMI 24.8 BP 162/68 H Blood Pressure Location Lt brachial Position Sitting Pulse 77 Pulse Source Pulse Oximeter Intake Visit Reasons: 3 month f/u per AC Allergies levofloxacin [From LEVAQUIN] Allergy (Severe, Verified 10/10/23 09:14) ANGIOEDEMA (EXACT SOURCE UNCERTAIN) lisinopril [LISINOPRIL] Allergy (Severe, Verified 10/10/23 09:14) ANGIOEDEMA ( EXACT SOURCE UNCERTAIN) Medication List - Last Reconciled 12/11/23 by Meño Shepherd MD acetaminophen (Tylenol) 650 mg PO Q6H PRN allopurinol 100 mg PO DAILY blood sugar diagnostic (TeadsStyle Lite Strips) USE TO TEST DAILY blood-glucose meter Test Daily - TuneIn Blood glucose Meter blood-glucose meter (FreeStyle Lite Meter kit) As directed carvedilol (Coreg) 37.5 mg (1.5 x 25 mg) PO BID 90 days doxazosin (Cardura) 4 mg PO DAILY 90 days fenofibrate nanocrystallized 145 mg PO DAILY hydralazine 100 mg PO TID lancets (FreeStyle Lancets) USE TO TEST DAILY leflunomide 20 mg PO DAILY lorazepam 0.5 mg PO BEDTIME metformin 500 mg PO DAILY 90 days nifedipine ER 90 mg PO DAILY 90 days solifenacin 10 mg PO DAILY spironolactone 25 mg PO DAILY 90 days torsemide 10 mg PO DAILY tramadol 50 mg PO BID PRN HPI Comments Details: Corby returns for follow-up regarding hypertension. To recall, he originally came in 2019 for a urological procedure, but then subsequently developed swelling in the throat and submandibular area/ tongue and was diagnosed with angioedema. He was then admitted to the ICU and intubated. He was on lisinopril at that time, which was then stopped. Subsequently he improved and then was able to go home. Since around that time, we have been following him for high blood pressure. It has been extremely difficult to control and various meds have been tried 2 different times. Currently he has on a combination regimen but still has high blood pressures. Home pressures are somewhere in the 140s/150s per patient. Office blood pressures slightly higher but he also has some superimposed white coat effect. Otherwise, no clear-cut cardiac symptoms. COUNT INCLUDES THE [facility] Medical History Diabetes mellitus Disc degeneration, lumbar Chronic pain syndrome Gout, arthritis Spinal stenosis Spondylosis of lumbar region without myelopathy or radiculopathy Diabetes mellitus Swelling of both parotid glands Podagra Seropositive rheumatoid arthritis Hypercholesterolemia Leg edema Essential hypertension Angioedema Surgical History History of cryosurgery History of endoscopy History of bladder surgery History of bilateral cataract extraction History of hernia repair Family History Father Cardiovascular disease Diabetes Mother Diabetes Brother No problems noted. Brother No problems noted. Sister No problems noted. Sister No problems noted. Son No problems noted. Son No problems noted. Daughter No problems noted. Daughter No problems noted. Daughter No problems noted. Other Mental health disorder Social History Household Members: Spouse and Children Housing: House Do you presently have visiting nurse or other home services: No Alcohol intake: never Patient Tobacco Use Status: Former Tobacco user e-Cigarette/Vaping Use: Never Used Second Hand Smoke Exposure: No service: No Current occupational status: retired Cognitive needs: No Hearing needs: Yes (hearing aide) Vision needs: No Review of Systems Const Denies weakness ENT Denies dizziness Card Denies chest pain, Denies chest pain with activity, Denies syncope, Denies rapid heart rate, Denies pedal edema, Denies edema, Denies leg edema, Denies lightheadedness, Denies palpitations, Denies dyspnea, Denies dyspnea on exertion and Denies orthopnea Resp Denies cough, Denies dyspnea and Denies dyspnea on exertion GI Denies hematochezia and Denies change in stool character Musc Denies abnormal gait, Denies muscle cramps, Denies muscle weakness, Denies numbness, Denies radiating pain into limb and Denies tingling Neuro Denies abnormal gait, Denies dizziness, Denies syncope, Denies numbness, Denies tingling and Denies weakness Endo Denies palpitations Physical Exam Vital Signs: Last Vital Signs Pulse 77 12/11/23 09:56 BP 162/68 H 12/11/23 09:56 BMI result Body Mass Index 24.8 Const General: comfortable and no acute distress Orientation/consciousness: patient oriented x3 HEENT Other: Unremarkable Head: Yes normal to inspection Neck Neck: Yes normal visual inspection Chest Chest palpation & inspection: normal inspection of the chest Resp Auscultation: clear to auscultation bilaterally Cardio Palpation: normal PMI Heart sounds: S1 normal heart sound present, S2 normal heart sound present, no gallops, Murmur heart sound present systolic II/ and at the right sternal border and no rubs GI Palpation (GI): Soft to palpation Back/Spine/Pelvis Other: unremarkable Skin General skin exam: no rashes or lesions noted Neuro General: patient oriented x3 Extrem General: Yes normal to inspection Psych Mental Status: mental status grossly normal Assessment & Plan Assessment & Plan (1) Essential hypertension: Code(s): I10 - Essential (primary) hypertension Category: Medical Plan: Current regimen includes combination of Coreg, nifedipine, hydralazine, spironolactone, torsemide. In the past, anaphylaxis to lisinopril but unclear if it is definitive or not. Hence not on any EMILIANO inhibitors or ARB. History of leg swelling from amlodipine in the past. No further changes made today. Will discuss with Nephrology. Probably repeat a 24 hour blood pressure monitor. (2) Nonrheumatic aortic (valve) stenosis: Code(s): I35.0 - Nonrheumatic aortic (valve) stenosis Category: Medical Plan: In 2021, echocardiogram with mild aortic stenosis. We can repeat that study. (3) Leg edema: Code(s): R60.0 - Localized edema Category: Medical Plan: Suspected venous insufficiency. In the past echocardiogram as well as ultrasound unremarkable. No significant edema today. (4) Angioedema: Code(s): T78.3XXA - Angioneurotic edema, initial encounter Category: Medical Qualifiers: Encounter type: sequela Qualified Code(s): T78.3XXS - Angioneurotic edema, sequela Plan: Resolved. Uncertain culprit. Could have been lisinopril. Not on this anymore. Plan Discussed with who came for appointment. Message sent to Nephrology. Orders: Orders CA echo transthoracic complete 6 Months I35.0 - Nonrheumatic aortic (valve) stenosis Coding Level of Care Code Est Pt Level 4 (35914) Diagnoses Essential hypertension I10 Nonrheumatic aortic (valve) stenosis I35.0 Leg edema R60.0 Angioedema, sequela T78.3XXS Encounter type: sequela
== END 2023-12-11 10:12 | disposition home or self-care (01) ==
PROVIDERS: PCP Internal Medicine; Visit Provider Internal Medicine
DX: I10 Essential (primary) hypertension (principal); I35.0 Nonrheumatic aortic (valve) stenosis; R60.0 Localized edema; T78.3XXS Angioneurotic edema, sequela
CPT/HCPCS: 99214

== ENCOUNTER → 2023-12-11 09:51 | Outpatient (BNVA) | payer MEDICARE, SELFPAY | PROVIDERS: PCP Internal Medicine; Visit Provider Internal Medicine | DX: I10 Essential (primary) hypertension (principal); I35.0 Nonrheumatic aortic (valve) stenosis; T78.3XXS Angioneurotic edema, sequela | CPT/HCPCS: 99212 ==

== ENCOUNTER 2023-12-16 10:10 | Outpatient (AMB) | payer MEDICARE, SELFPAY ==
[2023-12-16 10:12] VITALS: BP 178/67; PULSE 76; O2SAT 96; BMI 24.9
--- NOTE | 2023-12-16 10:12 | HO.NEPHOV ---
Vital Signs 12/16/23 10:12 Height 5 ft 8 in Weight 164 lb BMI 24.9 BP 178/67 H Blood Pressure Location Lt brachial Position Sitting Pulse 76 Pulse Source Pulse Oximeter Pulse Oximetry (%) 96 Oxygen Delivery Method Room Air Intake Visit Reasons: Per Dr Cuevas/ 24 HR ABPM? /LVM Freelance Web Designer Required: No Accompanied by: Spouse Allergies levofloxacin [From LEVAQUIN] Allergy (Severe, Verified 12/16/23 10:14) ANGIOEDEMA (EXACT SOURCE UNCERTAIN) lisinopril [LISINOPRIL] Allergy (Severe, Verified 12/16/23 10:14) ANGIOEDEMA ( EXACT SOURCE UNCERTAIN) Medication List - Last Reconciled 12/16/23 by Brandon Cuevas MD acetaminophen (Tylenol) 650 mg PO Q6H PRN allopurinol 100 mg PO DAILY blood sugar diagnostic ([employer]Style Lite Strips) USE TO TEST DAILY blood-glucose meter Test Daily - Praedicat Blood glucose Meter blood-glucose meter ([employer] Lite Meter kit) As directed carvedilol (Coreg) 37.5 mg (1.5 x 25 mg) PO BID 90 days doxazosin (Cardura) 4 mg PO DAILY 90 days fenofibrate nanocrystallized 145 mg PO DAILY hydralazine 100 mg PO TID lancets (FreeStyle Lancets) USE TO TEST DAILY leflunomide 20 mg PO DAILY lorazepam 0.5 mg PO BEDTIME metformin 500 mg PO DAILY 90 days nifedipine ER 90 mg PO DAILY 90 days solifenacin 10 mg PO DAILY spironolactone 25 mg PO DAILY 90 days torsemide 10 mg PO DAILY tramadol 50 mg PO BID PRN HPI Comments Details: Anthony is a elderly man with a history of longstanding hypertension which has been rather difficult to control. He is on multiple antihypertensive medications. He has undergone a 24 hour blood pressure monitoring back in 2020 which revealed suboptimally controlled blood pressure and a question of superimposed white coat effect. He has been re-referred for the management of hypertension and possible 24 hour ambulatory blood pressure monitoring. He was seen by different sink maker in the past and has had no further follow-up since 2020. He is allergic to lisinopril which has caused angioedema. Today he is complaining of leg edema. He has been on nifedipine 90 mg a day. He has no shortness of breath. Has been marginal blood pressure at home and usually systolic blood pressure is in the 150s at home. 09/24/2023. Overall doing well. 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 Waiting for urology follow-up 12/16/23 Wide fluctuation in BP Seen at the request of his property coordinator [facility] Medical History Diabetes mellitus Disc degeneration, lumbar Chronic pain syndrome Gout, arthritis Spinal stenosis Spondylosis of lumbar region without myelopathy or radiculopathy Diabetes mellitus Swelling of both parotid glands Podagra Seropositive rheumatoid arthritis Hypercholesterolemia Leg edema Essential hypertension Angioedema Surgical History History of cryosurgery History of endoscopy History of bladder surgery History of bilateral cataract extraction History of hernia repair Family History Father Cardiovascular disease Diabetes Mother Diabetes Brother No problems noted. Brother No problems noted. Sister No problems noted. Sister No problems noted. Son No problems noted. Son No problems noted. Daughter No problems noted. Daughter No problems noted. Daughter No problems noted. Other Mental health disorder Social History Household Members: Spouse and Children Housing: House Do you presently have visiting nurse or other home services: No Alcohol intake: never Patient Tobacco Use Status: Former Tobacco user e-Cigarette/Vaping Use: Never Used Second Hand Smoke Exposure: No service: No Current occupational status: retired Cognitive needs: No Hearing needs: Yes (hearing aide) Vision needs: No Review of Systems Const Denies fever(s) and Denies weight loss Card Denies chest pain Resp Denies cough and Denies hemoptysis GI Denies abdominal pain, Denies diarrhea and Denies nausea Musc Denies back pain Neuro Denies focal weakness Physical Exam Vital Signs: Last Vital Signs Pulse 76 12/16/23 10:12 BP 178/67 H 12/16/23 10:12 Pulse Ox 96 12/16/23 10:12 Oxygen Delivery Method Room Air 12/16/23 10:12 BMI result Body Mass Index 24.9 Const General: comfortable; No acute distress Orientation/consciousness: patient oriented x3 Eyes General: appearance normal, both eyes and all related structures Visual Headley: normal visual headley by confrontation Neck Neck: Yes supple and Yes no JVD Resp Effort & Inspection: normal respiratory effort and respiratory effort not decreased Auscultation: rhonchi Cardio Palpation: no palpable S3 and no palpable S4 Heart sounds: no rubs GI Inspection: Yes normal to inspection Palpation (GI): Soft to palpation Percussion: Yes normal to percussion Auscultation: normal bowel sounds General: Yes no CVA tenderness Back/Spine/Pelvis Back: no CVA tenderness Skin General skin exam: no petechiae and no purpura Neuro General: patient oriented x3 and no focal motor deficits Extrem General: No clubbing and No edema Results Reviewed Nephrology Results: Urine Protein Trace mg/dL (Neg-Trace) 11/27/23 Assessment & Plan Assessment & Plan (1) Essential hypertension: Code(s): I10 - Essential (primary) hypertension Category: Medical Plan: Elderly man with resistant hypertension. In the past he was told that he has superimposed white coat effect. At home systolic blood pressure is still around 150 mm Hg. Secondary causes should be considered. Underlying renal artery stenosis is a possibility. Need to track down to see if he had any imaging for the same. Reordered the 24 hour ABPM today (2) CKD (chronic kidney disease): Code(s): N18.9 - Chronic kidney disease, unspecified Category: Medical Qualifiers: Chronic kidney disease stage: stage 2 (mild) Qualified Code(s): N18.2 - Chronic kidney disease, stage 2 (mild) Plan: Mild age-related decline in EGFR. Baseline serum creatinine is around 0.8 mg/dL. Back in 2020 serum creatinine was as high as 1.6 but this has since resolved. Goal is to slow the progression of renal disease Continue overt nephrotoxic agents. She will continue to monitor renal function closely (3) Edema: Code(s): R60.9 - Edema, unspecified Category: Medical Plan: Most likely due to high dose of calcium channel olimpia. With your permission I decreased nifedipine from 90 mg down to 60 mg edema has been. In the meantime increase him to stay on low-sodium diet. Coding Level of Care Code Est Pt Level 3 (48855) Diagnoses Essential hypertension I10 Stage 2 chronic kidney disease N18.2 Chronic kidney disease stage: stage 2 (mild) Edema R60.9
== END 2023-12-16 11:58 | disposition home or self-care (01) ==
PROVIDERS: PCP Internal Medicine; Visit Provider Internal Medicine Hypertension Specialist
DX: I12.9 Hypertensive chronic kidney disease with stage 1 through stage 4 chronic kidney disease, or unspecified chronic kidney disease (principal); N18.2 Chronic kidney disease, stage 2 (mild); R60.9 Edema, unspecified
CPT/HCPCS: 99213

== ENCOUNTER → 2023-12-16 10:10 | Outpatient (BNVA) | payer MEDICARE, SELFPAY | PROVIDERS: PCP Internal Medicine; Visit Provider Internal Medicine Hypertension Specialist | DX: I12.9 Hypertensive chronic kidney disease with stage 1 through stage 4 chronic kidney disease, or unspecified chronic kidney disease (principal); N18.2 Chronic kidney disease, stage 2 (mild); R60.9 Edema, unspecified | CPT/HCPCS: 99212 ==

== ENCOUNTER 2023-12-23 09:44 | Outpatient (AMB) | payer MEDICARE, SELFPAY ==
[2023-12-23 09:48] VITALS: BP 172/70; PULSE 73; O2SAT 96; BMI 24.9
--- NOTE | 2023-12-23 09:48 | HO.NEPHOV ---
Vital Signs 12/23/23 09:48 Height 5 ft 8 in Weight 164 lb BMI 24.9 BP 172/70 H Blood Pressure Location Lt brachial Position Sitting Pulse 73 Pulse Source Pulse Oximeter Pulse Oximetry (%) 96 Oxygen Delivery Method Room Air Intake Visit Reasons: follow up Vat Packer Required: No Accompanied by: Spouse Allergies levofloxacin [From LEVAQUIN] Allergy (Severe, Verified 12/23/23 09:50) ANGIOEDEMA (EXACT SOURCE UNCERTAIN) lisinopril [LISINOPRIL] Allergy (Severe, Verified 12/23/23 09:50) ANGIOEDEMA ( EXACT SOURCE UNCERTAIN) HPI Comments Details: Anthony is a elderly man with a history of longstanding hypertension which has been rather difficult to control. He is on multiple antihypertensive medications. He has undergone a 24 hour blood pressure monitoring back in 2020 which revealed suboptimally controlled blood pressure and a question of superimposed white coat effect. He has been re-referred for the management of hypertension and possible 24 hour ambulatory blood pressure monitoring. He was seen by different signalling and communications engineer in the past and has had no further follow-up since 2020. He is allergic to lisinopril which has caused angioedema. Today he is complaining of leg edema. He has been on nifedipine 90 mg a day. He has no shortness of breath. Has been marginal blood pressure at home and usually systolic blood pressure is in the 150s at home. 09/24/2023. Overall doing well. 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 Underwent ABP M. [facility] Medical History Diabetes mellitus Disc degeneration, lumbar Chronic pain syndrome Gout, arthritis Spinal stenosis Spondylosis of lumbar region without myelopathy or radiculopathy Diabetes mellitus Swelling of both parotid glands Podagra Seropositive rheumatoid arthritis Hypercholesterolemia Leg edema Essential hypertension Angioedema Surgical History History of cryosurgery History of endoscopy History of bladder surgery History of bilateral cataract extraction History of hernia repair Family History Father Cardiovascular disease Diabetes Mother Diabetes Brother No problems noted. Brother No problems noted. Sister No problems noted. Sister No problems noted. Son No problems noted. Son No problems noted. Daughter No problems noted. Daughter No problems noted. Daughter No problems noted. Other Mental health disorder Social History Household Members: Spouse and Children Housing: House Do you presently have visiting nurse or other home services: No Alcohol intake: never Patient Tobacco Use Status: Former Tobacco user e-Cigarette/Vaping Use: Never Used Second Hand Smoke Exposure: No service: No Current occupational status: retired Cognitive needs: No Hearing needs: Yes (hearing aide) Vision needs: No Review of Systems Const Denies fever(s) and Denies weight loss Card Denies chest pain Resp Denies cough and Denies hemoptysis GI Denies abdominal pain, Denies diarrhea and Denies nausea Musc Denies back pain Neuro Denies focal weakness Physical Exam Vital Signs: Last Vital Signs Pulse 73 12/23/23 09:48 BP 172/70 H 12/23/23 09:48 Pulse Ox 96 12/23/23 09:48 Oxygen Delivery Method Room Air 12/23/23 09:48 BMI result Body Mass Index 24.9 Office Procedures 24 B/P Monitor Interpretation Details: 24 hour ABP M. Daytime average 140/73 Nighttime average 133/74 24 hour average 113/73. We will continue current antihypertensive regimen. Switch nifedipine 90 mg from q.a.m. to q.p.m. CPT: 93472 24 Hour Blood Pressure Monitor Reading Procedure code (CPT) selection complete Results Reviewed Nephrology Results: Urine Protein Trace mg/dL (Neg-Trace) 11/27/23 Assessment & Plan Assessment & Plan (1) CKD (chronic kidney disease): Code(s): N18.9 - Chronic kidney disease, unspecified Category: Medical Qualifiers: Chronic kidney disease stage: stage 2 (mild) Qualified Code(s): N18.2 - Chronic kidney disease, stage 2 (mild) Plan: Mild age-related decline in EGFR. Baseline serum creatinine is around 0.8 mg/dL. Back in 2020 serum creatinine was as high as 1.6 but this has since resolved. Goal is to slow the progression of renal disease Continue overt nephrotoxic agents. She will continue to monitor renal function closely (2) Essential hypertension: Code(s): I10 - Essential (primary) hypertension Category: Medical Plan: Elderly man with resistant hypertension. In the past he was told that he has superimposed white coat effect. At home systolic blood pressure is still around 150 mm Hg. Secondary causes should be considered. Underlying renal artery stenosis is a possibility. Need to track down to see if he had any imaging for the same. 24 hour ABP M showed average blood pressure 130/73. He had suboptimal dipping. Therefore I switched nifedipine from q.a.m. to q.p.m. Continue monitoring blood pressure at home (3) Edema: Code(s): R60.9 - Edema, unspecified Category: Medical Plan: Most likely due to high dose of calcium channel olimpia. With your permission I decreased nifedipine from 90 mg down to 60 mg edema has been. In the meantime increase him to stay on low-sodium diet. Orders: Orders AMB 24 HR B/P Monitor INTERPRETATION Today I10 - Essential (primary) hypertension Comprehensive Met. Panel Today N18.2 - Chronic kidney disease, stage 2 (mild) Complete Blood Count Auto Diff Today N18.2 - Chronic kidney disease, stage 2 (mild) Coding Level of Care Code Est Pt Level 4 (56448) Diagnoses Stage 2 chronic kidney disease N18.2 Chronic kidney disease stage: stage 2 (mild) Essential hypertension I10 Edema R60.9 CPT Codes - CPT: 75633 24 Hour Blood Pressure Monitor Reading ([id number])
== END 2023-12-23 10:02 | disposition home or self-care (01) ==
PROVIDERS: PCP Internal Medicine; Visit Provider Internal Medicine Hypertension Specialist
DX: I12.9 Hypertensive chronic kidney disease with stage 1 through stage 4 chronic kidney disease, or unspecified chronic kidney disease (principal); N18.2 Chronic kidney disease, stage 2 (mild); R60.9 Edema, unspecified
CPT/HCPCS: 93790; 99214

== ENCOUNTER → 2023-12-23 09:44 | Outpatient (BNVA) | payer MEDICARE, SELFPAY | PROVIDERS: PCP Internal Medicine; Visit Provider Internal Medicine Hypertension Specialist | DX: I12.9 Hypertensive chronic kidney disease with stage 1 through stage 4 chronic kidney disease, or unspecified chronic kidney disease (principal); N18.2 Chronic kidney disease, stage 2 (mild); R60.9 Edema, unspecified | CPT/HCPCS: 99212 ==

== ENCOUNTER 2023-12-23 10:10 | Outpatient (REF) | payer MEDICARE, SELFPAY ==
[2023-12-23 11:21] LABS: MANUAL DIFF FLAG NO
[2023-12-23 11:27] LABS: Basophils Absolute Auto 0.1 X10*3/uL (0.0-0.2); Basophils Percent Auto 1.2 % (0-2); Eosinophils Absolute Auto 0.4 X10*3/uL (0.0-0.4); Eosinophils Percent Auto 3.7 % (0-4); Hematocrit 34.5 % (42.0-52.0); Hemoglobin 11.2 g/dl (14.0-18.0); Imm Gran Abs Auto 0.12 X10*3/uL (0.00-0.03); Imm Gran Pct Auto 1.3 % (0.0-0.4); Lymphocytes Absolute Auto 1.1 X10*3/uL (1.2-4.9); Lymphocytes Percent Auto 11.9 % (20-40); Mean Corpuscular HGB Conc 32.5 g/dl (31.0-36.0); Mean Corpuscular Hemoglobin 29.8 pg (27.0-33.0); Mean Corpuscular Volume 91.8 fL (80.0-98.0); Mean Platelet Volume 11.6 fL (9.4-12.4); Monocytes Absolute Auto 1.1 X10*3/uL (0.1-1.2); Monocytes Percent Auto 11.9 % (2-11); Neutrophils Absolute Auto 6.7 x10*3/uL (2.0-8.3); Platelet Count 433 X10*3/uL (160-400); Red Blood Count 3.76 X10*6/uL (4.60-5.80); Red Cell Distribution Width 15.5 % (11.0-16.0); White Blood Count 9.5 X10*3/uL (4.8-10.8)
[2023-12-23 12:00] LABS: Alanine Aminotransferase 13 U/L (0-40); Albumin Level 4.2 g/dL (3.5-5.0); Alkaline Phosphatase 108 U/L (39-117); Anion Gap 12 (12-20); Aspartate Amino Transferase 18 U/L (5-37); Bilirubin Total 0.3 mg/dL (0.0-1.0); Blood Urea Nitrogen 32 mg/dL (9-16); Carbon Dioxide 23 mmol/L (22-29); Chloride 105 mmol/L (96-108); Estimated Glomerular Filt Rate > 60; Glucose Random 160 mg/dL (60-115); Potassium 4.3 mmol/L (3.3-5.1); Sodium 136 mmol/L (135-145); Total Protein 7.6 g/dL (6.5-8.0)
== END 2023-12-23 10:11 | disposition home or self-care (01) ==
LOC: HO.10HDL 10:10
PROVIDERS: Visit Provider Internal Medicine Hypertension Specialist
DX: N18.2 Chronic kidney disease, stage 2 (mild) (principal)
CPT/HCPCS: 36415; 80053; 85025

== ENCOUNTER 2024-01-02 09:45 | Outpatient (AMB) | payer MEDICARE, SELFPAY ==
--- NOTE | 2024-01-02 10:05 | MHC.OFFVIS ---
Intake Visit Reasons: 6M Cysto(Bladder Ca) Intake Note: Patient is Present for 6M Follow Up Urology Med: Doxazosin, Solifenacin Antibiotic Allergy: Levofloxacin Blood Thinner: None Buckle Frame Shaper Required: No Allergies levofloxacin [From LEVAQUIN] Allergy (Severe, Verified 01/02/24 10:06) ANGIOEDEMA (EXACT SOURCE UNCERTAIN) lisinopril [LISINOPRIL] Allergy (Severe, Verified 01/02/24 10:06) ANGIOEDEMA ( EXACT SOURCE UNCERTAIN) HPI Comments Details: Corby is a pleasant male. He is a patient of Dr. Beal. He is seen for the following urologic issues - bladder cancer - lower urinary tract symptoms - nocturia - diabetic cystopathy with overactive bladder Three-month follow-up check cystoscopy - NAD Four month follow-up Bladder cancer diagnosis - 10/08 TURBT low-grade, high-volume T1 Discussed pathology 10/08 - TURBT Low-grade higher volume with no evidence of invasion T1 - 5 cm lesion bladder base Immunotherapy - 6 week gemcitabine induction Cystoscopy - 01/07 NAD Lower Urinary Tract Symptoms: - bladder instability in diabetic Current visit is for further evaluation of, lower urinary tract symptoms, predominate obstructive symptoms - baseline 6x nocturia Current treatment includes solifenacin with doxazosin and tadalafil Prior treatments TURP, repeat [facility] 04/04 Prostate Symptom Score 6/19 , Moderate (9-19), Bother 3. Symptoms include 6/ , incomplete emptying, weak stream, nocturia (>2), and are progressing. Results from testing include cystoscopy [facility] 04/04 - prior TURP PSA 11/02 PSA 10 (last PSA 2011 3.8) 04/04 3.3. Prostate volume 30-50gm. Associated conditions CAD No CVA No diabetes yes elevated PSA No Treatment plan legs higher than body in afternoon Erectile dysfunction Good result with Viagra 100 mg April 2020 [facility] Medical History Diabetes mellitus Disc degeneration, lumbar Chronic pain syndrome Gout, arthritis Spinal stenosis Spondylosis of lumbar region without myelopathy or radiculopathy Diabetes mellitus Swelling of both parotid glands Podagra Seropositive rheumatoid arthritis Hypercholesterolemia Leg edema Essential hypertension Angioedema Surgical History History of cryosurgery History of endoscopy History of bladder surgery History of bilateral cataract extraction History of hernia repair Family History Father Cardiovascular disease Diabetes Mother Diabetes Brother No problems noted. Brother No problems noted. Sister No problems noted. Sister No problems noted. Son No problems noted. Son No problems noted. Daughter No problems noted. Daughter No problems noted. Daughter No problems noted. Other Mental health disorder Social History Household Members: Spouse and Children Housing: House Do you presently have visiting nurse or other home services: No Alcohol intake: never Patient Tobacco Use Status: Former Tobacco user e-Cigarette/Vaping Use: Never Used Second Hand Smoke Exposure: No service: No Current occupational status: retired Cognitive needs: No Hearing needs: Yes (hearing aide) Vision needs: No Review of Systems Const Denies chills and Denies fever(s) Card Reports no additional complaints and Denies syncope Resp Denies cough GI Denies abdominal pain and Denies heartburn Reports as per HPI and Denies change in libido Neuro Denies syncope Psych Denies change in libido Endo Denies change in libido Physical Exam Const General: cooperative, healthy appearing, comfortable and no acute distress Orientation/consciousness: patient oriented x3 HEENT Face and sinus: Yes normal facial exam Mouth: moist mucous membranes Neck Neck: Yes normal visual inspection, Yes full ROM and Yes trachea midline Chest Chest palpation & inspection: normal inspection of the chest Resp Effort & Inspection: normal respiratory effort, able to speak in complete sentences and no respiratory distress GI Inspection: Yes normal to inspection Back/Spine/Pelvis Cervical Spine: normal cervical lordosis Thoracic/Lumbar Spine: thoracic and lumbar spine normal to inspection Skin General skin exam: no rashes or lesions noted Neuro General: patient oriented x3, gait normal, tone normal and moves all extremities Extrem General: Yes normal to inspection and Yes capillary refill normal Office Procedures Cystoscopy Consent Discussed risk and benefit or proposed procedure with the patient. Information consent for procedure given to the patient. Discussed technical aspects, risks, benefits and alternatives in full. Addressed all of the patient's questions and concerns regarding the procedure. The patient demonstrated knowledge and understanding. They wish to proceed with this procedure. Preparation The patient was prepped in the usual manner. A sequencing machine operator was present and in the room. Genitalia was prepped with betadine solution in a sterile manner. Lidocaine Jelly 2% was placed into the urethra and 16Fr flexible Olympus cystoscope was inserted into the meatus after adequate lubrication. Procedure Cystoscopy performed using a disposable Urovue digital 16 Algerian cystoscope. Meatus circumcised Urethra anterior and posterior urethra normal Prostatic Urethra TURP defect Bladder examination with retroflexion of cystoscope Bladder Orifices normal shape and position Bladder Capacity large Trabeculations grade 3 Cellule Formation yes Diverticulum Formation dome Mucosal Erythema intact Bladder Tumor intact resection site [id number]-[id number] DISPOSABLE SCOPE URO-G FLEXIBLE SCOPE Procedure code (CPT) selection complete Office Meds lidocaine HCl 2 % mucosal jelly in applicator Performing Provider: Barney Byrd MD Performing Location: [facility] Administered by: Trevor Bello RN on 01/02/24 10:32 Dose Route Admin Location Dispensed Lot Number Expiration Date ND Senior Mechanical Design Engineer 10 mL intra-urethral 10 mL nitrofurantoin monohydrate/macrocrystals 100 mg capsule Performing Provider: Barney Byrd MD Performing Location: [facility] Administered by: Trevor Bello RN on 01/02/24 10:32 Dose Route Admin Location Dispensed Lot Number Expiration Date ND Senior Mechanical Design Engineer 100 mg PO 1 cap naproxen 500 mg tablet Performing Provider: Barney Byrd MD Performing Location: [facility] Administered by: Trevor Bello RN on 01/02/24 10:32 Dose Route Admin Location Dispensed Lot Number Expiration Date NDC Senior Mechanical Design Engineer 500 mg PO 1 tab Results AMB Urinalysis, Automated UA Leukoctes 0 Neto/uL Last Edit by MYRIAM Jean Baptiste on 01/02/24 10:20 UA Nitrite Negative Last Edit by MYRIAM Jean Baptiste on 01/02/24 10:20 UA Urobilinogen 0.2 mg/dL Last Edit by MYRIAM Jean Baptiste on 01/02/24 10:20 UA Protein 100 mg/dL Last Edit by MYRIAM Jean Baptiste on 01/02/24 10:20 UA pH 6.0 Last Edit by MYRIAM Jean Baptiste on 01/02/24 10:20 UA Blood 0 Alejandro/uL Last Edit by Raghav Agrawal [facility] on 01/02/24 10:20 UA Specific [place] 1.015 Last Edit by Raghav Agrawal [facility] on 01/02/24 10:20 UA Ketone Negative Last Edit by Raghav Agrawal [facility] on 01/02/24 10:20 UA Bilirubin 0 mg/dL Last Edit by Raghav Agrawal [facility] on 01/02/24 10:20 UA Glucose 0 mg/dL Last Edit by Raghav Agrawal [facility] on 01/02/24 10:20 AMB Urinalysis, Automated UA Leukoctes 0 Neto/uL Last Edit by Raghav Agrawal [facility] on 01/02/24 10:23 UA Nitrite Negative Last Edit by Raghav Agrawal [facility] on 01/02/24 10:23 UA Urobilinogen 0.2 mg/dL Last Edit by Raghav Agrawal [facility] on 01/02/24 10:23 UA Protein 100 mg/dL Last Edit by Raghav Agrawal [facility] on 01/02/24 10:23 UA pH 6.0 Last Edit by Raghav Agrawal [facility] on 01/02/24 10:23 UA Blood 0 Alejandro/uL Last Edit by Raghav Agrawal [facility] on 01/02/24 10:23 UA Specific [place] 1.015 Last Edit by Raghav Agrawal [facility] on 01/02/24 10:23 UA Ketone Negative Last Edit by Raghav Agrawal [facility] on 01/02/24 10:23 UA Bilirubin 0 mg/dL Last Edit by Raghav Agrawal [facility] on 01/02/24 10:23 UA Glucose 0 mg/dL Last Edit by Raghav Agrawal [facility] on 01/02/24 10:23 Results Reviewed Results Reviewed: Laboratory Last Values Urine pH (Auto) 6.0 01/02/24 10:22 Specific [place] (Auto) 1.015 01/02/24 10:22 Urine Protein (Auto) 100 mg/dL 01/02/24 10:22 Glucose (UA)(Auto) 0 mg/dL 01/02/24 10:22 Urine Ketones (Auto) Negative 01/02/24 10:22 Urine Blood (Auto) 0 Alejandro/uL 01/02/24 10:22 Urine Nitrite (Auto) Negative 01/02/24 10:22 Urine Bilirubin (Auto) 0 mg/dL 01/02/24 10:22 Urine Urobilinogen (Auto) 0.2 mg/dL 01/02/24 10:22 Leukocyte Esterase (Auto) 0 Neto/uL 01/02/24 10:22 Assessment & Plan Assessment & Plan (1) Bladder cancer: Code(s): C67.9 - Malignant neoplasm of bladder, unspecified Category: Medical Plan 4 month follow-up check cysto Orders: Orders AMB Cystoscopy Today C67.9 - Malignant neoplasm of bladder, unspecified AMB Urinalysis Automated Today Z13.9 - Encounter for screening, unspecified AMB Urinalysis Automated Today Z13.9 - Encounter for screening, unspecified Patient Instructions: Imaging studies, laboratory and physical exam results were discussed and reviewed in detail. No major barriers to patient understanding were identified. An opportunity to ask questions regarding the treatment plan was provided. All questions were answered. The patient expressed understanding and agreement with the above treatment plan. The patient is aware they should contact our office by phone for worsening of their current condition or the appearance of new urologic symptoms. Compliance is encouraged with any medications and followup testing that is ordered. It is a privilege to participate in the urologic care of your patient. If you have any questions or concerns regarding treatment for the above conditions, or other urologic issues, please do not hesitate to contact me. The office telephone contact is [phone]. This note is constructed using voice recognition software. While every effort has been made to ensure accuracy manager pest errors may have been included. Yours sincerely, Dr Barney Byrd MD, [facility] - Urology Providers of Expert, Compassionate Care for the Genitourinary System Coding Level of Care Code Est Pt Level 3 (55080) Diagnoses Bladder cancer C67.9 CPT Codes Cystoscopy - CPT: 85283-Nmmcyxyroc ([id number])
== END 2024-01-02 10:46 | disposition home or self-care (01) ==
PROVIDERS: PCP Internal Medicine; Visit Provider Urology
DX: C67.9 Malignant neoplasm of bladder, unspecified (principal); E11.29 Type 2 diabetes mellitus with other diabetic kidney complication; N32.81 Overactive bladder; Z13.9 Encounter for screening, unspecified
CPT/HCPCS: 52000; 99213

== ENCOUNTER → 2024-01-02 09:45 | Outpatient (BNVA) | payer MEDICARE, SELFPAY | PROVIDERS: PCP Internal Medicine; Visit Provider Urology | DX: C67.9 Malignant neoplasm of bladder, unspecified (principal) | CPT/HCPCS: 52000; 81003; 99212 ==

== ENCOUNTER 2024-01-15 10:09 | Outpatient (AMB) | payer MEDICARE, SELFPAY ==
--- NOTE | 2024-01-15 10:28 | MHC.PC.OV ---
Vital Signs 01/15/24 10:29 Height 5 ft 8 in Weight 163 lb BMI 24.8 BP 140/70 H Blood Pressure Location Lt brachial Position Sitting Pulse 77 Pulse Source Pulse Oximeter Pulse Oximetry (%) 95 Oxygen Delivery Method Room Air Intake Visit Reasons: 3mof\u Intake Note: Patient is here to follow up on CKD, DM, HTN, Chronic pain. [place] [employer] Guide Required: No Cell Attendant Helper: Present Accompanied by: Spouse Allergies levofloxacin [From LEVAQUIN] Allergy (Severe, Verified 01/15/24 13:34) ANGIOEDEMA (EXACT SOURCE UNCERTAIN) lisinopril [LISINOPRIL] Allergy (Severe, Verified 01/15/24 13:34) ANGIOEDEMA ( EXACT SOURCE UNCERTAIN) Medication List - Last Reconciled 01/15/24 by Kenney Beal MD acetaminophen (Tylenol) 650 mg PO Q6H PRN allopurinol 100 mg PO DAILY blood sugar diagnostic (FreeStyle Lite Strips) USE TO TEST DAILY blood-glucose meter Test Daily - [employer] Blood glucose Meter blood-glucose meter (FreeStyle Lite Meter kit) As directed carvedilol (Coreg) 37.5 mg (1.5 x 25 mg) PO BID 90 days doxazosin (Cardura) 4 mg PO DAILY 90 days fenofibrate nanocrystallized 145 mg PO DAILY hydralazine 100 mg PO TID lancets (FreeStyle Lancets) USE TO TEST DAILY leflunomide 20 mg PO DAILY lorazepam 0.5 mg PO BEDTIME metformin 500 mg PO DAILY 90 days nifedipine ER 90 mg PO DAILY 90 days solifenacin 10 mg PO DAILY 90 days spironolactone 25 mg PO DAILY 90 days torsemide 10 mg PO DAILY tramadol 50 mg PO BID PRN Tobacco use date assessed: 01/15/24 Fall risk assessment: No Falls in past year Last assessed Fall Risk: 01/15/24 Dental Screening Dental Screen Date: 10/10/23 HPI 3mof\u HPI Details 89-year-old male presents to the office to discuss his chronic medical conditions. He comes to the office along with his . Patient reports that he continues to have chronic pain. Mostly in the lower spine radiating into the right leg. In the last office visit I had asked him to increase his tramadol to twice a day but he continues to take it at once a day. Patient has chronic kidney disease is at baseline. 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 Reports a 2 lb weight loss. Patient was at 165 lb in the last office visit and now at 163 lb. He reports good appetite and has been eating well. Patient completed the last chemotherapy for bladder cancer on December 06. Five weeks later surveillance, shows he is cancer free in the bladder. [facility] Medical History (Updated 01/15/24 @ 13:45 by Kenney Beal MD) Bladder cancer CKD (chronic kidney disease) Diabetes mellitus Disc degeneration, lumbar Chronic pain syndrome Gout, arthritis Spinal stenosis Spondylosis of lumbar region without myelopathy or radiculopathy Diabetes mellitus Swelling of both parotid glands Podagra Seropositive rheumatoid arthritis Hypercholesterolemia Leg edema Essential hypertension Angioedema Surgical History History of cryosurgery History of endoscopy History of bladder surgery History of bilateral cataract extraction History of hernia repair Family History Father Cardiovascular disease Diabetes Mother Diabetes Brother No problems noted. Brother No problems noted. Sister No problems noted. Sister No problems noted. Son No problems noted. Son No problems noted. Daughter No problems noted. Daughter No problems noted. Daughter No problems noted. Other Mental health disorder Social History Household Members: Spouse and Children Housing: House Do you presently have visiting nurse or other home services: No Alcohol intake: never Patient Tobacco Use Status: Former Tobacco user e-Cigarette/Vaping Use: Never Used Second Hand Smoke Exposure: No service: No Current occupational status: retired Cognitive needs: No Hearing needs: Yes (hearing aide) Vision needs: No Questionnaire Thrive Questionnaire Date Thrive assessed: 10/10/23 REGINA-7 AMB Questionnaire REGINA-7 Date REGINA - 7 assessed: 10/10/23 Source: Developed by Drs. Poncho Morataya, Megan Callahan, Shane Hooper and colleagues, with an educational linus from [employer]. Physical exam (Primary Care) Vital Signs: Last Vital Signs Pulse 77 01/15/24 10:29 BP 140/70 H 01/15/24 10:29 Pulse Ox 95 01/15/24 10:29 Oxygen Delivery Method Room Air 01/15/24 10:29 Care Plan Goal for BP management: Blood pressure is in range. Continue current medications. BMI result Body Mass Index 24.8 Tobacco/Smoking Status: Tobacco use Status Tobacco use date assessed 01/15/24 01/15/24 10:36 Patient Tobacco Use Status Former Tobacco user 01/15/24 10:36 e-Cigarette/Vaping Use Never Used 01/15/24 10:36 Thrive Assessment: Date of Thrive Assessment Date Thrive assessed 10/10/23 01/15/24 10:36 Advance Care Planning discussion: Exists, not on file Date of discussion: 01/15/24 Who was present: Patient. . Forms completed: Health Care Proxy Actual minutes spent: 5 Const General: cooperative and healthy appearing Nutritional Appearance: well nourished Orientation/consciousness: patient oriented x3 Limitations: no limitations HENMT Head: Yes normal to inspection Eyes General: appearance normal, both eyes and all related structures Neck Neck: Yes normal visual inspection Chest Chest palpation & inspection: normal palpation of entire chest wall Resp Effort & Inspection: normal respiratory effort Neuro General: patient oriented x3 Results AMB Hemoglobin A1c AMB Hemoglobin A1c 6.9 % Last Edit by ALEXSANDER Flores on 01/15/24 10:39 Results Reviewed Results Reviewed: Laboratory Last Values Hgb A1c (Clinic) 6.9 % (4.0-6.0) H 01/15/24 10:28 Assessment and Plan Assessment & Plan (1) CKD (chronic kidney disease): Code(s): N18.9 - Chronic kidney disease, unspecified Qualifiers: Chronic kidney disease stage: stage 2 (mild) Qualified Code(s): N18.2 - Chronic kidney disease, stage 2 (mild) Plan: Employee Representative note reviewed. Creatinine is at baseline state. (2) Bladder cancer: Code(s): C67.9 - Malignant neoplasm of bladder, unspecified Plan: Urology note reviewed. (3) Erectile dysfunction associated with type 2 diabetes mellitus: Code(s): E11.69 - Type 2 diabetes mellitus with other specified complication; N52.1 - Erectile dysfunction due to diseases classified elsewhere Plan: A1c is 6.9. Continue medications at same dosage. (4) Disc degeneration, lumbar: Code(s): M51.36 - Other intervertebral disc degeneration, lumbar region Plan: Most of his pain is from the lumbar disc disease. Patient was advised again to increase the tramadol to twice a day. 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
[2024-01-15 10:29] VITALS: BP 140/70; PULSE 77; O2SAT 95; BMI 24.8
== END 2024-01-15 11:03 | disposition home or self-care (01) ==
PROVIDERS: PCP Internal Medicine; Visit Provider Internal Medicine
DX: E11.22 Type 2 diabetes mellitus with diabetic chronic kidney disease (principal); N18.2 Chronic kidney disease, stage 2 (mild); N52.1 Erectile dysfunction due to diseases classified elsewhere; M51.36 Other intervertebral disc degeneration, lumbar region
CPT/HCPCS: 1123F; 83036; 99214; G2211

== ENCOUNTER 2024-01-15 11:38 | Outpatient (REF) | payer MEDICARE, SELFPAY ==
[2024-01-15 12:27] LABS: MANUAL DIFF FLAG NO
[2024-01-15 12:36] LABS: Basophils Absolute Auto 0.1 X10*3/uL (0.0-0.2); Eosinophils Absolute Auto 0.4 X10*3/uL (0.0-0.4); Eosinophils Percent Auto 4.3 % (0-4); Hematocrit 35.8 % (42.0-52.0); Hemoglobin 11.5 g/dl (14.0-18.0); Imm Gran Abs Auto 0.12 X10*3/uL (0.00-0.03); Imm Gran Pct Auto 1.2 % (0.0-0.4); Lymphocytes Absolute Auto 1.3 X10*3/uL (1.2-4.9); Lymphocytes Percent Auto 12.3 % (20-40); Mean Corpuscular HGB Conc 32.1 g/dl (31.0-36.0); Mean Corpuscular Hemoglobin 28.7 pg (27.0-33.0); Mean Corpuscular Volume 89.3 fL (80.0-98.0); Mean Platelet Volume 11.6 fL (9.4-12.4); Monocytes Absolute Auto 0.8 X10*3/uL (0.1-1.2); Monocytes Percent Auto 8.1 % (2-11); Neutrophils Absolute Auto 7.5 x10*3/uL (2.0-8.3); Neutrophils Percent Auto 73.1 % (45-73); Platelet Count 431 X10*3/uL (160-400); Red Blood Count 4.01 X10*6/uL (4.60-5.80); White Blood Count 10.3 X10*3/uL (4.8-10.8)
[2024-01-15 13:11] LABS: Alanine Aminotransferase 15 U/L (0-40); Albumin Level 4.3 g/dL (3.5-5.0); Alkaline Phosphatase 133 U/L (39-117); Anion Gap 13 (12-20); Aspartate Amino Transferase 21 U/L (5-37); Bilirubin Total 0.3 mg/dL (0.0-1.0); Blood Urea Nitrogen 28 mg/dL (9-16); C Reactive Protein 3.41 mg/dL (< or = 0.50); Calcium 10.6 mg/dL (8.4-10.2); Carbon Dioxide 26 mmol/L (22-29); Chloride 102 mmol/L (96-108); Estimated Glomerular Filt Rate > 60; Glucose Random 140 mg/dL (60-115); Potassium 3.9 mmol/L (3.3-5.1); Sodium 137 mmol/L (135-145)
[2024-01-15 13:16] LABS: Erythrocyte Sedimentation Rate 85 MM/HR (0-15)
[2024-01-15 13:28] LABS: Prostate Specific Antigen 41.86 ng/mL (<0.05-4.0)
== END 2024-01-15 11:39 | disposition home or self-care (01) ==
LOC: HO.10HDL 11:38
PROVIDERS: Referring Provider Urology; Visit Provider Student in an Organized Health Care Education/Training Program
DX: N40.1 Benign prostatic hyperplasia with lower urinary tract symptoms (principal); N13.8 Other obstructive and reflux uropathy; M05.9 Rheumatoid arthritis with rheumatoid factor, unspecified; Z12.5 Encounter for screening for malignant neoplasm of prostate
CPT/HCPCS: 36415; 80053; 84153; 85025; 85652; 86140

== ENCOUNTER 2024-01-28 09:23 | Outpatient (AMB) | payer MEDICARE, SELFPAY ==
--- NOTE | 2024-01-28 09:46 | MHC.OFFVIS ---
Vital Signs 01/28/24 09:50 Height 5 ft 8 in Weight 163 lb 9.328 oz BMI 24.9 BP 144/64 H Blood Pressure Location Rt brachial Position Sitting Pulse 66 Pulse Source Pulse Oximeter Pulse Oximetry (%) 97 Oxygen Delivery Method Room Air Intake Visit Reasons: RA/lm Intake Note: Patient presents for RA. Allergies levofloxacin [From LEVAQUIN] Allergy (Severe, Verified 01/28/24 09:49) ANGIOEDEMA (EXACT SOURCE UNCERTAIN) lisinopril [LISINOPRIL] Allergy (Severe, Verified 01/28/24 09:49) ANGIOEDEMA ( EXACT SOURCE UNCERTAIN) Medication List - Last Reconciled 01/28/24 by Zechariah Munroe MD acetaminophen (Tylenol) 650 mg PO Q6H PRN allopurinol 100 mg PO DAILY blood sugar diagnostic ([employer] Lite Strips) USE TO TEST DAILY blood-glucose meter Test Daily - [employer] Blood glucose Meter blood-glucose meter (FreeStyle Lite Meter kit) As directed carvedilol (Coreg) 37.5 mg (1.5 x 25 mg) PO BID 90 days doxazosin (Cardura) 4 mg PO DAILY 90 days fenofibrate nanocrystallized 145 mg PO DAILY hydralazine 100 mg PO TID lancets (FreeStyle Lancets) USE TO TEST DAILY leflunomide 20 mg PO DAILY lorazepam 0.5 mg PO BEDTIME metformin 500 mg PO DAILY 90 days nifedipine ER 90 mg PO DAILY 90 days solifenacin 10 mg PO DAILY 90 days spironolactone 25 mg PO DAILY 90 days torsemide 10 mg PO DAILY tramadol 50 mg PO BID PRN HPI Comments Details: This is an 89-year-old male with seropositive RA who returns for follow-up. On leflunomide 20 mg daily. Also on allopurinol 100 mg daily prescribed by his PCP. He completed 5 weekly gemcitabine intravesical injections His main complaint remains his lower back pain radiating down his lower extremities, more significant on the right. He has an appointment with a spine surgeon in the coming few months His hands are doing well with no swelling. He had 3 teeth pulled last week. [facility] Medical History Bladder cancer CKD (chronic kidney disease) Diabetes mellitus Disc degeneration, lumbar Chronic pain syndrome Gout, arthritis Spinal stenosis Spondylosis of lumbar region without myelopathy or radiculopathy Diabetes mellitus Swelling of both parotid glands Podagra Seropositive rheumatoid arthritis Hypercholesterolemia Leg edema Essential hypertension Angioedema Surgical History History of cryosurgery History of endoscopy History of bladder surgery History of bilateral cataract extraction History of hernia repair Family History Father Cardiovascular disease Diabetes Mother Diabetes Brother No problems noted. Brother No problems noted. Sister No problems noted. Sister No problems noted. Son No problems noted. Son No problems noted. Daughter No problems noted. Daughter No problems noted. Daughter No problems noted. Other Mental health disorder Social History Household Members: Spouse and Children Housing: House Do you presently have visiting nurse or other home services: No Alcohol intake: never Patient Tobacco Use Status: Former Tobacco user e-Cigarette/Vaping Use: Never Used Second Hand Smoke Exposure: No service: No Current occupational status: retired Cognitive needs: No Hearing needs: Yes (hearing aide) Vision needs: No Review of Systems Musc Reports back pain, Denies joint swelling, Reports numbness and Reports radiating pain into limb Neuro Reports numbness Physical Exam Vital Signs: Last Vital Signs Pulse 66 01/28/24 09:50 BP 144/64 H 01/28/24 09:50 Pulse Ox 97 01/28/24 09:50 Oxygen Delivery Method Room Air 01/28/24 09:50 BMI result Body Mass Index 24.9 Const General: cooperative, healthy appearing and comfortable Nutritional Appearance: average body habitus Orientation/consciousness: patient oriented x3 Limitations: no limitations HEENT Head: Yes normocephalic and Yes atraumatic Mouth: moist mucous membranes Resp Effort & Inspection: normal respiratory effort and able to speak in complete sentences Neuro General: patient oriented x3 Extrem Other: Osteoarthritic changes of both hands with no active synovitis Normal bilateral hand django developer strength A small non tender cyst on the dorsal aspect of the right wrist Small cyst in the right index DIP Trace pitting edema of right ankle without tenderness or warmth Bilateral feet numbness to palpation Osteoarthritic changes of both feet nontender to palpation positive straight leg raise test on the right Assessment & Plan Assessment & Plan (1) Seropositive rheumatoid arthritis: Comment: -ve RF +++CCP Plaquenil started age 50-stopped February 2019 Leflunomide 10 mg- December 2018 to May 2019 Leflunomide 20 mg- May 2019 to present Code(s): M05.9 - Rheumatoid arthritis with rheumatoid factor, unspecified Category: Medical Plan: This is an 89-year-old male with seropositive RA returns for follow-up. Doing well overall. No active synovitis on exam. On leflunomide 20 mg daily. Recently completed gemcitabine intravesical treatment for bladder cancer. His inflammatory markers are elevated which may be related to his underlying cancer or his recent dental extraction Continue leflunomide 20 mg daily Labs before next visit in 4 month (2) Gout, arthritis: Code(s): M10.9 - Gout, unspecified Category: Medical Plan: History of gout. He is on allopurinol 100 mg daily prescribed by PCP. No gout flares for a long period of time. Most recent uric acid level was at goal (3) Screening for osteoporosis: Code(s): Z13.820 - Encounter for screening for osteoporosis Category: Medical Plan: Patient's gait is a little unsteady likely due to feet neuropathy. He has not had any recent falls , DEXA scan is normal (4) Lumbar radicular pain: Code(s): M54.16 - Radiculopathy, lumbar region Category: Medical Plan: Follow-up with spine surgeon Plan I spent 27 minutes reviewing patient's chart, evaluating patient, ordering diagnostic workup, counseling patient and documenting in the chart Orders: Orders Complete Blood Count Auto Diff 4 Months M05.9 - Rheumatoid arthritis with rheumatoid factor, unspecified Comprehensive Met. Panel 4 Months M05.9 - Rheumatoid arthritis with rheumatoid factor, unspecified C Reactive Protein 4 Months M05.9 - Rheumatoid arthritis with rheumatoid factor, unspecified Erythrocyte Sedimentation Rate 4 Months M05.9 - Rheumatoid arthritis with rheumatoid factor, unspecified Coding Level of Care Code Est Pt Level 4 (69347) Diagnoses Seropositive rheumatoid arthritis M05.9 Gout, arthritis M10.9 Screening for osteoporosis Z13.820 Lumbar radicular pain M54.16
[2024-01-28 09:50] VITALS: BP 144/64; PULSE 66; O2SAT 97; BMI 24.9
== END 2024-01-28 10:17 | disposition home or self-care (01) ==
PROVIDERS: PCP Internal Medicine; Visit Provider Student in an Organized Health Care Education/Training Program
DX: M05.79 Rheumatoid arthritis with rheumatoid factor of multiple sites without organ or systems involvement (principal); M10.9 Gout, unspecified; Z13.820 Encounter for screening for osteoporosis; M54.16 Radiculopathy, lumbar region
CPT/HCPCS: 99214

== ENCOUNTER → 2024-01-28 09:23 | Outpatient (BNVA) | payer MEDICARE, SELFPAY | PROVIDERS: PCP Internal Medicine; Visit Provider Student in an Organized Health Care Education/Training Program | DX: Z13.820 Encounter for screening for osteoporosis (principal); M05.9 Rheumatoid arthritis with rheumatoid factor, unspecified; M10.9 Gout, unspecified; M54.16 Radiculopathy, lumbar region | CPT/HCPCS: 99212 ==

== ENCOUNTER 2024-04-08 14:00 | Outpatient (AMB) | payer MEDICARE, SELFPAY ==
--- NOTE | 2024-04-08 14:09 | MHC.PC.OV ---
Vital Signs 04/08/24 14:15 04/08/24 14:23 Height 5 ft 8 in Weight 161 lb 4 oz BMI 24.5 BP 160/74 H 140/76 H Blood Pressure Location Lt brachial Lt brachial Position Sitting Sitting Pulse 81 Pulse Source Pulse Oximeter Pulse Oximetry (%) 97 Oxygen Delivery Method Room Air Intake Visit Reasons: Orthopedic 04/30-decompression lumbar spine Intake Note: Patient is here for a Pre-op for Lower back surgery scheduled with [facility] on 04/30/24 Clay Hoister Required: No Cruise Director: Present Accompanied by: Sponsored Dependent Allergies levofloxacin [From LEVAQUIN] Allergy (Severe, Verified 04/08/24 14:52) ANGIOEDEMA (EXACT SOURCE UNCERTAIN) lisinopril [LISINOPRIL] Allergy (Severe, Verified 04/08/24 14:52) ANGIOEDEMA ( EXACT SOURCE UNCERTAIN) Medication List - Last Reconciled 04/08/24 by Kenney Beal MD acetaminophen (Tylenol) 650 mg PO Q6H PRN allopurinol 100 mg PO DAILY blood sugar diagnostic ([employer] Lite Strips) USE TO TEST DAILY blood-glucose meter Test Daily - [email or web address] Blood glucose Meter blood-glucose meter (FreeStyle Lite Meter kit) As directed carvedilol (Coreg) 37.5 mg (1.5 x 25 mg) PO BID 90 days doxazosin (Cardura) 4 mg PO DAILY 90 days fenofibrate nanocrystallized 145 mg PO DAILY hydralazine 100 mg PO TID lancets (FreeStyle Lancets) USE TO TEST DAILY leflunomide 20 mg PO DAILY lorazepam 0.5 mg PO BEDTIME metformin 500 mg PO DAILY 90 days nifedipine ER 90 mg PO DAILY 90 days solifenacin 10 mg PO DAILY 90 days spironolactone 25 mg PO DAILY 90 days torsemide 10 mg PO DAILY tramadol 50 mg PO BID PRN Tobacco use date assessed: 04/08/24 Dental Screening Dental Screen Date: 10/10/23 HPI Orthopedic 04/30-decompression lumbar spine HPI Details 89-year-old male presents to the office requesting a preop clearance. The procedures to be scheduled under general anesthesia. Patient was having persistent lumbar back pain and sought an opinion from orthopedic surgeon. [facility] Medical History Bladder cancer CKD (chronic kidney disease) Diabetes mellitus Disc degeneration, lumbar Chronic pain syndrome Gout, arthritis Spinal stenosis Spondylosis of lumbar region without myelopathy or radiculopathy Diabetes mellitus Swelling of both parotid glands Podagra Seropositive rheumatoid arthritis Hypercholesterolemia Leg edema Essential hypertension Angioedema Surgical History History of cryosurgery History of endoscopy History of bladder surgery History of bilateral cataract extraction History of hernia repair Family History Father Cardiovascular disease Diabetes Mother Diabetes Brother No problems noted. Brother No problems noted. Sister No problems noted. Sister No problems noted. Son No problems noted. Son No problems noted. Daughter No problems noted. Daughter No problems noted. Daughter No problems noted. Other Mental health disorder Social History Household Members: Spouse and Children Housing: House Do you presently have visiting nurse or other home services: No Alcohol intake: never Patient Tobacco Use Status: Former Tobacco user e-Cigarette/Vaping Use: Never Used Second Hand Smoke Exposure: No service: No Current occupational status: retired Cognitive needs: No Hearing needs: Yes (hearing aide) Vision needs: No Questionnaire Thrive Questionnaire Date Thrive assessed: 10/10/23 REGINA-7 AMB Questionnaire REGINA-7 Date REGINA - 7 assessed: 10/10/23 Source: Developed by Drs. Poncho Morataya, Megan Callahan, Shane Hooper and colleagues, with an educational linus from [employer]. Physical exam (Primary Care) Care Plan Goal for BP management: Blood pressure is in range. Tobacco/Smoking Status: Tobacco use Status Tobacco use date assessed 01/15/24 01/15/24 10:36 Patient Tobacco Use Status Former Tobacco user 01/15/24 10:36 e-Cigarette/Vaping Use Never Used 01/15/24 10:36 Thrive Assessment: Date of Thrive Assessment Date Thrive assessed 10/10/23 01/15/24 10:36 Const General: cooperative and healthy appearing Nutritional Appearance: well nourished Orientation/consciousness: patient oriented x3 Limitations: no limitations HENMT Head: Yes normal to inspection Eyes General: appearance normal, both eyes and all related structures Neck Neck: Yes normal visual inspection Chest Chest palpation & inspection: normal palpation of entire chest wall Resp Effort & Inspection: normal respiratory effort Cardio Other: Soft systolic murmur heard over the aortic area and radiating into the left carotid. Neuro General: patient oriented x3 Results AMB Hemoglobin A1c AMB Hemoglobin A1c 7.5 % Last Edit by ALEXSANDER Flores on 04/08/24 14:26 Coding Level of Care Code Est Pt Level 4 (59749) Complex EM visit Add On G2211 Diagnoses Essential hypertension I10 Aortic valve stenosis I35.0 Type 2 diabetes mellitus with hyperglycemia, without long-term current use of insulin E11.65 Diabetes mellitus type: type 2 Diabetes mellitus [facility] insulin use: without watermelon harvesting supervisor use Diabetes mellitus complication status: with hyperglycemia Nonrheumatic aortic (valve) stenosis I35.0 Preoperative clearance Z01.818 Assessment & Plan Assessment & Plan (1) Essential hypertension: Code(s): I10 - Essential (primary) hypertension Category: Medical Plan: Blood pressure is in range. (2) Aortic valve stenosis: Code(s): I35.0 - Nonrheumatic aortic (valve) stenosis Plan: See below. (3) Diabetes mellitus: Code(s): E11.9 - Type 2 diabetes mellitus without complications Category: Medical Qualifiers: Diabetes mellitus type: type 2 Diabetes mellitus [facility] insulin use: without watermelon harvesting supervisor use Diabetes mellitus complication status: with hyperglycemia Qualified Code(s): E11.65 - Type 2 diabetes mellitus with hyperglycemia Plan: A1c has been ordered. Will call with results. (4) Nonrheumatic aortic (valve) stenosis: Code(s): I35.0 - Nonrheumatic aortic (valve) stenosis Category: Medical Plan: Echocardiogram done a year ago shows mild aortic stenosis. A cardiology consult has been requested before patient can proceed for surgery. (5) Preoperative clearance: Code(s): Z01.818 - Encounter for other preprocedural examination Plan: Blood work and EKG have been ordered. A cardiology consult has been requested. Orders: Orders Basic Metabolic Panel Today I10 - Essential (primary) hypertension, I35.0 - Nonrheumatic aortic (valve) stenosis, Z01.810 - Encounter for preprocedural cardiovascular examination Complete Blood Count no Diff Today I10 - Essential (primary) hypertension, I35.0 - Nonrheumatic aortic (valve) stenosis, Z01.810 - Encounter for preprocedural cardiovascular examination Liver Panel Today I10 - Essential (primary) hypertension, I35.0 - Nonrheumatic aortic (valve) stenosis, Z01.810 - Encounter for preprocedural cardiovascular examination Lipid Panel Today I10 - Essential (primary) hypertension, I35.0 - Nonrheumatic aortic (valve) stenosis, Z01.810 - Encounter for preprocedural cardiovascular examination Thyroid Stimulating Hormone Today I10 - Essential (primary) hypertension, I35.0 - Nonrheumatic aortic (valve) stenosis, Z01.810 - Encounter for preprocedural cardiovascular examination ECG 12 lead EKG Today I35.0 - Nonrheumatic aortic (valve) stenosis AMB Hemoglobin A1c Today E11.9 - Type 2 diabetes mellitus without complications UA and rflx microscopic Today I10 - Essential (primary) hypertension, I35.0 - Nonrheumatic aortic (valve) stenosis, Z01.810 - Encounter for preprocedural cardiovascular examination Hemoglobin A1c Today E11.65 - Type 2 diabetes mellitus with hyperglycemia Referrals Cardiology Referral I35.0 - Nonrheumatic aortic (valve) stenosis
[2024-04-08 14:15] VITALS: BP 160/74; PULSE 81; O2SAT 97; BMI 24.5
[2024-04-08 14:23] VITALS: BP 140/76
== END 2024-04-08 14:44 | disposition home or self-care (01) ==
PROVIDERS: PCP Internal Medicine; Visit Provider Internal Medicine
DX: I10 Essential (primary) hypertension (principal); I35.0 Nonrheumatic aortic (valve) stenosis; E11.65 Type 2 diabetes mellitus with hyperglycemia; Z01.818 Encounter for other preprocedural examination; E11.9 Type 2 diabetes mellitus without complications

== ENCOUNTER → 2024-04-08 15:10 | Outpatient (BNV) | payer MEDICARE, SELFPAY | PROVIDERS: PCP Internal Medicine; Visit Provider Internal Medicine Cardiovascular Disease | DX: I35.0 Nonrheumatic aortic (valve) stenosis (principal); R94.31 Abnormal electrocardiogram [ECG] [EKG] | CPT/HCPCS: 93010 ==

== ENCOUNTER 2024-04-27 13:21 | Outpatient (AMB) | payer MEDICARE, SELFPAY ==
[2024-04-27 13:25] VITALS: BP 170/60; PULSE 92; BMI 24.5
--- NOTE | 2024-04-27 13:25 | A.OFFVIS_ITS ---
Vital Signs 04/27/24 13:25 Height 5 ft 8 in Weight 160 lb 14.999 oz BMI 24.5 BP 170/60 H Blood Pressure Location Lt brachial Position Sitting Pulse 92 Pulse Source Pulse Oximeter Intake Visit Reasons: Preop lumbar laminectomy under general anesthesia Public Housing Interviewer Required: No Accompanied by: Spouse Allergies levofloxacin [From LEVAQUIN] Allergy (Severe, Verified 04/08/24 14:52) ANGIOEDEMA (EXACT SOURCE UNCERTAIN) lisinopril [LISINOPRIL] Allergy (Severe, Verified 04/08/24 14:52) ANGIOEDEMA ( EXACT SOURCE UNCERTAIN) Medication List - Last Reconciled 04/27/24 by Meño Shepherd MD acetaminophen (Tylenol) 650 mg PO Q6H PRN allopurinol 100 mg PO DAILY blood sugar diagnostic ([employer] Digital[employer] Lite Strips) USE TO TEST DAILY blood-glucose meter Test Daily - [email or web address] Blood glucose Meter blood-glucose meter (FreeStyle Lite Meter kit) As directed carvedilol (Coreg) 37.5 mg (1.5 x 25 mg) PO BID 90 days doxazosin (Cardura) 4 mg PO DAILY 90 days fenofibrate nanocrystallized 145 mg PO DAILY hydralazine 100 mg PO TID lancets (FreeStyle Lancets) USE TO TEST DAILY leflunomide 20 mg PO DAILY lorazepam 0.5 mg PO BEDTIME metformin 500 mg PO DAILY 90 days nifedipine ER 90 mg PO DAILY 90 days solifenacin 10 mg PO DAILY 90 days spironolactone 25 mg PO DAILY 90 days torsemide 10 mg PO DAILY tramadol 50 mg PO BID PRN HPI Comments Details: Corby returns for follow-up regarding hypertension. To recall, he originally came in 2019 for a urological procedure, but then subsequently developed swelling in the throat and submandibular area/ tongue and was diagnosed with angioedema. He was then admitted to the ICU and intubated. He was on lisinopril at that time, which was then stopped. Subsequently he improved and then was able to go home. He has been followed up here for high blood pressure since around that time. Overall, difficult to control hypertension. Home blood pressures apparently much lower than the clinic pressures per patient. He has no clear cardiac symptoms. More recently issue is rather back pain. However, till about 2 months ago, he states he was very active and could exercise almost for 45 minutes with no issues. Never had chest pain or in fact any cardiac symptoms. [facility] Medical History Bladder cancer CKD (chronic kidney disease) Diabetes mellitus Disc degeneration, lumbar Chronic pain syndrome Gout, arthritis Spinal stenosis Spondylosis of lumbar region without myelopathy or radiculopathy Diabetes mellitus Swelling of both parotid glands Podagra Seropositive rheumatoid arthritis Hypercholesterolemia Leg edema Essential hypertension Angioedema Surgical History History of cryosurgery History of endoscopy History of bladder surgery History of bilateral cataract extraction History of hernia repair Family History Father Cardiovascular disease Diabetes Mother Diabetes Brother No problems noted. Brother No problems noted. Sister No problems noted. Sister No problems noted. Son No problems noted. Son No problems noted. Daughter No problems noted. Daughter No problems noted. Daughter No problems noted. Other Mental health disorder Social History Household Members: Spouse and Children Housing: House Do you presently have visiting nurse or other home services: No Alcohol intake: never Patient Tobacco Use Status: Former Tobacco user e-Cigarette/Vaping Use: Never Used Second Hand Smoke Exposure: No service: No Current occupational status: retired Cognitive needs: No Hearing needs: Yes (hearing aide) Vision needs: No Review of Systems Const Denies chills, Denies fatigue, Denies fever(s), Denies weight gain and Denies weight loss ENT Denies dizziness Card Denies chest pain, Denies leg edema, Denies lightheadedness, Denies palpitations, Denies dyspnea on exertion, Denies orthopnea and Denies other Resp Denies cough and Denies dyspnea on exertion GI Denies hematochezia and Denies change in stool character Musc Denies abnormal gait, Denies muscle weakness, Denies numbness, Denies radiating pain into limb and Denies tingling Neuro Denies abnormal gait, Denies dizziness, Denies numbness and Denies tingling Endo Denies fatigue and Denies palpitations Physical Exam Vital Signs: Last Vital Signs Pulse 92 04/27/24 13:25 BP 170/60 H 04/27/24 13:25 BMI result Body Mass Index 24.5 Const General: comfortable and no acute distress Orientation/consciousness: patient oriented x3 HEENT Other: Unremarkable Head: Yes normal to inspection Neck Neck: Yes normal visual inspection Chest Chest palpation & inspection: normal inspection of the chest Resp Auscultation: clear to auscultation bilaterally Cardio Palpation: normal PMI Heart sounds: S1 normal heart sound present, S2 normal heart sound present, no gallops, Murmur heart sound present systolic II/ and at the right sternal border and no rubs GI Palpation (GI): Soft to palpation Back/Spine/Pelvis Other: unremarkable Skin General skin exam: no rashes or lesions noted Neuro General: patient oriented x3 Extrem General: Yes normal to inspection Psych Mental Status: mental status grossly normal Assessment & Plan Assessment & Plan (1) Preoperative cardiovascular examination: Code(s): Z01.810 - Encounter for preprocedural cardiovascular examination Category: Medical Plan: In the recent EKG, underlying rhythm is sinus at 82/Min; LVH versus normal variant; nonspecific ST-T changes; normal HI and corrected QT. Likely intermediate risk. We will try to get an echocardiogram done prior to surgery to reassess aortic stenosis. Unless any significant progression, should be able to proceed. (2) Essential hypertension: Code(s): I10 - Essential (primary) hypertension Category: Medical Plan: Current regimen includes combination of Coreg, nifedipine, hydralazine, spironolactone, torsemide. In the past, anaphylaxis to lisinopril, but unclear if it is definitive or not. Hence not on any EMILIANO inhibitors or ARB. History of leg swelling from amlodipine in the past. In the ambulatory blood pressure monitor, overall average was 139/73 mm Hg. Daytime average 140/70 mm Hg and average during sleep hours 136/74 mm Hg. Overall, somewhat elevated but no further changes made today. (3) Nonrheumatic aortic (valve) stenosis: Code(s): I35.0 - Nonrheumatic aortic (valve) stenosis Category: Medical Plan: In 2021, echocardiogram with mild aortic stenosis. To be repeated as he is going for lumbar spine surgery. (4) Leg edema: Code(s): R60.0 - Localized edema Category: Medical Plan: Suspected venous insufficiency. In the past echocardiogram as well as ultrasound unremarkable. No significant edema today. (5) Angioedema: Code(s): T78.3XXA - Angioneurotic edema, initial encounter Category: Medical Qualifiers: Encounter type: sequela Qualified Code(s): T78.3XXS - Angioneurotic edema, sequela Plan: Resolved. Uncertain culprit. Could have been lisinopril. Not on this anymore. Plan Discussed with who came for appointment. Coding Level of Care Code Est Pt Level 4 (80992) Diagnoses Preoperative cardiovascular examination Z01.810 Essential hypertension I10 Nonrheumatic aortic (valve) stenosis I35.0 Leg edema R60.0 Angioedema, sequela T78.3XXS Encounter type: sequela
== END 2024-04-27 13:38 | disposition home or self-care (01) ==
PROVIDERS: PCP Internal Medicine; Visit Provider Internal Medicine
DX: I35.0 Nonrheumatic aortic (valve) stenosis (principal); I10 Essential (primary) hypertension; R60.0 Localized edema; T78.3XXS Angioneurotic edema, sequela; Z01.810 Encounter for preprocedural cardiovascular examination; I35.8 Other nonrheumatic aortic valve disorders
CPT/HCPCS: 93306; 99214

== ENCOUNTER → 2024-04-27 13:21 | Outpatient (BNVA) | payer MEDICARE, SELFPAY | PROVIDERS: PCP Internal Medicine; Visit Provider Internal Medicine | DX: Z01.810 Encounter for preprocedural cardiovascular examination (principal); I35.0 Nonrheumatic aortic (valve) stenosis; I10 Essential (primary) hypertension; T78.3XXS Angioneurotic edema, sequela | CPT/HCPCS: 99212 ==

== ENCOUNTER → 2024-04-27 13:51 | Outpatient (REF) | payer MEDICARE, SELFPAY ==
--- NOTE | 2024-04-27 13:58 | CA_ITS ---
Transthoracic Echocardiogram Patient (Last, First, Middle): Corby Faith R Gender: Male Date of : 1935 Age: 89 Procedure Date: 04/27/2024 Procedure Type: Transthoracic Echocardiogram Location: OP Height: 172.72 cm Weight: 74.84 kg BSA: 1.88 m2 Heart Rate: 75 bpm BP: 116 / 56 mmHg Adobe Block Maker: Referring MD: Meño Shepherd MD Symptoms: I35.0 - Nonrheumatic aortic (valve) stenosis Study Quality: Good ECG Rhythm: Sinus Conclusions: - The left ventricular systolic function is normal. The calculated ejection fraction is 64% by biplane method. - There is mild to moderate aortic valve stenosis. Findings Left Ventricle Normal left ventricular cavity size. There is mildly increased left ventricular wall thickness. The left ventricular systolic function is normal. The calculated ejection fraction is 64% by biplane method. There is no evidence of regional wall motion abnormalities. Diastolic function is normal for age. Right Ventricle Mildly increased right ventricular cavity size. There is normal right ventricular systolic function. Atria Both atria are normal in size. Aortic Valve There is moderate calcification of the aortic valve. There is mild to moderate aortic valve stenosis. The peak aortic velocity is 2.96 m/s with a calculated peak gradient of 35 mmHg. The mean gradient is 19 mmHg. The aortic valve area is 1.82 cm2. There is trace (trivial) aortic valve regurgitation. Mitral Valve There is mild anterior mitral leaflet thickening. There is trace mitral valve regurgitation. There is no mitral valve stenosis. Pulmonic Valve The pulmonic valve is likely normal. Tricuspid Valve There is trace tricuspid valve regurgitation. There is no evidence of pulmonary hypertension. Great Vessels The asc aorta is normal in size. Venous The inferior vena cava is normal in size and collapses greater than 50% with inspiration. Pericardium/Pleural There is no evidence of pericardial effusion. Prior Study Comparison Changes noted compared to prior study dated: 02/12/2022. Slight progression of aortic stenosis. Measurements 2D Linear Measurements IVSd: 1.16 0.6-0.9/0.6-1.0 cm LVIDd: 4.04 3.9-5.3/4.2-5.9 cm LVIDd Index: 2.15 2.4-3.2/2.2-3.1 cm/m2 LVIDs: 2.50 2.0-3.6 cm LVPWd: 1.15 0.7-1.1 cm Ao Root: 2.70 2.1-3.5 cm LA Diam: 3.80 2.7-3.8/3.0-4.0 cm LAIDs Index: 2.02 1.5-2.3 cm/m2 LV Mass: 197.71 67-162/88-224 g LV Mass Index: 105.17 43-95/49-115 g/m2 LVOT Diam: 2.30 3.0+(-)1.3 cm 2D Systolic Function EF 4C: 66.60 >55% EF 2C: 64.20 >55% EF BiP: 64.40 >55% Mitral Valve MV Pk E: 1.11 MV PK A: 1.27 MV Decel Time: 193.00 E/A: 0.90 E'Lateral: 9.57 E'Medial: 7.29 E/E' Med: 15.20 E/E' Lat: 11.60 PHT: 56.00 MVA PHT: 3.93 Decel Hyde: 5.75 Aortic Valve AoV Pk Rohith: 2.96 AoV Mn Rohith: 2.04 AoV VTI: 0.68 AoV Pk Grad: 35.00 Aov Mn Grad: 19.00 ALVIN Cont.VTI: 1.82 LVOT LVOT Pk Rohith: 1.15 LVOT Mn Rohith: 0.74 LVOT VTI: 0.30 LVOT Pk Grad: 5.00 LVOT Mn Grad: 3.00 LVOT Diam: 2.30 LVOT Area: 4.15 Diastolic Function MV Pk E: 1.11 MV Pk A: 1.27 E/A: 0.90 E'Medial: 7.29 E/E' Med: 15.20 E' Laterial: 9.57 E/E' Lat: 11.60 Right Ventricle TAPSE (mm): 32.00 TVS' Rohith: 15.00 Tricuspid Valve TR Pk Rohith: 1.50 TR Pk Grad: 9.00 RA Press: 3.00 RVSP: 12.00 Great Vessels Aorta Ao Root-2D: 2.70 2.0-3.7 cm Ao Asc: 3.20 2.1-3.4 cm Pulmonary Valve PV Pk Rohith: 1.12 Peak PV Grad: 5.00 Updated in Other Vendor System with Status of Final Meño Shepherd MD electronically signed on 04/27/2024 4:44:52 PM with status of Final
== END ==
LOC: HO.CARD 13:51
PROVIDERS: PCP Internal Medicine; Visit Provider Internal Medicine
DX: I35.0 Nonrheumatic aortic (valve) stenosis (principal)
CPT/HCPCS: 93306; 99212

== ENCOUNTER 2024-05-25 12:12 | Emergency (ER) | payer MEDICARE, SELFPAY ==
[2024-05-25 12:18] VITALS: BP 119/68; PULSE 87; RESP 18; TEMP 36.6; O2SAT 98; BMI 25.1
--- NOTE | 2024-05-25 12:23 | ED_ITS ---
HPI - General Adult General Chief complaint: General Medical Stated complaint: Back surgery rec, pain sent by History of Present Illness HPI narrative: patient left before completion of treatment by ED provider. Related Data Home Medications ?Medication ?Instructions ?Recorded ?Confirmed blood-glucose meter (FreeStyle #1 ea 10/24/21 04/27/24 Lite Meter kit) acetaminophen 325 mg tablet 650 mg PO Q6H PRN Pain 07/16/22 04/27/24 (Tylenol) hydralazine 100 mg tablet 100 mg PO TID 09/13/23 04/27/24 Previous Rx's ?Medication ?Instructions ?Recorded spironolactone 25 mg tablet 25 mg PO DAILY 90 days #90 tabs 03/29/20 blood-glucose meter #1 ea 08/03/21 nifedipine 90 mg tablet,extended 90 mg PO DAILY 90 days #90 tabs 10/07/23 release 24 hr fenofibrate nanocrystallized 145 145 mg PO DAILY #90 tabs 10/11/23 mg tablet doxazosin 4 mg tablet (Cardura) 4 mg PO DAILY 90 days #90 tabs 01/07/24 lancets 28 gauge (FreeStyle #100 ea 01/17/24 Lancets) solifenacin 10 mg tablet 10 mg PO DAILY 90 days #90 tabs 01/17/24 torsemide 10 mg tablet 10 mg PO DAILY #90 tabs 02/12/24 blood sugar diagnostic (FreeStyle #50 strips 02/19/24 Lite Strips) metformin 500 mg tablet 500 mg PO DAILY 90 days #90 tabs 03/05/24 carvedilol 25 mg tablet (Coreg) 37.5 mg (1.5 x 25 mg) PO BID 90 03/17/24 days #270 tabs tramadol 50 mg tablet 50 mg PO BID PRN pain #60 tabs 03/17/24 leflunomide 20 mg tablet 20 mg PO DAILY #90 tabs 03/31/24 lorazepam 0.5 mg tablet 0.5 mg PO BEDTIME #90 tabs 04/22/24 allopurinol 100 mg tablet 100 mg PO DAILY #90 tabs 05/08/24 Allergies Allergy/AdvReac Type Severity Reaction Status Date / Time levofloxacin [From LEVAQUIN] Allergy Severe ANGIOEDEMA Verified 05/25/24 12:22 (EXACT SOURCE UNCERTAIN) lisinopril [LISINOPRIL] Allergy Severe ANGIOEDEMA Verified 05/25/24 12:22 ( EXACT SOURCE UNCERTAIN) [facility] Past Medical History Medical History Bladder cancer CKD (chronic kidney disease) Diabetes mellitus Disc degeneration, lumbar Chronic pain syndrome Gout, arthritis Spinal stenosis Spondylosis of lumbar region without myelopathy or radiculopathy Diabetes mellitus Swelling of both parotid glands Podagra Seropositive rheumatoid arthritis Hypercholesterolemia Leg edema Essential hypertension Angioedema Surgical History History of cryosurgery History of endoscopy History of bladder surgery History of bilateral cataract extraction History of hernia repair Family History Family History Father Cardiovascular disease Diabetes Mother Diabetes Brother No problems noted. Brother No problems noted. Sister No problems noted. Sister No problems noted. Son No problems noted. Son No problems noted. Daughter No problems noted. Daughter No problems noted. Daughter No problems noted. Other Mental health disorder Social History Social History Household Members: Spouse and Children Housing: House Do you presently have visiting nurse or other home services: No Alcohol intake: never Patient Tobacco Use Status: Former Tobacco user e-Cigarette/Vaping Use: Never Used Second Hand Smoke Exposure: No Advance Directives: No Advance Directives Information Provided: No Do you have a plan to hurt others: No Plan service: No Current occupational status: retired Cognitive needs: No Hearing needs: Yes (hearing aide) Vision needs: No Physical Exam ED Vital Signs: Vital Signs - 24 hr 05/25/24 12:18 Temperature 97.9 F Pulse Rate 87 Respiratory Rate 18 Blood Pressure 119/68 Pulse Oximetry 98 Oxygen Delivery Method Room Air BMI result Body Mass Index 25.1 Course Course Course Narrative: RME: 89-year-old male presents to ED for back pain the middle of the spine. Patient had back surgery 3 weeks ago at [facility] by any orthopedics. Patient also having burning on urination some slight right flank pain. Patient denies any fever or chills. On exam incision at lumbar area negative for any hotness or coldness. Positive for some ecchymosis which has been present since surgery as per and [facility] is aware. Labs including ESR CRP UA ordered. Charge nurse made aware to bring patient in the ED. patient informed not to leave in case he might need imaging of back by MRI or ct scan. Medical Decision Making Lab Data 05/25/24 12:51 05/25/24 12:51 Labs: Lab Results 05/25/24 05/25/24 Range/Units 12:51 12:53 WBC 12.9 H (4.8-10.8) X10*3/uL RBC 3.44 L (4.60-5.80) X10*6/uL Hgb 8.8 L (14.0-18.0) g/dl Hct 27.9 L (42.0-52.0) % MCV 81.1 (80.0-98.0) fL MCH 25.6 L (27.0-33.0) pg MCHC 31.5 (31.0-36.0) g/dl RDW 16.1 H (11.0-16.0) % Plt Count 544 H (160-400) X10*3/uL MPV 10.2 (9.4-12.4) fL Immature Gran % (Auto) 1.6 H (0.0-0.4) % Neut % (Auto) 77.4 H (45-73) % Lymph % (Auto) 8.4 L (20-40) % [place] % (Auto) 9.7 (2-11) % Eos % (Auto) 2.1 (0-4) % Baso % (Auto) 0.8 (0-2) % Lymph # (Auto) 1.1 L (1.2-4.9) X10*3/uL [place] # (Auto) 1.3 H (0.1-1.2) X10*3/uL Eos # (Auto) 0.3 (0.0-0.4) X10*3/uL Baso # (Auto) 0.1 (0.0-0.2) X10*3/uL Abs Immat Gran (auto) 0.21 H (0.00-0.03) X10*3/uL Absolute Neuts (auto) 10.0 H (2.0-8.3) x10*3/uL Absolute Nucleated RBC 0.000 (0.0-0.012) X10*3/uL Nucleated RBC % (auto) 0.0 (0.0-0.2) /100WBC ESR 108 H (0-15) MM/HR Sodium 133 L (135-145) mmol/L Potassium 3.9 (3.3-5.1) mmol/L Chloride 101 (96-108) mmol/L Carbon Dioxide 25 (22-29) mmol/L Anion Gap 11 L (12-20) BUN 18 H (9-16) mg/dL Creatinine 0.75 (0.5-1.4) mg/dL Estim Creat Clear Calc 64.6 Estimated GFR > 60 Random Glucose 177 H (60-115) mg/dL Calcium 9.2 D (8.4-10.2) mg/dL Total Bilirubin 0.4 (0.0-1.0) mg/dL AST 32 (5-37) U/L ALT 9 (0-40) U/L Alkaline Phosphatase 250 H (39-117) U/L C-Reactive Protein 11.31 H (< or = 0.50) mg/dL Total Protein 7.6 (6.5-8.0) g/dL Albumin 3.7 (3.5-5.0) g/dL Urine Color Yellow Urine Appearance Clear Urine pH 7.0 (5.0-9.0) Ur Specific [place] 1.015 (1.005-1.025) Urine Protein 100 (2+) H (Neg-Trace) mg/dL Urine Glucose (UA) Negative (Negative) mg/dL Urine Ketones Negative (Negative) mg/dL Urine Blood Negative (Negative) Urine Nitrite Negative (Negative) Ur Leukocyte Esterase Negative (Negative) Urine RBC 0-2 (0-2) /HPF Urine WBC 0-5 (0-5) /HPF Ur Squamous Epith Cells 0-2 (0-2) /HPF Urine Bacteria None Seen (None Seen) Hyaline Casts 0-2 (0-2) /LPF Discharge Plan Discharge Clinical Impression: Low back pain Patient Disposition: Left W/O Completing Treatment Prescriptions: No Action spironolactone 25 mg tablet 25 mg PO DAILY 90 Days Qty: 90 3RF (DME) blood-glucose meter Misc See Rx Instructions .Route Qty: 1 0RF Rx Instructions: Test Daily - [employer] Blood glucose Meter nifedipine 90 mg tablet extended release 24hr 90 mg PO DAILY 90 Days Qty: 90 3RF fenofibrate nanocrystallized 145 mg tablet 145 mg PO DAILY Qty: 90 3RF doxazosin [Cardura] 4 mg tablet 4 mg PO DAILY 90 Days Qty: 90 1RF solifenacin 10 mg tablet 10 mg PO DAILY 90 Days Qty: 90 1RF (DME) lancets [FreeStyle Lancets] 28 gauge misc See Rx Instructions .ROUTE .COMPLEX Qty: 100 1RF Dose Instruction: USE TO TEST DAILY Rx Instructions: USE TO TEST DAILY torsemide 10 mg tablet 10 mg PO DAILY Qty: 90 1RF (DME) FreeStyle Lite Strips Strip See Rx Instructions .ROUTE .COMPLEX Qty: 50 1RF Dose Instruction: USE TO TEST DAILY Rx Instructions: USE TO TEST DAILY metformin 500 mg tablet 500 mg PO DAILY 90 Days Qty: 90 1RF tramadol 50 mg tablet 50 mg PO BID PRN (Reason: pain) Qty: 60 0RF carvedilol [Coreg] 25 mg tablet 37.5 mg PO BID 90 Days Qty: 270 3RF Rx Instructions: must administer with a meal/food leflunomide 20 mg tablet 20 mg PO DAILY Qty: 90 0RF lorazepam 0.5 mg tablet 0.5 mg PO BEDTIME Qty: 90 0RF allopurinol 100 mg tablet 100 mg PO DAILY Qty: 90 1RF (DME) blood-glucose meter [FreeStyle Lite Meter] Kit See Rx Instructions .ROUTE DAILY Qty: 1 Rx Instructions: As directed acetaminophen [Tylenol] 325 mg tablet 650 mg PO Q6H PRN (Reason: Pain) hydralazine 100 mg tablet 100 mg PO TID Discharge Date/Time: 05/25/24 20:28
[2024-05-25 13:01] LABS: MANUAL DIFF FLAG NO
[2024-05-25 13:04] LABS: Basophils Absolute Auto 0.1 X10*3/uL (0.0-0.2); Basophils Percent Auto 0.8 % (0-2); Eosinophils Absolute Auto 0.3 X10*3/uL (0.0-0.4); Eosinophils Percent Auto 2.1 % (0-4); Hematocrit 27.9 % (42.0-52.0); Hemoglobin 8.8 g/dl (14.0-18.0); Imm Gran Abs Auto 0.21 X10*3/uL (0.00-0.03); Imm Gran Pct Auto 1.6 % (0.0-0.4); Lymphocytes Absolute Auto 1.1 X10*3/uL (1.2-4.9); Lymphocytes Percent Auto 8.4 % (20-40); Mean Corpuscular HGB Conc 31.5 g/dl (31.0-36.0); Mean Corpuscular Hemoglobin 25.6 pg (27.0-33.0); Mean Corpuscular Volume 81.1 fL (80.0-98.0); Mean Platelet Volume 10.2 fL (9.4-12.4); Monocytes Absolute Auto 1.3 X10*3/uL (0.1-1.2); Monocytes Percent Auto 9.7 % (2-11); Neutrophils Percent Auto 77.4 % (45-73); Platelet Count 544 X10*3/uL (160-400); Red Blood Count 3.44 X10*6/uL (4.60-5.80); Red Cell Distribution Width 16.1 % (11.0-16.0); White Blood Count 12.9 X10*3/uL (4.8-10.8)
[2024-05-25 13:05] LABS: Appearance Urine Clear; Color Urine Yellow; Glucose Urine UA Negative (Negative); Leukocyte Esterase Urine Negative (Negative); Nitrite Urine Negative (Negative); Specific Gravity - Urine 1.015 (1.005-1.025); UMIC TRIGGER UACC YES; Urine Blood Negative (Negative); Urine Ketones Negative (Negative); Urine Protein 100 (2+) mg/dL (Neg-Trace)
[2024-05-25 13:16] LABS: Bacteria Urine None Seen (None Seen); Hyaline Casts Urine 0-2 /LPF (0-2); RBC Urine 0-2 /HPF (0-2); Squamous Epithelial Cell Urine 0-2 /HPF (0-2); WBC Urine 0-5 /HPF (0-5)
[2024-05-25 13:19] LABS: Alanine Aminotransferase 9 U/L (0-40); Albumin Level 3.7 g/dL (3.5-5.0); Alkaline Phosphatase 250 U/L (39-117); Anion Gap 11 (12-20); Aspartate Amino Transferase 32 U/L (5-37); Bilirubin Total 0.4 mg/dL (0.0-1.0); Blood Urea Nitrogen 18 mg/dL (9-16); C Reactive Protein 11.31 mg/dL (< or = 0.50); Calcium 9.2 mg/dL (8.4-10.2); Carbon Dioxide 25 mmol/L (22-29); Chloride 101 mmol/L (96-108); Creatinine Clr Calc Pharmacy 64.6; Estimated Glomerular Filt Rate > 60; Glucose Random 177 mg/dL (60-115); Potassium 3.9 mmol/L (3.3-5.1); Sodium 133 mmol/L (135-145); Total Protein 7.6 g/dL (6.5-8.0)
[2024-05-25 13:40] LABS: Erythrocyte Sedimentation Rate 108 MM/HR (0-15)
--- OUTSIDE RECORDS SUMMARY | 2024-05-27 15:24 | XMS_ITS | Continuity of Care Document ---
Author Organization [facility] Address [address] [place] [id number] Support Name Relationship Address Phone JOSSELIN, DAYTON Personal Relationship Unknown Lucy vailable JOSSELIN, CIELO Personal Relationship Unknown U navailable BRUENLLE, DAYTON Personal Relationship Unknown Lucy vailable JOSSELIN, DAYTON Personal Relationship Unknown Lucy vailable JOSSELIN, DAYTON Personal Relationship Unknown Lucy vailable JOSSELIN, DAYTON Personal Relationship Unknown Lucy vailable JOSSELIN, DAYTON Personal Relationship Unknown Lucy vailable BRUENLLE, DAYTON Personal Relationship Unknown Lucy vailable JOSSELIN, DAYTON Personal Relationship Unknown Lucy vailable JOSSELIN, DAYTON Personal Relationship Unknown Lucy vailable JOSSELIN, DAYTON Personal Relationship Unknown Lucy vailable BRUENLLE, DAYTON Personal Relationship Unknown Lucy vailable JOSSELIN, DAYTON Personal Relationship Unknown Lucy vailable JOSSELIN, DAYTON Personal Relationship Unknown Lucy vailable BRUENLLE, DAYTON Personal Relationship Unknown Lucy vailable JOSSELIN, DAYTON Personal Relationship Unknown Lucy vailable JOSSELIN, DAYTON Personal Relationship Unknown Lucy vailable JOSSELIN, DATYON Personal Relationship Unknown Lucy vailable JOSSELIN, DAYTON Personal Relationship Unknown Lucy vailable JOSSELIN, DAYTON Personal Relationship Unknown Lucy vailable JOSSELIN, DAYTON spouse Unknown Unavailable Care Team Providers Care Associate Embalmer/Funeral Director Name Role Phone Lian LEON, Kenney Altamirano Primary Care Physic lianna Encounter 05/02/24 - 05/20/24 [facility] Nurse [facility] [place] and [address] [address]- Discharge Disposition: GOALS MET Encounter Type: Disch [facility] Allergies, Adverse Reactions, Alerts Substance Criticality Severity Reaction Reaction Severity Status lisinopril SWELLING IN THR OAT AND NECK Active Levaquin High criticality Severe anaphylaxis A ctive Bee Stings Unable to assess criticality Persistent Severe swelling Active Medications allopurinol 100 mg oral tablet 100 mg, 1, tablet, By Mouth, Daily, # 30 tablet, Refills 0, Maintenance, 04/29/24 11:26:00 AM EST, Partial fill upon patient request if the prescription is for a schedule II opioid drug. Start Date: 04/29/24 Status: Ordered Quantity: 30.0 Unit: tablet Repeat number: 1 carvedilol 25 mg oral tablet 37.5 mg, 1.5, tablet, By Mouth, 2 times a day, # 180 tablet, Refills 0, Maintenance, 04/29/24 11:24:00 AM EST, Partial fill upon patient request if the prescription is for a schedule II opioid drug. Start Date: 04/29/24 Status: Ordered Quantity: 180.0 Unit: tablet Repeat number: 1 docusate sodium 100 mg oral capsule 1 capsule = 100 mg, By Mouth, 2 times a day, PRN as needed for constipation, with plenty of water, # 60 capsule, 0 Refills, Maintenance, 06/12/10 4:41:48 PM EST, Capsule Start Date: 06/12/10 Stop Date: 07/12/10 Status: Ordered Quantity: 60.0 Unit: capsule Repeat number: 1 doxazosin 4 mg oral tablet 1 tablet = 4 mg, By Mouth, Daily at bedtime, # 30 tablet, 0 Refills, Maintenance, 04/29/24 11:24:00AM EST, Tablet, Partial fill upon patient request if the prescription is for a schedule II opioid drug. Start Date: 04/29/24 Status: Ordered Quantity: 30.0 Unit: tablet Repeat number: 1 fenofibrate 145 mg oral tablet 1 tablet = 145 mg, By Mouth, Daily, # 30 tablet, 0 Refills, Maintenance, 04/29/24 11:24:00 AM EST, Tablet, Partial fill upon patient request if the prescription is for a schedule II opioid drug. Start Date: 04/29/24 Status: Ordered Quantity: 30.0 Unit: tablet Repeat number: 1 hydrALAZINE 100 mg oral tablet 1 tablet = 100 mg, By Mouth, 3 times a day, # 180 tablet, 0 Refills, Maintenance, 04/29/24 11:22:00AM EST, Tablet, Partial fill upon patient request if the prescription is for a schedule II opioid drug. Start Date: 04/29/24 Status: Ordered Quantity: 180.0 Unit: tablet Repeat number: 1 hydrALAZINE 100 mg oral tablet 1 tablet = 100 mg, By Mouth, 2 times a day, # 60 tablet, 0 Refills, Maintenance, 04/29/24 11:26:00 AM EST, Tablet, Partial fill upon patient request if the prescription is for a schedule II opioid drug. Start Date: 04/29/24 Status: Ordered Quantity: 60.0 Unit: tablet Repeat number: 1 leflunomide 20 mg oral tablet 1 tablet = 20 mg, By Mouth, Daily, # 30 tablet, 0 Refills, Maintenance, 04/29/24 11:23:00 AM EST, Tablet, Partial fill upon patient request if the prescription is for a schedule II opioid drug. Start Date: 04/29/24 Status: Ordered Quantity: 30.0 Unit: tablet Repeat number: 1 LORazepam 0.5 mg oral tablet 0.5 tablet = 0.25 mg, By Mouth, Daily at bedtime, 0 Refills, Maintenance, 04/29/24 11:21:00 AM EST,Tablet, Partial fill upon patient request if the prescription is for a schedule II opioid drug. Start Date: 04/29/24 Status: Ordered Repeat number: 1 metFORMIN 500 mg oral tablet 1 tablet = 500 mg, By Mouth, Daily, with meals, # 30 tablet, 0 Refills, Maintenance, 04/29/24 11:25:00 AM EST, Tablet, Partial fill upon patient request if the prescription is for a schedule II opioid drug. Start Date: 04/29/24 Status: Ordered Quantity: 30.0 Unit: tablet Repeat number: 1 NIFEdipine (Eqv-Procardia XL) 90 mg oral tablet, extended release 1 tablet = 90 mg, By Mouth, Daily at bedtime, 0 Refills, Maintenance, 04/29/24 11:23:00 AM EST, Partial fill upon patient request if the prescription is for a schedule II opioid drug. Start Date: 04/29/24 Status: Ordered Repeat number: 1 solifenacin 10 mg oral tablet 1 tablet = 10 mg, By Mouth, Daily, # 30 tablet, 0 Refills, Maintenance, 04/29/24 11:23:00 AM EST, Tablet, Partial fill upon patient request if the prescription is for a schedule II opioid drug. Start Date: 04/29/24 Status: Ordered Quantity: 30.0 Unit: tablet Repeat number: 1 spironolactone 25 mg oral tablet 25 mg, 1, tablet, By Mouth, Daily, # 30 tablet, Refills 0, Maintenance, 04/29/24 11:25:00 AM EST, Partial fill upon patient request if the prescription is for a schedule II opioid drug. Start Date: 04/29/24 Status: Ordered Quantity: 30.0 Unit: tablet Repeat number: 1 torsemide 10 mg oral tablet 1 tablet = 10 mg, By Mouth, Daily, # 90 tablet, 0 Refills, Maintenance, 04/29/24 11:26:00 AM EST, Tablet, Partial fill upon patient request if the prescription is for a schedule II opioid drug. Start Date: 04/29/24 Status: Ordered Quantity: 90.0 Unit: tablet Repeat number: 1 traMADol 50 mg oral tablet 1 tablet = 50 mg, By Mouth, Every 12 hours, PRN as needed for pain, 0 Refills, Maintenance, 04/29/24 11:25:00 AM EST, Tablet, Partial fill upon patient request if the prescription is for a schedule II opioid drug. Start Date: 04/29/24 Status: Ordered Repeat number: 1 Patient Care team information Care Team Personnel Name: Cherie Jett RN Position: S RN Member Role: Primary Care Nurse Name: Lian LEON, Kenney Altamirano Position: Reference Physician Member Role: PCP Address: [address] [place] [address] [address] [place] [id number] Telecom: Care Team Related Persons Name: DAYTON SCHWAB Insurance Providers Guarantor name: AWA Health Plan Information #: 1 Payer: [facility] [employer] Member Number: NA Policy Number: NA Group Number: NA
--- OUTSIDE RECORDS SUMMARY | 2024-05-27 15:24 | XMS_ITS | Continuity of Care Document ---
Author Organization [facility] ter Address [address] [place] [id number]- Support Name Relationship Address Phone JOSSELIN, DAYTON [...] spouse Unknown Unavailable Care Team Providers Care Carpet Yarn Winder Operator Name Role Phone Lian LEON, Kenney Altamirano Primary Care Physic lianna Encounter [facility] Date(s): 04/30/24 - 05/01/[address] [address]- Discharge Disposition: A-Transfer VNA/Home Health Attending Physician: Poncho Ruiz MD Admitting Physician: Poncho Ruiz MD Referring Physician: Poncho Ruiz MD Encounter Type: Disch Daystay Allergies, Adverse Reactions, Alerts Substance Criticality Severity [...] carvedilol 25 mg oral tablet 37.5 mg, Tablet, By Mouth, 04/30/24 9:00:00 PM EST Start Date: 04/30/24 Stop Date: 04/30/24 Status: Completed Repeat number: 1 carvedilol 25 mg oral tablet 37.5 mg, 1.5, tablet, By Mouth, 2 times a day, # 180 tablet, Refills 0, Maintenance, 04/29/24 11:24:00 AM EST, Partial fill upon patient request if the prescription is for a schedule II opioid drug. Start Date: 04/29/24 Status: Ordered Quantity: 180.0 Unit: tablet Repeat number: 1 carvedilol 25 mg oral tablet 37.5 mg, Tablet, By Mouth, 05/01/24 9:00:00 AM EST Start Date: 05/01/24 Stop Date: 05/01/24 Status: Completed Repeat number: 1 docusate sodium 100 mg [...] Quantity: 60.0 Unit: tablet Repeat number: 1 hydrALAZINE 25 mg oral tablet 100 mg, Tablet, By Mouth, 05/01/24 9:00:00 AM EST Start Date: 05/01/24 Stop Date: 05/01/24 Status: Completed Repeat number: 1 leflunomide 20 mg oral [...] Date: 04/29/24 Status: Ordered Repeat number: 1 NIFEdipine 30 mg oral tablet, extended release 90 mg, ER Tablet, By Mouth, 05/01/24 9:00:00 AM EST Start Date: 05/01/24 Stop Date: 05/01/24 Status: Completed Repeat number: 1 oxyCODONE 5 mg oral tablet 5 mg, By Mouth, Every 6 hours, PRN, # 28 tablet, Refills 0, Tot. Refills 0, Acute 05/09/24 2:29:00 PM EST, Pain , Moderate, 04/30/24 2:29:00 PM EST, Route to Pharmacy Electronically, [facility], Partial fill upon patient request if the prescription is for a schedule II opioid drug., 172.72, cm, 04/30/24 12:03:00 EST, Height, 72.4, kg, 04/30/24 12:03:00 EST, Dry Weight Start Date: 04/30/24 Stop Date: 05/09/24 Status: Ordered Quantity: 28.0 Unit: tablet Repeat number: 1 oxyCODONE 5 mg oral tablet 10 mg, Tablet, By Mouth, Every 6 hours, PRN for Pain , Severe, Routine, 04/30/24 11:12:00 AM EST Start Date: 04/30/24 Stop Date: 05/02/24 Status: Discontinued Repeat number: 1 solifenacin 10 mg oral [...] Date: 04/29/24 Status: Ordered Repeat number: 1 Procedures Procedure Date Related Diagnosis Body Site Status Laminectomy, facetectomy and foraminotomy (unilateral or bilateral with decompression of spinal cord, cauda equina and/or nerve root[s], [eg, spinal or lateral recess stenosis]), single vertebral segment; lumbar Comple kristopher Results Radiology Reports * Exam Date Time Procedure Performing Provider Status 04/30/24 5:07 PM Spine Single View Yun Hall (Verified) Notes: (Spine Single View) Reason For Exam: Laminectomy posterior lumbar RESULT: Spine Single View Study: Spine Single View History: Reason: Laminectomy posterior lumbar. Comparison: Lumbar spine MRI dated 09/13/2023 . FINDINGS: Single lateral view of the lumbar spine obtained intraoperatively was submitted. Image quality is suboptimal due to under penetration of x-ray beams. There are degenerative changes in the lumbar spine. There is grade 1 retrolisthesis of L3 on L4 and grade 1 anterolisthesis of L5 on S1. IMPRESSION: Single lateral view intraoperative image of the lumbar spine showing degenerative changes. WSN: [id number] Ordering Physician: Poncho Ruiz Dictated By: Wilmer Harley MD Dictated Date/Time: 04/30/24 5:44 pm Reviewed By: Wilmer Harley MD Signed By: Wilmer Harley MD Signed Date/Time: 04/30/24 5:44 pm Transcribed By: ELDER Transcribed Date/Time: 04/30/24 5:43 pm Vital Signs Most recent to oldest [Reference Range]: 1 2 3 Height 172.72 cm (05/01/24 7:14 AM) 172.72 cm (04/30/24 12:03 PM) 172.72 cm (04/29/24 11:32 AM) Weight 75.00 kg (04/30/24 12:03 PM) 75.00 kg (04/29/24 11:32 AM) Oxygen Saturation [94-100 %] 96 % (05/01/24 7:14 AM) 96 % (05/01/24 6:03 AM) 95 % (05/01/24 4:10 AM) Pulse Rate [55-90 bpm] 81 bpm (05/01/24 7:45 AM) 72 bpm (05/01/24 7:14 AM) 72 bpm (04/30/24 8:38 PM) Body Mass Index [18.5-24.99 kg/m2] 25.14 kg/m2 *H* (04/30/24 12:03 PM) 25.14 kg/m2 *H* (04/29/24 11:32 AM) Blood Pressure [90-138/55-84 mm Hg] 177/62mm Hg *H* (05/01/24 7:45 AM) 177/62mm Hg *H* (05/01/24 7:44 AM) 177/72mm Hg *H* (05/01/24 7:44 AM) Respiratory Rate [16-30 br/min] 18 br/min (05/01/24 1:00 PM) 18 br/min (05/01/24 7:14 AM) 19 br/min (05/01/24 6:03 AM) Temperature [96.8-100.4 DegF] 98.7 DegF (05/01/24 7:14 AM) 98.0 DegF (05/01/24 6:00 AM) 97.9 DegF (05/01/24 4:00 AM) Liters per Minute 0 L/min (05/01/24 7:14 AM) Mode of Delivery (Oxygen) Room air (05/01/24 7:14 AM) Room air (05/01/24 4:00 AM) Room air (04/30/24 11:21 PM) Blood pressure sites Arm, left (05/01/24 7:14 AM) Arm, right (04/30/24 5:00 PM) Arm, right (04/30/24 12:03 PM) Temperature Route Oral (05/01/24 7:14 AM) Temporal (05/01/24 6:00 AM) Temporal (05/01/24 4:00 AM) Dry Weight 72.4 kg (04/30/24 12:03 PM) 75.00 kg (04/29/24 11:32 AM) Weight Obtained Via Patient/family stated (04/29/24 11:32 AM) Dry Weight Obtained Via Patient/family stated (04/29/24 11:32 AM) History and physical note * Event Display: History and Physical Hospital Authored Date: * Event Display: History and Physical Hospital Authored Date: * Marjorie Jolly NP: PERFORM Event Display: History and Physical Hospital Authored Date: Patient: ??CIELO SCHWAB ? Age:??89 Years?Sex:??Male?:??1935?? Provider Clinical Summary Surgical H&P ?? I am seeing the patient today under the supervision of Dr. Nguyen who was available but who did not see the patient. ?? Surgery: Posterior laminectomy and decompression lumbar spine L4-L5 Surgery date: 04/30/2024 Surgeon: Dr. Ruiz ?? HPI: 89-year-old man presents for pre-op clearance for above surgery. He had previous medical clearance with his PCP, we are awaiting that report. 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 Back pain and bilateral foot numbness as well. MRI Notable for stenosis fairly significant at the L4-5 level. Associated canal compromise and nerve root impingement. History of lumbar spinal stenosis and associated neuro claudication present over the last several years. Refractory to nonoperative care including injection management. Treated for bladder cancer earlier this year. Now chemotherapy completed. Previously discussed surgery with Dr. Ruiz and wishes to proceed. This patient has pain which interferes with activities of daily living. Pathology by MRI. This patient has failed 6 months of conservative treatment including narcotic and non-narcotic pain medications, activity modification, a full course of physical therapy including exercise-based care and modalities. The patient is a non-smoker and has documented cessation of smoking for at least 6 weeks prior to booking surgery. ?? ROS: Denies fevers/chills, skin lesions, cardiac/respiratory symptoms, GI/ disturbances ?? PMH: - per EMR Reviewed Problems Malignant neoplasm of urinary bladder - Type 2 diabetes mellitus without complication - Hypertriglyceridemia - Gouty arthropathy - Essential hypertension - Rheumatoid arthritis - * no history of blood clots ?? Medications: allopurinoL 100 mg tablet TAKE 1 TABLET BY MOUTH DAILY ?? carvediloL 25 mg tablet 1.5 tabs twice daily ?? doxazosin 4 mg tablet Take 1 tablet(s) every day by oral route for 90 days. ?? fenofibrate nanocrystallized 145 mg tablet Take 1 tablet(s) every day by oral route for 90 days. ?? FREESTYLE LANCETS MISC ?? FreeStyle Lancets 28 gauge USE TO TEST DAILY ?? FreeStyle Lite Strips USE TO TEST DAILY ?? hydrALAZINE 100 mg tablet Take 1 tablet(s) 3 times a day by oral route for 90 days. ?? leflunomide 20 mg tablet Take 1 tablet(s) every day by oral route for 90 days. ?? LORazepam 0.5 mg tablet TAKE 1 TABLET BY MOUTH AT BEDTIME NEEDED FOR ANXIETY FOR 10 DAYS ?? metFORMIN 500 mg tablet Take 1 tablet(s) every day by oral route for 90 days. ?? NIFEdipine ER 90 mg tablet,extended release 24 hr TAKE 1 TABLET BY MOUTH EVERY DAY ?? solifenacin 10 mg tablet TAKE 1 TABLET BY MOUTH EVERY DAY ?? spironolactone 25 mg tablet Take 1 tablet(s) every day by oral route for 90 days. ?? tadalafiL 5 mg tablet TAKE ONE TABLET BY MOUTH EVERY DAY FOR BPH ?? torsemide 10 mg tablet Take 1 tablet(s) every day by oral route for 90 days. ?? traMADoL 50 mg tablet TAKE ONE TABLET BY MOUTH TWICE A DAY NEEDED FOR PAIN ?? Allergies: Levaquin (anaphylaxis, required intubation) Lisinopril (angioedema, severe) ?? PSH: - per EMR * no history of reaction to anesthesia ?? Family Hx: N/A ?? Reviewed Social History Substance Use Do you or have you ever smoked tobacco?: Former smoker How many years have you smoked tobacco?: 45 When did you quit smoking?: 16+ years since last cigarette Do you or have you ever used any other forms of tobacco or nicotine?: Yes Do you or have you ever used e-cigarettes or vape?: Never used electronic cigarettes How many times per week do you consume alcohol?: Less than 1 time per week Do you use any illicit or recreational drugs?: No Marriage and Sexuality What is your relationship status?: ?? Exam: General: Well appearing. No acute distress. Psychiatric: Answers questions appropriately. Heart: Regular rate and rhythm. No murmurs, rubs, or gallops. Lungs: Respirations non-labored. Clear to auscultation throughout. No crackles, rales, or wheezes. Abdomen: non-distended, non-tender to palpation. +BS x4. Neurologic: - Motor function: grossly intact - Sensation: grossly intact to light moving touch Skin: intact without lacerations, rashes, or breakdown Extremities: bilateral lower extremities equal in movement and strength 5/5 ?? Vital signs: BMI:?25.8 04/22/2024 01:36 pm Ht:?5 ft 8 in 04/22/2024 01:36 pm BP:?148/84 04/22/2024 02:33 pm Pain Scale:?5 04/22/2024 01:36 pm Wt:?170 lbs 04/22/2024 01:36 pm ?? Imaging: not indicated today - lumbar spine MRI previously reviewed by Dr. Ruiz notable for stenosis fairly significant at the L4-5 level. Associated canal compromise and nerve root impingement. ?? Impression & Plan: 1- Findings, situation, and recommendations discussed with patient and 2- Procedure recommended to patient is Posterior laminectomy and decompression lumbar spine L4-L5 3- Risks of surgical procedure reviewed w/ patient and 4- Questions asked and answered and patient wishes to proceed with surgical intervention 5- Surgical H&P performed with procedure planned to be within the next 30 days 6- Patient will be NPO after midnight prior to surgery. Patient given pre surgical wash 7- Patient educated to hold the following medications: stop NSAIDs, and vitamins 5 days prior to surgery. Stop leflunomide 7 days before surgery, if cleared with PCP. resume after per PCP or print traffic manager. 8- Morning of surgery, he may take Carvedilol with small sip of water. Hold all other meds the morning of surgery. 9- Stay overnight 1-2 nights, depending on recovery and mobility. PT/OT eval, may need home services 10- awaiting documented clearance from PCP and cardiology for final clearance for surgery ?? Speech recognition software utilized for portions of this note. An attempt at proofreading was made for corrections. Problem List/Past Medical History Ongoing No qualifying data Medications Inpatient No active inpatient medications Home docusate sodium 100 mg oral capsule, 100 mg= 1 capsule, By Mouth, 2 times a day, PRN Allergies Bee Stings??(swelling) Hospital Progress note * Poncho Ruiz MD: PERFORM, SIGN, VERIFY Event Display: Progress Note Hospital Authored Date: Patient: CIELO SCHWAB Age: 89 years Sex: Male : 1935 Associated Diagnoses: None Author: Poncho Ruiz MD Health Status Allergies Allergic Reactions (Selected) Severe Levaquin- Anaphylaxis. Persistent Severe Bee Stings- Swelling. Severity Not Documented Lisinopril- Swelling in throat and neck. Patient With a good appetite. Ambulating to bathroom. Ambulating in hallway. With Salazar catheter. Incision pain is improved Results Review Vital Signs Vitals : VITALS 05/01/2024 7:14 EST Temperature 98.7 DegF Pulse Rate 72 bpm Respiratory Rate 18 br/min Systolic Blood Pressure 152 mm Hg H Diastolic Blood Pressure 61 mm Hg Physical Examination Neurologic Status alert appropriate. Motor Exam improved. Sensory baseline. Incision Drainage: serosanguinous. Impression and Plan Plan for D/C home when ambulating and eating needs to void adaquatly Note * Cherie Jett RN: PERFORM Event Display: Discharge/Transfer Note Hospital Authored Date: [id number] Nursing Discharge Note Entered On: 05/01/2024 10:30 EST Performed On: 05/01/2024 10:30 EST by Cherie Jett RN Nursing Discharge Note 2 Discharge Time : 05/01/2024 13:21 EST Cherie Jett RN - 05/01/2024 14:05 EST Discharge Level of Care at Discharge : Homehealth/VNA Patient Left Unit Via : Wheelchair Patient Accompanied Off Unit with : Responsible adult, Other: staff DC Instructions Provided & Signed by Pt : Yes Patient Understands D/C Instructions : Yes Patient Instructions Discharge Signed : Yes Did Pt have Specialty Bed or Wound Vac : No Cherie Jett RN - 05/01/2024 10:30 EST * Cherie Jett RN: PERFORM Event Display: Patient Education/Instruction Authored Date: [id number] Inpatient Adult Discharge Instructions. [address] [id number] Name: CIELO SCHWAB : 1935?? Visit: 04/30/2024 11:10?? Current Date: 05/01/2024 12:20 ?? Account: [id number]?? Inpatient Adult Discharge Instructions We would like to thank you for allowing us to assist you with your healthcare needs. The following includes patient education materials and information regarding your injury/illness. Our entire staffstrives to provide an excellent experience for our patients and their families. PLEASE ENSURE YOU FOLLOW-UP PER THE INSTRUCTIONS BELOW! ?? YOUR OPINION IS IMPORTANT TO US! Please complete the survey you may receive by mail or email. Your feedback will be used to make improvements to the healthcare experiences of our patients and their families. Surveys are administered by [employer] ?? If further treatment with your primary care physician or another doctor is recommended, it is important for you to keep the appointment. Call your primary care physician or return to the Emergency Department immediately if your condition worsens, fails to improve, or new symptoms develop. If you need to find a doctor, you can call [facility] for a referral at [phone] or toll free at [phone]) or log in to [email or web address].. ?? [facility], in keeping with [facility] guidance, no longer requires face masks for staff, patientsor visitors in most situations. Similiar to time spent indoors at other locations, there is the chance that you were exposed to repiratory viruses during your time with us (such as flu or COVID-19). If you develop symptoms concerning for a viral respiratory infection, please seek testing (and treatment if indicated) from your medical provider or home test kit. ?? You can view and manage your care through the patient portal or by using a health care nata of your choosing. [employer] is a website that allows you to securely view your medical information including your hospital discharge summary, office visit summaries, medications and follow-up visits. You can also request appointments, renew medications, and request access to your medical information using a health care nata of your choosing, or just ask a question. You can enroll at [email or web address] or register during your next office visit. You have been discharged from [facility], Patient Care Unit: S3??. If you have any questions regarding these instructions, including results of studies pending, afteryou leave, please call us and we will be happy to assist you 07/01. [facility] Your Care Team Attending Physician Poncho Ruiz MD?? Consulting Providers Poncho Ruiz MD?? Discharging Providers Poncho Ruiz MD Your Diagnosis Lumbar spinal stenosis Tests Performed Below is a partial list of the tests performed during your hospitalization. You may have had other tests and procedures not included in this list. Please discuss all test results with your provider. GLUCOSE POC XR Spine Single View Glucose POC?? Spine Single View?? Primary Care Provider Kenney Beal MD? Advance Directive Health Care Proxy on File No Discharge Vitals Temperature: 98.7 DegF Height: 172.72 cm Pulse Rate: 81 bpm Weight: 75 kg Respiratory Rate: 18 br/min Body Mass Index:??25.14 kg/m2??High Systolic Blood Pressure:??177 mm Hg??High Body surface area: 1.9 Diastolic Blood Pressure: 62 mm Hg ?? Oxygen Saturation: 96 % ?? Studies Pending All studies ordered during this hospital stay have been completed unless listed below. Please discuss all pending results with your provider listed above in these instructions. ?? No incomplete studies found?? What to do next Instructions From Your Doctor ?? Orders?? , ??when voidng>200cc, ??05/01/24 7:59:00 EST?? You Need to Schedule the Following Appointments Follow Up with??As Needed Follow Up with??Lian LEON, Kenney Altamirano Where: [address] [place] [address]- Discharge Medications CIELO SCHWAB :1935 Visit Date:04/30/2024 Medications: Please continue your medications until treatment is completed or stopped by your provider. Medications not listed below should be discontinued. Discuss any questions related to medications with your provider. What How Much When Instructions Next Dose New Oxycodone (oxyCODONE 5 mg oral tablet) 5 Milligram Oral Every 6 hours as needed for Pain , Moderate Pickup at [facility] 3 Unchanged Allopurinol (allopurinol 100 mg oral tablet) 1 tab(s) Oral Daily Unchanged Carvedilol (carvedilol 25 mg oral tablet) 1.5 tab(s) Oral Twice a day Unchanged Docusate (docusate sodium 100 mg oral capsule) 1 capsule Oral Twice a day as needed for as needed for constipation Duration: 30 Days with plenty of water ?? Unchanged Doxazosin (doxazosin 4 mg oral tablet) 1 tab(s) Oral Daily at Bedtime Unchanged Fenofibrate (fenofibrate 145 mg oral tablet) 1 tab(s) Oral Daily Unchanged hydrALAZINE (hydrALAZINE 100 mg oral tablet) 1 tab(s) Oral Twice a day Unchanged hydrALAZINE (hydrALAZINE 100 mg oral tablet) 1 tab(s) Oral 3 times a day Unchanged Leflunomide (leflunomide 20 mg oral tablet) 1 tab(s) Oral Daily Unchanged Lorazepam (LORazepam 0.5 mg oral tablet) 0.5 tab(s) Oral Daily at Bedtime Unchanged Metformin (metFORMIN 500 mg oral tablet) 1 tab(s) Oral Daily with meals ?? Unchanged NIFEdipine (NIFEdipine (Eqv-Procardia XL) 90 mg oral tablet, extended release) 1 tab(s) Oral Daily at Bedtime Unchanged Solifenacin (solifenacin 10 mg oral tablet) 1 tab(s) Oral Daily Unchanged Spironolactone (spironolactone 25 mg oral tablet) 1 tab(s) Oral Daily Unchanged torsemide (torsemide 10 mg oral tablet) 1 tab(s) Oral Daily Unchanged Tramadol (traMADol 50 mg oral tablet) 1 tab(s) Oral Every 12 hours as needed for as needed for pain [facility] Information [facility]: [address], [place] [id number] [phone] Prescription Given During Visit Oxycodone (oxyCODONE 5 mg oral tablet) - 5 mg, By Mouth, Every 6 hours, # 28 tablet, 0 Refills, [facility], [address] [place] [phone]?? Laboratory Results Below is a partial list of the most recent Laboratory test results done prior to this discharge. You may have had other tests and procedures not included in this list. Please discuss all test resultswith your provider. GLUCOSE POC (05/01/2024) ???Glucose, POC - 159 mg/dL You will be contacted within 72 hours with your results. Allergies (NKA means No Known Allergies) Levaquin??(anaphylaxis) Bee Stings??(swelling) lisinopril??(SWELLING IN THROAT AND NECK) Problems No qualifying data available Education Materials Below is the list of Educational Leaflet Providered with your Discharge Instructions. [employer] Patient Education - Recovering from Laminectomy or Laminotomy?? [employer] Patient Education - Discharge Instructions for Laminectomy?? Valuables and Belongings I fully understand and agree that [facility] accepts no responsibility for all my personal property including clothing, toilet articles, radios, jewelry, dentures, hearing aids, rings, money, or any other property that is in my possession or is brought to me after admission. I understand certain valuables may be placed in a hospital safe for a short period of time. I understand that the hospital is not liable for loss or damage due to accident, fire, or other natural occurrence while said property is in the safe. I accept full responsibility for any personal property that I keep with me, and will not hold the hospital responsible in case of loss or disappearance. I acknowledge that i have been encouraged to send valuables and belongings home. ?? Review of Valuable and Belonging List: With patient Date for Pt to Sign Valuables/Belongings: 05/01/24 07:14:00 ?? Other Discharge Information ? Case Management Discharge Plan?? Discharge Plan?? Discharge Agency Information?? Discharge Level of Care at Discharge: Homehealth/VNA Name of Agency #1: [facility] Discharge Transportation Arranged: Family Agency Community Associate #1: Intake Mode of Transportation Arranged: Car Service Categories #1: Occupational Therapy, Physical Therapy Discharge VNA/Hospice/Home Care: [facility] [phone] Service Comments #1: [facility] [phone] will provide your care after discharge, if any questions or concerns please contact the agency directly ?? Pulmonary Rehab Status?? Pulmonary Rehab Discharge Status?? Respiratory Rate: 18 br/min ? Common Emergency Awareness Tips IS IT A STROKE? Act FAST and Check for these signs: FACE Does the face look uneven? ARM Does one arm drift down? SPEECH Does their speech sound strange? TIME Call at any sign of stroke ?? Heart Attack Signs Chest discomfort: Most heart attacks involve discomfort in the center of the chest and lasts more than a few minutes, or goes away and comes back. It can feel like uncomfortable pressure, squeezing, fullness or pain. Discomfort in upper body: Symptoms can include pain or discomfort in one or both arms, back, neck, jaw or stomach. Shortness of breath: With or without discomfort. Other signs: Breaking out in a cold sweat, nausea, or lightheaded. Remember, MINUTES DO MATTER. If you experience any of these heart attack warning signs, call to get immediate medical attention! ?? Smoking can increase your chances of developing chronic health problems and can cause harmful effects to other family members in your house. If you smoke, you are strongly encouraged to quit. Please call [facility] Link at [phone] or [phone]) or log in to [email or web address] for referrals to smoking cessation programs. ?? 988 Suicide & Crisis Lifeline is available 07/01 if you or someone you know needs to find a reason to keep living. By calling 988 you'll be connected to a skilled, trained counselor at a crisis center in your area. INPATIENT DISCHARGE INSTRUCTIONS SIGNATURE PAGE CIELO SCHWAB Location:[facility] Registration Date and Time:04/30/2024 11:10 EST Primary Care Physician: iLan LEON, Kenney Altamirano, Attending Physician: Sara LEON, Poncho Gomez, I CIELO SCHWAB, have received the above patient education materials/instructions and have verbalized understanding. If ambulance or transport services are being used I further acknowledge being given a choice of service. ?? If you need to contact me, please call me at this number: . Patient/Flying Ii Instructor Name: Patient/Flying Ii Instructor Signature: Relationship to Patient: Witness Name/Signature: Date: * Cherie Jett RN: PERFORM Event Display: Patient Education/Instruction Authored Date: [id number] Inpatient Adult Discharge Instructions. [address] [address] Name: CIELO SCHWAB : 1935?? Visit: 04/30/2024 11:10?? Current Date: 05/01/2024 10:31 ?? Account: [id number]?? Inpatient Adult Discharge Instructions We would like to thank you for allowing us to assist you with your healthcare needs. The following includes patient education materials and information regarding your injury/illness. Our entire staffstrives to provide an excellent experience for our patients and their families. PLEASE ENSURE YOU FOLLOW-UP PER THE INSTRUCTIONS BELOW! ?? YOUR OPINION IS IMPORTANT TO US! Please complete the survey you may receive by mail or email. Your feedback will be used to make improvements to the healthcare experiences of our patients and their families. Surveys are administered by [employer] ?? If further treatment with your primary care physician or another doctor is recommended, it is important for you to keep the appointment. Call your primary care physician or return to the Emergency Department immediately if your condition worsens, fails to improve, or new symptoms develop. If you need to find a doctor, you can call [facility] Link for a referral at [phone] or toll free at [phone]) or log in to [email or web address].. ?? [facility], in keeping with [facility] guidance, no longer requires face masks for staff, patientsor visitors in most situations. Similiar to time spent indoors at other locations, there is the chance that you were exposed to repiratory viruses during your time with us (such as flu or COVID-19). If you develop symptoms concerning for a viral respiratory infection, please seek testing (and treatment if indicated) from your medical provider or home test kit. ?? You can view and manage your care through the patient portal or by using a health care nata of your choosing. [employer] is a website that allows you to securely view your medical information including your hospital discharge summary, office visit summaries, medications and follow-up visits. You can also request appointments, renew medications, and request access to your medical information using a health care nata of your choosing, or just ask a question. You can enroll at [email or web address] or register during your next office visit. You have been discharged from [facility], Patient Care Unit: S3??. If you have any questions regarding these instructions, including results of studies pending, afteryou leave, please call us and we will be happy to assist you 07/01. [facility] Your Care Team Attending Physician Poncho Ruiz MD?? Consulting Providers Poncho Ruiz MD?? Discharging Providers Poncho Ruiz MD Your Diagnosis Lumbar spinal stenosis Tests Performed Below is a partial list of the tests performed during your hospitalization. You may have had other tests and procedures not included in this list. Please discuss all test results with your provider. GLUCOSE POC XR Spine Single View Glucose POC?? Spine Single View?? Primary Care Provider Kenney Beal MD? Advance Directive Health Care Proxy on File No Discharge Vitals Temperature: 98.7 DegF Height: 172.72 cm Pulse Rate: 81 bpm Weight: 75 kg Respiratory Rate: 18 br/min Body Mass Index:??25.14 kg/m2??High Systolic Blood Pressure:??177 mm Hg??High Body surface area: 1.9 Diastolic Blood Pressure: 62 mm Hg ?? Oxygen Saturation: 96 % ?? Studies Pending All studies ordered during this hospital stay have been completed unless listed below. Please discuss all pending results with your provider listed above in these instructions. ?? No incomplete studies found?? What to do next Instructions From Your Doctor ?? Orders?? , ??when voidng>200cc, ??05/01/24 7:59:00 EST?? You Need to Schedule the Following Appointments Follow Up with??As Needed Follow Up with??Lian LEON, Kenney Altamirano Where: [address] [place] [address]- Discharge Medications CIELO SCHWAB :1935 Visit Date:04/30/2024 Medications: Please continue your medications until treatment is completed or stopped by your provider. Medications not listed below should be discontinued. Discuss any questions related to medications with your provider. What How Much When Instructions Next Dose New Oxycodone (oxyCODONE 5 mg oral tablet) 5 Milligram Oral Every 6 hours as needed for Pain , Moderate Pickup at [facility] 3 NEEDED Unchanged Allopurinol (allopurinol 100 mg oral tablet) 1 tab(s) Oral Daily 05/02 Unchanged Carvedilol (carvedilol 25 mg oral tablet) 1.5 tab(s) Oral Twice a day 05/01 Unchanged Docusate (docusate sodium 100 mg oral capsule) 1 capsule Oral Twice a day as needed for as needed for constipation Duration: 30 Days with plenty of water ?? NEEDED Unchanged Doxazosin (doxazosin 4 mg oral tablet) 1 tab(s) Oral Daily at Bedtime 05/01 Unchanged Fenofibrate (fenofibrate 145 mg oral tablet) 1 tab(s) Oral Daily 05/02 Unchanged hydrALAZINE (hydrALAZINE 100 mg oral tablet) 1 tab(s) Oral Twice a day 05/01 Unchanged hydrALAZINE (hydrALAZINE 100 mg oral tablet) 1 tab(s) Oral 3 times a day 3P05/01 Unchanged Leflunomide (leflunomide 20 mg oral tablet) 1 tab(s) Oral Daily 05/02 Unchanged Lorazepam (LORazepam 0.5 mg oral tablet) 0.5 tab(s) Oral Daily at Bedtime 05/01 Unchanged Metformin (metFORMIN 500 mg oral tablet) 1 tab(s) Oral Daily with meals ?? 05/02 Unchanged NIFEdipine (NIFEdipine (Eqv-Procardia XL) 90 mg oral tablet, extended release) 1 tab(s) Oral Daily at Bedtime Unchanged Solifenacin (solifenacin 10 mg oral tablet) 1 tab(s) Oral Daily Unchanged Spironolactone (spironolactone 25 mg oral tablet) 1 tab(s) Oral Daily Unchanged torsemide (torsemide 10 mg oral tablet) 1 tab(s) Oral Daily Unchanged Tramadol (traMADol 50 mg oral tablet) 1 tab(s) Oral Every 12 hours as needed for as needed for pain [facility]: [address], [place] [id number] [phone] Prescription Given During Visit Oxycodone (oxyCODONE 5 mg oral tablet) - 5 mg, By Mouth, Every 6 hours, # 28 tablet, 0 Refills, [facility] [address], [address] [place] [phone]?? Laboratory Results Below is a partial list of the most recent Laboratory test results done prior to this discharge. You may have had other tests and procedures not included in this list. Please discuss all test resultswith your provider. GLUCOSE POC (05/01/2024) ???Glucose, POC - 206 mg/dL You will be contacted within 72 hours with your results. Allergies (NKA means No Known Allergies) Levaquin??(anaphylaxis) Bee Stings??(swelling) lisinopril??(SWELLING IN THROAT AND NECK) Problems No qualifying data available Education Materials Below is the list of Educational Leaflet Providered with your Discharge Instructions. Valuables and Belongings I fully understand and agree that [facility] accepts no responsibility for all my personal property including clothing, toilet articles, radios, jewelry, dentures, hearing aids, rings, money, or any other property that is in my possession or is brought to me after admission. I understand certain valuables may be placed in a hospital safe for a short period of time. I understand that the hospital is not liable for loss or damage due to accident, fire, or other natural occurrence while said property is in the safe. I accept full responsibility for any personal property that I keep with me, and will not hold the hospital responsible in case of loss or disappearance. I acknowledge that i have been encouraged to send valuables and belongings home. ?? Review of Valuable and Belonging List: With patient Date for Pt to Sign Valuables/Belongings: 05/01/24 07:14:00 ?? Other Discharge Information ? Case Management Discharge Plan?? Discharge Plan?? Discharge Level of Care at Discharge: Homehealth/VNA ?? Pulmonary Rehab Status?? Pulmonary Rehab Discharge Status?? Respiratory Rate: 18 br/min ? Common Emergency Awareness Tips IS IT A STROKE? Act FAST and Check for these signs: FACE Does the face look uneven? ARM Does one arm drift down? SPEECH Does their speech sound strange? TIME Call at any sign of stroke ?? Heart Attack Signs Chest discomfort: Most heart attacks involve discomfort in the center of the chest and lasts more than a few minutes, or goes away and comes back. It can feel like uncomfortable pressure, squeezing, fullness or pain. Discomfort in upper body: Symptoms can include pain or discomfort in one or both arms, back, neck, jaw or stomach. Shortness of breath: With or without discomfort. Other signs: Breaking out in a cold sweat, nausea, or lightheaded. Remember, MINUTES DO MATTER. If you experience any of these heart attack warning signs, call to get immediate medical attention! ?? Smoking can increase your chances of developing chronic health problems and can cause harmful effects to other family members in your house. If you smoke, you are strongly encouraged to quit. Please call [facility] Link at [phone] or [phone] ([phone]) or log in to [email or web address] for referrals to smoking cessation programs. ?? 766 Suicide & Crisis Lifeline is available 07/01 if you or someone you know needs to find a reason to keep living. By calling 307 you'll be connected to a skilled, trained counselor at a crisis center in your area. INPATIENT DISCHARGE INSTRUCTIONS SIGNATURE PAGE CIELO SCHWAB Location:[facility] Registration Date and Time:04/30/2024 11:10 [facility] Primary Care Physician: Lian LEON, Kenney Altamirano, Attending Physician: Sara LEON, Poncho Gomez, I CIELO SCHWAB, have received the above patient education materials/instructions and have verbalized understanding. If ambulance or transport services are being used I further acknowledge being given a choice of service. ?? If you need to contact me, please call me at this number: . Patient/Flying Ii Instructor Name: Patient/Flying Ii Instructor Signature: Relationship to Patient: Witness Name/Signature: Date: * Cherie Jett RN: PERFORM Event Display: Patient Education Leaflets Authored Date: [id number] Recovering from Laminectomy or Laminotomy ?? [address] Recovering from Laminectomy or Laminotomy After surgery, you can expect to feel some pain at first. To gain the best pain relief, answer honestly when you are asked how much you hurt. Also expect healthcare providers to help you get up and moving. And you???ll be shown how to clear your lungs. Controlling pain At first, you may be given pain medicine through an IV (intravenous) catheter??or by injection. Expect to feel some pain, even with the medicine. This is normal. But if the medicine doesn't reduce your pain enough, be sure to tell the nurse. The nurse will ask you to rate your pain on a scale of 0 to 10, with 10 being the worst of all pains. If your pain is 5 or greater and hard to tolerate, ask for pain medicine. ?? DROP WIRE STRINGER puts you in control With DROP WIRE STRINGER (patient-controlled analgesia), pain medicine is sent through your IV line at the push of a button. To provide a steady level of pain relief, only you should push the button. For your safety, the pumps have special features to limit the amount of medicine you get. Once you are able to eat and take medicine by mouth, you will be taken off your DROP WIRE STRINGER pump and given oral pain medicine (pills)as prescribed by your healthcare provider. ?? Getting up and moving You may start to walk within hours after surgery. Often this is done with the help of a walker. This reduces some risks of surgery, such as blood clots. With an IV and a DROP WIRE STRINGER pump in place, walking may be a little tricky. But don???t worry. A healthcare provider will help you. Ask for help from yourhealthcare provider before trying to get up on your own without help, especially if you have been taking pain medicine. ?? Clearing your lungs Fluid can collect in the lungs after any surgery. To clear your lungs and prevent pneumonia, breathe deeply and cough. You should do this often???at least a few times each hour. A respiratory therapist or nurse may show you how to use an incentive spirometer. This machine can help you breathe in and out the right way. Using an incentive spirometer helps keep your lungs clear after surgery. ?? Last Reviewed Date: 2023 ?? [employer]. All rights reserved. This information is not intended as a substitute for professional medical care. Always follow your healthcare professional's instructions. ?? * Cherei Jett RN: PERFORM Event Display: Patient Education Leaflets Authored Date: [id number] Discharge Instructions for Laminectomy ?? [address] Discharge Instructions for Laminectomy A surgeon removed a piece of bone from the back of your spine called the lamina. This procedure is called laminectomy. Its purpose is to relieve the pressure caused by a bulging disk, ligament, cyst,tumor, or bone that painfully pushes on a nerve. Below are some care tips you can follow at home tohelp you feel better. Activity ??? Don't push, pull, bend, or twist for the initial few weeks after your surgery. Your healthcare provider will tell you how to use your back safely after surgery. You can use a long-handled grabber to pick items up from the floor. You can also use an assistive device to help pull on your socks without bending. Ask your physical therapist about these items before you leave the hospital. ??? Don???t sit for more than?? 20 to 30 ??minutes at a time. And when you aren???t sitting, lie down or walk. ??? Walk as much as you can. You can walk outside or inside. If you use a treadmill, walk at a slow speed, with no incline. Hold on to the treadmill handrails while you walk. Be certain to turn the machine off before stepping off. ??? Going up and down stairs is also good for you, so do it as much as possible.??Don???t lift anything heavier than?? 10 pounds ??until your healthcare provider says otherwise. ??? Don???t drive for?? 2 to 3??weeks after your surgery. And never drive if you are taking opioids or other pain medicines that can make you drowsy. Let others drive you instead. And limit car trips to?? 20 to 30 ??minutes at a time. ??? Have someone remove electrical cords, throw rugs, and anything else in your home that may cause you to fall. If you have pets, make certain they are controlled or confined before you walk so they don't accidentally trip you. ??? Arrange your household to keep the items you need handy. ?? Home care ??? Take your medicine exactly as directed by your healthcare provider. ??? Check your incision daily for redness, tenderness, or drainage. ??? Don???t soak in a bathtub, hot tub, or pool until your healthcare provider says it???s OK. ??? Follow your surgeon's instructions on when you canstart showering. This is usually 24 to 48 hours after surgery. Then shower as needed. After showering, gently pat the incision dry. Don???t rub it or apply creams or lotions. ??? For safety, use grabbars in the shower. Use a shower chair if you find yourself tired while showering. ?? Follow-up ??? Make a follow-up appointment as directed by your healthcare provider. ??? Make an appointment to have sutures (stitches) or jj removed about?? 2??weeks after surgery. ?? Call 911 Call 911 right away if you have any of the following: ??? Chest pain ??? Shortness of breath ??? A severe headache ??? Trouble controlling your bowels or bladder ??? Calf that is painful, warm to thetouch, and tender with pressure ?? When to call your healthcare provider Call your healthcare provider right away if you have any of the following: ??? Pain, redness, or drainage from the incision that gets worse ??? Fever of?? 100.4?? F??( 38??C) or higher, or as directed by your healthcare provider ??? Shaking chills ??? New pain, weakness, warmth, or numbness in yourlegs ??? Foot, ankle, or calf swelling that does not get better after elevating your feet ?? Last Reviewed Date: 2024 ?? [employer]. All rights reserved. This information is not intended as a substitute for professional medical care. Always follow your healthcare professional's instructions. ?? Patient Care team information Care Team Personnel Name: Cherie Jett RN Position: Jason RN Member Role: Primary Care Nurse Name: Lian LEON, Kenney Altamirano Position: Reference Physician Member Role: PCP [address]: [address] [place] [address] [address] Telecom: Care Team Related Persons Name: DAYTON SCHWAB Insurance Providers Guarantor name: AWA Health Plan Information #: 1 Payer: [facility] [employer] Member Number: [id number] Policy Number: AWA Group Number: [id number] Health Plan Information #: 2 Payer: [facility] [employer] Member Number: [id number] Policy Number: AWA Group Number: [id number]
== END 2024-05-25 20:28 | disposition left against medical advice (07) ==
LOC: HO.ED 20:02
PROVIDERS: Physician Assistant; Emergency Provider Emergency Medicine; PCP Internal Medicine
DX: M54.50 Low back pain, unspecified (principal); R30.0 Dysuria; R10.2 Pelvic and perineal pain; Z79.899 Other long term (current) drug therapy; Z87.891 Personal history of nicotine dependence
CPT/HCPCS: 36415; 80053; 81001; 85025; 85652; 86140; 99282; 99283

== ENCOUNTER 2024-05-26 11:06 | Emergency (ER) | payer MEDICARE, SELFPAY ==
--- NOTE | ~2024-05-26 | CT_ITS ---
EXAMINATION: CT CHEST, ABDOMEN, AND PELVIS WITH CONTRAST CLINICAL INFORMATION: Back pain. COMPARISON: CT scans dating between July 09, 2023 and February 11, 2022. TECHNIQUE: Multidetector volumetric CT imaging of the chest, abdomen, and pelvis was obtained after the administration of 85 mL of Omnipaque 350 intravenous contrast without immediate adverse reactions. Axial MIP volume rendering provided. Sagittal and coronal reformatted images were obtained. This CT examination was performed using dose optimization techniques as appropriate, variously including the following: *Automated exposure control *Adjustment of mA and/or kV according to patient size (this includes techniques or standardized protocols for targeted exams where dose is matched to indication/reason for exam; i.e. extremities or head) *Use of iterative reconstruction technique DLP: 277 mGy-cm FINDINGS: LUNGS: 0.4 cm or less, round right lung nodules, at least 2 of which are densely calcified, suggesting prior granulomatous disease. 0.7 cm, noncalcified nodule within the lingula (image 372, series 7). The above nodules do not appear significantly changed dating back at least to February 11, 2022, and are therefore benign. No new lung nodule identified. MEDIASTINUM: No adenopathy by size criteria. Calcified subcarinal nodes suggesting prior granulomatous disease. Normal-appearing thyroid gland. Heart appears normal in size. Calcification of the aortic valve. No pericardial effusion. CORONARY ARTERY CALCIFICATION: Moderate to severe. PLEURA: There is no pleural effusion. No pleural mass or thickening. CHEST WALL/AXILLA: Bilateral gynecomastia. No lymphadenopathy by size criteria. LIVER, GALLBLADDER, AND BILIARY TREE: The liver appears unremarkable in size, shape, and attenuation. No focal hepatic lesion or biliary ductal dilatation is appreciated. 1.4 cm gallstone. No evidence of gallbladder wall thickening or pericholecystic inflammatory change. PANCREAS: Unremarkable SPLEEN: Unremarkable ADRENAL GLANDS: Unremarkable KIDNEYS AND URETERS: 4.6 cm or less benign bilateral simple renal cysts for which no further dedicated follow-up imaging as indicated. The kidneys otherwise appear unremarkable in size, shape, and attenuation. No hydronephrosis, hydroureter, or calculi seen. BLADDER: At least 3 regions of polypoid thickening of the urinary bladder measuring up to approximately 1.0 cm in thickness, possibly enhancing (images 67, 71, and 81, sagittal series 16). Question mild muscular hypertrophy of the urinary bladder. Approximately 1.4 cm right posterior bladder diverticulum (image 59, series 13). GASTROINTESTINAL TRACT: Unremarkable appearance of the stomach and small bowel. Severe colonic diverticulosis, left greater than right. Normal-appearing distal ileum. No evidence of appendicitis. ABDOMINAL WALL: No significant hernia is appreciated. Surgical clips and fat within the right inguinal canal, unchanged. Evidence of bilateral inguinal hernia surgical mesh repair. No evidence of recurrent hernia. LYMPH NODES: No evidence of adenopathy by size criteria. VASCULAR: Vascular tortuosity and calcification, suggesting hypertension. Normal variant duplication of the renal arteries bilaterally. PELVIC VISCERA: Suspect abnormal enhancement of the prostate with relative sparing posteriorly toward the left. OSSEOUS STRUCTURES: Mixed lytic and sclerotic lesions scattered throughout the skeleton. Mild to moderate compression deformity of L1, new compared with July 09, 2023. Lesions involving T4-T6 appear more sclerotic, and the remainder appear more lytic. Old, healed left rib fractures. CT/CT abdomen pelvis w IV con IMPRESSION: Mild to moderate compression fracture deformity of L1, new compared with July 09, 2023. Mixed lytic and sclerotic bony lesions scattered throughout the skeleton. Differential diagnosis includes, but is not limited to, metastatic disease or multiple myeloma. Polypoid thickening involving the wall the urinary bladder, suspicious for transitional cell carcinoma. Suspect abnormal enhancement of the prostate gland. Cannot exclude prostate cancer. Additional findings as above. Electronically signed by: Ernesto Teran MD 05/26/2024 04:08 PM FLASH
[2024-05-26 11:42] VITALS: BP 122/41; PULSE 67; RESP 20; TEMP 36.2; O2SAT 98; BMI 24.6
--- NOTE | 2024-05-26 11:42 | ED.BACK ---
HPI - Back Pain/Injury General Chief Complaint: General Medical Stated Complaint: Back pain post-op Time Seen by Provider: 05/26/24 12:58 Source: patient, family, RN notes reviewed and old records reviewed Mode of arrival: ambulatory Limitations: no limitations History of Present Illness ED Provider: Rashard Mohamud PA-C HPI Narrative: 89 year old male with PMH to include aortic valve stenosis, bladder cancer, chronic kidney disease, DM II, lumbar disc degeneration, gout, spinal stenosis, spondylosis of lumbar region, hypertension, REGINA, rheumatoid arthritis, hypercholesterolemia, and BPH seen in the ED today with multiple concerns following a spinal surgery with [facility] approx 1 month ago. PT reports spinal surgery on 04/30/2024 at [facility] for spinal decompression of L4-L5. Currently experiencing 7/10 intermittent burning pain in between the shoulder blades, right flank pain, bilateral foot paresthesia, dysuria, and generalized weakness; all sx have been ongoing since one week after surgery. Pain in flank region and in between shoulder blades is worsened when lying on right side. Only alleviating factor is oxycodone that PT was prescribed PRN. Denies chest pain, palpitations, SOB, saddle paresthesia. Denies fever, chills, nausea, vomiting, abdominal pain. Denies hematuria, urinary incontinence, hematemesis, hemoptysis, blood in stool. MD elicited complaint: back pain and other (right flank pain) Pertinent past history: back surgery (04/30/2024) Onset (ago): week(s) (3) Timing: intermittent Severity: severe Pain scale (0-10): 8 Similar Symptoms Previously: Yes Quality: burning Location: right flank Exacerbating factors: movement and other (lying on right side) Relieving factors: medication Associated symptoms: weakness (generalized), numbness (bilateral feet) and dysuria Treatments prior to arrival: prescription analgesics (oxycodone ) Related Data Home Medications ?Medication ?Instructions ?Recorded ?Confirmed blood-glucose meter (FreeStyle #1 ea 10/24/21 04/27/24 Lite Meter kit) acetaminophen 325 mg tablet 650 mg PO Q6H PRN Pain 07/16/22 04/27/24 (Tylenol) hydralazine 100 mg tablet 100 mg PO TID 09/13/23 04/27/24 Previous Rx's ?Medication ?Instructions ?Recorded spironolactone 25 mg tablet 25 mg PO DAILY 90 days #90 tabs 03/29/20 blood-glucose meter #1 ea 08/03/21 nifedipine 90 mg tablet,extended 90 mg PO DAILY 90 days #90 tabs 10/07/23 release 24 hr fenofibrate nanocrystallized 145 145 mg PO DAILY #90 tabs 10/11/23 mg tablet doxazosin 4 mg tablet (Cardura) 4 mg PO DAILY 90 days #90 tabs 01/07/24 lancets 28 gauge (FreeStyle #100 ea 01/17/24 Lancets) solifenacin 10 mg tablet 10 mg PO DAILY 90 days #90 tabs 01/17/24 torsemide 10 mg tablet 10 mg PO DAILY #90 tabs 02/12/24 blood sugar diagnostic (FreeStyle #50 strips 02/19/24 Lite Strips) metformin 500 mg tablet 500 mg PO DAILY 90 days #90 tabs 03/05/24 carvedilol 25 mg tablet (Coreg) 37.5 mg (1.5 x 25 mg) PO BID 90 03/17/24 days #270 tabs tramadol 50 mg tablet 50 mg PO BID PRN pain #60 tabs 03/17/24 leflunomide 20 mg tablet 20 mg PO DAILY #90 tabs 03/31/24 lorazepam 0.5 mg tablet 0.5 mg PO BEDTIME #90 tabs 04/22/24 allopurinol 100 mg tablet 100 mg PO DAILY #90 tabs 05/08/24 oxycodone 5 mg tablet 5 mg PO Q6H PRN pain #8 tabs 05/26/24 oxycodone 5 mg tablet 5 mg PO Q8H PRN severe pain (scale 05/26/24 score 7-10) #9 tabs Allergies Allergy/AdvReac Type Severity Reaction Status Date / Time levofloxacin [From LEVAQUIN] Allergy Severe ANGIOEDEMA Verified 05/26/24 11:44 (EXACT SOURCE UNCERTAIN) lisinopril [LISINOPRIL] Allergy Severe ANGIOEDEMA Verified 05/26/24 11:44 ( EXACT SOURCE UNCERTAIN) Review of Systems Review of Systems: Yes all other systems are reviewed and are negative PMFSH Past Medical History Medical History Bladder cancer CKD (chronic kidney disease) Diabetes mellitus Disc degeneration, lumbar Chronic pain syndrome Gout, arthritis Spinal stenosis Spondylosis of lumbar region without myelopathy or radiculopathy Diabetes mellitus Swelling of both parotid glands Podagra Seropositive rheumatoid arthritis Hypercholesterolemia Leg edema Essential hypertension Angioedema Surgical History History of cryosurgery History of endoscopy History of bladder surgery History of bilateral cataract extraction History of hernia repair Family History Family History Father Cardiovascular disease Diabetes Mother Diabetes Brother No problems noted. Brother No problems noted. Sister No problems noted. Sister No problems noted. Son No problems noted. Son No problems noted. Daughter No problems noted. Daughter No problems noted. Daughter No problems noted. Other Mental health disorder Social History Social History Household Members: Spouse and Children Housing: House Do you presently have visiting nurse or other home services: No Alcohol intake: never Patient Tobacco Use Status: Former Tobacco user Smoked in Last 30 Days: No e-Cigarette/Vaping Use: Never Used Second Hand Smoke Exposure: No Use of substances other than those prescribed or required for medical reasons: No Advance Directives: No Advance Directives Information Provided: Yes service: No Current occupational status: retired Cognitive needs: No Hearing needs: Yes (hearing aide) Vision needs: No Physical Exam Vital Signs: Vital Signs: Last Vital Signs Temp 97.7 F 05/26/24 14:35 Pulse 75 05/26/24 14:35 Resp 16 05/26/24 14:35 BP 180/78 H 05/26/24 14:35 Pulse Ox 98 05/26/24 14:35 O2 Del Method Room Air 05/26/24 14:35 BMI result Body Mass Index 24.6 Appearance: Alert. Oriented X3. No acute distress. Head: normocephalic, atraumatic. Eyes: Pupils equal, round and reactive to light. ENT: Pharynx normal. Neck: Normal inspection. Neck supple. CVS: Normal heart rate and rhythm. Pulses normal. Respiratory: No respiratory distress. Breath sounds normal. Abdomen: Soft and nontender. Right flank tenderness. MSK: tendernes upon palpation between shoulder blades. well healed surgical scar in the lower back, no surrounding erythema or warmth Skin: Skin warm and dry. Normal skin color. Normal skin turgor. No rashes. Extremities: LE edema at baseline. No joint swelling. +CMS in all extremities but PT reports decreased sensation to bilateral feet. Neuro/psych: Oriented X 3. No motor deficit. No sensory deficit. CN II-XII intact. Normal speech and cognition. slow but steady gait Course Course Course Narrative: This is an RME: Additional HPI, ROS, PE not included below will be deferred to primary provider. RME assessment and note performed by: Leona Pillai PA-C decompression of L4-L5 This is a 89-rylb-byn-male who presents to the ER with complaints of upper back and right flank pain radiating into right leg. Patient reports that he had a L4-L5 decompression performed at [facility] 3 weeks ago. He states that he has had upper back pain as well as right sided flank pain. He also admits burning with urination. Patient nontoxic appearing, appears to be comfortable. He came to the emergency room yesterday and waited for 5 hours however left without completing treatment as his back pain was too severe for him to wait any longer. He is here with his . His inflammatory markers were elevated. Plan: Repeat labs, UA, further ER evaluation needed Medications Administered Discontinued Medications Generic Name Dose Route Start Last Admin Trade Name Freq PRN Reason Stop Dose Admin Iohexol 85 ml 05/26/24 14:09 05/26/24 14:09 Iohexol 350 Mg/Ml 100 Ml Infus..Btl IV 05/26/24 14:10 85 ml ONCE ONE Administration Medical Decision Making Medical Decision Making [facility] Narrative: 89 year old male with PMH to include aortic valve stenosis, bladder cancer, chronic kidney disease, DM II, lumbar disc degeneration, gout, spinal stenosis, spondylosis of lumbar region, hypertension, REGINA, rheumatoid arthritis, hypercholesterolemia, and BPH seen in the ED today with multiple concerns following a spinal surgery with [facility] approx 3 week ago. PT reports spinal surgery on 04/30/2024 at [facility] for spinal decompression of L4-L5. Currently experiencing 7/10 intermittent burning pain in between the shoulder blades, right flank pain, bilateral foot paresthesia, dysuria, and generalized weakness; all sx have been ongoing since one week after surgery. DDX - complication of surgery - UTI, pyelonephritis, kidney stone - AAA - Sepsis - cholecystitis - pancreatitis Plan - labs showing improvement in anemia and leukocytosis noted yesterday however inflammatory markers trending up. no fevers. - CT chest, abdomen, and pelvis with contrast showing both sclerotic and lytic lesions concerning for possible metastatic cancer vs multiple myeloma. bladder lesion and prostate abnormality noted. he has an appointment w/ dr. frias next week - results discussed at length with the patient and his at the bedside - discussed the need for outpatient follow up and oncology referral. - will treat pain with oxycodone for now. he has appointment with dr. frias next week - comfortable with discharge home with outpatient follow up with urology, Dr. Cabral and oncology Differential Diagnosis Differential Diagnoses: The differential diagnosis associated with the presentation includes as above Admission/Observation Consideration of admission/observation: Escalation of care including admission/observation considered Lab Data MDM Lab Attestation statement: I reviewed the patient's lab results. Mild leukocytosis, thrombocytosis, improving anemia, significantly elevated inflammatory markers 05/26/24 12:08 05/26/24 12:08 Labs: Lab Results 05/26/24 Range/Units 12:08 WBC 10.9 H (4.8-10.8) X10*3/uL RBC 3.58 L (4.60-5.80) X10*6/uL Hgb 9.2 L (14.0-18.0) g/dl Hct 29.6 L (42.0-52.0) % MCV 82.7 (80.0-98.0) fL MCH 25.7 L (27.0-33.0) pg MCHC 31.1 (31.0-36.0) g/dl RDW 16.4 H (11.0-16.0) % Plt Count 560 H (160-400) X10*3/uL MPV 10.1 (9.4-12.4) fL Immature Gran % (Auto) 1.7 H (0.0-0.4) % Neut % (Auto) 77.3 H (45-73) % Lymph % (Auto) 8.8 L (20-40) % [place] % (Auto) 9.2 (2-11) % Eos % (Auto) 2.1 (0-4) % Baso % (Auto) 0.9 (0-2) % Lymph # (Auto) 1.0 L (1.2-4.9) X10*3/uL [place] # (Auto) 1.0 (0.1-1.2) X10*3/uL Eos # (Auto) 0.2 (0.0-0.4) X10*3/uL Baso # (Auto) 0.1 (0.0-0.2) X10*3/uL Abs Immat Gran (auto) 0.19 H (0.00-0.03) X10*3/uL Absolute Neuts (auto) 8.4 H (2.0-8.3) x10*3/uL Absolute Nucleated RBC 0.000 (0.0-0.012) X10*3/uL Nucleated RBC % (auto) 0.0 (0.0-0.2) /100WBC ESR 108 H (0-15) MM/HR PT 16.1 H (10.9-12.4) SEC INR 1.4 H (0.9-1.1) Sodium 135 (135-145) mmol/L Potassium 4.1 (3.3-5.1) mmol/L Chloride 101 (96-108) mmol/L Carbon Dioxide 21 L (22-29) mmol/L Anion Gap 17 (12-20) BUN 25 H (9-16) mg/dL Creatinine 0.98 (0.5-1.4) mg/dL Estim Creat Clear Calc 49.4 Estimated GFR > 60 Random Glucose 164 H (60-115) mg/dL Calcium 9.7 (8.4-10.2) mg/dL Magnesium 1.9 (1.6-2.6) mg/dL Total Bilirubin 0.4 (0.0-1.0) mg/dL Direct Bilirubin 0.3 (0.0-0.5) mg/dL AST 23 (5-37) U/L ALT 8 (0-40) U/L Alkaline Phosphatase 216 H (39-117) U/L Troponin I High Sens 11.1 (<3.5-35.0) ng/L C-Reactive Protein 19.72 H (< or = 0.50) mg/dL Total Protein 7.4 (6.5-8.0) g/dL Albumin 3.6 (3.5-5.0) g/dL Lipase 19 (8-78) U/L Urine Color Yellow Urine Appearance Clear Urine pH 5.5 (5.0-9.0) Ur Specific [place] 1.015 (1.005-1.025) Urine Protein 30 (1+) H (Neg-Trace) mg/dL Urine Glucose (UA) Negative (Negative) mg/dL Urine Ketones Negative (Negative) mg/dL Urine Blood Negative (Negative) Urine Nitrite Negative (Negative) Ur Leukocyte Esterase Negative (Negative) Urine RBC 0-2 (0-2) /HPF Urine WBC 0-5 (0-5) /HPF Ur Squamous Epith Cells 3-5 (0-2) /HPF Urine Bacteria None Seen (None Seen) Hyaline Casts 6-10 (0-2) /LPF Independent Historian Clinical information obtained from an independent historian. History obtained from or confirmed by: Spouse External Record Review External record reviewed: Outpatient record, Prior outpatient labs and Prior outpatient radiology Prescription Management I considered prescription management with: Pain Medication and Antibiotic Chronic Conditions Patient?s care impacted by: Other (Recent back surgery) Critical Care Time Critical Care Time Critical Care Time: No Discharge Plan Discharge Clinical Impression: Abnormal CT scan, Bone lesion Back pain Qualifiers: Back pain location: back pain in unspecified location Chronicity: unspecified Back pain laterality: right Qualified Code(s): M54.9 - Dorsalgia, unspecified Closed compression fracture of L1 vertebra Qualifiers: Encounter type: initial encounter Qualified Code(s): S32.010A - Wedge compression fracture of first lumbar vertebra, initial encounter for closed fracture Patient Disposition: Home, Self-Care Instructions: Vertebral Compression Fracture (ED) Additional Instructions: your CT scan showed multiple bony lesions concerning for possible metastatic process or multiple myeloma you should follow up with oncology for further evaluation and treatment take the prescribed oxycodone as needed for severe pain. take stool softners and laxatives as needed with this follow up with Dr. Frias and Dr. Cabral as soon as possible If you develop new or worsening symptoms call 911 or come back to the ER for further evaluation. Prescriptions: New oxycodone 5 mg tablet 5 mg PO Q6H PRN (Reason: pain) Qty: 8 0RF Rx Instructions: Partial Fill upon patient request. oxycodone 5 mg tablet 5 mg PO Q8H PRN (Reason: severe pain (scale score 7-10)) Qty: 9 0RF Rx Instructions: Partial Fill upon patient request. No Action spironolactone 25 mg tablet 25 mg PO DAILY 90 Days Qty: 90 3RF (DME) blood-glucose meter Misc See Rx Instructions .Route Qty: 1 0RF Rx Instructions: Test Daily - [place] Blood glucose Meter nifedipine 90 mg tablet extended release 24hr 90 mg PO DAILY 90 Days Qty: 90 3RF fenofibrate nanocrystallized 145 mg tablet 145 mg PO DAILY Qty: 90 3RF doxazosin [Cardura] 4 mg tablet 4 mg PO DAILY 90 Days Qty: 90 1RF solifenacin 10 mg tablet 10 mg PO DAILY 90 Days Qty: 90 1RF (DME) lancets [FreeStyle Lancets] 28 gauge misc See Rx Instructions .ROUTE .COMPLEX Qty: 100 1RF Dose Instruction: USE TO TEST DAILY Rx Instructions: USE TO TEST DAILY torsemide 10 mg tablet 10 mg PO DAILY Qty: 90 1RF (DME) FreeStyle Lite Strips Strip See Rx Instructions .ROUTE .COMPLEX Qty: 50 1RF Dose Instruction: USE TO TEST DAILY Rx Instructions: USE TO TEST DAILY metformin 500 mg tablet 500 mg PO DAILY 90 Days Qty: 90 1RF tramadol 50 mg tablet 50 mg PO BID PRN (Reason: pain) Qty: 60 0RF carvedilol [Coreg] 25 mg tablet 37.5 mg PO BID 90 Days Qty: 270 3RF Rx Instructions: must administer with a meal/food leflunomide 20 mg tablet 20 mg PO DAILY Qty: 90 0RF lorazepam 0.5 mg tablet 0.5 mg PO BEDTIME Qty: 90 0RF allopurinol 100 mg tablet 100 mg PO DAILY Qty: 90 1RF (DME) blood-glucose meter [FreeStyle Lite Meter] Kit See Rx Instructions .ROUTE DAILY Qty: 1 Rx Instructions: As directed acetaminophen [Tylenol] 325 mg tablet 650 mg PO Q6H PRN (Reason: Pain) hydralazine 100 mg tablet 100 mg PO TID Referrals: [facility] [place] Oncology/Hematology [Provider Group] Nikki Lucas MD [Physician] - Kenney Beal MD [Primary Care Provider] - Print Language: Arabic
[2024-05-26 12:20] LABS: MANUAL DIFF FLAG NO
[2024-05-26 12:23] LABS: Appearance Urine Clear; Basophils Absolute Auto 0.1 X10*3/uL (0.0-0.2); Basophils Percent Auto 0.9 % (0-2); Color Urine Yellow; Eosinophils Absolute Auto 0.2 X10*3/uL (0.0-0.4); Eosinophils Percent Auto 2.1 % (0-4); Glucose Urine UA Negative (Negative); Hematocrit 29.6 % (42.0-52.0); Hemoglobin 9.2 g/dl (14.0-18.0); Imm Gran Abs Auto 0.19 X10*3/uL (0.00-0.03); Imm Gran Pct Auto 1.7 % (0.0-0.4); Leukocyte Esterase Urine Negative (Negative); Lymphocytes Percent Auto 8.8 % (20-40); Mean Corpuscular HGB Conc 31.1 g/dl (31.0-36.0); Mean Corpuscular Hemoglobin 25.7 pg (27.0-33.0); Mean Corpuscular Volume 82.7 fL (80.0-98.0); Mean Platelet Volume 10.1 fL (9.4-12.4); Monocytes Percent Auto 9.2 % (2-11); Neutrophils Absolute Auto 8.4 x10*3/uL (2.0-8.3); Neutrophils Percent Auto 77.3 % (45-73); Nitrite Urine Negative (Negative); PH 5.5 (5.0-9.0); Platelet Count 560 X10*3/uL (160-400); Red Blood Count 3.58 X10*6/uL (4.60-5.80); Red Cell Distribution Width 16.4 % (11.0-16.0); Specific Gravity - Urine 1.015 (1.005-1.025); UMIC TRIGGER UACC YES; Urine Blood Negative (Negative); Urine Ketones Negative (Negative); Urine Protein 30 (1+) mg/dL (Neg-Trace); White Blood Count 10.9 X10*3/uL (4.8-10.8)
[2024-05-26 12:26] LABS: INTERNATIONAL NORM RATIO 1.4 (0.9-1.1); Prothrombin Time 16.1 SEC (10.9-12.4)
[2024-05-26 12:32] LABS: Anion Gap 17 (12-20)
[2024-05-26 12:35] LABS: Bacteria Urine None Seen (None Seen); RBC Urine 0-2 /HPF (0-2); WBC Urine 0-5 /HPF (0-5)
[2024-05-26 12:38] LABS: Albumin Level 3.6 g/dL (3.5-5.0); Aspartate Amino Transferase 23 U/L (5-37); Bilirubin Direct 0.3 mg/dL (0.0-0.5); Bilirubin Total 0.4 mg/dL (0.0-1.0); Blood Urea Nitrogen 25 mg/dL (9-16); C Reactive Protein 19.72 mg/dL (< or = 0.50); Calcium 9.7 mg/dL (8.4-10.2); Carbon Dioxide 21 mmol/L (22-29); Chloride 101 mmol/L (96-108); Creatinine Clr Calc Pharmacy 49.4; Estimated Glomerular Filt Rate > 60; Glucose Random 164 mg/dL (60-115); Magnesium 1.9 mg/dL (1.6-2.6); Potassium 4.1 mmol/L (3.3-5.1); Sodium 135 mmol/L (135-145); Total Protein 7.4 g/dL (6.5-8.0)
[2024-05-26 12:44] LABS: Troponin-I High Sensitivity 11.1 ng/L (<3.5-35.0)
[2024-05-26 13:01] VITALS: BP 171/64; PULSE 72; RESP 16; TEMP 36.4; O2SAT 98
[2024-05-26 13:16] LABS: Erythrocyte Sedimentation Rate 108 MM/HR (0-15)
[2024-05-26 13:31] LABS: Alanine Aminotransferase 8 U/L (0-40); Alkaline Phosphatase 216 U/L (39-117)
[2024-05-26] MEDS: iohexoL 350 MG/ML 100 ML INFUS..BTL 85 ML IV (14:09)
[2024-05-26 14:35] VITALS: BP 180/78; PULSE 75; RESP 16; TEMP 36.5; O2SAT 98
[2024-05-26 15:02] LABS: Lipase 19 U/L (8-78)
[2024-05-26 17:20] VITALS: BP 183/71; PULSE 78; RESP 18; TEMP 36.8; O2SAT 96
[2024-05-26] MEDS: oxyCODONE HCl Immed Release 5 MG TABLET PO (17:45)
[2024-05-26] MEDS: Lidocaine 4 % Patch ADH..PATCH 1 PATCH TRANSDERMA (17:45)
[2024-05-26] MEDS: Acetaminophen 325 MG TABLET 975 MG PO (17:45)
[2024-05-26 18:05] VITALS: BP 183/71; PULSE 78; RESP 18; TEMP 36.8; O2SAT 96
== END 2024-05-26 18:08 | disposition home or self-care (01) ==
PROVIDERS: Physician Assistant; Physician Assistant Medical; Emergency Provider Emergency Medicine; PCP Internal Medicine
DX: M54.6 Pain in thoracic spine (principal); M48.56XA Collapsed vertebra, not elsewhere classified, lumbar region, initial encounter for fracture; E11.22 Type 2 diabetes mellitus with diabetic chronic kidney disease; I12.9 Hypertensive chronic kidney disease with stage 1 through stage 4 chronic kidney disease, or unspecified chronic kidney disease; N18.9 Chronic kidney disease, unspecified; M06.9 Rheumatoid arthritis, unspecified; M10.9 Gout, unspecified; R93.7 Abnormal findings on diagnostic imaging of other parts of musculoskeletal system; M89.9 Disorder of bone, unspecified; Z79.899 Other long term (current) drug therapy; Z85.51 Personal history of malignant neoplasm of bladder
CPT/HCPCS: 36415; 71260; 74177; 80048; 80076; 81001; 83690; 83735; 84484; 85025; 85610; 85652; 86140; 99284; Q9967

== ENCOUNTER 2024-06-09 08:54 | Outpatient (AMB) | payer MEDICARE, SELFPAY ==
--- OUTSIDE RECORDS SUMMARY | 2024-06-09 08:59 | XMS_ITS | Continuity of Care Document ---
Author Organization [facility] ter Address [address] [place] [phone]- Support Name Relationship Address Phone JOSSELIN, DAYTON [...] DAYTON Personal Relationship Unknown Lucy vailable JOSSELIN, DAYOTN Personal Relationship Unknown Lucy vailable JOSSELIN, DAYTON Personal Relationship Unknown Lucy vailable JOSSELIN, DAYTON Personal Relationship Unknown Lucy vailable JOSSELIN, DAYTON Personal Relationship Unknown Lucy vailable JOSSELIN, DAYTON Personal Relationship Unknown Lucy vailable JOSSELIN, DAYTON spouse Unknown Unavailable Care Team Providers Care Shank Boner Name Role Phone Lian LEON, Kenney Altamirano Primary Care Physic lianna Encounter [facility] Date(s): 05/01/24 - 05/31/[address] [address]- Attending Physician: Not on Staff, Attending MD Admitting Physician: Not on Staff, Admitting MD Referring Physician: Not on Staff, Referring MD Encounter Type: Pre-Outpt Allergies, Adverse Reactions, Alerts Substance Criticality Severity [...] Team Personnel Name: Cherie Jett RN Position: ASUNCION RN Member Role: Primary Care Nurse Name: Lian LEON, Kenney Altamirano Position: Reference Physician Member Role: PCP Address: [address] [place] [address] [address] [place] [address]- Telecom: Care Team Related Persons Name: DAYTON SCHWAB Insurance Providers Guarantor name: AWA Health Plan Information #: 1 Payer: [facility] [employer] Member Number: AWA Policy Number: AWA Group Number: NA
--- NOTE | 2024-06-09 09:03 | MHC.OFFVIS ---
Intake Visit Reasons: Cystoscopy(Bladder Ca) Intake Note: Patient is present for Cystoscopy Urology Medication:DOXAZOSIN,SOLIFENACIN,ALLOPURINOL Antibiotic Allergy:LEVOFLOXACIN Blood Thinner:NONE TODAY'S PVR:0ML'S Lot:[id number] Exp:04/20/27 Cloth Examiner Machine Required: No Allergies levofloxacin [From LEVAQUIN] Allergy (Severe, Verified 06/09/24 09:08) ANGIOEDEMA (EXACT SOURCE UNCERTAIN) lisinopril [LISINOPRIL] Allergy (Severe, Verified 06/09/24 09:08) ANGIOEDEMA ( EXACT SOURCE UNCERTAIN) HPI Comments Details: Corby is a pleasant male. He is a patient of Dr. Beal. He is seen for the following urologic issues - bladder cancer - lower urinary tract symptoms - nocturia - diabetic cystopathy with overactive bladder Four month follow-up check cystoscopy Recent PSA check 42. Unexpected based on prior PSA stability. May be secondary to bladder cancer therapy. Check cystoscopy Recurrent superficial bladder cancer in prostatic fossa and trigone Recommend TURBT with mitomycin-C and cytarabine Would biopsy prostate at same setting Bladder cancer diagnosis - 10/08 TURBT low-grade, high-volume T1 Discussed pathology 10/08 - TURBT Low-grade higher volume with no evidence of invasion T1 - 5 cm lesion bladder base Immunotherapy - 6 week gemcitabine induction Cystoscopy - 01/07 NAD Lower Urinary Tract Symptoms: - bladder instability in diabetic Current visit is for further evaluation of, lower urinary tract symptoms, predominate obstructive symptoms - baseline 6x nocturia Current treatment includes solifenacin with doxazosin Prior treatments TURP, repeat [facility] 04/04 Prostate Symptom Score 6/19 , Moderate (9-19), Bother 3. Symptoms include / , incomplete emptying, weak stream, nocturia (>2), and are progressing. Results from testing include cystoscopy [facility] 04/04 - prior TURP PSA 11/02 PSA 10 (last PSA 2011 3.8), 04/04 3.3. Prostate volume 30-50gm. Associated conditions CAD No CVA No diabetes yes elevated PSA No Treatment plan legs higher than body in afternoon Erectile dysfunction Good result with Viagra 100 mg April 2020 PFSH Medical History Bladder cancer CKD (chronic kidney disease) Diabetes mellitus Disc degeneration, lumbar Chronic pain syndrome Gout, arthritis Spinal stenosis Spondylosis of lumbar region without myelopathy or radiculopathy Diabetes mellitus Swelling of both parotid glands Podagra Seropositive rheumatoid arthritis Hypercholesterolemia Leg edema Essential hypertension Angioedema Surgical History History of cryosurgery History of endoscopy History of bladder surgery History of bilateral cataract extraction History of hernia repair Family History Father Cardiovascular disease Diabetes Mother Diabetes Brother No problems noted. Brother No problems noted. Sister No problems noted. Sister No problems noted. Son No problems noted. Son No problems noted. Daughter No problems noted. Daughter No problems noted. Daughter No problems noted. Other Mental health disorder Social History Household Members: Spouse and Children Housing: House Do you presently have visiting nurse or other home services: No Alcohol intake: never Patient Tobacco Use Status: Former Tobacco user e-Cigarette/Vaping Use: Never Used Second Hand Smoke Exposure: No service: No Current occupational status: retired Cognitive needs: No Hearing needs: Yes (hearing aide) Vision needs: No Office Procedures Cystoscopy Consent Discussed risk and benefit or proposed procedure with the patient. Information consent for procedure given to the patient. Discussed technical aspects, risks, benefits and alternatives in full. Addressed all of the patient's questions and concerns regarding the procedure. The patient demonstrated knowledge and understanding. They wish to proceed with this procedure. Preparation The patient was prepped in the usual manner. A africana studies professor was present and in the room. Genitalia was prepped with betadine solution in a sterile manner. Lidocaine Jelly 2% was placed into the urethra and 16Fr flexible Olympus cystoscope was inserted into the meatus after adequate lubrication. Procedure Cystoscopy performed using a disposable v2 Ratingsvue digital 16 Danish cystoscope. Meatus circumcised Urethra anterior and posterior urethra were normal Prostatic Urethra TURP defect with right-sided regrowth Bladder examination with retroflexion of cystoscope Bladder Orifices normal shape and position - bladder cancer lesion within mid trigone Bladder Capacity normal Trabeculations grade 3 Cellule Formation yes Diverticulum Formation small Mucosal Erythema - Bladder Tumor tumor location trigone, prostatic fossa bladder neck [id number] DISPOSABLE SCOPE URO-G FLEXIBLE SCOPE Procedure code (CPT) selection complete Post Void Residual Post Residual Void Post Void Residual (PVR): 0 14699-Ryfv Void Residual by ultrasound Office Meds lidocaine HCl 2 % mucosal jelly in applicator Performing Provider: Barney Byrd MD [facility] [place] [facility] Administered by: Barney Byrd MD on 06/09/24 09:53 Dose Route Admin Location Dispensed Lot Number Expiration Date ND Slubber Machine Operator 10 mL intra-urethral 10 mL Assessment & Plan Assessment & Plan (1) BPH w urinary obs/LUTS: Code(s): N40.1 - Benign prostatic hyperplasia with lower urinary tract symptoms; N13.8 - Other obstructive and reflux uropathy Category: Medical (2) Bladder cancer: Code(s): C67.9 - Malignant neoplasm of bladder, unspecified Category: Medical (3) Elevated PSA: Code(s): R97.20 - Elevated prostate specific antigen [PSA] Category: Medical Plan Transurethral resection of bladder tumor with/without adjuvant cytotoxic bladder installation We discussed the nature of the decision and reasonable options for performing the above surgery. Interventions include TURBT with or without intravesical administration of immunotherapy or cytotoxic medication. The relative uncertainties and benefits related to each alternate procedure were adequately discussed. General surgical risks including, but not limited to, pain, bleeding, infection, myocardial infarction, pulmonary embolus, deep vein thrombosis and cerebrovascular accident which may result in further hospitalization were discussed. Full disclosure of the procedure as well as all major risks, benefits and complications were discussed including but not limited to damage to the urethra or bladder neck, need for ureteric stenting, perforation of the bladder, chemical cystitis, chemical peritonitis, epididymitis, and meatal stenosis. The success rate of the procedure was discussed. Success of the procedure in the short-term does not necessarily guarantee that long-term success will be maintained. Suitable follow up will need to be maintained. The patient showed understanding of discussion and wishes to proceed as above. TURBT with mitomycin-C and cytarabine Orders: Orders AMB Cystoscopy Today C67.9 - Malignant neoplasm of bladder, unspecified Medications: New lidocaine HCl 2% 10 mL intra-urethral ONCE 10 mL 0RF C67.9 - Malignant neoplasm of bladder, unspecified Patient Instructions: Imaging studies, laboratory and physical exam results were discussed and reviewed in detail. No major barriers to patient understanding were identified. An opportunity to ask questions regarding the treatment plan was provided. All questions were answered. The patient expressed understanding and agreement with the above treatment plan. The patient is aware they should contact our office by phone for worsening of their current condition or the appearance of new urologic symptoms. Compliance is encouraged with any medications and followup testing that is ordered. It is a privilege to participate in the urologic care of your patient. If you have any questions or concerns regarding treatment for the above conditions, or other urologic issues, please do not hesitate to contact me. The office telephone contact is [phone]. This note is constructed using voice recognition software. While every effort has been made to ensure accuracy senior ui designer errors may have been included. Yours sincerely, Dr Barney Byrd MD, [facility] - Urology Providers of Expert, Compassionate Care for the Genitourinary System Coding Level of Care Code Est Pt Level 4 (08647) Diagnoses BPH w urinary obs/LUTS N40.1; N13.8 Bladder cancer C67.9 Elevated PSA R97.20 CPT Codes Cystoscopy - CPT: 26019-[id number] ([id number]) Post Residual Void - PVR CPT Code: 51104-Wodd Void Residual by ultrasound ([id number])
== END 2024-06-09 10:00 | disposition home or self-care (01) ==
PROVIDERS: PCP Internal Medicine; Visit Provider Urology
DX: N40.1 Benign prostatic hyperplasia with lower urinary tract symptoms (principal); N13.8 Other obstructive and reflux uropathy; C67.9 Malignant neoplasm of bladder, unspecified; R97.20 Elevated prostate specific antigen [PSA]
CPT/HCPCS: 52000; 99214

== ENCOUNTER → 2024-06-09 08:54 | Outpatient (BNVA) | payer MEDICARE, SELFPAY | PROVIDERS: PCP Internal Medicine; Visit Provider Urology | DX: N40.1 Benign prostatic hyperplasia with lower urinary tract symptoms (principal); N13.8 Other obstructive and reflux uropathy; R97.20 Elevated prostate specific antigen [PSA]; C67.9 Malignant neoplasm of bladder, unspecified | CPT/HCPCS: 51798; 52000; 99212 ==

== ENCOUNTER → 2024-06-11 15:04 | Outpatient (BNV) | payer MEDICARE, SELFPAY | PROVIDERS: PCP Internal Medicine; Visit Provider Internal Medicine Medical Oncology | DX: M89.9 Disorder of bone, unspecified (principal) | CPT/HCPCS: 99204 ==

== ENCOUNTER 2024-06-18 09:30 | Outpatient (AMB) | payer MEDICARE, SELFPAY ==
--- NOTE | 2024-06-18 09:55 | A.OFFPC_ITS ---
Vital Signs 06/18/24 09:57 Height 5 ft 8 in Weight 145 lb 1.027 oz BMI 22.1 BP 130/60 Blood Pressure Location Lt brachial Position Sitting Pulse 72 Pulse Source Pulse Oximeter Pulse Oximetry (%) 97 Oxygen Delivery Method Room Air Intake Visit Reasons: Annual Exam Intake Note: Patient is here today for a physical. Glove Cutter Required: No Attache: Present Accompanied by: Spouse Allergies levofloxacin [From LEVAQUIN] Allergy (Severe, Verified 06/20/24 16:11) ANGIOEDEMA (EXACT SOURCE UNCERTAIN) lisinopril [LISINOPRIL] Allergy (Severe, Verified 06/20/24 16:11) ANGIOEDEMA ( EXACT SOURCE UNCERTAIN) Medication List - Last Reconciled 06/18/24 by Kenney Beal MD acetaminophen (Tylenol) 650 mg PO Q6H PRN acetaminophen-codeine 325-30 mg 1 tab PO Q6H allopurinol 100 mg PO DAILY blood sugar diagnostic (FreeStyle Lite Strips) USE TO TEST DAILY blood-glucose meter Test Daily - [employer] Blood glucose Meter blood-glucose meter (FreeStyle Lite Meter kit) As directed carvedilol (Coreg) 37.5 mg (1.5 x 25 mg) PO BID 90 days doxazosin (Cardura) 4 mg PO DAILY 90 days fenofibrate nanocrystallized 145 mg PO DAILY hydralazine 100 mg PO TID 90 days lancets (FreeStyle Lancets) USE TO TEST DAILY leflunomide 20 mg PO DAILY lorazepam 0.5 mg PO BEDTIME metformin 500 mg PO DAILY 90 days nifedipine ER 90 mg PO DAILY 90 days solifenacin 10 mg PO DAILY 90 days spironolactone 25 mg PO DAILY 90 days torsemide 10 mg PO DAILY tramadol 50 mg PO BID PRN Tobacco use date assessed: 06/18/24 Fall risk assessment: No Falls in past year Last assessed Fall Risk: 06/18/24 Dental Screening Dental Screen Date: 06/18/24 Did you have a dental visit in the last 12 months?: Yes Did you have a dental problem in the last 6 months where you did not have access to dental care?: No Was dental information given to patient?: Patient has dentist HPI Annual Exam HPI Details 89 yr old male presents to the office re questing an annual physical. In addition he would like to discuss several of his chronic medical issues. [facility] Medical History Bladder cancer CKD (chronic kidney disease) Diabetes mellitus Disc degeneration, lumbar Chronic pain syndrome Gout, arthritis Spinal stenosis Spondylosis of lumbar region without myelopathy or radiculopathy Diabetes mellitus Swelling of both parotid glands Podagra Seropositive rheumatoid arthritis Hypercholesterolemia Leg edema Essential hypertension Angioedema Surgical History History of back surgery History of cryosurgery History of endoscopy History of bladder surgery History of bilateral cataract extraction History of hernia repair Family History Father Diabetes Cardiovascular disease Mother Diabetes Stomach cancer Brother No problems noted. Brother No problems noted. Sister No problems noted. Sister No problems noted. Son No problems noted. Son No problems noted. Daughter No problems noted. Daughter No problems noted. Daughter No problems noted. Other Mental health disorder Social History Household Members: Spouse and Children Housing: House Do you presently have visiting nurse or other home services: No Alcohol intake: never Patient Tobacco Use Status: Former Tobacco user e-Cigarette/Vaping Use: Never Used Second Hand Smoke Exposure: No service: No Current occupational status: retired Cognitive needs: No Hearing needs: Yes (hearing aide) Vision needs: No Questionnaire PHQ-9 Over the last 2 weeks, how often have you been bothered by any of the following problems? 1. Little interest or pleasure in doing things: several days 2. Feeling down, depressed, or hopeless: several days 3. Trouble falling or staying asleep, or sleeping too much: not at all 4. Feeling tired or having little energy: more than half the days 5. Poor appetite or overeating: nearly every day 6. Feeling bad about yourself - or that you are a failure or have let yourself or your family down: several days 7. Trouble concentrating on things, such as reading the newspaper or watching television: several days 8. Moving or speaking so slowly that other people could have noticed. Or the opposite - being so fidgety or restless that you have been moving around a lot more than usual: several days 9. Thoughts that you would be better off or of hurting yourself in some way: several days Total score: 11 Depression Screening Interpretation: Positive Depression Screening Done: Yes Source: Developed by Megan Mario Kurt Kroenke and colleagues, with an educational linus from [employer]. Thrive Questionnaire Date Thrive assessed: 06/18/24 I am a: Patient What is your living situation today?: I have a steady place to live Within the past 12 months, did the food you bought not last and you didn't have the money to get more?: Never true Within the past 12 months, did you worry whether your food would run out before you got money to buy more?: Never true Do you have trouble paying for medicines?: No Do you have trouble getting transportation to medical appointments?: No Do you have trouble paying your heating and electricity bill?: No Do you have trouble taking care of your child, family member or friend?: No Do you have trouble with day-to-day activities such as bathing, preparing meals, shopping, managing finances, etc.?: No Are you currently unemployed and looking for a job?: No Are you interested in more education?: No Please select the resources that you would like help with: None Currently or been in a relationship where the following occur: No concerns reported THRIVE Score: 0 AUDIT C Alcohol Use Questionnaire (AUDIT-C) 1. How often do you have a drink containing alcohol?: Never Total Score: 0 REGINA-7 AMB Questionnaire REGINA-7 Date REGINA - 7 assessed: 06/18/24 Feeling nervous, anxious, or on edge: 1 = Several days Not being able to stop or control worryin = Several days Worrying too much about different things: 1 = Several days Trouble relaxin = Several days Being so restless that it is hard to sit still: 0 = Not at all Becoming easily annoyed or irritable: 1 = Several days Feeling afraid as if something awful might happen: 1 = Several days Total REGINA-7 score (0-4 normal; 5-9 mild; 10-14 moderate; 15-21 severe): 6 Source: Developed by Megan Mario Kurt Kroenke and colleagues, with an educational linus from [employer]. Physical exam (Primary Care) Vital Signs: Last Vital Signs Pulse 72 06/18/24 09:57 BP 130/60 06/18/24 09:57 Pulse Ox 97 06/18/24 09:57 Oxygen Delivery Method Room Air 06/18/24 09:57 BMI result Body Mass Index 22.1 Tobacco/Smoking Status: Tobacco use Status Tobacco use date assessed 06/18/24 06/18/24 10:10 Patient Tobacco Use Status Former Tobacco user 06/18/24 10:10 e-Cigarette/Vaping Use Never Used 06/18/24 10:10 PHQ-9: PHQ-9 Score PHQ-9: Total score 11 06/18/24 11:29 Depression Screening Interpretation: Positive Thrive Assessment: Date of Thrive Assessment Date Thrive assessed 06/18/24 06/18/24 10:10 Currently or been in a relationship where the following occur: No concerns reported Results AMB Hemoglobin A1c AMB Hemoglobin A1c 7.5 % Last Edit by ALEXSANDER Flores on 06/18/24 10:36 Results Reviewed Results Reviewed: Laboratory Last Values Hgb A1c (Clinic) 7.5 % (4.0-6.0) H 06/18/24 09:54 Coding Level of Care Code Est Pt Level 4 (00705) Complex EM visit Add On G2211 Diagnoses Low back pain M54.5 Assessment & Plan Assessment & Plan (1) Low back pain: Code(s): M54.5 - Low back pain Category: Medical Plan: History of Present Illness The patient is an 89-year-old male presenting with severe back pain. He had a recent L4 and L5 vertebral surgery performed at [facility] spinal degeneration and compression. Despite successful decompression surgery, the patient experienced only partial and short-lived relief. The left side initially showed improvement while the right side continued to be symptomatic. Post-operative imaging detected an L1 vertebral lesion, contributing to ongoing severe pain, prompting an ER visit. Additionally, a lesion within the bladder, , was identified by Dr. Byrd during follow-up for bladder cancer management. An unexpected weight loss of 10 pounds over the last week due to poor appetite was reported, potentially exacerbated by the chronic back pain and discomfort. The patient reported persistent severe pain not adequately managed by current analgesic regimens, which included a trial of tramadol, prednisone, and now Tylenol with codeine. The patient continues to navigate issues connected with mobility, relying on a walker due to decreased walking capacity. Given the complex clinical picture, the suspicion of multiple myeloma was raised by Dr. Lucas and further investigations are pending. Social History - Lives at home and requires use of a walker for mobility. - Reports decreased appetite and significant recent weight loss. - Uses nutritional supplementary shakes once daily but finds taste unpalatable. Review of Systems - Musculoskeletal: Reports persistent severe back pain. - Gastrointestinal: Reports decreased appetite. - Neurological: Reports difficulty maintaining mobility. Physical Exam General: Appearance normal, both eyes and all related structures Nutritional Appearance: Poorly nourished, lost 10 pounds in a week Orientation/consciousness: Patient oriented x3 Limitations: Patient walks with a walker, unable to walk without assistance Head: Normal to inspection Neck: Normal visual inspection Chest: Normal palpation of entire chest wall Respiratory: Normal respiratory effort Neurology: Patient oriented x3 Results - Imaging showing L1 vertebral lesion. - X-ray post L4 and L5 surgery shows stable condition. - Bladder lesion detected via imaging. Plan - Discuss with Dr. Lucas regarding myeloma investigation results to rule out multiple myeloma. - Coordination with Dr. Byrd for surgical intervention for bladder lesion. - Pain management consultation considered to explore the introduction of opioids, despite risks of dependency. - Encouraging increased intake of oral nutritional supplements to assist with weight management. Patient was informed and verbally consented to the use of an ambient scribe for clinic note documentation during this visit. Discussion Notes I consulted with the patient regarding the complicated nature of his persistent back pain and associated lesions. I discussed the potential necessity of opioid medication for pain relief and its associated risks, including dependence and reduced alertness. I emphasized the importance of communication with Dr. Lucas to exclude multiple myeloma as a contributing cause. I also highlighted the critical role of maintaining nutritional intake, despite the challenges due to poor appetite. Plans for further surgical management of the bladder lesion with Dr. Byrd were also thoroughly reviewed, emphasizing the necessity of comprehensive oncological evaluation and treatment. Patient Instructions - Continue current pain management regimen and note any side effects. - Aim to increase nutritional intake; consider more frequent consumption of shakes. - Use mobility aids as needed to avoid falls. - Schedule follow-up appointments with Dr. Byrd for surgical planning of bladder lesion, and Dr. Lucas for oncological review. - Report any worsening symptoms or inability to manage discomfort. Orders: Orders AMB Hemoglobin A1c 06/18/24 E11.9 - Type 2 diabetes mellitus without complications
[2024-06-18 09:57] VITALS: BP 130/60; PULSE 72; O2SAT 97; BMI 22.1
== END 2024-06-18 10:37 | disposition home or self-care (01) ==
PROVIDERS: PCP Internal Medicine; Visit Provider Internal Medicine
DX: E11.9 Type 2 diabetes mellitus without complications (principal)

== ENCOUNTER 2024-06-20 15:46 | Emergency (ER) | payer MEDICARE, SELFPAY ==
--- NOTE | ~2024-06-20 | CT_ITS ---
CLINICAL HISTORY: fall CT head without contrast Comparison: 02/11/22 Findings: No acute hemorrhage. CT base No extra-axial fluid collection. No hydrocephalus, mass-effect or herniation. Bey-white differentiation is maintained. There is patchy hypoattenuation of the periventricular and deep white matter, which is most likely the sequela of mild chronic small vessel ischemic disease and is similar to the prior study. 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 No acute orbital pathology. No acute soft tissue abnormality. No fracture. The visualized paranasal sinuses are predominantly clear. The mastoid air cells are clear. Impression: No acute findings. This document has been electronically signed by: Mariposa Jacobs MD on 06/20/2024 19:18:03
--- NOTE | ~2024-06-20 | XR_ITS ---
CLINICAL HISTORY: cp Chest Radiograph Comparison: CT from 05/26/24. Radiographs from 06/13/23 Findings: No cardiomegaly. Normal mediastinal contours. No pneumothorax. Calcified granuloma. No pleural effusion. Normal upper abdomen. No acute fracture. Impression: No acute findings. This document has been electronically signed by: Mariposa Jacobs MD on 06/20/2024 20:53:06
--- NOTE | ~2024-06-20 | CT_ITS ---
CLINICAL HISTORY: ? pe CTA chest with 3-D postprocessing Comparison: CR - XR CHEST 1V - 06/20/24 20:[address]/SR - CT CHEST W IV CON - 05/26/24 13:[address] - CT CHEST W IV CON - 05/26/24 13:[address]/CT/SR - CT CHEST WO CON - 02/11/22 20:26 EDT Findings: Study quality is adequate for the diagnosis of pulmonary embolism. No pulmonary embolism. Cardiomegaly. RV/LV ratio is normal. Severe calcified coronary artery disease. Moderate calcification of the aortic valve No aortic dissection or aneurysm. Moderate calcified atherosclerotic disease. No lymphadenopathy. Calcified granuloma. Pulmonary nodules measure up to 6 mm, unchanged since 02/11/22. Atelectasis versus scarring at the left lung base. Focus of air within a bronchus at the left lung base. No pneumothorax or pleural effusion. No acute osseous or soft tissue abnormality. Bilateral gynecomastia. No acute pathology in the imaged portion of the upper abdomen. Small hiatal hernia. Impression: No pulmonary embolism or other acute findings. This document has been electronically signed by: Mariposa Jacobs MD on 06/20/2024 22:15:20
--- NOTE | ~2024-06-20 | CT_ITS ---
CLINICAL HISTORY: fall CT cervical spine without contrast Comparison: 02/03/22. MR from 10/05/22 Findings: Mild multilevel anterolisthesis, degenerative. Mild retrolisthesis of C4 on C5, degenerative. No fracture. Multifocal lytic lesions measuring up to 1.1 cm in C6, new. Multilevel degenerative change is most prominent at C3/C4, C4/C5 and C5/C6 with moderate to severe central spinal canal stenosis. No epidural hematoma. Normal thickness of the prevertebral soft tissues. Mild biapical scarring with calcification, greater on the left. Mild paraseptal emphysema. Impression: No fracture. Multifocal lytic lesions which are new may indicate osseous metastatic disease. Nonemergent workup is recommended; consider further evaluation with a bone scan. This document has been electronically signed by: Mariposa Jacobs MD on 06/20/2024 19:14:52
--- NOTE | ~2024-06-20 | CT_ITS ---
CLINICAL HISTORY: Question retroperitoneal hematoma CT abdomen and pelvis with contrast Comparison: CT/SD/SR - CT ABDOMEN PELVIS W IV CON - 05/26/24 13:[address]/REG/SD/SR - CT ABDOMEN PELVIS WO IV CON - 07/09/23 21:36 EST Findings: Atelectasis versus scarring at the left lung base. Pulmonary nodules measuring up to 6 mm, unchanged. There is 1.4 cm stone in the neck of the gallbladder. No gallbladder wall thickening or pericholecystic fluid. Bilateral renal cysts and subcentimeter low attenuating lesions which are too small to characterize there is a mass of the posterior left aspect of the bladder measuring 1.5 x 1.3 x 1.5 cm (series 15, image 62 and series 19, image 64) and at the anterior right aspect of the bladder measuring 1.6 x 0.8 x 1.8 cm (series 15, image 71 and series 19, image 68). The prostate measures 3.9 cm in transverse dimension with mild intravesicular extension. Bladder diverticula. The other solid organs are unremarkable. Small hiatal hernia. No bowel wall thickening or dilation. A normal appendix is identified. Colonic diverticulosis. No aneurysm. Severe calcified atherosclerotic disease. No lymphadenopathy. No ascites. [id number] height loss of L1 with a fracture line near the inferior endplate, similar to the prior study, likely a pathologic fracture. 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 Impression: No retroperitoneal hematoma. Multiple masses in the bladder measuring up to 1.6 cm, malignant. If this is a new finding nonemergent workup is recommended. Stone in the neck of the gallbladder without CT evidence of acute cholecystitis. Consider biliary colic. If there is clinical concern for acute cholecystitis further evaluation with right upper quadrant ultrasound may be helpful. Extensive osseous metastatic disease. Pathologic fracture of L1, also present on the prior study. This document has been electronically signed by: Mariposa Jacobs MD on 06/20/2024 22:24:01
[2024-06-20 15:51] VITALS: BP 148/78; PULSE 86; O2SAT 96
[2024-06-20 16:10] VITALS: BP 181/69; PULSE 85; RESP 16; TEMP 36.7; O2SAT 95; BMI 24.6
[2024-06-20 16:16] VITALS: BP 181/69; PULSE 85; RESP 16; O2SAT 95
--- NOTE | 2024-06-20 19:54 | ECG_ITS ---
Test Reason : FALL Blood Pressure : / mmHG Vent. Rate : 088 BPM Atrial Rate : 088 BPM P-R Int : 144 ms QRS Dur : 086 ms QT Int : 352 ms P-R-T Axes : 045 035 040 degrees QTc Int : 425 ms Sinus rhythm with Premature atrial complexes Nonspecific ST abnormality Abnormal ECG When compared with ECG of 08-APR-2024 15:17, Premature atrial complexes are now Present Referred By: Ghazal Boss Electronically Signed By:RENEE SALAS MD
--- NOTE | 2024-06-20 20:00 | ED.GENADULT ---
HPI - General Adult General Chief complaint: Back Pain/Injury Stated complaint: fall from standing, no loc, recent back surgery Time Seen by Provider: 06/20/24 19:34 History of Present Illness HPI narrative: Patient is an 89-year-old male with a history of bladder cancer. Status post chemo last year. Been follow-up by Urology. Noticed to have recurrence of disease. Patient today walks with a walker was trying to go to the bathroom then subsequently fell unsure as to the exact nature why he fell. Patient denies any chest pain. Denies any shortness of breath. Did have some back pain which is chronic. There is no bowel urinary incontinence. Patient does complain of some burning on urination. There is no fever no chills. No diaphoresis. No coughing or congestion or upper respiratory symptoms. No chest pain. No history of blood clots. Not on blood thinners. Positive history of diabetes, hypertension, high cholesterol. Never had a heart attack. Never had a stroke. Related Data Home Medications ?Medication ?Instructions ?Recorded ?Confirmed blood-glucose meter (CrossLo[employer]le #1 ea 10/24/21 06/18/24 Lite Meter kit) acetaminophen 325 mg tablet 650 mg PO Q6H PRN Pain 07/16/22 06/18/24 (Tylenol) acetaminophen 325 mg-codeine 30 mg 1 tab PO Q6H 06/18/24 06/18/24 tablet Previous Rx's ?Medication ?Instructions ?Recorded spironolactone 25 mg tablet 25 mg PO DAILY 90 days #90 tabs 03/29/20 blood-glucose meter #1 ea 08/03/21 nifedipine 90 mg tablet,extended 90 mg PO DAILY 90 days #90 tabs 10/07/23 release 24 hr fenofibrate nanocrystallized 145 145 mg PO DAILY #90 tabs 10/11/23 mg tablet lancets 28 gauge (FreeStyle #100 ea 01/17/24 Lancets) solifenacin 10 mg tablet 10 mg PO DAILY 90 days #90 tabs 01/17/24 torsemide 10 mg tablet 10 mg PO DAILY #90 tabs 02/12/24 metformin 500 mg tablet 500 mg PO DAILY 90 days #90 tabs 03/05/24 carvedilol 25 mg tablet (Coreg) 37.5 mg (1.5 x 25 mg) PO BID 90 03/17/24 days #270 tabs tramadol 50 mg tablet 50 mg PO BID PRN pain #60 tabs 03/17/24 lorazepam 0.5 mg tablet 0.5 mg PO BEDTIME #90 tabs 04/22/24 allopurinol 100 mg tablet 100 mg PO DAILY #90 tabs 05/08/24 blood sugar diagnostic (FreeStyle #50 strips 05/27/24 Lite Strips) doxazosin 4 mg tablet (Cardura) 4 mg PO DAILY 90 days #90 tabs 06/01/24 leflunomide 20 mg tablet 20 mg PO DAILY #90 tabs 06/02/24 hydralazine 100 mg tablet 100 mg PO TID 90 days #270 tabs 06/16/24 Allergies Allergy/AdvReac Type Severity Reaction Status Date / Time levofloxacin [From LEVAQUIN] Allergy Severe ANGIOEDEMA Verified 06/20/24 16:11 (EXACT SOURCE UNCERTAIN) lisinopril [LISINOPRIL] Allergy Severe ANGIOEDEMA Verified 06/20/24 16:11 ( EXACT SOURCE UNCERTAIN) Review of Systems Review of Systems: Positive fall Yes all other systems are reviewed and are negative [facility] Past Medical History Attestation statement: The following information was validated with the patient. Medical History Bladder cancer CKD (chronic kidney disease) Diabetes mellitus Disc degeneration, lumbar Chronic pain syndrome Gout, arthritis Spinal stenosis Spondylosis of lumbar region without myelopathy or radiculopathy Diabetes mellitus Swelling of both parotid glands Podagra Seropositive rheumatoid arthritis Hypercholesterolemia Leg edema Essential hypertension Angioedema Surgical History History of back surgery History of cryosurgery History of endoscopy History of bladder surgery History of bilateral cataract extraction History of hernia repair Family History Family History Father Diabetes Cardiovascular disease Mother Diabetes Stomach cancer Brother No problems noted. Brother No problems noted. Sister No problems noted. Sister No problems noted. Son No problems noted. Son No problems noted. Daughter No problems noted. Daughter No problems noted. Daughter No problems noted. Other Mental health disorder Social History Social History Household Members: Spouse and Children Housing: House Do you presently have visiting nurse or other home services: No Alcohol intake: never Patient Tobacco Use Status: Former Tobacco user Smoked in Last 30 Days: No e-Cigarette/Vaping Use: Never Used Second Hand Smoke Exposure: No Use of substances other than those prescribed or required for medical reasons: No Advance Directives: No Advance Directives Information Provided: No Do you have a plan to hurt others: No Plan service: No Current occupational status: retired Cognitive needs: No Hearing needs: Yes (hearing aide) Vision needs: No Physical Exam ED Vital Signs: Vital Signs - 24 hr 06/20/24 16:10 06/20/24 16:16 06/20/24 20:43 Temperature 98.0 F 98.1 F Pulse Rate 85 85 85 Respiratory Rate 16 16 16 Blood Pressure 181/69 H 181/69 H 172/64 H Pulse Oximetry 95 95 96 Oxygen Delivery Method Room Air Room Air Room Air BMI result Body Mass Index 24.6 Appearance: Alert. Oriented X3. No acute distress. Eyes: Pupils equal, round and reactive to light. ENT: Pharynx normal. Neck: Normal inspection. Neck supple. No lymph nodes noted. No crepitus CVS: Normal heart rate and rhythm. Pulses normal. Normal S1 and S2 Respiratory: No respiratory distress. Breath sounds normal. No Wheezing. No rales Abdomen: Soft and nontender. No rigidity. No distention. good BS x4 Skin: Skin warm and dry. Normal skin color. Normal skin turgor. Extremities: No lower extremity edema. Neurovascular intact to all extremities. No Lacerations. No Rash Neuro: Oriented X 3. No motor deficit. No sensory deficit. Moving all extermities. No slurred speech Medications Administered Discontinued Medications Generic Name Dose Route Start Last Admin Trade Name Freq PRN Reason Stop Dose Admin Sodium Chloride 500 mls @ 999 mls/hr 06/20/24 20:00 06/20/24 21:15 Ns IV 06/20/24 20:30 Infused .Q31M JEANE Infusion Iohexol 100 ml 06/20/24 21:03 06/20/24 21:03 Iohexol 350 Mg/Ml 100 Ml Infus..Btl IV 06/20/24 21:04 85 ml ONCE ONE Administration Medical Decision Making Medical Decision Making MDM Narrative: 89-year-old male fell question etiology. Patient has a history of bladder cancer. CT scan of the head was done by my interpretation no evidence of bleeding no evidence of fracture. CT scan of the C-spine per radiology's reading showed a possible lytic lesions. No acute fracture. No malalignment. CT scan of the chest per Radiology interpretation showed no evidence of PE. No pneumonia no pneumothorax. CT scan of the abdomen pelvis showed lytic lesion in L1. Likely related to potential bladder cancer metastasis. Bladder mass also noted. The finding was discussed with patient's family. Understands that we do not know the exact etiology patient's fall patient's troponin however was negative at 17. Patient is EKG showed a sinus pattern heart rate is 90 NV QRS QTC normal no acute changes from prior. Hemoglobin was 8.7 which is baseline for patient. Patient denies noticing any bloody stool. Urine showed no signs of infection. Given patient's history of having bladder cancer. Discussed with family and patient at length about staying in the hospital to be monitored versus going home. Family feels comfortable to take patient home. Currently in stable condition. Differential Diagnosis Differential Diagnoses: The differential diagnosis associated with the presentation includes Syncope, PE, pneumonia, ACS, irregular heartbeat Admission/Observation Consideration of admission/observation: Escalation of care including admission/observation considered Lab Data MDM Lab Attestation statement: I reviewed the patient's lab results. 06/20/24 20:16 06/20/24 20:16 Labs: Lab Results 06/20/24 Range/Units 20:16 WBC 14.7 H (4.8-10.8) X10*3/uL RBC 3.42 L (4.60-5.80) X10*6/uL Hgb 8.7 L (14.0-18.0) g/dl Hct 26.4 L (42.0-52.0) % MCV 77.2 L (80.0-98.0) fL MCH 25.4 L (27.0-33.0) pg MCHC 33.0 (31.0-36.0) g/dl RDW 16.7 H (11.0-16.0) % Plt Count 513 H (160-400) X10*3/uL MPV 9.7 (9.4-12.4) fL Immature Gran % (Auto) 1.3 H (0.0-0.4) % Neut % (Auto) 83.7 H (45-73) % Lymph % (Auto) 6.1 L (20-40) % [place] % (Auto) 7.2 (2-11) % Eos % (Auto) 1.2 (0-4) % Baso % (Auto) 0.5 (0-2) % Lymph # (Auto) 0.9 L (1.2-4.9) X10*3/uL [place] # (Auto) 1.1 (0.1-1.2) X10*3/uL Eos # (Auto) 0.2 (0.0-0.4) X10*3/uL Baso # (Auto) 0.1 (0.0-0.2) X10*3/uL Abs Immat Gran (auto) 0.19 H (0.00-0.03) X10*3/uL Absolute Neuts (auto) 12.3 H (2.0-8.3) x10*3/uL Absolute Nucleated RBC 0.000 (0.0-0.012) X10*3/uL Nucleated RBC % (auto) 0.0 (0.0-0.2) /100WBC Sodium 136 (135-145) mmol/L Potassium 3.4 (3.3-5.1) mmol/L Chloride 101 (96-108) mmol/L Carbon Dioxide 23 (22-29) mmol/L Anion Gap 15 (12-20) BUN 21 H (9-16) mg/dL Creatinine 0.68 (0.5-1.4) mg/dL Estim Creat Clear Calc 71.2 Estimated GFR > 60 Random Glucose 165 H (60-115) mg/dL Calcium 9.3 D (8.4-10.2) mg/dL Total Bilirubin 0.4 (0.0-1.0) mg/dL Direct Bilirubin 0.2 (0.0-0.5) mg/dL AST 39 H (5-37) U/L ALT 8 (0-40) U/L Alkaline Phosphatase 224 H (39-117) U/L Troponin I High Sens 17.7 D (<3.5-35.0) ng/L Total Protein 7.1 (6.5-8.0) g/dL Albumin 3.4 L (3.5-5.0) g/dL Urine Color Yellow Urine Appearance Clear Urine pH 5.5 (5.0-9.0) Ur Specific Hodge 1.020 (1.005-1.025) Urine Protein 30 (1+) H (Neg-Trace) mg/dL Urine Glucose (UA) Negative (Negative) mg/dL Urine Ketones Negative (Negative) mg/dL Urine Blood Negative (Negative) Urine Nitrite Negative (Negative) Ur Leukocyte Esterase Negative (Negative) Urine RBC 6-10 H (0-2) /HPF Urine WBC 0-5 (0-5) /HPF Ur Squamous Epith Cells 3-5 (0-2) /HPF Urine Bacteria None Seen (None Seen) Hyaline Casts 0-2 (0-2) /LPF Independent Interpretation I performed an independent interpretation of an: EKG (EKG showed a heart rate of 90 NV QRS QTC normal no acute ST segment elevation) and CT Scan (CT head grossly negative for any acute evidence of bleeding) Radiology Impression Discussion of test interpretation with radiology: I have reviewed the radiologist's reading. Independent Historian Clinical information obtained from an independent historian. History obtained from or confirmed by: Spouse External Record Review External record reviewed: Inpatient record and Office record Chronic Conditions Bladder cancer Social Determinants Patient?s care significantly limited by Social Determinants of Health including: Other Social Determinant of Health Discharge Plan Discharge Clinical Impression: Fall, Bladder cancer Patient Disposition: Home, Self-Care Instructions: Bladder Cancer (DC), Fall Prevention (ED) Additional Instructions: A copy of the CT scan result was given to patient. Risk of metastatic bladder disease exists. Follow-up with urology recommended Prescriptions: No Action spironolactone 25 mg tablet 25 mg PO DAILY 90 Days Qty: 90 3RF (DME) blood-glucose meter Misc See Rx Instructions .Route Qty: 1 0RF Rx Instructions: Test Daily - [place] Blood glucose Meter nifedipine 90 mg tablet extended release 24hr 90 mg PO DAILY 90 Days Qty: 90 3RF fenofibrate nanocrystallized 145 mg tablet 145 mg PO DAILY Qty: 90 3RF solifenacin 10 mg tablet 10 mg PO DAILY 90 Days Qty: 90 1RF (DME) lancets [FreeStyle Lancets] 28 gauge misc See Rx Instructions .ROUTE .COMPLEX Qty: 100 1RF Dose Instruction: USE TO TEST DAILY Rx Instructions: USE TO TEST DAILY torsemide 10 mg tablet 10 mg PO DAILY Qty: 90 1RF metformin 500 mg tablet 500 mg PO DAILY 90 Days Qty: 90 1RF tramadol 50 mg tablet 50 mg PO BID PRN (Reason: pain) Qty: 60 0RF carvedilol [Coreg] 25 mg tablet 37.5 mg PO BID 90 Days Qty: 270 3RF Rx Instructions: must administer with a meal/food lorazepam 0.5 mg tablet 0.5 mg PO BEDTIME Qty: 90 0RF allopurinol 100 mg tablet 100 mg PO DAILY Qty: 90 1RF (DME) FreeStyle Lite Strips Strip See Rx Instructions .ROUTE .COMPLEX Qty: 50 1RF Dose Instruction: USE TO TEST DAILY Rx Instructions: USE TO TEST DAILY doxazosin [Cardura] 4 mg tablet 4 mg PO DAILY 90 Days Qty: 90 1RF leflunomide 20 mg tablet 20 mg PO DAILY Qty: 90 0RF hydralazine 100 mg tablet 100 mg PO TID 90 Days Qty: 270 3RF (DME) blood-glucose meter [FreeStyle Lite Meter] Kit See Rx Instructions .ROUTE DAILY Qty: 1 Rx Instructions: As directed acetaminophen [Tylenol] 325 mg tablet 650 mg PO Q6H PRN (Reason: Pain) acetaminophen-codeine 325-30 mg tablet 1 tab PO Q6H Referrals: Kenney Beal MD [Primary Care Provider] - 06/23/24 Print Language: Tanzanian
[2024-06-20 20:22] LABS: MANUAL DIFF FLAG NO
[2024-06-20 20:23] LABS: Appearance Urine Clear; Basophils Absolute Auto 0.1 X10*3/uL (0.0-0.2); Basophils Percent Auto 0.5 % (0-2); Color Urine Yellow; Eosinophils Absolute Auto 0.2 X10*3/uL (0.0-0.4); Eosinophils Percent Auto 1.2 % (0-4); Glucose Urine UA Negative (Negative); Hematocrit 26.4 % (42.0-52.0); Hemoglobin 8.7 g/dl (14.0-18.0); Imm Gran Abs Auto 0.19 X10*3/uL (0.00-0.03); Imm Gran Pct Auto 1.3 % (0.0-0.4); Leukocyte Esterase Urine Negative (Negative); Lymphocytes Absolute Auto 0.9 X10*3/uL (1.2-4.9); Lymphocytes Percent Auto 6.1 % (20-40); Mean Corpuscular Hemoglobin 25.4 pg (27.0-33.0); Mean Corpuscular Volume 77.2 fL (80.0-98.0); Mean Platelet Volume 9.7 fL (9.4-12.4); Monocytes Absolute Auto 1.1 X10*3/uL (0.1-1.2); Monocytes Percent Auto 7.2 % (2-11); Neutrophils Absolute Auto 12.3 x10*3/uL (2.0-8.3); Neutrophils Percent Auto 83.7 % (45-73); Nitrite Urine Negative (Negative); PH 5.5 (5.0-9.0); Platelet Count 513 X10*3/uL (160-400); Red Blood Count 3.42 X10*6/uL (4.60-5.80); Red Cell Distribution Width 16.7 % (11.0-16.0); UMIC TRIGGER UACC YES; Urine Blood Negative (Negative); Urine Ketones Negative (Negative); Urine Protein 30 (1+) mg/dL (Neg-Trace); White Blood Count 14.7 X10*3/uL (4.8-10.8)
[2024-06-20] MEDS: 0.9 % Sodium Chloride 500 ML 999 ML IV (20:26)
[2024-06-20 20:28] LABS: Bacteria Urine None Seen (None Seen); Hyaline Casts Urine 0-2 /LPF (0-2); WBC Urine 0-5 /HPF (0-5)
[2024-06-20 20:36] LABS: Alanine Aminotransferase 8 U/L (0-40); Albumin Level 3.4 g/dL (3.5-5.0); Alkaline Phosphatase 224 U/L (39-117); Anion Gap 15 (12-20); Aspartate Amino Transferase 39 U/L (5-37); Bilirubin Direct 0.2 mg/dL (0.0-0.5); Bilirubin Total 0.4 mg/dL (0.0-1.0); Blood Urea Nitrogen 21 mg/dL (9-16); Calcium 9.3 mg/dL (8.4-10.2); Carbon Dioxide 23 mmol/L (22-29); Chloride 101 mmol/L (96-108); Creatinine Clr Calc Pharmacy 71.2; Estimated Glomerular Filt Rate > 60; Glucose Random 165 mg/dL (60-115); Potassium 3.4 mmol/L (3.3-5.1); Sodium 136 mmol/L (135-145); Total Protein 7.1 g/dL (6.5-8.0)
[2024-06-20 20:43] VITALS: BP 172/64; PULSE 85; RESP 16; TEMP 36.7; O2SAT 96
[2024-06-20 20:43] LABS: Troponin-I High Sensitivity 17.7 ng/L (<3.5-35.0)
[2024-06-20] MEDS: iohexoL 350 MG/ML 100 ML INFUS..BTL IV (21:03)
[2024-06-20 23:44] VITALS: BP 153/59; PULSE 80; RESP 20; TEMP 36.8; O2SAT 95
[2024-06-21 00:08] VITALS: BP 153/59; PULSE 80; RESP 20; TEMP 36.8; O2SAT 95
== END 2024-06-21 00:26 | disposition home or self-care (01) ==
PROVIDERS: Emergency Provider Emergency Medicine Emergency Medical Services; PCP Internal Medicine
DX: C67.9 Malignant neoplasm of bladder, unspecified (principal); Z91.81 History of falling; E11.22 Type 2 diabetes mellitus with diabetic chronic kidney disease; I12.9 Hypertensive chronic kidney disease with stage 1 through stage 4 chronic kidney disease, or unspecified chronic kidney disease; N18.9 Chronic kidney disease, unspecified; E78.00 Pure hypercholesterolemia, unspecified; M89.9 Disorder of bone, unspecified; R97.20 Elevated prostate specific antigen [PSA]; M05.9 Rheumatoid arthritis with rheumatoid factor, unspecified; Z79.84 Long term (current) use of oral hypoglycemic drugs; Z79.899 Other long term (current) drug therapy; Z87.891 Personal history of nicotine dependence
CPT/HCPCS: 36415; 51798; 70450; 71045; 71275; 72125; 74177; 80048; 80076; 81001; 84484; 85025; 93005; 96360; 99284; 99285; Q9967

== ENCOUNTER → 2024-06-20 18:05 | Outpatient (BNV) | payer MEDICARE, SELFPAY | PROVIDERS: Emergency Provider Emergency Medicine Emergency Medical Services; PCP Internal Medicine; Visit Provider Radiology Diagnostic Radiology | DX: R07.9 Chest pain, unspecified (principal); Z03.89 Encounter for observation for other suspected diseases and conditions ruled out | CPT/HCPCS: 70450; 71045; 72125 ==

== ENCOUNTER → 2024-06-20 19:54 | Outpatient (BNV) | payer MEDICARE, SELFPAY | PROVIDERS: Emergency Provider Emergency Medicine Emergency Medical Services; PCP Internal Medicine; Visit Provider Internal Medicine Cardiovascular Disease | DX: R94.31 Abnormal electrocardiogram [ECG] [EKG] (principal); I49.1 Atrial premature depolarization | CPT/HCPCS: 93010 ==

== ENCOUNTER 2024-07-16 11:56 | Day surgery (SDC) | payer MEDICARE, SELFPAY ==
--- NOTE | 2024-07-15 10:23 | P.CONAN_ITS ---
Documented by User: Selma Brower NP 07/15/24 10:29 HPI - Anesthesia Eval Consult details Narrative: 89yo M for TUR Bladder Tumor with mitomycin cytarabine s/p TURBT 09/2023 with GA-LMA 4 [place] [facility] [place]. Bladder ca, Metatstatic prostate ca, bony lesion on recent CT. [place] [facility] [place]tn, aortic stenosis. 04/2024 cleared for lumbar surgery 11/2021 - [facility] for urological procedure, OK post-op and d/c'd home. Subsequently developed swelling in the throat and submandibular area/ tongue and was diagnosed with angioedema. He was then admitted to the ICU and intubated. He was on lisinopril at that time, which was then stopped. Subsequently he improved and then was able to go home. No recurrence PMFSH Active Problems Active Problems: All Active Problems Bone lesion (Acute) Elevated PSA (Acute) Preoperative cardiovascular examination (Acute) Nonrheumatic aortic (valve) stenosis (Acute) Bladder cancer (Acute) Screening for osteoporosis (Acute) Immunization counseling (Acute) Edema (Acute) CKD (chronic kidney disease) (Acute) Erectile dysfunction associated with type 2 diabetes mellitus (Acute) Annual physical exam (Acute) Dysphagia (Acute) Fracture of multiple ribs of both sides (Acute) Syncope and collapse (Acute) Diabetes mellitus (Acute) Overactive bladder (Acute) Disc degeneration, lumbar (Acute) Chronic pain syndrome (Acute) Gout, arthritis (Acute) Spinal stenosis (Acute) Spondylosis of lumbar region without myelopathy or radiculopathy (Acute) Lumbar radicular pain (Acute) Uncontrolled hypertension (Acute) Annual physical exam (Acute) Left hip pain (Acute) Low back pain (Acute) Diabetes mellitus (Acute) Swelling of lower extremity (Acute) REGINA (generalized anxiety disorder) (Acute) Bunion (Acute) Swelling of both parotid glands (Acute) Podagra (Acute) Seropositive rheumatoid arthritis (Acute) Hypercholesterolemia (Acute) Urinary urgency (Acute) Nocturia more than twice per night (Acute) BPH w urinary obs/LUTS (Acute) Erectile dysfunction (Acute) Leg edema (Acute) Essential hypertension (Acute) Angioedema (Acute) Past Medical History Medical History Bladder cancer CKD (chronic kidney disease) Diabetes mellitus Disc degeneration, lumbar Chronic pain syndrome Gout, arthritis Spinal stenosis Spondylosis of lumbar region without myelopathy or radiculopathy Diabetes mellitus Swelling of both parotid glands Podagra Seropositive rheumatoid arthritis Hypercholesterolemia Leg edema Essential hypertension Angioedema Family History Family History Father Diabetes Cardiovascular disease Mother Diabetes Stomach cancer Brother No problems noted. Brother No problems noted. Sister No problems noted. Sister No problems noted. Son No problems noted. Son No problems noted. Daughter No problems noted. Daughter No problems noted. Daughter No problems noted. Other Mental health disorder Family history of problems with anesthesia: No Surgical History Surgical History History of back surgery History of cryosurgery History of endoscopy History of bladder surgery History of bilateral cataract extraction History of hernia repair History of Problems with Anesthesia: No Social History Social History Household Members: Spouse and Children Housing: House Do you presently have visiting nurse or other home services: No Alcohol intake: never Patient Tobacco Use Status: Former Tobacco user e-Cigarette/Vaping Use: Never Used Second Hand Smoke Exposure: No Use of substances other than those prescribed or required for medical reasons: No Advance Directives: No Advance Directives Information Provided: Yes service: No Current occupational status: retired Cognitive needs: No Hearing needs: Yes (hearing aide) Vision needs: No Meds Allergies Allergy/AdvReac Type Severity Reaction Status Date / Time levofloxacin [From LEVAQUIN] Allergy Severe ANGIOEDEMA Verified 07/16/24 12:53 (EXACT SOURCE UNCERTAIN) lisinopril [LISINOPRIL] Allergy Severe ANGIOEDEMA Verified 07/16/24 12:53 ( EXACT SOURCE UNCERTAIN) Home Medications ?Medication ?Instructions ?Recorded ?Confirmed ?Last Taken ?Type blood-glucose meter (FreeStyle #1 ea 10/24/21 07/14/24 Unknown History Lite Meter kit) acetaminophen 325 mg tablet 650 mg PO Q6H PRN Pain 07/16/22 07/16/24 07/16/24 10:00 History (Tylenol) acetaminophen 325 mg-codeine 30 mg 1 tab PO Q6H 06/18/24 07/14/24 Unknown History tablet Exam Pertinent Lab Results Pertinent Lab Results: Laboratory Tests 06/20/24 07/14/24 20:16 10:34 WBC 9.6 Hgb 8.6 L Hct 28.8 L Plt Count 513 H Sodium 134 L Potassium 4.0 Chloride 106 Carbon Dioxide 19 L BUN 20 H Creatinine 0.75 Narrative Narrative: EKG 06/2024 Vent. Rate : 088 BPM Atrial Rate : 088 BPM P-R Int : 144 ms QRS Dur : 086 ms QT Int : 352 ms P-R-T Axes : 045 035 040 degrees QTc Int : 425 ms Sinus rhythm with Premature atrial complexes Nonspecific ST abnormality Abnormal ECG When compared with ECG of 08-APR-2024 15:17, Premature atrial complexes are now Present ECHO 2023 Conclusions: - The left ventricular systolic function is normal. The calculated ejection fraction is 64% by biplane method. - There is mild to moderate aortic valve stenosis. Assessment and Plan Assessment Anesthesia Assessment: Chart Reviewed Final Anesthetic Review Family History of Problems with Anesthesia: No History of Problems with Anesthesia: No Documented by User: Zayra Munoz MD 07/16/24 15:10 [facility] Active Problems Active Problems: All Active Problems Bone lesion (Acute) Elevated PSA (Acute) Preoperative cardiovascular examination (Acute) Nonrheumatic aortic (valve) stenosis (Acute) Bladder cancer (Acute) Screening for osteoporosis (Acute) Immunization counseling (Acute) Edema (Acute) CKD (chronic kidney disease) (Acute) Erectile dysfunction associated with type 2 diabetes mellitus (Acute) Annual physical exam (Acute) Dysphagia (Acute) Fracture of multiple ribs of both sides (Acute) Syncope and collapse (Acute) Diabetes mellitus (Acute) Overactive bladder (Acute) Disc degeneration, lumbar (Acute) Chronic pain syndrome (Acute). Back pain Gout, arthritis (Acute) Spinal stenosis (Acute) Spondylosis of lumbar region without myelopathy or radiculopathy (Acute) Lumbar radicular pain (Acute) Uncontrolled hypertension (Acute) Annual physical exam (Acute) Left hip pain (Acute) Low back pain (Acute) Diabetes mellitus (Acute) Swelling of lower extremity (Acute) REGINA (generalized anxiety disorder) (Acute) Bunion (Acute) Swelling of both parotid glands (Acute) Podagra (Acute) Seropositive rheumatoid arthritis (Acute) Hypercholesterolemia (Acute) Urinary urgency (Acute) Nocturia more than twice per night (Acute) BPH w urinary obs/LUTS (Acute) Erectile dysfunction (Acute) Leg edema (Acute) Essential hypertension (Acute) Angioedema (Acute) Mild to moderate aortic stenosis- ALVIN 1.82 Past Medical History Medical History Bladder cancer CKD (chronic kidney disease) Diabetes mellitus Disc degeneration, lumbar Chronic pain syndrome Gout, arthritis Spinal stenosis Spondylosis of lumbar region without myelopathy or radiculopathy Diabetes mellitus Swelling of both parotid glands Podagra Seropositive rheumatoid arthritis Hypercholesterolemia Leg edema Essential hypertension Angioedema Family History Family History Father Diabetes Cardiovascular disease Mother Diabetes Stomach cancer Brother No problems noted. Brother No problems noted. Sister No problems noted. Sister No problems noted. Son No problems noted. Son No problems noted. Daughter No problems noted. Daughter No problems noted. Daughter No problems noted. Other Mental health disorder Family history of problems with anesthesia: No Surgical History Surgical History History of back surgery History of cryosurgery History of endoscopy History of bladder surgery History of bilateral cataract extraction History of hernia repair History of Problems with Anesthesia: No Social History Social History Household Members: Spouse and Children Housing: House Do you presently have visiting nurse or other home services: No Alcohol intake: never Patient Tobacco Use Status: Former Tobacco user e-Cigarette/Vaping Use: Never Used Second Hand Smoke Exposure: No Use of substances other than those prescribed or required for medical reasons: No Advance Directives: No Advance Directives Information Provided: Yes service: No Current occupational status: retired Cognitive needs: No Hearing needs: Yes (hearing aide) Vision needs: No Meds Allergies Allergy/AdvReac Type Severity Reaction Status Date / Time levofloxacin [From LEVAQUIN] Allergy Severe ANGIOEDEMA Verified 07/16/24 12:53 (EXACT SOURCE UNCERTAIN) lisinopril [LISINOPRIL] Allergy Severe ANGIOEDEMA Verified 07/16/24 12:53 ( EXACT SOURCE UNCERTAIN) Home Medications ?Medication ?Instructions ?Recorded ?Confirmed ?Last Taken ?Type blood-glucose meter (FreeStyle #1 ea 10/24/21 07/14/24 Unknown History Lite Meter kit) acetaminophen 325 mg tablet 650 mg PO Q6H PRN Pain 07/16/22 07/16/24 07/16/24 10:00 History (Tylenol) acetaminophen 325 mg-codeine 30 mg 1 tab PO Q6H 06/18/24 07/14/24 Unknown History tablet Exam Height,Weight and Vital Signs: Height 5 ft 8 in Weight 66.678 kg Vital Signs Temp Pulse Resp BP Pulse Ox O2 Del Method 07/16/24 13:08 97.2 F 81 16 118/98 H 97 Room Air Pertinent Lab Results Pertinent Lab Results: Laboratory Tests 06/20/24 07/14/24 20:16 10:34 WBC 9.6 Hgb 8.6 L Hct 28.8 L Plt Count 513 H Sodium 134 L Potassium 4.0 Chloride 106 Carbon Dioxide 19 L BUN 20 H Creatinine 0.75 Airway Mallampati Class: II TM Dist: >3cm Neck ROM: Full Partial: Upper Loose/Missing/Broken Teeth: Yes (Only a few teeth in the bottom. Denies broken or loose teeth) Heart: RRR+ murmur Lungs: CTAB Assessment and Plan Assessment Anesthesia Assessment: Anesthesia Plan Discussed and Chart Reviewed Final Anesthetic Review Family History of Problems with Anesthesia: No History of Problems with Anesthesia: No NPO: Yes ASA Class: III Final Preanesthetic Review: No Changes in Pt Med Stat, Meds/Allgs Chart Reviewed, Consent Obtained/Reviewed and Anes Risks/Benef Reviewed Patient Risk: Intermediate Procedure Risk: Low Assessment/Block/Sedation in SS: Assess/Block/Sedation-SS Anesthetic Plan Anesthetic Plan: GA Disposition: Standard PACU
[2024-07-16] VITALS (7 sets, daily range): BP systolic 118–176; BP diastolic 65–98; PULSE 79–86; RESP 10–16; TEMP 36.1–36.2; O2SAT 95–98; BMI 22.3
[2024-07-16] MEDS: Lactated Ringers 1,000 ML 100 ML IVCONT (13:22)
[2024-07-16 13:42] LABS: Glucose, Whole Blood 154 mg/dL (60-115)
--- NOTE | 2024-07-16 13:44 | MHC.SHP ---
Pre-Procedural Eval Section A - 24 Hr Update-Section A only Date of Service: 07/16/24 The patient is an INPATIENT: No Changes since office visit: No Cold of Flu in the past 2 weeks, No New Medical Problems, No Changes in Medication and No Patient answered all questions The patient has been examined within 24 hours of the surgical procedure. The History & Physical has been completed within 30 days and I have reviewed it.: Yes Section B - Complete if H&P > 30 days Chief Complaint: Malignant neoplasm of bladder, unspecified Details of Present Illness: TURBT with [facility] Allergies: Allergies Allergy/AdvReac Type Severity Reaction Status Date / Time levofloxacin [From LEVAQUIN] Allergy Severe ANGIOEDEMA Verified 07/16/24 12:53 (EXACT SOURCE UNCERTAIN) lisinopril [LISINOPRIL] Allergy Severe ANGIOEDEMA Verified 07/16/24 12:53 ( EXACT SOURCE UNCERTAIN) Plan I have reviewed the history and physical and performed a pertinent physical examination on my patient. No changes have occurred unless specified. Time Spent With Patient Time: Total time managing care of this patient today ____ minutes.
--- NOTE | 2024-07-16 15:20 | P.OP_ITS ---
Operative Note Operative Note Date of Service: 07/16/24 Narrative: PreOperative Diagnosis: bladder cancer, elevated PSA Post Operative Diagnosis: 1) bladder cancer - 4 separate Tumor size 3cm, 2cm, 3cm, 4cm, location posterior wall, right side wall, anterior bladder neck, and superior bladder 2) elevated PSA Procedure: TURBT - large 2) transrectal ultrasound measurement of prostate 3. transrectal ultrasound-guided prostate biopsy 12 core Surgeon: Dr Barney Byrd Anesthesia: general Indications for procedure: Multiple lesions seen on cystoscopy in office, elevated PSA 76 Procedure: After informed consent was verified the patient was brought to the operating room and placed in a supine position. Anesthesia was administered per protocol. The patient was placed in a modified dorsal lithotomy position and prepped and draped in a sterile fashion. Safety pause time-out was performed. Antibiotics were confirmed. AMADO was performed to dilate rectal sphincter Iodine 10cc with 60 cc gel was placed per rectum to reduce infection risk using a catheter tip syringe. 8 Hz [place] rectal end-fire ultrasound probe was placed transrectally without difficulty. The prostate was visualized. Seminal vesicles were normal. Prostate margins were clearly demarcated. Bladder was seen superiorly. No cystic structures were noted No calcifications were noted at the surgical margin The prostate was otherwise homogeneous in nature The prostate was measured in 3 dimensions Prostatic Width: cm Prostatic Height: cm Urethral Length: cm Total volume equals : 35 ml An ultrasound-guided pudendal nerve block was performed using a 22 gauge spinal needle in the sagittal plane. 4 cc of 1% lidocaine placed at the junction of each seminal vesicle and 2 cc placed at the apex of the prostate. A 12 core biopsy was performed with 6 cores each side using an 18 gauge prostate biopsy gun. Two cores each were taken at the prostate apex, mid and base on each side. Cores were spaced between lateral and medial aspects. Each core was examined as placed on specimen foam as part of quality assurance qa lab technician to ensure a minimum 1 cm of length and minimal discontinuity. A 26 Burmese continuous flow resectoscope was inserted per urethra. The visual obturator was used in order to minimize potential for urethral damage. Multiple bladder tumors were seen. Resection performed using bipolar resectoscope. First resection on posterior bladder wall approximately 4 cm. Second resection right lateral sidewall proximally 3 cm, 3rd resection left sidewall 2 cm, follow resection anterior bladder neck running from the 10 o'clock to 2 o'clock position proximally 4 cm. Examination showed resection through to perivesicular fat in the posterior wall area. Because of the deep nature of the resection planned chemotherapy administration will be postponed to allow adequate healing. At the completion of the procedure the bladder was irrigated. The cystoscope was removed. A [address] Salazar catheter with 20 cc in the balloon was placed to allow drainage. The patient tolerated the procedure well. They were extubated in the operating room and transferred in stable condition to the recovery area. Pathology: Bladder cancer - multiple specimens prostate 12 core Drains: Salazar catheter
--- OUTSIDE RECORDS SUMMARY | 2024-07-16 15:47 | XMS_ITS | Encounter Summary ---
Author Organization [facility] Address [address] [facility] [address] [place] [address] Phone Care Team Providers Care Architectural Sales Consultant Name Role Phone Meño Shepherd MD Primary Care Provider Reason for Visit * Reason Comments Med Refill Encounter Details Date Type Department Care Team (Late st Contact Info) Description 02/09/2024 Refill [facility] [address] [facility] [address] [place] [address] Marcus Cisneros MD [address] [facility] [address] [place] [address] Stage 3a chronic kidney disease (HCC); Hypertensive disorder; Dyslipidemia Social History Tobacco Use Types Packs/Day Years Used Date Smoking Tobacco: Former Cigarettes Q uit: 10/31/1984 Comments:Smoking History Inf o:Every day Alcohol Use Standard Drinks/Week Comments No 0 (1 standard drink = 0.6 oz pur e alcohol) Sex and Gender Information Value Date Recorded Sex Assigned at Not on file Legal Sex Male 4:54 PM EST Gender Identity Not on file Sexual Orientation Not on file documented as of this encounter Plan of Treatment Not on file documented as of this encounter Visit Diagnoses Diagnosis Stage 3a chronic kidney disease (HCC) Hypertensive disorder Dyslipidemia documented in this encounter Care Teams Architectural Sales Consultant Relationship Specialty Start Date End Date Meño Shepherd MD [address] [place] [address] PCP - General Cardiology 01/19/21 documented as of this encounter
--- OUTSIDE RECORDS SUMMARY | 2024-07-16 15:47 | XMS_ITS | Clinical Summary ---
Author Organization [facility] Address [address] [facility] [address] [place] [address] Phone Care Team Providers Care Quality Assurance Engineer Name Role Phone Meño Shepherd MD Primary Care Provider Allergies Active Allergy Reactions Criticality Noted Date Comments Lisinopril Swelling 08/29/2020 Medications acetaminophen (TYLENOL) 500 MG tablet Take 2 tablets by mouth 1 (one) time each day Active carvedilol (COREG) 25 MG tablet Take 1 tablet by mouth 2 (two) times a day 05/30/2020 Active fenofibrate (TRICOR) 145 MG tablet Take 1 tablet by mouth 1 (one) time each day Active hydrALAZINE (APRESOLINE) 100 MG tablet Take 100 mg by mouth 3 (three) times a day Active LORazepam (ATIVAN) 0.5 MG tablet Take 0.5 mg by mouth every 6 (six) hours if needed for anxiety Active allopurinol (ZYLOPRIM) 100 MG tablet Take 100 mg by mouth 1 (one) time each day 01/13/2021 Active doxazosin (CARDURA) 2 MG tablet 02/01/2021 Active leflunomide (ARAVA) 20 MG tablet 01/16/2021 Active metFORMIN (GLUCOPHAGE) 500 MG tablet 01/16/2021 Activ e spironolactone (ALDACTONE) 25 MG tablet Take 1 tablet (25 mg total) by mouth 1 (one) time each day 90 tablet 3 05/21/2022 Active torsemide (DEMADEX) 10 MG tabletIndicatio ns:Stage 3a chronic kidney disease (HCC),Hypertens katelynn disorder,Dyslip idemia TAKE 1 TABLET 1 TIME EACH DAY -GENERIC FOR DEMADEX 90 tablet 3 04/01/2023 Active Aldactone 25 MG tablet TAKE 1 TABLET 1 TIME DAILY 90 tablet 01/13/2024 Active spironolactone (Aldactone) 25 MG tablet Take 1 tablet (25 mg total) by mouth 1 (one) time each day 90 tablet 3 03/20/2024 5 Active Active Problems Problem Noted Date Diagnosed Date Chronic kidney disease, stage 2 (mild) 3 Paresthesia of lower extremity 08/23/2022 Chronic kidney disease, stage 2 (mild) 2 Chronic kidney disease due to benign hypertensio n 12/19/2021 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 12/19/2021 Chronic kidney disease, stage 2 (mild) 1 Stage 3a chronic kidney disease 08/29/2020 Dyslipidemia 08/29/2020 Hypertensive disorder 08/29/2020 Stage 3a chronic kidney disease 08/29/2020 Family History Medical History Relation Comments Diabetes Father Heart disease Father Hypertension Father Cancer Mother stomach Gout Mother Relation Status Comments Father Mother Social History Tobacco Use Types Packs/Day Years [...] on file Sexual Orientation Not on file Last Filed Vital Signs Vital Sign Reading Time Taken Comments Blood Pressure 138/60 12/24/2022 1:12 PM EDT Pulse 76 12/24/2022 1:12 PM EDT Temperature - - Respiratory Rate - - Oxygen Saturation 96% 12/24/2022 1:12 PM EDT Inhaled Oxygen Concentration - - Weight 79.9 kg (176 lb 3.2 oz) 12/24/2022 1:12 P M EDT Height 175.3 cm (5' 9 ) 07/06/2019 12:00 PM EST Body Mass Index 26.02 07/06/2019 12:00 PM EST Plan of Treatment Health Maintenance Due Date Last Done Comments Pneumococcal Vaccine: 65+ Ye ars (1 of 2 - PCV) 1941 Influenza Vaccine (#1) 2024 Hepatitis B Vaccine Aged Out No longe r eligible based on patient's age to complete this topic Insurance [facility] Care Teams Quality Assurance Engineer Relationship Specialty Start Date End Date Meño Shepherd MD [address] [place] [address] PCP - General Cardiology 01/19/21
== END 2024-07-16 16:45 | disposition home or self-care (01) ==
PROVIDERS: PCP Internal Medicine; Visit Provider Urology
PROC: 0TBB8ZZ Excision of Bladder, Via Natural or Artificial Opening Endoscopic (ICD-10-PCS; CPT 52240; principal; 2024-07-16 13:30)
DX: C67.9 Malignant neoplasm of bladder, unspecified (principal); C61 Malignant neoplasm of prostate; R97.20 Elevated prostate specific antigen [PSA]; M89.9 Disorder of bone, unspecified; R35.1 Nocturia; E11.22 Type 2 diabetes mellitus with diabetic chronic kidney disease; N52.1 Erectile dysfunction due to diseases classified elsewhere; I12.9 Hypertensive chronic kidney disease with stage 1 through stage 4 chronic kidney disease, or unspecified chronic kidney disease; N18.9 Chronic kidney disease, unspecified; N32.81 Overactive bladder; G89.4 Chronic pain syndrome; E78.00 Pure hypercholesterolemia, unspecified; M10.9 Gout, unspecified; M05.9 Rheumatoid arthritis with rheumatoid factor, unspecified; F41.1 Generalized anxiety disorder; Z79.84 Long term (current) use of oral hypoglycemic drugs; Z79.899 Other long term (current) drug therapy; Z88.1 Allergy status to other antibiotic agents; Z88.8 Allergy status to other drugs, medicaments and biological substances; Z98.890 Other specified postprocedural states; Z87.891 Personal history of nicotine dependence
CPT/HCPCS: 52240; 55700; 76942; 82947; 88305; 88307; 88341; 88342; J0736; J1100; J2003; J2371; J2405; J2704; J3010; J9100; J9280

== ENCOUNTER → 2024-07-16 11:56 | Outpatient (BNV) | payer MEDICARE, SELFPAY | PROVIDERS: PCP Internal Medicine; Visit Provider Urology | DX: C67.8 Malignant neoplasm of overlapping sites of bladder (principal) | CPT/HCPCS: 52240 ==

== ENCOUNTER → 2024-07-21 14:09 | Outpatient (BNVA) | payer MEDICARE, SELFPAY | PROVIDERS: PCP Internal Medicine; Visit Provider Urology ==

== ENCOUNTER 2024-07-29 09:43 | Outpatient (AMB) | payer MEDICARE, SELFPAY ==
--- NOTE | 2024-07-29 09:43 | A.OFFVIS_ITS ---
Intake Visit Reasons: Prostate biopsy results, TURBT- follow up Intake Note: Pt presents to the office today as a telehealth for his prostate biopsy results,TURBT follow up. Allergies levofloxacin [From LEVAQUIN] Allergy (Severe, Verified 07/29/24 09:43) ANGIOEDEMA (EXACT SOURCE UNCERTAIN) lisinopril [LISINOPRIL] Allergy (Severe, Verified 07/29/24 09:43) ANGIOEDEMA ( EXACT SOURCE UNCERTAIN) HPI Comments Details: Corby is a pleasant male. He is a patient of Dr. Beal. 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 Multifocal osseous metastatic disease consistent with prostate cancer. No evidence of kalen disease. 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 Histologic grade: Low-grade (urothelial carcinoma) and high-grade (prostatic adenocarcinoma) Muscularis propria: Prostatic adenocarcinoma invades muscularis propria and lamina propria Extent of invasion: Non-invasive papillary urothelial carcinoma Lymphovascular invasion: One focus suspicious for lymphovascular invasion by prostatic adenocarcinoma 10/08 - TURBT Low-grade higher volume with no evidence of invasion T1 - 5 cm lesion bladder base Immunotherapy - 6 week gemcitabine induction Cystoscopy - 01/07 NAD Lower Urinary Tract Symptoms: - bladder instability in diabetic Current visit is for further evaluation of, lower urinary tract symptoms, predominate obstructive symptoms - baseline 6x nocturia Current treatment includes solifenacin with doxazosin Prior treatments TURP, repeat [facility] 04/04 Prostate Symptom Score 6/ , Moderate (9-19), Bother 3. Symptoms include / , incomplete emptying, weak stream, nocturia (>2), and are progressing. Results from testing include cystoscopy [facility] 04/04 - prior TURP PSA 11/02 PSA 10 (last PSA 2011 3.8), 04/04 3.3. Prostate volume 30-50gm. Associated conditions CAD No CVA No diabetes yes elevated PSA No Treatment plan legs higher than body in afternoon Erectile dysfunction Good result with Viagra 100 mg April 2020 [facility] Medical History Bladder cancer CKD (chronic kidney disease) Diabetes mellitus Disc degeneration, lumbar Chronic pain syndrome Gout, arthritis Spinal stenosis Spondylosis of lumbar region without myelopathy or radiculopathy Diabetes mellitus Swelling of both parotid glands Podagra Seropositive rheumatoid arthritis Hypercholesterolemia Leg edema Essential hypertension Angioedema Surgical History History of back surgery History of cryosurgery History of endoscopy History of bladder surgery History of bilateral cataract extraction History of hernia repair Family History Father Diabetes Cardiovascular disease Mother Diabetes Stomach cancer Brother No problems noted. Brother No problems noted. Sister No problems noted. Sister No problems noted. Son No problems noted. Son No problems noted. Daughter No problems noted. Daughter No problems noted. Daughter No problems noted. Other Mental health disorder Social History Household Members: Spouse and Children Housing: House Do you presently have visiting nurse or other home services: No Alcohol intake: never Comment: sullivan catheter Patient Tobacco Use Status: Former Tobacco user e-Cigarette/Vaping Use: Never Used Second Hand Smoke Exposure: No service: No Current occupational status: retired Cognitive needs: No Hearing needs: Yes (hearing aide) Vision needs: No Review of Systems Const All systems reviewed & are unremarkable except as noted in HPI and below Reports no additional complaints Resp Reports no additional complaints GI Reports no additional complaints Reports as per HPI Musc Reports no additional complaints Physical Exam Telemedicine evaluation Appropriate responses Regular breathing rate and rhythm HEENT Head: Yes normal to inspection Ears: hearing grossly normal bilaterally Eyes General: appearance normal, both eyes and all related structures Neck Neck: Yes normal visual inspection Chest Chest palpation & inspection: normal inspection of the chest Resp Effort & Inspection: normal respiratory effort and able to speak in complete sentences Telehealth Telehealth Telehealth Platform: [employer] Location of provider rendering services: practice address Location of patient: address on file Patient Identification confirmed using: Name, : Yes Telehealth method: video Patient verbally consented to treatment: Yes Patient verbally consented to billing insurance company: Yes Patient informed of any privacy concerns related to visit: Yes Minutes spent on Phone/Video with Pt.: 15 Assessment & Plan Assessment & Plan (1) Prostate cancer metastatic to bone: Code(s): C61 - Malignant neoplasm of prostate; C79.51 - Secondary malignant neoplasm of bone Category: Medical Plan Initiate bicalutamide Two week follow-up GnRH Initiate antiandrogen - preference for darolutamide given age and fall risk Medications: New bicalutamide Take 3 tabs daily in single-dose until GnRH injection in office 50 mg PO DAILY 90 days 90 tabs 0RF C61 - Malignant neoplasm of prostate, C79.51 - Secondary malignant neoplasm of bone darolutamide Take medication with food 600 mg (2 x 300 mg) PO BID 30 days 120 tabs 6RF Metastatic prostate cancer C61 - Malignant neoplasm of prostate, C79.51 - Secondary malignant neoplasm of bone Patient Instructions: This note is constructed using voice recognition software. While every effort h as been made to ensure accuracy body sander errors may have been included. Imaging studies, laboratory and physical exam results were discussed and reviewed in detail. No major barriers to patient understanding were identified. An opportunity to ask questions regarding the treatment plan was provided. All questions were answered. The patient expressed understanding and agreement with the above treatment plan. The patient is aware they should contact our office by phone for worsening of their current condition or the appearance of new urologic symptoms. Compliance is encouraged with any medications and followup testing that is ordered. It is a privilege to participate in the urologic care of your patient. If you have any questions or concerns regarding treatment for the above conditions, or other urologic issues, please do not hesitate to contact me. The office telephone contact is [phone]. Sincerely, Dr Barney Byrd MD, [facility] [place] [facility]rology Compassionate Specialist Care for the Genitourinary System Coding Level of Care Code Tele Est Pt Level 4 (80717) Complex EM visit Add On G2211 Diagnoses Prostate cancer metastatic to bone C61; C79.51
--- OUTSIDE RECORDS SUMMARY | 2024-07-29 11:02 | XMS_ITS | Encounter Summary ---
Author Organization [facility] Address [address] [facility] [address] [place] [address] Phone Care Team Providers Care Community Development Director Name Role Phone Meño Shepherd MD Primary Care Provider Reason for Visit * Reason Comments Med Refill Encounter Details Date Type Department Care Team (Late st Contact Info) Description 02/09/2024 Refill [facility] [address] [facility] [address] [place] [address] Marcus Cisneros MD [address] [facility] [address] [place] [address] Stage 3a chronic kidney disease [...] Dyslipidemia documented in this encounter Care Teams Community Development Director Relationship Specialty Start Date End Date Meño Shepherd MD [address] [place] [address] PCP - General Cardiology 01/19/21 documented as of this encounter
--- OUTSIDE RECORDS SUMMARY | 2024-07-29 11:02 | XMS_ITS | Clinical Summary ---
Author Organization [facility] Address [address] [facility] [address] [place] [address] Phone Care Team Providers Care Rehab Aide Name Role Phone Meño Shepherd MD Primary [...] patient's age to complete this topic Insurance [facility] Care Teams Rehab Aide Relationship Specialty Start Date End Date Meño Shepherd MD [address] [place] [address] PCP - General Cardiology 01/19/21
== END 2024-07-29 10:23 | disposition home or self-care (01) ==
LOC: HO.HUSH 09:43
PROVIDERS: PCP Internal Medicine; Visit Provider Urology
DX: C61 Malignant neoplasm of prostate (principal); C79.51 Secondary malignant neoplasm of bone
CPT/HCPCS: 99214; G2211

== ENCOUNTER → 2024-07-29 09:43 | Outpatient (BNVA) | payer MEDICARE, SELFPAY | PROVIDERS: PCP Internal Medicine; Visit Provider Urology ==

== ENCOUNTER 2024-08-01 14:03 | Emergency (ER) | payer MEDICARE, SELFPAY ==
--- NOTE | ~2024-08-01 | XR_ITS ---
CLINICAL HISTORY: constipation 1 view abdomen Comparison: CT/SR - CT ABDOMEN PELVIS W IV CON - 06/20/24 20:50 EST Findings: No pneumoperitoneum or pneumatosis. Overall small fecal load. Gallstone in the right upper quadrant. Lumbar degenerative change. IMPRESSION: The bowel gas pattern is normal. Overall small fecal load. This document has been electronically signed by: Tova Powers MD on 08/01/2024 17:20:01
--- NOTE | ~2024-08-01 | CT_ITS ---
CLINICAL HISTORY: trauma CT cervical spine without contrast Comparison: CT/SR - CT CERVICAL SPINE WO IV CON - 06/20/24 18:21 EST Findings: Motion and streak artifact limit evaluation. Exaggeration of the cervical lordosis. Anterolisthesis at C3-C4. Redemonstrated multifocal lucencies throughout the cervical spine may reflect myeloma, metastases amongst other etiologies, nonspecific. Multilevel spondylosis with osteophytosis, uncovertebral hypertrophy, facet arthropathy and degenerative disc disease. Diffuse spinal canal narrowing, for example moderate at C4-C5 with severe bilateral foraminal stenoses. No acute fractures or dislocations. Soft tissues of the neck are normal. No consolidation or effusion at the lung apices. Diffuse esophageal mural thickening, nonspecific. IMPRESSION: No acute findings. Additional findings as described. This document has been electronically signed by: Jose Alejandro Bradley MD on 08/01/2024 21:08:56
--- NOTE | ~2024-08-01 | CT_ITS ---
CLINICAL HISTORY: trauma CT head without contrast Comparison: CT/SR - CT HEAD/BRAIN WO IV CON - 06/20/24 18:21 EST Findings: Scattered subcortical and periventricular hypoattenuation, likely in keeping with chronic small vessel ischemic disease. Parenchymal volume loss with compensatory prominence of the ventricles and CSF spaces. No acute territorial infarction, intracranial hemorrhage, midline shift or hydrocephalus. The visualized paranasal sinuses and mastoid air cells are normal. The orbits are unremarkable. There is no acute fracture. Similar lucent focus in the right frontal bone. Bilateral lens extraction. IMPRESSION: 1. No acute intracranial findings. 2. Additional findings as described. This document has been electronically signed by: Jose Alejandro Bradley MD on 08/01/2024 21:08:38
--- NOTE | 2024-08-01 14:03 | ED_ITS ---
HPI - Abdominal Pain General Chief Complaint: Abdominal Pain Stated Complaint: CONSTIPATION Time Seen by Provider: 08/01/24 16:46 Source: patient, EMS and old records reviewed Mode of arrival: EMS Limitations: no limitations History of Present Illness ED Provider: Rashard Mohamud PA-C HPI narrative: 89 yo male with history of aortic valve stenosis, metastatic prostate cancer, recurrent low grade bladder cancer, chronic kidney disease, DM II, lumbar disc degeneration, gout, spinal stenosis, spondylosis of lumbar region, hypertension, REGINA, rheumatoid arthritis, hypercholesterolemia, and chronic pain on chronic opiates presents to the ER from home via EMS for evaluation of constipation and generalized weakness. He reports not having a bowel movement in the last 6-7 days. He is passing gas. He is not nauseated or vomiting. His PO intake has been decreased. He feels weak. No fevers. No abdominal pain but he feels slightly distended. He has been taking an OTC pill for constipation but he does not know the name. He is on chronic morphine for his metastatic cancer. He is urinating normally. MD elicited complaint: abdominal pain and other (constipation) Pertinent past history: constipation Onset (ago): day(s) (6) Pain Consistency: constant Location: diffuse Severity: moderate Quality: aching Radiation: none Migration to: no migration Exacerbating factors: nothing Relieving factors: nothing Associated symptoms: denies other symptoms Related Data Home Medications ?Medication ?Instructions ?Recorded ?Confirmed blood-glucose meter (FreeStyle #1 ea 10/24/21 07/14/24 Lite Meter kit) acetaminophen 325 mg tablet 650 mg PO Q6H PRN Pain 07/16/22 07/16/24 (Tylenol) acetaminophen 325 mg-codeine 30 mg 1 tab PO Q6H 06/18/24 07/14/24 tablet Previous Rx's ?Medication ?Instructions ?Recorded spironolactone 25 mg tablet 25 mg PO DAILY 90 days #90 tabs 03/29/20 blood-glucose meter #1 ea 08/03/21 nifedipine 90 mg tablet,extended 90 mg PO DAILY 90 days #90 tabs 10/07/23 release 24 hr fenofibrate nanocrystallized 145 145 mg PO DAILY #90 tabs 10/11/23 mg tablet carvedilol 25 mg tablet (Coreg) 37.5 mg (1.5 x 25 mg) PO BID 90 03/17/24 days #270 tabs allopurinol 100 mg tablet 100 mg PO DAILY #90 tabs 05/08/24 blood sugar diagnostic (FreeStyle #50 strips 05/27/24 Lite Strips) doxazosin 4 mg tablet (Cardura) 4 mg PO DAILY 90 days #90 tabs 06/01/24 leflunomide 20 mg tablet 20 mg PO DAILY #90 tabs 06/02/24 hydralazine 100 mg tablet 100 mg PO TID 90 days #270 tabs 06/16/24 torsemide 10 mg tablet 10 mg PO DAILY #90 tabs 07/03/24 lancets 28 gauge (FreeStyle #100 ea 07/12/24 Lancets) phenazopyridine 100 mg tablet 100 mg PO TID PRN Spasm 4 days #12 07/16/24 (Pyridium) tabs lorazepam 0.5 mg tablet 0.5 mg PO BEDTIME #90 tabs 07/21/24 oxycodone 5 mg tablet 5 mg PO Q6H PRN Breakthrough Pain, 07/24/24 Moderate #50 tabs metformin 500 mg tablet 500 mg PO DAILY 90 days #90 tabs 07/27/24 polyethylene glycol 3350 17 17 g PO DAILY PRN Constipation 30 07/27/24 gram/dose oral powder (Miralax) days #510 grams morphine 30 mg tablet,extended 30 mg PO Q12H #60 tabs 07/28/24 release (MS Contin) bicalutamide 50 mg tablet 50 mg PO DAILY 90 days #90 tabs 07/29/24 darolutamide 300 mg tablet 600 mg (2 x 300 mg) PO BID 07/29/24 Metastatic prostate cancer 30 days #120 tabs Allergies Allergy/AdvReac Type Severity Reaction Status Date / Time levofloxacin [From LEVAQUIN] Allergy Severe ANGIOEDEMA Verified 08/01/24 14:23 (EXACT SOURCE UNCERTAIN) lisinopril [LISINOPRIL] Allergy Severe ANGIOEDEMA Verified 08/01/24 14:23 ( EXACT SOURCE UNCERTAIN) Review of Systems Review of Systems Yes all other systems are reviewed and are negative [facility] Past Medical History Medical History Bladder cancer CKD (chronic kidney disease) Diabetes mellitus Disc degeneration, lumbar Chronic pain syndrome Gout, arthritis Spinal stenosis Spondylosis of lumbar region without myelopathy or radiculopathy Diabetes mellitus Swelling of both parotid glands Podagra Seropositive rheumatoid arthritis Hypercholesterolemia Leg edema Essential hypertension Angioedema Surgical History History of back surgery History of cryosurgery History of endoscopy History of bladder surgery History of bilateral cataract extraction History of hernia repair Family History Family History Father Diabetes Cardiovascular disease Mother Diabetes Stomach cancer Brother No problems noted. Brother No problems noted. Sister No problems noted. Sister No problems noted. Son No problems noted. Son No problems noted. Daughter No problems noted. Daughter No problems noted. Daughter No problems noted. Other Mental health disorder Social History Social History Household Members: Spouse and Children Housing: House Do you presently have visiting nurse or other home services: No Alcohol intake: never Comment: sullivan catheter Patient Tobacco Use Status: Former Tobacco user e-Cigarette/Vaping Use: Never Used Second Hand Smoke Exposure: No Advance Directives: Yes Advance Directives Information Provided: No Advance Directives on File: No service: No Current occupational status: retired Cognitive needs: No Hearing needs: Yes (hearing aide) Vision needs: No Physical Exam ED Vital Signs: Vital Signs - 24 hr 08/01/24 14:21 Temperature 97.6 F Pulse Rate 74 Respiratory Rate 18 Blood Pressure 134/60 Pulse Oximetry 98 Oxygen Delivery Method Room Air BMI result Body Mass Index 22.3 Appearance: Alert elderly male sitting up in the stretcher. Oriented X3. No acute distress. Head: normocephalic, atraumatic. Eyes: Pupils equal, round and reactive to light. ENT: Pharynx normal. No tonsillar swelling or exudate. Neck: Normal inspection. Neck supple. CVS: Normal heart rate and rhythm. Pulses normal. Respiratory: No respiratory distress. Breath sounds normal. Abdomen: Softly distended, reducible ventral hernia. mild diffuse tenderness, no rebound or guarding, normal active +BS x4 Skin: Skin warm and dry. Normal skin color. Normal skin turgor. No rashes. Extremities: No lower extremity edema. No joint swelling. Neuro/psych: Oriented X 3. generally weak, strength is equal and symmetrical throughout. CN II-XII intact. Normal speech and cognition. Medical Decision Making Medical Decision Making [facility] Narrative: 89 yo male with metastatic cancer on chronic opiates here with constipation and weakness. low suspicion for obstruction, he has bowel sounds and his abd is soft. no impaction on exam. no blood. labs with acute on chronic anemia mild GELA, will give IVF. KUB done po and [place] meds ordered. will reassess. signed out to Ruben Chavez who will follow up Differential Diagnosis Differential Diagnoses: The differential diagnosis associated with the presentation includes constipation, obstipation, opioid induced constipation, bowel obstruction, stecoral colitis, Admission/Observation Consideration of admission/observation: Escalation of care including admission/observation considered Lab Data [facility] Lab Attestation statement: I reviewed the patient's lab results. mild leukocytosis which seems to be baseline for him acute on chronic anemia, thrombocytosis 08/01/24 14:40 08/01/24 14:40 Labs: Lab Results 08/01/24 Range/Units 14:40 WBC 13.0 H (4.8-10.8) X10*3/uL RBC 3.14 L (4.60-5.80) X10*6/uL Hgb 7.8 L (14.0-18.0) g/dl Hct 25.3 L (42.0-52.0) % MCV 80.6 (80.0-98.0) fL MCH 24.8 L (27.0-33.0) pg MCHC 30.8 L (31.0-36.0) g/dl RDW 19.0 H (11.0-16.0) % Plt Count 499 H (160-400) X10*3/uL MPV 10.0 (9.4-12.4) fL Immature Gran % (Auto) 0.7 H (0.0-0.4) % Neut % (Auto) 82.5 H (45-73) % Lymph % (Auto) 5.8 L (20-40) % Ness % (Auto) 8.8 (2-11) % Eos % (Auto) 1.7 (0-4) % Baso % (Auto) 0.5 (0-2) % Lymph # (Auto) 0.8 L (1.2-4.9) X10*3/uL Ness # (Auto) 1.1 (0.1-1.2) X10*3/uL Eos # (Auto) 0.2 (0.0-0.4) X10*3/uL Baso # (Auto) 0.1 (0.0-0.2) X10*3/uL Abs Immat Gran (auto) 0.09 H (0.00-0.03) X10*3/uL Absolute Neuts (auto) 10.7 H (2.0-8.3) x10*3/uL Absolute Nucleated RBC 0.000 (0.0-0.012) X10*3/uL Nucleated RBC % (auto) 0.0 (0.0-0.2) /100WBC Sodium 134 L (135-145) mmol/L Potassium 4.2 (3.3-5.1) mmol/L Chloride 98 (96-108) mmol/L Carbon Dioxide 23 (22-29) mmol/L Anion Gap 17 (12-20) BUN 40 H (9-16) mg/dL Creatinine 1.26 (0.5-1.4) mg/dL Estim Creat Clear Calc 37.4 Estimated GFR 54 Random Glucose 167 H (60-115) mg/dL Calcium 9.6 D (8.4-10.2) mg/dL Magnesium 2.1 (1.6-2.6) mg/dL Total Bilirubin 0.4 (0.0-1.0) mg/dL Direct Bilirubin 0.3 (0.0-0.5) mg/dL AST 29 (5-37) U/L ALT < 6 (0-40) U/L Alkaline Phosphatase 164 H (39-117) U/L Total Protein 7.2 (6.5-8.0) g/dL Albumin 3.4 L (3.5-5.0) g/dL Influenza Type A (PCR) NEGATIVE (Negative) Influenza Type B (PCR) NEGATIVE (Negative) RSV RNA Qual (PCR) NEGATIVE (Negative) SARS-CoV-2 RNA (RT-PCR) NEGATIVE (Negative) Independent Interpretation I performed an independent interpretation of an: Plain X-Ray Interpretation: stomach distention Radiology Impression Discussion of test interpretation with radiology: I have reviewed the radiologist's reading. Independent Historian Clinical information obtained from an independent historian. History obtained from or confirmed by: Spouse and EMS External Record Review External record reviewed: Outpatient record, Prior outpatient labs and Prior outpatient radiology Tests considered The following testing was considered but not selected: CT scan abd/pelvis considered Prescription Management I considered prescription management with: Other (laxatives) Chronic Conditions Patient?s care impacted by: Other (metastatic cancer with chronic pain) Medications Administered Discontinued Medications Generic Name Dose Route Start Last Admin Trade Name Freq PRN Reason Stop Dose Admin Docusate Sodium 200 mg 08/01/24 14:32 08/01/24 15:47 Docusate Sodium 100 Mg Capsule PO 08/01/24 14:33 200 mg ONCE ONE Administration Polyethylene Glycol 17 gm 08/01/24 14:32 08/01/24 15:47 Polyethylene Glycol 3350 17 Gm Powd.Pack PO 08/01/24 14:33 17 gm ONCE ONE Administration Sodium Biphosphate/Sodium Phosphate 133 ml 08/01/24 14:32 08/01/24 15:48 Sodium Phosphate,Ness-Dibasic 133 Ml Enema [place] 08/01/24 14:33 133 ml ONCE ONE Administration Critical Care Time Critical Care Time Critical Care Time: No Discharge Plan Discharge Clinical Impression: Constipation Qualifiers: Constipation type: drug induced constipation Qualified Code(s): K59.03 - Drug induced constipation Patient Disposition: Still a Patient Instructions: Constipation (DC) Prescriptions: No Action spironolactone 25 mg tablet 25 mg PO DAILY 90 Days Qty: 90 3RF (DME) blood-glucose meter Misc See Rx Instructions .Route Qty: 1 0RF Rx Instructions: Test Daily - [place] Blood glucose Meter nifedipine 90 mg tablet extended release 24hr 90 mg PO DAILY 90 Days Qty: 90 3RF fenofibrate nanocrystallized 145 mg tablet 145 mg PO DAILY Qty: 90 3RF carvedilol [Coreg] 25 mg tablet 37.5 mg PO BID 90 Days Qty: 270 3RF Rx Instructions: must administer with a meal/food allopurinol 100 mg tablet 100 mg PO DAILY Qty: 90 1RF (DME) FreeStyle Lite Strips Strip See Rx Instructions .ROUTE .COMPLEX Qty: 50 1RF Dose Instruction: USE TO TEST DAILY Rx Instructions: USE TO TEST DAILY doxazosin [Cardura] 4 mg tablet 4 mg PO DAILY 90 Days Qty: 90 1RF leflunomide 20 mg tablet 20 mg PO DAILY Qty: 90 0RF hydralazine 100 mg tablet 100 mg PO TID 90 Days Qty: 270 3RF torsemide 10 mg tablet 10 mg PO DAILY Qty: 90 1RF (DME) lancets [FreeStyle Lancets] 28 gauge misc See Rx Instructions .ROUTE .COMPLEX Qty: 100 1RF Dose Instruction: USE TO TEST DAILY Rx Instructions: USE TO TEST DAILY lorazepam 0.5 mg tablet 0.5 mg PO BEDTIME Qty: 90 0RF metformin 500 mg tablet 500 mg PO DAILY 90 Days Qty: 90 1RF oxycodone 5 mg Tablet 5 mg PO Q6H PRN (Reason: Breakthrough Pain, Moderate) Qty: 50 0RF Rx Instructions: Partial Fill upon patient request. polyethylene glycol 3350 [Miralax] 17 gram/dose Powder 17 g PO DAILY PRN (Reason: Constipation ) 30 Days Qty: 510 1RF morphine [MS Contin] 30 mg Tablet Extended Release 30 mg PO Q12H Qty: 60 0RF Rx Instructions: Partial Fill upon patient request. phenazopyridine [Pyridium] 100 mg tablet 100 mg PO TID PRN (Reason: Spasm) 4 Days Qty: 12 0RF (DME) blood-glucose meter [FreeStyle Lite Meter] Kit See Rx Instructions .ROUTE DAILY Qty: 1 Rx Instructions: As directed acetaminophen [Tylenol] 325 mg tablet 650 mg PO Q6H PRN (Reason: Pain) acetaminophen-codeine 325-30 mg tablet 1 tab PO Q6H bicalutamide 50 mg tablet 50 mg PO DAILY 90 Days Qty: 90 0RF Rx Instructions: Take 3 tabs daily in single-dose until GnRH injection in office darolutamide 300 mg tablet 600 mg PO BID 30 Days Qty: 120 6RF Rx Instructions: Take medication with food Print Language: Greenlandic
[2024-08-01 14:21] VITALS: BP 134/60; BP 134/70; PULSE 74; PULSE 80; RESP 18; TEMP 36.4; O2SAT 96; O2SAT 98; BMI 22.3
[2024-08-01 14:45] LABS: MANUAL DIFF FLAG NO
[2024-08-01 14:47] LABS: Basophils Absolute Auto 0.1 X10*3/uL (0.0-0.2); Basophils Percent Auto 0.5 % (0-2); Eosinophils Absolute Auto 0.2 X10*3/uL (0.0-0.4); Eosinophils Percent Auto 1.7 % (0-4); Hematocrit 25.3 % (42.0-52.0); Hemoglobin 7.8 g/dl (14.0-18.0); Imm Gran Abs Auto 0.09 X10*3/uL (0.00-0.03); Imm Gran Pct Auto 0.7 % (0.0-0.4); Lymphocytes Absolute Auto 0.8 X10*3/uL (1.2-4.9); Lymphocytes Percent Auto 5.8 % (20-40); Mean Corpuscular HGB Conc 30.8 g/dl (31.0-36.0); Mean Corpuscular Hemoglobin 24.8 pg (27.0-33.0); Mean Corpuscular Volume 80.6 fL (80.0-98.0); Monocytes Absolute Auto 1.1 X10*3/uL (0.1-1.2); Monocytes Percent Auto 8.8 % (2-11); Neutrophils Absolute Auto 10.7 x10*3/uL (2.0-8.3); Neutrophils Percent Auto 82.5 % (45-73); Platelet Count 499 X10*3/uL (160-400); Red Blood Count 3.14 X10*6/uL (4.60-5.80)
[2024-08-01 15:02] LABS: Alanine Aminotransferase < 6 U/L (0-40); Albumin Level 3.4 g/dL (3.5-5.0); Alkaline Phosphatase 164 U/L (39-117); Anion Gap 17 (12-20); Aspartate Amino Transferase 29 U/L (5-37); Bilirubin Direct 0.3 mg/dL (0.0-0.5); Bilirubin Total 0.4 mg/dL (0.0-1.0); Blood Urea Nitrogen 40 mg/dL (9-16); Calcium 9.6 mg/dL (8.4-10.2); Carbon Dioxide 23 mmol/L (22-29); Chloride 98 mmol/L (96-108); Creatinine Clr Calc Pharmacy 37.4; Estimated Glomerular Filt Rate 54; Glucose Random 167 mg/dL (60-115); Magnesium 2.1 mg/dL (1.6-2.6); Potassium 4.2 mmol/L (3.3-5.1); Sodium 134 mmol/L (135-145); Total Protein 7.2 g/dL (6.5-8.0)
[2024-08-01 15:23] LABS: Influenza A PCR NEGATIVE (Negative); Influenza B PCR NEGATIVE (Negative); Resp Syncy Virus RNA Qual PCR NEGATIVE (Negative); SARS COV2 PCR INHOUSE NEGATIVE (Negative)
[2024-08-01] MEDS: polyethylene glycoL 3350 17 GM POWD.PACK PO (15:47)
[2024-08-01] MEDS: Docusate Sodium 100 MG CAPSULE 200 MG PO (15:47)
[2024-08-01] MEDS: Sodium Phosphate,Mono-Dibasic 133 ML ENEMA PR (15:48)
[2024-08-01] MEDS: Lactated Ringers 1,000 ML 999 ML IV (17:47)
[2024-08-01 17:48] VITALS: BP 125/50; PULSE 74; RESP 16; TEMP 36.5; O2SAT 95
--- NOTE | 2024-08-01 17:54 | PC.NURSE ---
20gIV placed in the left forearm - IVF administered per provider order. pt still unable to have a BM at this time despite previous interventions. provider notified/aware.
[2024-08-01 20:09] VITALS: BP 137/55; PULSE 77; RESP 16; O2SAT 97
--- NOTE | 2024-08-01 20:10 | PC.NURSE ---
pt was sitting on the edge of the bed with , she reports she was rubbing his back and thinks he was very relaxed, fell asleep and slipped off the bed, was not able to catch him. pt hit his head on the floor, small bleeding lac to R outer eyebrow. no thinners, no pain elsewhere. provider at bedside, CT ordered. D/C on hold
[2024-08-01 21:43] VITALS: BP 132/56; PULSE 72; RESP 14; TEMP 36.4; O2SAT 95
--- NOTE | 2024-08-01 22:17 | PC.NURSE ---
assisted pt with getting dressed, pt now awaiting EMS transfer home. IV line removed. pt denies pain at this time. calm and cooperative, A/O. fall precautions in place
[2024-08-01 22:57] VITALS: BP 132/56; PULSE 72; RESP 14; TEMP 36.4; O2SAT 95
== END 2024-08-01 22:58 | disposition home or self-care (01) ==
PROVIDERS: Physician Assistant; Emergency Provider Emergency Medicine; PCP Internal Medicine
DX: K59.03 Drug induced constipation (principal); S01.411A Laceration without foreign body of right cheek and temporomandibular area, initial encounter; R53.1 Weakness; R51.9 Headache, unspecified; M54.2 Cervicalgia; R11.2 Nausea with vomiting, unspecified; R10.2 Pelvic and perineal pain; Z79.899 Other long term (current) drug therapy; Z87.891 Personal history of nicotine dependence; W06.XXXA Fall from bed, initial encounter; Y93.9 Activity, unspecified; Y92.230 Patient room in hospital as the place of occurrence of the external cause; Y99.8 Other external cause status; Z03.818 Encounter for observation for suspected exposure to other biological agents ruled out
CPT/HCPCS: 0241U; 70450; 72125; 74018; 80048; 80076; 83735; 85025; 96360; 96361; 99284; 99285; J7120

== ENCOUNTER → 2024-08-01 15:20 | Outpatient (BNV) | payer MEDICARE, SELFPAY | PROVIDERS: Emergency Provider Emergency Medicine; PCP Internal Medicine; Visit Provider Radiology Diagnostic Radiology | DX: K59.00 Constipation, unspecified (principal); S01.81XA Laceration without foreign body of other part of head, initial encounter; M48.02 Spinal stenosis, cervical region | CPT/HCPCS: 70450; 72125; 74018 ==

== ENCOUNTER 2024-08-05 00:46 | Emergency (ER) | payer MEDICARE, SELFPAY ==
--- NOTE | ~2024-08-05 | XR_ITS ---
CLINICAL HISTORY: generalized weakness 1 view chest x-ray Comparison: CR - XR CHEST 1V - 06/20/24 20:23 EST Findings: No consolidation or effusion. Heart size is normal. No acute fracture. IMPRESSION: 1. No acute findings. This document has been electronically signed by: Jorge Moncada MD, PHD on 08/05/2024 01:48:38
[2024-08-05 01:08] VITALS: BP 110/70; PULSE 81; O2SAT 95
[2024-08-05 01:19] VITALS: BP 132/49; PULSE 72; RESP 18; TEMP 36.4; O2SAT 95; BMI 24.3
--- NOTE | 2024-08-05 01:20 | ECG_ITS ---
Test Reason : WEAKNESS Blood Pressure : */* mmHG Vent. Rate : 66 BPM Atrial Rate : 66 BPM P-R Int : 150 ms QRS Dur : 84 ms QT Int : 380 ms P-R-T Axes : -13 26 21 degrees QTcB Int : 398 ms Sinus rhythm with Premature atrial complexes Otherwise normal ECG When compared with ECG of 20-Jun-2024 20:14, Nonspecific T wave abnormality, improved in Inferior leads Referred By: Ita Jackson Electronically Signed By: SALAZAR CEBALLOS
--- NOTE | 2024-08-05 01:33 | ED.GENADULT ---
HPI - General Adult General Chief complaint: General Medical Stated complaint: not feeling well for couple days, weak, not eating Time Seen by Provider: 08/05/24 01:08 Source: patient, family ( spouse) and EMS Mode of arrival: EMS Limitations: no limitations History of Present Illness ED Provider: DR. Jackson HPI narrative: 89-year-old male with history of aortic valve stenosis, metastatic prostate cancer, recurrent low-grade bladder cancer, chronic kidney disease, DM type 2, lumbar disc degeneration, gout, spinal stenosis, spondylosis of lumbar region, HTN, RA, chronic pain require chronic opiate use, patient stated since he had the back surgery 2 months ago at [facility] he is not feeling normal, came in today for generalized weakness, decrease oral intake, otherwise no fever, no chills, no CP, no abdominal pain, no nausea, no vomiting, no diarrhea , no sneezing, no coughing. No sick contacts. Related Data Home Medications ?Medication ?Instructions ?Recorded ?Confirmed blood-glucose meter (DigiMeldyle #1 ea 10/24/21 07/14/24 Lite Meter kit) acetaminophen 325 mg tablet 650 mg PO Q6H PRN Pain 07/16/22 07/16/24 (Tylenol) acetaminophen 325 mg-codeine 30 mg 1 tab PO Q6H 06/18/24 07/14/24 tablet Previous Rx's ?Medication ?Instructions ?Recorded spironolactone 25 mg tablet 25 mg PO DAILY 90 days #90 tabs 03/29/20 blood-glucose meter #1 ea 08/03/21 nifedipine 90 mg tablet,extended 90 mg PO DAILY 90 days #90 tabs 10/07/23 release 24 hr fenofibrate nanocrystallized 145 145 mg PO DAILY #90 tabs 10/11/23 mg tablet carvedilol 25 mg tablet (Coreg) 37.5 mg (1.5 x 25 mg) PO BID 90 03/17/24 days #270 tabs allopurinol 100 mg tablet 100 mg PO DAILY #90 tabs 05/08/24 blood sugar diagnostic (FreeStyle #50 strips 05/27/24 Lite Strips) doxazosin 4 mg tablet (Cardura) 4 mg PO DAILY 90 days #90 tabs 06/01/24 leflunomide 20 mg tablet 20 mg PO DAILY #90 tabs 06/02/24 hydralazine 100 mg tablet 100 mg PO TID 90 days #270 tabs 06/16/24 torsemide 10 mg tablet 10 mg PO DAILY #90 tabs 07/03/24 lancets 28 gauge (FreeStyle #100 ea 07/12/24 Lancets) phenazopyridine 100 mg tablet 100 mg PO TID PRN Spasm 4 days #12 07/16/24 (Pyridium) tabs lorazepam 0.5 mg tablet 0.5 mg PO BEDTIME #90 tabs 07/21/24 oxycodone 5 mg tablet 5 mg PO Q6H PRN Breakthrough Pain, 07/24/24 Moderate #50 tabs metformin 500 mg tablet 500 mg PO DAILY 90 days #90 tabs 07/27/24 polyethylene glycol 3350 17 17 g PO DAILY PRN Constipation 30 07/27/24 gram/dose oral powder (Miralax) days #510 grams morphine 30 mg tablet,extended 30 mg PO Q12H #60 tabs 07/28/24 release (MS Contin) bicalutamide 50 mg tablet 50 mg PO DAILY 90 days #90 tabs 07/29/24 ondansetron 4 mg disintegrating 4 mg PO Q8H PRN nausea and 08/01/24 tablet vomiting #20 tabs darolutamide 300 mg tablet 600 mg (2 x 300 mg) PO BID 08/04/24 Metastatic prostate cancer 30 days #120 tabs morphine 15 mg tablet,extended 15 mg PO Q12H #60 tabs 08/04/24 release (MS Contin) Allergies Allergy/AdvReac Type Severity Reaction Status Date / Time levofloxacin [From LEVAQUIN] Allergy Severe ANGIOEDEMA Verified 08/05/24 01:20 (EXACT SOURCE UNCERTAIN) lisinopril [LISINOPRIL] Allergy Severe ANGIOEDEMA Verified 08/05/24 01:20 ( EXACT SOURCE UNCERTAIN) Review of Systems Review of Systems: All other systems are reviewed and are negative Constitutional: Reports as per HPI and Reports no additional constitutional complaints Eyes: Reports as per HPI and Reports no additional eye complaints Reports system reviewed and no additional complaints, except as documented Cardiovascular: Reports as per HPI and Reports no additional cardiovascular complaints Respiratory: Reports as per HPI and Reports no additional respiratory complaints Gastrointestinal: Reports as per HPI and Reports no additional gastrointestinal complaints Genitourinary: Reports no additional female genitourinary complaints Musculoskeletal: Reports no additional musculoskeletal complaints Skin/Breast: Reports system reviewed and no additional complaints, except as docu Psychiatric: Reports no additional psychiatric complaints Endocrine: Reports no additional endocrine complaints Hematologic/Lymphatic: Reports no additional hematologic/lymphatic complaints Allergic/Immunologic: Reports no additional allergic/immunologic complaints Reports system reviewed and no additional complaints, except as documented and Reports Abnormal speech present [facility] Past Medical History Medical History Bladder cancer CKD (chronic kidney disease) Diabetes mellitus Disc degeneration, lumbar Chronic pain syndrome Gout, arthritis Spinal stenosis Spondylosis of lumbar region without myelopathy or radiculopathy Diabetes mellitus Swelling of both parotid glands Podagra Seropositive rheumatoid arthritis Hypercholesterolemia Leg edema Essential hypertension Angioedema Surgical History History of back surgery History of cryosurgery History of endoscopy History of bladder surgery History of bilateral cataract extraction History of hernia repair Family History Family History Father Diabetes Cardiovascular disease Mother Diabetes Stomach cancer Brother No problems noted. Brother No problems noted. Sister No problems noted. Sister No problems noted. Son No problems noted. Son No problems noted. Daughter No problems noted. Daughter No problems noted. Daughter No problems noted. Other Mental health disorder Social History Social History Household Members: Spouse and Children Housing: House Do you presently have visiting nurse or other home services: No Alcohol intake: never Comment: sullivan catheter Patient Tobacco Use Status: Former Tobacco user e-Cigarette/Vaping Use: Never Used Second Hand Smoke Exposure: No Advance Directives: No Advance Directives Information Provided: Yes service: No Current occupational status: retired Cognitive needs: No Hearing needs: Yes (hearing aide) Vision needs: No Physical Exam ED Vital Signs: Vital Signs - 24 hr 08/05/24 01:19 08/05/24 04:56 Temperature 97.5 F 97.7 F Pulse Rate 72 71 Respiratory Rate 18 17 Blood Pressure 132/49 L 134/61 Pulse Oximetry 95 96 Oxygen Delivery Method Room Air Room Air BMI result Body Mass Index 24.3 Vital signs have been reviewed and appear to be correct. Blood pressure elevated. Heart rate normal. Respiratory rate normal. Temperature normal. Oxygen saturation normal. Appearance: Alert. Oriented X3. No acute distress. Head: Normal external exam. Normocephalic. Atraumatic. No Regan signs noted. No raccoon eyes noted Eyes: PERRLA. EOMI. Conjunctiva and sclera normal. Eyelids normal. ENT: TM's Normal. Pharynx normal. Uvula midline. Moist mucous membranes. No trismus noted. No drooling noted. No muffled voice noted. Neck: Normal inspection. Neck supple. FROM. No adenopathy. Thyroid Normal. No meningeal signs. No neck mass noted. CVS: Normal heart rate and rhythm. Heart sound normal. No murmurs noted. Pulses normal throughout. Respiratory: No respiratory distress. Painless inspiration. Breath sounds normal. No wheezes/rales/rhonchi noted. Chest nontender. No accessory muscle usage noted or decreased air movement noted. Abdomen: Soft and nontender. Bowel sounds normal in all 4 quadrants. No distention noted. No organomegaly noted. No visible injury noted. Back: No CVA tenderness. Full range of motion noted. Skin: Skin warm and dry. Normal skin color. Normal skin turgor. No rashes/lesions/lacerations noted. Extremities: No lower extremity edema. Extremities exhibit normal range of motion. Extremities nontender. Neuro: Oriented X 3. Cranial nerve exam: II-XII are grossly intact No motor deficit. No sensory deficit. Reflexes normal. Course Reevaluation(s) Reevaluation #1: 89-year-old male came in for evaluation of generalized weakness x2 months patient has VSS, and labs are unremarkable. however patient felt better after was given 1 L of normal saline. Patient was offered to be placed into a rehab for short-term patient and spouse declined and requested to go home. Time: 05:17 Reevaluation #2: Patient on changed her mind and agreed to go to rehab will obtain PT/ cm consultation, will start physician observation. Time: 07:19 Medications Administered Discontinued Medications Generic Name Dose Route Start Last Admin Trade Name Freq PRN Reason Stop Dose Admin Sodium Chloride 1,000 mls @ 999 mls/hr 08/05/24 01:20 08/05/24 04:17 Ns IV 08/05/24 02:20 Infused .Q1H1M ONE Infusion Medical Decision Making Differential Diagnosis Differential Diagnoses: The differential diagnosis associated with the presentation includes ( Dehydration, electrolyte derangement, severe anemia, pneumonia, pneumothorax, pneumonia, pneumothorax, pleural effusion, ACS,viral upper respiratory infection viral upper respiratory infection) Admission/Observation Consideration of admission/observation: Escalation of care including admission/observation considered Lab Data MDM Lab Attestation statement: I reviewed the patient's lab results. 08/05/24 01:46 08/05/24 01:46 Labs: Lab Results 08/05/24 08/05/24 Range/Units 01:46 01:47 WBC 11.3 H (4.8-10.8) X10*3/uL RBC 3.36 L (4.60-5.80) X10*6/uL Hgb 8.4 L (14.0-18.0) g/dl Hct 26.5 L (42.0-52.0) % MCV 78.9 L (80.0-98.0) fL MCH 25.0 L (27.0-33.0) pg MCHC 31.7 (31.0-36.0) g/dl RDW 18.9 H (11.0-16.0) % Plt Count 491 H (160-400) X10*3/uL MPV 9.9 (9.4-12.4) fL Immature Gran % (Auto) 1.0 H (0.0-0.4) % Neut % (Auto) 80.0 H (45-73) % Lymph % (Auto) 6.3 L (20-40) % [place]enden % (Auto) 10.4 (2-11) % Eos % (Auto) 1.9 (0-4) % Baso % (Auto) 0.4 (0-2) % Lymph # (Auto) 0.7 L (1.2-4.9) X10*3/uL [place] # (Auto) 1.2 (0.1-1.2) X10*3/uL Eos # (Auto) 0.2 (0.0-0.4) X10*3/uL Baso # (Auto) 0.1 (0.0-0.2) X10*3/uL Abs Immat Gran (auto) 0.11 H (0.00-0.03) X10*3/uL Absolute Neuts (auto) 9.1 H (2.0-8.3) x10*3/uL Absolute Nucleated RBC 0.000 (0.0-0.012) X10*3/uL Nucleated RBC % (auto) 0.0 (0.0-0.2) /100WBC Sodium 137 (135-145) mmol/L Potassium 4.0 (3.3-5.1) mmol/L Chloride 100 (96-108) mmol/L Carbon Dioxide 23 (22-29) mmol/L Anion Gap 18 (12-20) BUN 36 H (9-16) mg/dL Creatinine 0.84 (0.5-1.4) mg/dL Estim Creat Clear Calc 57.6 Estimated GFR > 60 Random Glucose 151 H (60-115) mg/dL Calcium 9.6 (8.4-10.2) mg/dL Total Bilirubin 0.3 (0.0-1.0) mg/dL Direct Bilirubin 0.2 (0.0-0.5) mg/dL AST 37 (5-37) U/L ALT < 6 (0-40) U/L Alkaline Phosphatase 150 H (39-117) U/L Troponin I High Sens 12.5 (<3.5-35.0) ng/L B-Natriuretic Peptide 136 H (<100) pg/mL Total Protein 7.3 (6.5-8.0) g/dL Albumin 3.2 L (3.5-5.0) g/dL Lipase 13 (8-78) U/L Influenza Type A (PCR) NEGATIVE (Negative) Influenza Type B (PCR) NEGATIVE (Negative) RSV RNA Qual (PCR) NEGATIVE (Negative) SARS-CoV-2 RNA (RT-PCR) NEGATIVE (Negative) Independent Interpretation I performed an independent interpretation of an: Plain X-Ray ( chest: No acute pathology.) Radiology Impression Discussion of test interpretation with radiology: I have reviewed the radiologist's reading. Discharge Plan Discharge Clinical Impression: Episode of generalized weakness Patient Disposition: Still a Patient Instructions: Failure to Thrive in Older Adults (ED) Prescriptions: No Action spironolactone 25 mg tablet 25 mg PO DAILY 90 Days Qty: 90 3RF (DME) blood-glucose meter Misc See Rx Instructions .Route Qty: 1 0RF Rx Instructions: Test Daily - Glass & Marker Blood glucose Meter nifedipine 90 mg tablet extended release 24hr 90 mg PO DAILY 90 Days Qty: 90 3RF fenofibrate nanocrystallized 145 mg tablet 145 mg PO DAILY Qty: 90 3RF carvedilol [Coreg] 25 mg tablet 37.5 mg PO BID 90 Days Qty: 270 3RF Rx Instructions: must administer with a meal/food allopurinol 100 mg tablet 100 mg PO DAILY Qty: 90 1RF (DME) FreeStyle Lite Strips Strip See Rx Instructions .ROUTE .COMPLEX Qty: 50 1RF Dose Instruction: USE TO TEST DAILY Rx Instructions: USE TO TEST DAILY doxazosin [Cardura] 4 mg tablet 4 mg PO DAILY 90 Days Qty: 90 1RF leflunomide 20 mg tablet 20 mg PO DAILY Qty: 90 0RF hydralazine 100 mg tablet 100 mg PO TID 90 Days Qty: 270 3RF torsemide 10 mg tablet 10 mg PO DAILY Qty: 90 1RF (DME) lancets [FreeStyle Lancets] 28 gauge misc See Rx Instructions .ROUTE .COMPLEX Qty: 100 1RF Dose Instruction: USE TO TEST DAILY Rx Instructions: USE TO TEST DAILY lorazepam 0.5 mg tablet 0.5 mg PO BEDTIME Qty: 90 0RF metformin 500 mg tablet 500 mg PO DAILY 90 Days Qty: 90 1RF darolutamide 300 mg tablet 600 mg PO BID 30 Days Qty: 120 6RF Rx Instructions: Take medication with food oxycodone 5 mg Tablet 5 mg PO Q6H PRN (Reason: Breakthrough Pain, Moderate) Qty: 50 0RF Rx Instructions: Partial Fill upon patient request. polyethylene glycol 3350 [Miralax] 17 gram/dose Powder 17 g PO DAILY PRN (Reason: Constipation ) 30 Days Qty: 510 1RF morphine [MS Contin] 30 mg Tablet Extended Release 30 mg PO Q12H Qty: 60 0RF Rx Instructions: Partial Fill upon patient request. morphine [MS Contin] 15 mg Tablet Extended Release 15 mg PO Q12H Qty: 60 0RF Rx Instructions: Partial Fill upon patient request. Note: MS Contin 30 was too strong for patient, so switched over to lesser dose. ondansetron 4 mg tablet,disintegrating 4 mg PO Q8H PRN (Reason: nausea and vomiting) Qty: 20 0RF phenazopyridine [Pyridium] 100 mg tablet 100 mg PO TID PRN (Reason: Spasm) 4 Days Qty: 12 0RF (DME) blood-glucose meter [FreeStyle Lite Meter] Kit See Rx Instructions .ROUTE DAILY Qty: 1 Rx Instructions: As directed acetaminophen [Tylenol] 325 mg tablet 650 mg PO Q6H PRN (Reason: Pain) acetaminophen-codeine 325-30 mg tablet 1 tab PO Q6H bicalutamide 50 mg tablet 50 mg PO DAILY 90 Days Qty: 90 0RF Rx Instructions: Take 3 tabs daily in single-dose until GnRH injection in office Referrals: Kenney Beal MD [Primary Care Provider] - Print Language: Danish
[2024-08-05] MEDS: 0.9 % Sodium Chloride 1,000 ML 999 ML IV (01:48)
[2024-08-05 01:51] LABS: Basophils Absolute Auto 0.1 X10*3/uL (0.0-0.2); Basophils Percent Auto 0.4 % (0-2); Eosinophils Absolute Auto 0.2 X10*3/uL (0.0-0.4); Eosinophils Percent Auto 1.9 % (0-4); Hematocrit 26.5 % (42.0-52.0); Hemoglobin 8.4 g/dl (14.0-18.0); Imm Gran Abs Auto 0.11 X10*3/uL (0.00-0.03); Lymphocytes Absolute Auto 0.7 X10*3/uL (1.2-4.9); Lymphocytes Percent Auto 6.3 % (20-40); MANUAL DIFF FLAG NO; Mean Corpuscular HGB Conc 31.7 g/dl (31.0-36.0); Mean Corpuscular Volume 78.9 fL (80.0-98.0); Mean Platelet Volume 9.9 fL (9.4-12.4); Monocytes Absolute Auto 1.2 X10*3/uL (0.1-1.2); Monocytes Percent Auto 10.4 % (2-11); Neutrophils Absolute Auto 9.1 x10*3/uL (2.0-8.3); Platelet Count 491 X10*3/uL (160-400); Red Blood Count 3.36 X10*6/uL (4.60-5.80); Red Cell Distribution Width 18.9 % (11.0-16.0); White Blood Count 11.3 X10*3/uL (4.8-10.8)
[2024-08-05 02:11] LABS: Troponin-I High Sensitivity 12.5 ng/L (<3.5-35.0)
[2024-08-05 02:16] LABS: Alanine Aminotransferase < 6 U/L (0-40); Albumin Level 3.2 g/dL (3.5-5.0); Alkaline Phosphatase 150 U/L (39-117); Anion Gap 18 (12-20); Aspartate Amino Transferase 37 U/L (5-37); Bilirubin Direct 0.2 mg/dL (0.0-0.5); Bilirubin Total 0.3 mg/dL (0.0-1.0); Blood Urea Nitrogen 36 mg/dL (9-16); Calcium 9.6 mg/dL (8.4-10.2); Carbon Dioxide 23 mmol/L (22-29); Chloride 100 mmol/L (96-108); Creatinine Clr Calc Pharmacy 57.6; Estimated Glomerular Filt Rate > 60; Glucose Random 151 mg/dL (60-115); Lipase 13 U/L (8-78); Sodium 137 mmol/L (135-145); Total Protein 7.3 g/dL (6.5-8.0)
[2024-08-05 02:19] LABS: B Type Natriuretic Peptide 136 pg/mL (<100)
[2024-08-05 02:27] LABS: Influenza A PCR NEGATIVE (Negative); Influenza B PCR NEGATIVE (Negative); Resp Syncy Virus RNA Qual PCR NEGATIVE (Negative); SARS COV2 PCR INHOUSE NEGATIVE (Negative)
[2024-08-05 04:56] VITALS: BP 134/61; PULSE 71; RESP 17; TEMP 36.5; O2SAT 96
--- NOTE | 2024-08-05 07:33 | PC.NURSE ---
Plan for PT/CM due to back pain, poor mobility and poor PO intake. Alert and answering questions, breathing even and unlabored. Reporting low back pain that worsens with any movement. Found this morning to be incontinent of stool, was able to use urinal in bed. Pt cleaned and placed into hospital clothing.
[2024-08-05 07:41] LABS: Appearance Urine Cloudy; Color Urine Yellow; Glucose Urine UA Negative (Negative); Leukocyte Esterase Urine Large (3+) (Negative); Nitrite Urine Positive (Negative); PH 5.5 (5.0-9.0); UMIC TRIGGER UACC YES; Urine Blood Negative (Negative); Urine Ketones Negative (Negative); Urine Protein 30 (1+) mg/dL (Neg-Trace)
[2024-08-05 07:47] LABS: Bacteria Urine 4+ (None Seen); RBC Urine 0-2 /HPF (0-2); Squamous Epithelial Cell Urine 0-2 /HPF (0-2); UACC Culture Trigger YES; WBC Urine >50 /HPF (0-5)
[2024-08-05 08:16] LABS: Troponin-I High Sensitivity 10.8 ng/L (<3.5-35.0)
--- NOTE | 2024-08-05 10:14 | MHC.CM.ED ---
Received case management consult overnight. Patient came to the ER due to weakness. Had back surgery about 1 month ago. Had prostate biopsy on 07/16. Physical therapy eval completed. Short term rehab is recommended. Patient has [employer] [place] Medicare. [facility] is only contracted with a limited number of SNF. Referral broadcasted for bed availability. Met with patient and , Bettie in regards to discharge planning. Patient lives with Bettie, ambulates with a walker and was active with [facility] in the past. PCP verified. Bettie requesting referral to [facility]. T/W explained [facility] does not have beds available. Also explained [facility] would only authorize acute rehab if patient was diagnosed with acute CVA. Bettie verbalized understanding. T/W explained [facility], [facility], [address] [place] [address] and [facility] are able to offer a bed. Also [facility], [facility], [facility], [facility] and [facility] are reviewing. Bettie doesn't feel any of these facilities would be appropriate. Going home with [facility] was also proposed as a d/c option. Patient and Normal will discuss if their preferenc is to d/c to [facility] or to go home with [facility] and jessica Boyer RN aware. Continue to monitor for d/c needs.
--- NOTE | 2024-08-05 11:10 | MHC.CM.ED ---
Addendum entered by Trisha Perkins 08/05/24 11:51: [facility] booked for 1pm Original Note: Met with patient , Bettie to confirm d/c plan. Patient and Bettie would like to return home with [facility] via BLS. [facility] They are unable to accept patient at this time. Patient and Bettie aware referral will be broadcasted to all agencies contracted with [facility]. Rosalind MORGAN and Meghan PARNELL aware. Continue to monitor for d/c needs.
[2024-08-05 11:28] VITALS: BP 136/62; PULSE 70; RESP 14; TEMP 36.5; O2SAT 94
[2024-08-05 11:57] VITALS: BP 136/62; PULSE 70; RESP 14; TEMP 36.5; O2SAT 94
--- NOTE | 2024-08-06 11:11 | MHC.CM.ED ---
[facility] is only agency that is able to accept patient. ER d/c summary and F2F faxed to [phone].
== END 2024-08-05 11:58 | disposition home or self-care (01) ==
PROVIDERS: Physician Assistant; Emergency Provider Emergency Medicine; PCP Internal Medicine
DX: R53.1 Weakness (principal); E11.22 Type 2 diabetes mellitus with diabetic chronic kidney disease; I12.9 Hypertensive chronic kidney disease with stage 1 through stage 4 chronic kidney disease, or unspecified chronic kidney disease; N18.9 Chronic kidney disease, unspecified; E78.00 Pure hypercholesterolemia, unspecified; Z03.818 Encounter for observation for suspected exposure to other biological agents ruled out
CPT/HCPCS: 0241U; 36415; 71045; 80048; 80076; 81001; 83690; 83880; 84484; 85025; 87086; 87088; 87186; 93005; 96360; 96361; 97162; 99285

== ENCOUNTER → 2024-08-05 01:20 | Outpatient (BNV) | payer MEDICARE, SELFPAY | PROVIDERS: Emergency Provider Emergency Medicine; PCP Internal Medicine; Visit Provider Internal Medicine | DX: I49.1 Atrial premature depolarization (principal); R53.1 Weakness | CPT/HCPCS: 93010 ==

== ENCOUNTER → 2024-08-05 01:21 | Outpatient (BNV) | payer MEDICARE, SELFPAY | PROVIDERS: Emergency Provider Emergency Medicine; Visit Provider General Practice | DX: R53.1 Weakness (principal) | CPT/HCPCS: 71045 ==

== ENCOUNTER 2024-08-12 10:37 | Outpatient (AMB) | payer MEDICARE, SELFPAY ==
--- NOTE | 2024-08-12 11:00 | AM.OFFVISNUR ---
Intake Visit Reasons: GnRH/Xgeva(PA Set) Allergies levofloxacin [From LEVAQUIN] Allergy (Severe, Verified 08/05/24 01:20) ANGIOEDEMA (EXACT SOURCE UNCERTAIN) lisinopril [LISINOPRIL] Allergy (Severe, Verified 08/05/24 01:20) ANGIOEDEMA ( EXACT SOURCE UNCERTAIN) Nursing Note Eligard and Xgeva injections given. Patient tolerated well. and patient educated on side effects and plan of care. Patient will return in 1 month for monthly Xgeva injection. Office Meds Xgeva 120 mg/1.7 mL (70 mg/mL) subcutaneous solution Performing Provider: Barney Byrd MD Performing Location: [facility] Administered by: Paty Monahan RN on 08/12/24 11:02 Dose Route Admin Location Dispensed Lot Number Expiration Date [facility] [employer] 120 mg subcut left upper arm 1.7 mL [id number] 09/14/26 70955-670-95 [employer] Eligard (6 month) 45 mg (6 month) subcutaneous syringe Performing Provider: Barney Byrd MD Performing Location: [facility] Administered by: Paty Monahan RN on 08/12/24 11:02 Dose Route Admin Location Dispensed Lot Number Expiration Date [facility] [employer] 45 mg subcut right upper arm 45 mg [id number] 11/15/25 43234-313-43 [employer] Assessment & Plan Assessment & Plan Orders: Orders AMB Leuprolide Injection - Practice Supplied Today C61 - Malignant neoplasm of prostate, C79.51 - Secondary malignant neoplasm of bone AMB Denosumab Injection Practice Supplied Today C61 - Malignant neoplasm of prostate, C79.51 - Secondary malignant neoplasm of bone Medications: New Eligard (6 month) (leuprolide acetate (6 month)) 45 mg subcut ONCE 1 ea 0RF NS C61 - Malignant neoplasm of prostate, C79.51 - Secondary malignant neoplasm of bone Xgeva (denosumab) 120 mg (1.7 mL) subcut ONCE 1.7 mL 0RF NS C61 - Malignant neoplasm of prostate, C79.51 - Secondary malignant neoplasm of bone Coding
--- OUTSIDE RECORDS SUMMARY | 2024-08-12 13:06 | XMS_ITS | Clinical Summary ---
Author Organization [facility] Address [address] [facility] [address] [place] [address] Phone Care Team Providers Care Director Of Sales Support Name Role Phone Meño Shepherd MD Primary [...] patient's age to complete this topic Insurance [facility] Care Teams Director Of Sales Support Relationship Specialty Start Date End Date Meño Shepherd MD [address] [place] [address] PCP - General Cardiology 01/19/21
--- OUTSIDE RECORDS SUMMARY | 2024-08-12 13:06 | XMS_ITS | Encounter Summary ---
Author Organization [facility] Address [address] [facility] [address] [place] [address] Phone Care Team Providers Care City Collector Name Role Phone Meño Shepherd MD Primary Care Provider Reason for Visit * Reason Comments Med Refill Encounter Details Date Type Department Care Team (Late st Contact Info) Description 02/09/2024 Refill [facility] [address] [facility] [address] [place] [address] Marcus Cisneros MD [address] [facility] [address] [place] [address] Stage 3a chronic kidney disease [...] Dyslipidemia documented in this encounter Care Teams City Collector Relationship Specialty Start Date End Date Meño Shepherd MD [address] [place] [address] PCP - General Cardiology 01/19/21 documented as of this encounter
== END 2024-08-12 11:11 | disposition home or self-care (01) ==
PROVIDERS: PCP Internal Medicine; Visit Provider Urology
DX: C61 Malignant neoplasm of prostate (principal); C79.51 Secondary malignant neoplasm of bone

== ENCOUNTER → 2024-08-12 10:37 | Outpatient (BNVA) | payer MEDICARE, SELFPAY | PROVIDERS: PCP Internal Medicine; Visit Provider Urology | DX: C61 Malignant neoplasm of prostate (principal); C79.51 Secondary malignant neoplasm of bone | CPT/HCPCS: 96372; 96402; J0897; J9217 ==

== ENCOUNTER 2024-08-15 03:43 | Inpatient (IN) | payer MEDICARE, SELFPAY ==
[2024-08-15] VITALS (19 sets, daily range): BP systolic 96–150; BP diastolic 42–67; PULSE 68–80; RESP 12–18; TEMP 36.3–36.7; O2SAT 95–98; BMI 21.3
--- NOTE | ~2024-08-15 | CT_ITS ---
CLINICAL HISTORY: lower gi bleed CT ABDOMEN AND PELVIS WITHOUT AND WITH CONTRAST TECHNIQUE: Axial scanning from lung bases through the pelvis prior to and following administration of the intravenous contrast with sagittal and coronal reformatted imaging provided. COMPARISON: none FINDINGS: Visualized portions of the lower thorax are unremarkable. There are bilateral renal cortical Bosniak 1 cysts, largest on the left is an exophytic 4.2 x 3.9 cm cyst. Solid organs are otherwise unremarkable. There is a gallstone with the gallbladder otherwise unremarkable. There is no biliary tract dilatation. There are diverticula in the descending and sigmoid colon without imaging evidence of diverticulitis. There is large amount of feces within the rectum. Correlate for impaction. There is no abnormal intraluminal contrast extravasation to suggest active GI bleeding. There is no obstruction, pneumoperitoneum, or pneumatosis. There is aortoiliac calcified atherosclerotic plaque with vascular structures otherwise patent. The prostate gland is heterogeneous. Correlate with clinical and laboratory findings to determine significance. There are degenerative changes in the regional skeleton. Multifocal radiolucent lesions possibly related to neoplastic or metabolic bone disease. IMPRESSION: 1. No evidence of active gastrointestinal tract hemorrhage. 2. Nonspecific feces distended rectum. Correlate clinically for impaction. 3. Multiple radiolucent osseous lesions possible neoplastic or metabolic bone disease. Correlate with clinical and laboratory findings. 4. Nonspecific prostate gland heterogeneity. Correlate with clinical and laboratory findings for significance. This document has been electronically signed by: Josep Robb MD on 08/15/2024 08:55:17
--- NOTE | 2024-08-15 04:17 | ED_ITS ---
HPI - GI Bleed General Chief complaint: GI Bleed Stated complaint: BLEEDING FROM RECTUM WHILE HAVING BM Time Seen by Provider: 08/15/24 04:16 Source: patient Mode of arrival: EMS Limitations: no limitations History of Present Illness ED Provider: HPI Narrative: 89 years old male with past medical history of chronic pain syndrome, diabetes, HTN, HLD, RA, spinal stenosis, BPH, DJD, constipation, last bowel movement was 3 days ago, comes here with lower abdominal pain with bright red blood with clots per rectum after he tried to move his bowels around 01:30 patient's woke up from sleep with abdominal discomfort and urge to move his bowels went to bathroom had small amount of stool with slight amount of blood patient went back to sleep after that patient has had 2 or 3 bowel movements without stool but with some blood after that patient noticed blood clots in his depends no prior history of lower GI bleed patient has had last colonoscopy few years ago which was negative no fever no chills no nausea no vomiting no abdominal distention Related Data Home Medications ?Medication ?Instructions ?Recorded ?Confirmed blood-glucose meter ([employer] #1 ea 10/24/21 07/14/24 Lite Meter kit) acetaminophen 325 mg tablet 650 mg PO Q6H PRN Pain 07/16/22 07/16/24 (Tylenol) acetaminophen 325 mg-codeine 30 mg 1 tab PO Q6H 06/18/24 07/14/24 tablet Previous Rx's ?Medication ?Instructions ?Recorded spironolactone 25 mg tablet 25 mg PO DAILY 90 days #90 tabs 03/29/20 blood-glucose meter #1 ea 08/03/21 fenofibrate nanocrystallized 145 145 mg PO DAILY #90 tabs 10/11/23 mg tablet carvedilol 25 mg tablet (Coreg) 37.5 mg (1.5 x 25 mg) PO BID 90 03/17/24 days #270 tabs allopurinol 100 mg tablet 100 mg PO DAILY #90 tabs 05/08/24 blood sugar diagnostic (FreeStyle #50 strips 05/27/24 Lite Strips) doxazosin 4 mg tablet (Cardura) 4 mg PO DAILY 90 days #90 tabs 06/01/24 hydralazine 100 mg tablet 100 mg PO TID 90 days #270 tabs 06/16/24 torsemide 10 mg tablet 10 mg PO DAILY #90 tabs 07/03/24 lancets 28 gauge (FreeStyle #100 ea 07/12/24 Lancets) phenazopyridine 100 mg tablet 100 mg PO TID PRN Spasm 4 days #12 07/16/24 (Pyridium) tabs lorazepam 0.5 mg tablet 0.5 mg PO BEDTIME #90 tabs 07/21/24 oxycodone 5 mg tablet 5 mg PO Q6H PRN Breakthrough Pain, 07/24/24 Moderate #50 tabs metformin 500 mg tablet 500 mg PO DAILY 90 days #90 tabs 07/27/24 polyethylene glycol 3350 17 17 g PO DAILY PRN Constipation 30 07/27/24 gram/dose oral powder (Miralax) days #510 grams morphine 30 mg tablet,extended 30 mg PO Q12H #60 tabs 07/28/24 release (MS Contin) bicalutamide 50 mg tablet 50 mg PO DAILY 90 days #90 tabs 07/29/24 ondansetron 4 mg disintegrating 4 mg PO Q8H PRN nausea and 08/01/24 tablet vomiting #20 tabs darolutamide 300 mg tablet 600 mg (2 x 300 mg) PO BID 08/04/24 Metastatic prostate cancer 30 days #120 tabs morphine 15 mg tablet,extended 15 mg PO Q12H #60 tabs 08/04/24 release (MS Contin) nifedipine 90 mg tablet,extended 90 mg PO DAILY #90 tabs 08/07/24 release 24 hr cefuroxime axetil 250 mg tablet 250 mg PO BID 7 days #14 tabs 08/09/24 leflunomide 20 mg tablet 20 mg PO DAILY #90 tabs 08/12/24 Allergies Allergy/AdvReac Type Severity Reaction Status Date / Time levofloxacin [From LEVAQUIN] Allergy Severe ANGIOEDEMA Verified 08/15/24 04:10 (EXACT SOURCE UNCERTAIN) lisinopril [LISINOPRIL] Allergy Severe ANGIOEDEMA Verified 08/15/24 04:10 ( EXACT SOURCE UNCERTAIN) Review of Systems 2 Review of Systems: Yes all other systems are reviewed and are negative [facility] Past Medical History Medical History Bladder cancer CKD (chronic kidney disease) Diabetes mellitus Disc degeneration, lumbar Chronic pain syndrome Gout, arthritis Spinal stenosis Spondylosis of lumbar region without myelopathy or radiculopathy Diabetes mellitus Swelling of both parotid glands Podagra Seropositive rheumatoid arthritis Hypercholesterolemia Leg edema Essential hypertension Angioedema Surgical History History of back surgery History of cryosurgery History of endoscopy History of bladder surgery History of bilateral cataract extraction History of hernia repair Family History Family History Father Diabetes Cardiovascular disease Mother Diabetes Stomach cancer Brother No problems noted. Brother No problems noted. Sister No problems noted. Sister No problems noted. Son No problems noted. Son No problems noted. Daughter No problems noted. Daughter No problems noted. Daughter No problems noted. Other Mental health disorder Social History Social History Household Members: Spouse and Children Housing: House Do you presently have visiting nurse or other home services: No Alcohol intake: never Comment: sullivan catheter Patient Tobacco Use Status: Former Tobacco user Smoked in Last 30 Days: No e-Cigarette/Vaping Use: Never Used Second Hand Smoke Exposure: No Use of substances other than those prescribed or required for medical reasons: No Advance Directives: No Advance Directives Information Provided: Yes Do you have a plan to hurt others: No Plan service: No Current occupational status: retired Cognitive needs: No Hearing needs: Yes (hearing aide) Vision needs: No Physical Exam 2 Vital Signs: Vital Signs: Last Vital Signs Temp 97.5 F 08/15/24 04:05 Pulse 73 08/15/24 06:11 Resp 18 08/15/24 06:11 BP 117/44 L 08/15/24 06:11 Pulse Ox 97 08/15/24 06:11 O2 Del Method Room Air 08/15/24 06:11 BMI result Body Mass Index 21.3 Appearance: Alert. Oriented X3. No acute distress. Eyes: Pale++ ENT: Pharynx normal. Oral Mucosa moist Neck: Normal inspection. Neck supple. CVS: Normal heart rate and rhythm. Pulses normal. Respiratory: No respiratory distress. Equal air entry bilateral, no wheezing/rales/rhonchi Abdomen: Soft and mild suprapubic discomfort no rebound tenderness or guarding, Bowel sounds are present, no mass palpable, no CVA tenderness Skin: Skin warm and dry. +pallor. Normal skin turgor. Extremities: No lower extremity edema. No calf tenderness Neuro: Oriented X 3. No motor deficit. No sensory deficit.No cerebellar signs , cranial nerves II-XII intact Medications Administered Discontinued Medications Generic Name Dose Route Start Last Admin Trade Name Miltonq PRN Reason Stop Dose Admin Sodium Chloride 1,000 mls @ 999 mls/hr 08/15/24 05:30 08/15/24 06:53 Ns IV 08/15/24 06:30 Infused .Q1H1M ONE Infusion Iohexol 80 ml 08/15/24 06:58 08/15/24 06:59 Iohexol 350 Mg/Ml 100 Ml Infus..Btl IV 08/15/24 06:59 80 ml ONCE ONE Administration Medical Decision Making Medical Decision Making [facility] Narrative: Patient's baseline hemoglobin is around 8.4 Patient with lower GI bleed etiology not clear no prior history of GI bleed in the past H&H 6.1/19.6 patient has had 2 more bowel movements in the ER will be getting 2 units of blood transfusion CT angio to rule out active bleeding site Patient's labs reviewed INR of 2.4 etiology not clear patient not on any anticoagulation will give FFP and vitamin K Patient is signed out to Dr. Hawley pending disposition Differential Diagnosis Differential Diagnoses: The differential diagnosis associated with the presentation includes Diverticular bleed/slow GI bleed/angiodysplasia/colon cancer-/ diverticulitis/hemorrhoids Admission/Observation Consideration of admission/observation: Escalation of care including admission/observation considered Consult Healthcare Provider Management of the patient was discussed with: Hospitalist Lab Data [facility] Lab Attestation statement: I reviewed the patient's lab results. 08/15/24 05:10 08/15/24 05:10 Labs: Lab Results 08/15/24 08/15/24 Range/Units 05:10 06:09 WBC 11.8 H (4.8-10.8) X10*3/uL RBC 2.41 L D (4.60-5.80) X10*6/uL Hgb 6.1 L* D (14.0-18.0) g/dl Hct 19.6 L* D (42.0-52.0) % MCV 81.3 (80.0-98.0) fL MCH 25.3 L (27.0-33.0) pg MCHC 31.1 (31.0-36.0) g/dl RDW 20.5 H (11.0-16.0) % Plt Count 418 H (160-400) X10*3/uL MPV 10.9 (9.4-12.4) fL Immature Gran % (Auto) 1.1 H (0.0-0.4) % Neut % (Auto) 80.4 H (45-73) % Lymph % (Auto) 7.4 L (20-40) % Gaston % (Auto) 7.0 (2-11) % Eos % (Auto) 3.1 (0-4) % Baso % (Auto) 1.0 (0-2) % Lymph # (Auto) 0.9 L (1.2-4.9) X10*3/uL Gaston # (Auto) 0.8 (0.1-1.2) X10*3/uL Eos # (Auto) 0.4 (0.0-0.4) X10*3/uL Baso # (Auto) 0.1 (0.0-0.2) X10*3/uL Abs Immat Gran (auto) 0.13 H (0.00-0.03) X10*3/uL Absolute Neuts (auto) 9.5 H (2.0-8.3) x10*3/uL Absolute Nucleated RBC 0.000 (0.0-0.012) X10*3/uL Nucleated RBC % (auto) 0.0 (0.0-0.2) /100WBC PT 28.1 H D (10.9-12.4) SEC INR 2.4 H (0.9-1.1) APTT 38.1 H (26.0-36.8) SEC Sodium 136 (135-145) mmol/L Potassium 4.2 (3.3-5.1) mmol/L Chloride 101 (96-108) mmol/L Carbon Dioxide 24 (22-29) mmol/L Anion Gap 15 (12-20) BUN 22 H (9-16) mg/dL Creatinine 0.97 (0.5-1.4) mg/dL Estim Creat Clear Calc 46.2 Estimated GFR > 60 Random Glucose 186 H (60-115) mg/dL Calcium 8.0 L D (8.4-10.2) mg/dL Total Bilirubin 0.5 (0.0-1.0) mg/dL AST 22 (5-37) U/L ALT < 6 (0-40) U/L Alkaline Phosphatase 109 (39-117) U/L Total Protein 5.4 L (6.5-8.0) g/dL Albumin 2.6 L (3.5-5.0) g/dL Blood Type B Positive Antibody Screen NEGATIVE Crossmatch See Detail Critical Care Time Critical Care Time Critical Care Time: Yes Total Critical Care Time: 60 Attestation: The patient was critically ill with a high probability of imminent or life threatening deterioration. I spent greater than 65???minutes of discontinuous time evaluating the patient,delivering critical care at the bedside, discussing and evaluating pertinent data with consultants. Critical care time does not include time spent performing separately billable procedures or teaching. Total time spent performing critical care was ?60??minutes. Discharge Plan Discharge Clinical Impression: Lower gastrointestinal hemorrhage, Severe anemia, Coagulopathy Patient Disposition: Still a Patient Prescriptions: No Action spironolactone 25 mg tablet 25 mg PO DAILY 90 Days Qty: 90 3RF (DME) blood-glucose meter Misc See Rx Instructions .Route Qty: 1 0RF Rx Instructions: Test Daily - [place] Blood glucose Meter fenofibrate nanocrystallized 145 mg tablet 145 mg PO DAILY Qty: 90 3RF carvedilol [Coreg] 25 mg tablet 37.5 mg PO BID 90 Days Qty: 270 3RF Rx Instructions: must administer with a meal/food allopurinol 100 mg tablet 100 mg PO DAILY Qty: 90 1RF (DME) FreeStyle Lite Strips Strip See Rx Instructions .ROUTE .COMPLEX Qty: 50 1RF Dose Instruction: USE TO TEST DAILY Rx Instructions: USE TO TEST DAILY doxazosin [Cardura] 4 mg tablet 4 mg PO DAILY 90 Days Qty: 90 1RF hydralazine 100 mg tablet 100 mg PO TID 90 Days Qty: 270 3RF torsemide 10 mg tablet 10 mg PO DAILY Qty: 90 1RF (DME) lancets [FreeStyle Lancets] 28 gauge misc See Rx Instructions .ROUTE .COMPLEX Qty: 100 1RF Dose Instruction: USE TO TEST DAILY Rx Instructions: USE TO TEST DAILY lorazepam 0.5 mg tablet 0.5 mg PO BEDTIME Qty: 90 0RF metformin 500 mg tablet 500 mg PO DAILY 90 Days Qty: 90 1RF darolutamide 300 mg tablet 600 mg PO BID 30 Days Qty: 120 6RF Rx Instructions: Take medication with food nifedipine 90 mg tablet extended release 24hr 90 mg PO DAILY Qty: 90 3RF leflunomide 20 mg tablet 20 mg PO DAILY Qty: 90 1RF oxycodone 5 mg Tablet 5 mg PO Q6H PRN (Reason: Breakthrough Pain, Moderate) Qty: 50 0RF Rx Instructions: Partial Fill upon patient request. polyethylene glycol 3350 [Miralax] 17 gram/dose Powder 17 g PO DAILY PRN (Reason: Constipation ) 30 Days Qty: 510 1RF morphine [MS Contin] 30 mg Tablet Extended Release 30 mg PO Q12H Qty: 60 0RF Rx Instructions: Partial Fill upon patient request. morphine [MS Contin] 15 mg Tablet Extended Release 15 mg PO Q12H Qty: 60 0RF Rx Instructions: Partial Fill upon patient request. Note: MS Contin 30 was too strong for patient, so switched over to lesser dose. ondansetron 4 mg tablet,disintegrating 4 mg PO Q8H PRN (Reason: nausea and vomiting) Qty: 20 0RF phenazopyridine [Pyridium] 100 mg tablet 100 mg PO TID PRN (Reason: Spasm) 4 Days Qty: 12 0RF cefuroxime axetil 250 mg tablet 250 mg PO BID 7 Days Qty: 14 0RF (DME) blood-glucose meter [FreeStyle Lite Meter] Kit See Rx Instructions .ROUTE DAILY Qty: 1 Rx Instructions: As directed acetaminophen [Tylenol] 325 mg tablet 650 mg PO Q6H PRN (Reason: Pain) acetaminophen-codeine 325-30 mg tablet 1 tab PO Q6H bicalutamide 50 mg tablet 50 mg PO DAILY 90 Days Qty: 90 0RF Rx Instructions: Take 3 tabs daily in single-dose until GnRH injection in office Print Language: [place]
--- NOTE | 2024-08-15 04:42 | PC.NURSE ---
pt is a difficult stick, provider made aware the need for a line. pt cleaned for a large cantalope size of clotted dark blood.
[2024-08-15 05:19] LABS: MANUAL DIFF FLAG NO
--- NOTE | 2024-08-15 05:26 | PC.NURSE ---
pt blood band was scanned and did not reg in the computor. pt is now a recollect. Tech and this rn witnessed the scan.
[2024-08-15 05:28] LABS: Basophils Absolute Auto 0.1 X10*3/uL (0.0-0.2); Eosinophils Absolute Auto 0.4 X10*3/uL (0.0-0.4); Eosinophils Percent Auto 3.1 % (0-4); Imm Gran Abs Auto 0.13 X10*3/uL (0.00-0.03); Imm Gran Pct Auto 1.1 % (0.0-0.4); Lymphocytes Absolute Auto 0.9 X10*3/uL (1.2-4.9); Lymphocytes Percent Auto 7.4 % (20-40); Mean Corpuscular HGB Conc 31.1 g/dl (31.0-36.0); Mean Corpuscular Hemoglobin 25.3 pg (27.0-33.0); Mean Corpuscular Volume 81.3 fL (80.0-98.0); Mean Platelet Volume 10.9 fL (9.4-12.4); Monocytes Absolute Auto 0.8 X10*3/uL (0.1-1.2); Neutrophils Absolute Auto 9.5 x10*3/uL (2.0-8.3); Neutrophils Percent Auto 80.4 % (45-73); Platelet Count 418 X10*3/uL (160-400); Red Blood Count 2.41 X10*6/uL (4.60-5.80); Red Cell Distribution Width 20.5 % (11.0-16.0); White Blood Count 11.8 X10*3/uL (4.8-10.8)
[2024-08-15] MEDS: 0.9 % Sodium Chloride 1,000 ML 999 ML IV (05:30)
[2024-08-15 05:33] LABS: Hematocrit 19.6 % (42.0-52.0); Hemoglobin 6.1 g/dl (14.0-18.0)
[2024-08-15 05:45] LABS: INTERNATIONAL NORM RATIO 2.4 (0.9-1.1); Prothrombin Time 28.1 SEC (10.9-12.4)
[2024-08-15 05:48] LABS: Partial Thromboplastin Time 38.1 SEC (26.0-36.8)
[2024-08-15 05:50] LABS: Alkaline Phosphatase 109 U/L (39-117)
[2024-08-15 05:52] LABS: Alanine Aminotransferase < 6 U/L (0-40); Albumin Level 2.6 g/dL (3.5-5.0); Anion Gap 15 (12-20); Aspartate Amino Transferase 22 U/L (5-37); Bilirubin Total 0.5 mg/dL (0.0-1.0); Blood Urea Nitrogen 22 mg/dL (9-16); Carbon Dioxide 24 mmol/L (22-29); Chloride 101 mmol/L (96-108); Creatinine Clr Calc Pharmacy 46.2; Estimated Glomerular Filt Rate > 60; Glucose Random 186 mg/dL (60-115); Potassium 4.2 mmol/L (3.3-5.1); Sodium 136 mmol/L (135-145); Total Protein 5.4 g/dL (6.5-8.0)
--- NOTE | 2024-08-15 06:11 | PC.NURSE ---
pt has a iv in the right IJ infusing ns. dr Varma still trying to obtain a line for ct w con.
[2024-08-15] MEDS: iohexoL 350 MG/ML 100 ML INFUS..BTL 80 ML IV (06:59)
--- NOTE | 2024-08-15 07:42 | PC.NURSE ---
order to trnsfuse, blood transfusion consent in chart - pts VSS. patent IVs 18G in RIJ, patent 18G L upper arm. lung sounds clear, dim noted at R lower base.
[2024-08-15] MEDS: Phytonadione (Vit K1) 5 MG in 0.9 % Sodium Chloride 50 ML 50.5 MG IV (08:28)
--- NOTE | 2024-08-15 08:32 | PC.NURSE ---
per DO. Quinonez pt has had a previous ECHO with normal EF. ok to run 1st unit of blood in over an hour. current rate at 350ml/hr
--- NOTE | 2024-08-15 09:07 | PM.IMHP ---
History of Present Illness Date of Service: 08/15/24 Chief Complaint: brbpr 89M PMH prostate ca, bladder ca, lytic bone lesions, RA, DM, htn, hld, presented with brbpr. at 130am on day of presentation went to bathroom had small amount of stool with blood, then had 2-3 more mostly blood with clots. in ED hgb 6.1. ct abd pending. denies abd pain, n/v/d. inr 2.4 patient not on AC. Review of Systems Review of Systems: Yes all other systems are reviewed and are negative [facility] Medical History Bladder cancer CKD (chronic kidney disease) Diabetes mellitus Disc degeneration, lumbar Chronic pain syndrome Gout, arthritis Spinal stenosis Spondylosis of lumbar region without myelopathy or radiculopathy Diabetes mellitus Swelling of both parotid glands Podagra Seropositive rheumatoid arthritis Hypercholesterolemia Leg edema Essential hypertension Angioedema Family History Father Diabetes Cardiovascular disease Mother Diabetes Stomach cancer Brother No problems noted. Brother No problems noted. Sister No problems noted. Sister No problems noted. Son No problems noted. Son No problems noted. Daughter No problems noted. Daughter No problems noted. Daughter No problems noted. Other Mental health disorder Surgical History History of back surgery History of cryosurgery History of endoscopy History of bladder surgery History of bilateral cataract extraction History of hernia repair Social History Household Members: Spouse and Children Housing: House Do you presently have visiting nurse or other home services: No Alcohol intake: never Comment: sullivan catheter Patient Tobacco Use Status: Former Tobacco user Smoked in Last 30 Days: No e-Cigarette/Vaping Use: Never Used Second Hand Smoke Exposure: No Use of substances other than those prescribed or required for medical reasons: No Advance Directives: No Advance Directives Information Provided: Yes Do you have a plan to hurt others: No Plan service: No Current occupational status: retired Cognitive needs: No Hearing needs: Yes (hearing aide) Vision needs: No Meds Allergies Allergy/AdvReac Type Severity Reaction Status Date / Time levofloxacin [From LEVAQUIN] Allergy Severe ANGIOEDEMA Verified 08/15/24 04:10 (EXACT SOURCE UNCERTAIN) lisinopril [LISINOPRIL] Allergy Severe ANGIOEDEMA Verified 08/15/24 04:10 ( EXACT SOURCE UNCERTAIN) Active Medications: Current Medications Acetaminophen (Acetaminophen 325 Mg Tablet) 650 mg PO Q6H PRN PRN Reason: Pain, Mild 1-3,fever,headache Calcium Carbonate (Calcium Carbonate 750 Mg Tab.Chew) 750 mg PO Q4H PRN PRN Reason: Heartburn Dextrose (Dextrose 50 % 25 Gm/50 Ml Syringe) 25 gm IVPUSH Q15M PRN; Protocol PRN Reason: per Hypoglycemia Standing Ord. Glucose (Glucose Gel 15 Gm Gel..Gram.) 15 gm PO Q15M PRN; Protocol PRN Reason: per Hypoglycemia Standing Ord. Insulin Human Lispro (Insulin Lispro 100 Unit/Ml 3 Ml Vial) 0 unit SUBCUT QIDACHS [facility]; Protocol Magnesium Hydroxide (Milk Of Magnesia 30 Ml Oral.Susp) 30 ml PO DAILY PRN PRN Reason: Constipation Melatonin (Melatonin 3 Mg Tablet) 6 mg PO BEDTIME PRN PRN Reason: Insomnia Sodium Chloride (0.9 % Sodium Chloride Flush 3 Ml Syringe) 3 ml IVFLUSH [facility] Home Medications ?Medication ?Instructions ?Recorded ?Confirmed ?Last Taken ?Type blood-glucose meter ([employer]yle #1 ea 10/24/21 07/14/24 Unknown History Lite Meter kit) acetaminophen 325 mg tablet 650 mg PO Q6H PRN Pain 07/16/22 07/16/24 07/16/24 10:00 History (Tylenol) acetaminophen 325 mg-codeine 30 mg 1 tab PO Q6H 06/18/24 07/14/24 Unknown History tablet Physical Exam Vital Signs and Narrative: Vital Signs: Last Vital Signs Temp 97.5 F 08/15/24 08:12 Pulse 72 08/15/24 08:12 Resp 14 08/15/24 08:12 BP 105/42 L 08/15/24 08:12 Pulse Ox 97 08/15/24 07:41 O2 Del Method Room Air 08/15/24 07:41 BMI result Body Mass Index 21.3 lethargic, dysarthric, oriented to person and place, abd soft non tender Results Labs 08/15/24 05:10 08/15/24 05:10 Labs: Laboratory Results - last 24 hr 08/15/24 08/15/24 05:10 06:09 MCV 81.3 MCH 25.3 L MCHC 31.1 RDW 20.5 H Plt Count 418 H MPV 10.9 Immature Gran % (Auto) 1.1 H Neut % (Auto) 80.4 H Lymph % (Auto) 7.4 L [place] % (Auto) 7.0 Eos % (Auto) 3.1 Baso % (Auto) 1.0 Lymph # (Auto) 0.9 L [place] # (Auto) 0.8 Eos # (Auto) 0.4 Baso # (Auto) 0.1 Abs Immat Gran (auto) 0.13 H Absolute Neuts (auto) 9.5 H Absolute Nucleated RBC 0.000 Nucleated RBC % (auto) 0.0 PT 28.1 H D INR 2.4 H APTT 38.1 H Anion Gap 15 Estim Creat Clear Calc 46.2 Estimated GFR > 60 Random Glucose 186 H Calcium 8.0 L D Total Bilirubin 0.5 AST 22 ALT < 6 Alkaline Phosphatase 109 Total Protein 5.4 L Albumin 2.6 L Blood Type B Positive Antibody Screen NEGATIVE Crossmatch See Detail Assessment and Plan (1) Essential hypertension: Status: Acute Plan 89M PMH prostate ca, bladder ca, lytic bone lesions, RA, DM, htn, hld, presented with brbpr Acute blood loss anemia with coagulopathy Likely lower GI bleed, transfusing 2 units PRBC, follow up hemoglobin, Hematology and Gastroenterology eval Diabetes Insulin sliding scale History of multiple malignancies Oncology following Hypertension Low normal blood pressure, hold meds DVT prophylaxis-mechanical due to GI bleed Full Code for now- attempted to contact spouse, was unable to discuss Due to degree of anemia and GI bleed an elderly frail patient with multiple comorbidities expected require at least 2 midnights inpatient Quality Stroke Does the patient have a stroke diagnosis?: No VTE Prior VTE?: No VTE Risk Level:: Medical - moderate - high VTE Device Contraindication: N/A - Device Ordered VTE Drug Contraindication: Treatment Not Indicated
--- NOTE | 2024-08-15 10:17 | PC.NURSE ---
pt with mederate amount of bloody stool output with small clots at 0730. DO Cristiano Made aware. order to transfuse in place. pt VSS.
--- NOTE | 2024-08-15 10:24 | PM.GICN ---
History of Present Illness Data of Consult Service Date: 08/15/24 Primary Care Provider: Kenney Beal MD HPI Reason for consult: anemia 89M PMH prostate ca, bladder ca, lytic bone lesions, RA, DM, htn, hld, who I am seeing for assessement for rectal bleeding He presented with clots in stools and weakness early this morning about 3 times or so. He denies abdominal pain, mild nausea, but no vomiting, no melena. he has had weight loss 25# over last several months with poor appetite. He does admit he was constipated for days and had been taking laxatives just prior to this episode. denies epistaxis or gum bleeding, hematuria but has noted bruising on arms he had CT with out active bleeding noted, multiple bony lesions noted and constipation saundra rectal area, diverticulosis INR was elevated at 2.4 and PTT as well, HGB 6.1 Review of Systems Review of Systems: Constitutional : + Weight loss, No Fever, No Chills ENT/Mouth : No sore throat, No Rhinorrhea Eyes: No Swelling, No Redness Cardiovascular : No Chest Pain, No SOB, No Edema Respiratory : No Cough, No Sputum, No Wheezing Gastrointestinal : see HPI Genitourinary : NO Dysuria, No Urinary Frequency, No Hematuria, No Urgency Musculoskeletal : no joint pain, No Myalgias, No Joint Swelling Skin : No Skin Lesions, No rash Neuro : No Weakness, No Numbness, No Dizziness, No Headache Psych : No Anxiety/Panic, No Depression Heme/Lymph: + Bruising, No Lymphadenopathy Endocrine : No Polyuria, No Polydipsia All other systems reviewed and are negative. [facility] Past Medical History Medical History Bladder cancer CKD (chronic kidney disease) Diabetes mellitus Disc degeneration, lumbar Chronic pain syndrome Gout, arthritis Spinal stenosis Spondylosis of lumbar region without myelopathy or radiculopathy Diabetes mellitus Swelling of both parotid glands Podagra Seropositive rheumatoid arthritis Hypercholesterolemia Leg edema Essential hypertension Angioedema Family History Family History Father Diabetes Cardiovascular disease Mother Diabetes Stomach cancer Brother No problems noted. Brother No problems noted. Sister No problems noted. Sister No problems noted. Son No problems noted. Son No problems noted. Daughter No problems noted. Daughter No problems noted. Daughter No problems noted. Other Mental health disorder Surgical History Surgical History History of back surgery History of cryosurgery History of endoscopy History of bladder surgery History of bilateral cataract extraction History of hernia repair Social History Social History Household Members: Spouse and Children Housing: House Do you presently have visiting nurse or other home services: No Alcohol intake: never Comment: sullivan catheter Patient Tobacco Use Status: Former Tobacco user e-Cigarette/Vaping Use: Never Used Second Hand Smoke Exposure: No service: No Current occupational status: retired Cognitive needs: No Hearing needs: Yes (hearing aide) Vision needs: No Meds Allergies Allergy/AdvReac Type Severity Reaction Status Date / Time levofloxacin [From LEVAQUIN] Allergy Severe ANGIOEDEMA Verified 08/15/24 04:10 (EXACT SOURCE UNCERTAIN) lisinopril [LISINOPRIL] Allergy Severe ANGIOEDEMA Verified 08/15/24 04:10 ( EXACT SOURCE UNCERTAIN) Active Medications: Current Medications Acetaminophen (Acetaminophen 325 Mg Tablet) 650 mg PO Q6H PRN PRN Reason: Pain, Mild 1-3,fever,headache Calcium Carbonate (Calcium Carbonate 750 Mg Tab.Chew) 750 mg PO Q4H PRN PRN Reason: Heartburn Dextrose (Dextrose 50 % 25 Gm/50 Ml Syringe) 25 gm IVPUSH Q15M PRN; Protocol PRN Reason: per Hypoglycemia Standing Ord. Glucose (Glucose Gel 15 Gm Gel..Gram.) 15 gm PO Q15M PRN; Protocol PRN Reason: per Hypoglycemia Standing Ord. Insulin Human Lispro (Insulin Lispro 100 Unit/Ml 3 Ml Vial) 0 unit SUBCUT QIDACHS [facility]; Protocol Magnesium Hydroxide (Milk Of Magnesia 30 Ml Oral.Susp) 30 ml PO DAILY PRN PRN Reason: Constipation Melatonin (Melatonin 3 Mg Tablet) 6 mg PO BEDTIME PRN PRN Reason: Insomnia Sodium Chloride (0.9 % Sodium Chloride Flush 3 Ml Syringe) 3 ml IVFLUSH QSHIFT [facility] Home Medications ?Medication ?Instructions ?Recorded ?Confirmed ?Last Taken ?Type blood-glucose meter (GlobalLogicStyle #1 ea 10/24/21 07/14/24 Unknown History Lite Meter kit) TUMERIC 1 cap PO DAILY 08/15/24 Unknown History calcium carbonate (Calcium 600) 1,200 mg PO DAILY 08/15/24 08/15/24 Unknown History cholecalciferol (vitamin D3) 50 50 mcg PO DAILY 08/15/24 08/15/24 Unknown History mcg (2,000 unit) tablet doxazosin 4 mg tablet (Cardura) 4 mg PO DAILY@1800 08/15/24 08/15/24 08/14/24 History hydralazine 100 mg tablet 100 mg PO TID@0900,1300,1800 08/15/24 08/15/24 08/14/24 History lorazepam 0.5 mg tablet 0.5 mg PO BEDTIME PRN Sleep 08/15/24 08/15/24 Unknown History nifedipine 90 mg tablet,extended 90 mg PO DAILY@1800 08/15/24 08/15/24 08/14/24 History release 24 hr solifenacin 10 mg tablet 10 mg PO DAILY 08/15/24 08/15/24 08/14/24 History Physical Exam Vital Signs: Vital Signs: Last Vital Signs Temp 97.5 F 08/15/24 10:11 Pulse 71 08/15/24 10:15 Resp 12 08/15/24 10:15 BP 118/47 L 08/15/24 10:15 Pulse Ox 97 08/15/24 10:15 O2 Del Method Room Air 08/15/24 10:15 BMI result Body Mass Index 21.3 EXAM: GENERAL: The patient is weak VITAL SIGNS:see workflow HEENT: Nonicteric sclerae, PERRLA, EOMI. Oropharynx clear. Moist mucous membranes. Conjunctivae appear well perfused. No thyroid mass. CHEST: Chest wall is nontender. HEART: Regular rate and rhythm with ESM at aortic area LUNGS: Clear to auscultation bilaterally. ABDOMEN: Soft, positive bowel sounds, nontender, no organomegaly.no flank tenderness SKIN: No rash, few bruises on arms, petechiae, or purpura. NEUROLOGIC: Cranial nerves II-XII intact without motor/sensory deficit. Psych: normal affect Results Labs 08/15/24 05:10 08/15/24 05:10 Labs: Short CBC 08/15/24 Range/Units 05:10 WBC 11.8 H (4.8-10.8) X10*3/uL Hgb 6.1 L* D (14.0-18.0) g/dl Hct 19.6 L* D (42.0-52.0) % Plt Count 418 H (160-400) X10*3/uL BMP 08/15/24 05:10 Sodium 136 Potassium 4.2 Chloride 101 Carbon Dioxide 24 BUN 22 H Creatinine 0.97 Calcium 8.0 L D Liver Function 08/15/24 Range/Units 05:10 Total Bilirubin 0.5 (0.0-1.0) mg/dL AST 22 (5-37) U/L ALT < 6 (0-40) U/L Alkaline Phosphatase 109 (39-117) U/L Albumin 2.6 L (3.5-5.0) g/dL Imaging CT scan - abdomen: Attestation: I personally reviewed and interpreted this imaging study as follows: (fecal loading saundra rectum, bony lesions, degen spinal disease, ) Assessment and Plan (1) Anemia: Status: Acute Plan 1/ Acute blood loss anemia, no active bleeding on CT. I suspect most liekly stercoral colitis from constipation, ddx: diverticular bleed, hemorrhoidal bleed, AVM. He also has raised INR, PT whcih may be due to malnutrition, or acquired factor defcn or inhibitors PLAN: 1/ Allow diet today, 2/ clears tomorrow, golyte possible colo/sigmoidoscopy on Saturday depending on clinical status. If sx resolve and HGB stable then may hold off given his frailty 3/ Can use colace, and dulcolax with miralax bid 4. consider appetite stimulant like marinol, mirtazepine Procedures Date of Service Date of Service: 08/15/24
--- NOTE | 2024-08-15 11:03 | PM.HEMONCCN ---
Subjective - Subjective Chief complaint: Consult for: Anemia. GI bleeding. Patient: known to practice within the last 3 years Consult date: 08/15/24 Requesting Physician: Fernando. Primary Care Provider: Kenney Beal MD Family Provider: Kenney Beal MD Medical Summary: DIAGNOSIS: GI bleeding. History of anemia of chronic disease. Slag Expander Utilized?: No - Hungarian Speaking HPI - Consult Narrative Reason for consult: Consult For: Anemia. Narrative: Corby Faith is a 89 year old gentleman presented with BRBR, at 1.30am today. He went to bathroom had small amount of stool with blood, then had 2-3 more mostly blood with clots. He denies abd pain, n/v/d. inr 2.4 patient not on AC. In ED hgb 6.1. Cat scan of abd: 1. No evidence of active gastrointestinal tract hemorrhage. 2. Nonspecific feces distended rectum. Correlate clinically for impaction. 3. Multiple radiolucent osseous lesions possible neoplastic or metabolic bone disease. Correlate with clinical and laboratory findings. 4. Nonspecific prostate gland heterogeneity. Correlate with clinical and laboratory findings for significance. Review of Systems - Constitutional Reports system reviewed and no additional complaints, except as documented, Reports fatigue, Reports lack of energy, Reports malaise, Reports poor appetite, Reports weight loss - Eyes Reports system reviewed and no additional complaints, except as documented - ENT Reports system reviewed and no additional complaints, except as documented - Cardiovascular Reports system reviewed and no additional complaints, except as documented - Respiratory Reports no additional respiratory complaints - Gastrointestinal Reports system reviewed and no additional complaints, except as documented - Genitourinary Genitourinary: Reports no additional male genitourinary complaints - Musculoskeletal Reports system reviewed and no additional complaints, except as documented - Integumentary/Breasts Skin/Breast: Reports no additional skin complaints - Neurologic Reports system reviewed and no additional complaints, except as documented - Psychiatric Reports system reviewed and no additional complaints, except as documented - Endocrine Reports no additional endocrine complaints - Hematologic/Lymphatic Reports system reviewed and no additional complaints, except as documented - Allergic/Immunologic Reports system reviewed and no additional complaints, except as documented Oncology Screenings - ECOG Performance Status ECOG Performance Status: 2 PMFSH Medical History: Medical History (Last Reviewed 08/15/24 @ 09:09 by Dalton King MD) Angioedema Bladder cancer Chronic pain syndrome CKD (chronic kidney disease) Diabetes mellitus Diabetes mellitus Disc degeneration, lumbar Essential hypertension Gout, arthritis Hypercholesterolemia Leg edema Podagra Seropositive rheumatoid arthritis Spinal stenosis Spondylosis of lumbar region without myelopathy or radiculopathy Swelling of both parotid glands Functional capacity: wheelchair bound Family History: Family History (Last Reviewed 08/15/24 @ 06:39 by Glenroy Lopez MD) Father Diabetes Cardiovascular disease Mother Diabetes Stomach cancer Brother No problems noted. Brother No problems noted. Sister No problems noted. Sister No problems noted. Son No problems noted. Son No problems noted. Daughter No problems noted. Daughter No problems noted. Daughter No problems noted. Other Mental health disorder Surgical History: Surgical History (Last Reviewed 08/15/24 @ 06:39 by Glenroy Lopez MD) History of back surgery History of bilateral cataract extraction History of bladder surgery History of cryosurgery History of endoscopy History of hernia repair Social History: Social History (Last Reviewed 08/15/24 @ 06:39 by Glenroy Lopez MD) Living Situation History: Household Members: Spouse Household Members: Family Housing: House Do you presently have visiting nurse or other home services: No Tobacco History: Patient Tobacco Use Status: Former Tobacco user e-Cigarette/Vaping Use: Never Used Second Hand Smoke Exposure: No Occupation Assessmet: service: No Current occupational status: retired Home Medications and Allergies Current Medications: Current Medications Acetaminophen (Acetaminophen 325 Mg Tablet) 650 mg PO Q6H PRN PRN Reason: Pain, Mild 1-3,fever,headache Calcium Carbonate (Calcium Carbonate 750 Mg Tab.Chew) 750 mg PO Q4H PRN PRN Reason: Heartburn Dextrose (Dextrose 50 % 25 Gm/50 Ml Syringe) 25 gm IVPUSH Q15M PRN; Protocol PRN Reason: per Hypoglycemia Standing Ord. Glucose (Glucose Gel 15 Gm Gel..Gram.) 15 gm PO Q15M PRN; Protocol PRN Reason: per Hypoglycemia Standing Ord. Insulin Human Lispro (Insulin Lispro 100 Unit/Ml 3 Ml Vial) 0 unit SUBCUT QIDACHS [facility]; Protocol Magnesium Hydroxide (Milk Of Magnesia 30 Ml Oral.Susp) 30 ml PO DAILY PRN PRN Reason: Constipation Melatonin (Melatonin 3 Mg Tablet) 6 mg PO BEDTIME PRN PRN Reason: Insomnia Sodium Chloride (0.9 % Sodium Chloride Flush 3 Ml Syringe) 3 ml IVFLUSH QSHIFT [facility] Home Medications ?Medication ?Instructions ?Recorded ?Confirmed ?Type blood-glucose meter (FreeStyle #1 ea 10/24/21 07/14/24 History Lite Meter kit) TUMERIC 1 cap PO DAILY 08/15/24 History calcium carbonate (Calcium 600) 1,200 mg PO DAILY 08/15/24 08/15/24 History cholecalciferol (vitamin D3) 50 50 mcg PO DAILY 08/15/24 08/15/24 History mcg (2,000 unit) tablet doxazosin 4 mg tablet (Cardura) 4 mg PO DAILY@1800 08/15/24 08/15/24 History hydralazine 100 mg tablet 100 mg PO TID@0900,1300,1800 08/15/24 08/15/24 History lorazepam 0.5 mg tablet 0.5 mg PO BEDTIME PRN Sleep 08/15/24 08/15/24 History nifedipine 90 mg tablet,extended 90 mg PO DAILY@1800 08/15/24 08/15/24 History release 24 hr solifenacin 10 mg tablet 10 mg PO DAILY 08/15/24 08/15/24 History Allergies Allergy/AdvReac Type Severity Reaction Status Date / Time levofloxacin [From LEVAQUIN] Allergy Severe ANGIOEDEMA Verified 08/15/24 04:10 (EXACT SOURCE UNCERTAIN) lisinopril [LISINOPRIL] Allergy Severe ANGIOEDEMA Verified 08/15/24 04:10 ( EXACT SOURCE UNCERTAIN) Physical Exam Vital signs: Vital Signs Temp 97.8 F 08/15/24 10:27 Pulse 70 08/15/24 10:27 Resp 16 08/15/24 10:27 BP 123/48 L 08/15/24 10:27 Pulse Ox 97 08/15/24 10:15 O2 Del Method Room Air 08/15/24 10:15 Intake & Output 08/14/24 08/15/24 08/15/24 18:59 06:59 18:59 Intake Total 1000 / 1000 400.5 / 400.5 Balance 1000 / 1000 400.5 / 400.5 Intake: Intake (Blood Product) Amount 350 / 350 Red Blood Cells (E0336) Unit 350 / 350 [id number] Red Blood Cells (E0336) Unit 0 / 0 [id number] Intake, IV Amount 1000 / 1000 50.5 / 50.5 0.9 % Sodium Chloride 1,000 ml 1000 / 1000 @ 999 mls/hr IV .Q1H1M ONE Rx#: [id number] Phytonadione (Vit K1) 5 mg In 0 50.5 / 50.5 .9 % Sodium Chloride 50 ml @ 50 .5 mls/hr IV ONCE ONE Rx#: [id number] Other: Weight 63.4 kg Weight 63.4 kg - Constitutional Present: mild distress, chronically ill appearing - Routine HEENT Exam Head: Present: normal inspection Eye: Present: EOMI, normal appearance ENT: Present: mucous membranes moist Hem/Onc Consult Result - Labs CBC & Chem 7: 08/16/24 06:55 08/16/24 06:55 Labs: Short CBC 08/15/24 Range/Units 05:10 WBC 11.8 H (4.8-10.8) X10*3/uL Hgb 6.1 L* D (14.0-18.0) g/dl Hct 19.6 L* D (42.0-52.0) % Plt Count 418 H (160-400) X10*3/uL BMP 08/15/24 05:10 Sodium 136 Potassium 4.2 Chloride 101 Carbon Dioxide 24 BUN 22 H Creatinine 0.97 Calcium 8.0 L D Liver Function 08/15/24 Range/Units 05:10 Total Bilirubin 0.5 (0.0-1.0) mg/dL AST 22 (5-37) U/L ALT < 6 (0-40) U/L Alkaline Phosphatase 109 (39-117) U/L Albumin 2.6 L (3.5-5.0) g/dL Assessment and Plan Patient Active problem list reviewed?: Yes (1) Anemia Status: Acute Assessment and plan: This is a pleasant 89-year-old gentleman, with H/O chronic back pain. He underwent L4 - L5 decompression laminectomy. He was seen in the ED for back pain on 05/26. CT scan of the thoracic spine from 05/26 revealed: Mild to moderate compression fracture deformity of L1, new compared with July 09, 2023. Mixed lytic and sclerotic bony lesions scattered throughout the skeleton. Differential diagnosis includes, but is not limited to, metastatic disease or multiple myeloma. Polypoid thickening involving the wall the urinary bladder, suspicious For transitional cell carcinoma. Suspect abnormal enhancement of the prostate gland. Cannot exclude prostate cancer. DIFFERENTIAL DIAGNOSIS: 1. PROSTATE CARCINOMA: He has had history of bladder carcinoma. His PSA was also being followed and was noted to be elevated. From 01/15/24, PSA was:41.8. 2. MYELO INFILTRATIVE DISORDER: Multiple myeloma can also cause lytic lesions. l proceeded with further evaluation. l rechecked PSA: 76.90, previously 89.03. Checked SIEP: WNL, and serum free light chain ratio: 0.21, as well as LDH:[address] Byrd to proceed with a prostate biopsy, at the time of TURP. He underwent bladder surgery on 07/16, by Dr. Byrd. He had the prostate biopsy done at the same time. Multiple biopsies came back positive for prostate cancer, Merrill score 3 + 4=7. He saw Dr. Byrd on 08/12, to start treatment with Lupron. Dr. Byrd has ordered Nubeqa 300 mg daily as well. Database: 08/05. CBC: WBC 11.3, HGB 8.4, HCT 26.5, MCV 78.9, PLT 491. CMP: Lytes WNL, BUN 36, CEMENT PATCHER 0.84. LFTs: 0.3/150/37/<6. He now presents with rectal bleeding. Hgb down to 6.1. PLAN: He is being transfused. GI consultation: Impression: 1/ Acute blood loss anemia, no active bleeding on CT. I suspect most liekly stercoral colitis from constipation, ddx: diverticular bleed, hemorrhoidal bleed, AVM. He also has raised INR, PT whcih may be due to malnutrition, or acquired factor deficiency or inhibitors 2/Possible colo/sigmoidoscopy on Saturday depending on clinical status. If sx resolve and HGB stable then may hold off given his frailty 3/2: HGB 8.4. He will be treated for the prostate cancer as an outpatient. Thanks, CC: Dr. Zuleta. - Time Spent With Patient Time Spent with Patient (in minutes): 30
--- NOTE | 2024-08-15 11:51 | PHA.MEDREC ---
Pharmacy Consult ? Medication Reconciliation Pharmacy has completed the medication reconciliation.Med rec complete, went over list with patients and confirmed with pharmacy claim history
[2024-08-15 11:56] LABS: Influenza A PCR NEGATIVE (Negative); Influenza B PCR NEGATIVE (Negative); Resp Syncy Virus RNA Qual PCR NEGATIVE (Negative); SARS COV2 PCR INHOUSE NEGATIVE (Negative)
--- NOTE | 2024-08-15 12:32 | PC.NURSE ---
12:30 pt utilized the urinal and informed this RN that he thinks he had another BM... small output of BRB with clots noted. pt cleaned, linens changed.
[2024-08-15 12:48] LABS: Glucose, Whole Blood 130 mg/dL (60-115)
[2024-08-15] MEDS: Morphine Sulfate ER 15 MG TABLET.ER PO (13:08)
--- NOTE | 2024-08-15 14:02 | P.PNHO-ONC_ITS ---
Medical Summary - Medical Summary Date of Service: 08/15/24 Primary Care Provider: Kenney Beal MD Dispenser Operator Utilized?: No - Latvian Speaking Interval History Interval history: Corby Faith is a 89 year old gentleman presented with BRBR, at 1.30am today. He went to bathroom had small amount of stool with blood, then had 2-3 more mostly blood with clots. He denies abd pain, n/v/d. inr 2.4 patient not on AC. In ED hgb 6.1. Cat scan of abd: 1. No evidence of active gastrointestinal tract hemorrhage. 2. Nonspecific feces distended rectum. Correlate clinically for impaction. 3. Multiple radiolucent osseous lesions possible neoplastic or metabolic bone disease. Correlate with clinical and laboratory findings. 4. Nonspecific prostate gland heterogeneity. Correlate with clinical and laboratory findings for significance. Review of Systems - Constitutional Reports fatigue - ENT Reports system reviewed and no additional complaints, except as documented - Cardiovascular Reports shortness of breath - Respiratory Reports dyspnea (rectal bleeding) - Genitourinary Genitourinary: Reports urinary urgency - Musculoskeletal Reports muscle weakness - Neurologic Reports system reviewed and no additional complaints, except as documented [facility] Medical History: Medical History (Last Reviewed 08/15/24 @ 09:09 by Dalton King MD) Angioedema Bladder cancer Chronic pain syndrome CKD (chronic kidney disease) Diabetes mellitus Diabetes mellitus Disc degeneration, lumbar Essential hypertension Gout, arthritis Hypercholesterolemia Leg edema Podagra Seropositive rheumatoid arthritis Spinal stenosis Spondylosis of lumbar region without myelopathy or radiculopathy Swelling of both parotid glands Functional capacity: wheelchair bound Family History: Family History (Last Reviewed 08/15/24 @ 06:39 by Glenroy Lopez MD) Father Diabetes Cardiovascular disease Mother Diabetes Stomach cancer Brother No problems noted. Brother No problems noted. Sister No problems noted. Sister No problems noted. Son No problems noted. Son No problems noted. Daughter No problems noted. Daughter No problems noted. Daughter No problems noted. Other Mental health disorder Surgical History: Surgical History (Last Reviewed 08/15/24 @ 06:39 by Glenroy Lopez MD) History of back surgery History of bilateral cataract extraction History of bladder surgery History of cryosurgery History of endoscopy History of hernia repair Social History: Social History (Last Reviewed 08/15/24 @ 06:39 by VIVIEN Riley Living Situation History: Household Members: Spouse Household Members: Children Housing: House Do you presently have visiting nurse or other home services: No Alcohol History Details: 1. How often do you have a drink containing alcohol?: a. Never AUDIT-C Alcohol total score: 0 Tobacco History: Patient Tobacco Use Status: Former Tobacco user Smoked in Last 30 Days: No e-Cigarette/Vaping Use: Never Used Second Hand Smoke Exposure: No Substance Use History: Use of substances other than those prescribed or required for medical reasons : No Advance Directives: Advance Directives: No Advance Directives Information Provided: Yes Homicidal Assessment: Do you have a plan to hurt others: No Plan Nutrition Assessment: Nutrition Risks: No Nutritional Risk Occupation Assessmet: service: No Current occupational status: retired Home Medications and Allergies Current Medications: Current Medications Acetaminophen (Acetaminophen 325 Mg Tablet) 650 mg PO Q6H PRN PRN Reason: Pain, Mild 1-3,fever,headache Allopurinol (Allopurinol 100 Mg Tablet) 100 mg PO DAILY [facility] Calcium Carbonate (Calcium Carbonate 750 Mg Tab.Chew) 750 mg PO Q4H PRN PRN Reason: Heartburn Calcium Carbonate (Calcium Carbonate 750 Mg Tab.Chew) 1,500 mg PO DAILY [facility] Dextrose (Dextrose 50 % 25 Gm/50 Ml Syringe) 25 gm IVPUSH Q15M PRN; Protocol PRN Reason: per Hypoglycemia Standing Ord. Glucose (Glucose Gel 15 Gm Gel..Gram.) 15 gm PO Q15M PRN; Protocol PRN Reason: per Hypoglycemia Standing Ord. Insulin Human Lispro (Insulin Lispro 100 Unit/Ml 3 Ml Vial) 0 unit SUBCUT QIDACHS [facility]; Protocol Last Admin: 08/15/24 12:45 Dose: Not Given Leflunomide (Leflunomide 10 Mg Tablet) 20 mg PO DAILY [facility] Lorazepam (Lorazepam 0.5 Mg Tablet) 0.5 mg PO BEDTIME PRN PRN Reason: Sleep Magnesium Hydroxide (Milk Of Magnesia 30 Ml Oral.Susp) 30 ml PO DAILY PRN PRN Reason: Constipation Melatonin (Melatonin 3 Mg Tablet) 6 mg PO BEDTIME PRN PRN Reason: Insomnia Morphine Sulfate (Morphine Sulfate Er 15 Mg Tablet.Er) 15 mg PO Q12H [facility] Last Admin: 08/15/24 13:08 Dose: 15 mg Non-Formulary Medication (Darolutamide) 600 mg PO BID [facility] Non-Formulary Medication (Solifenacin) 10 mg PO DAILY [facility] Non-Formulary Medication (Fenofibrate Nanocrystallized) 145 mg PO DAILY [facility] Ondansetron HCl (Ondansetron Odt 4 Mg Tab.Rapdis) 4 mg TRANSLINGU Q8H PRN PRN Reason: nausea and vomiting Oxycodone HCl (Oxycodone Hcl Immed Release 5 Mg Tablet) 5 mg PO Q6H PRN PRN Reason: Breakthrough Pain, Moderate Sodium Chloride (0.9 % Sodium Chloride Flush 3 Ml Syringe) 3 ml IVFLUSH QSHIFT [facility] Vitamin D (Cholecalciferol (Vitamin D3) 25 Mcg Tablet) 50 mcg PO DAILY [facility] Home Medications ?Medication ?Instructions ?Recorded ?Confirmed ?Type blood-glucose meter ([employer] SARL #1 ea 10/24/21 07/14/24 History Lite Meter kit) TUMERIC 1 cap PO DAILY 08/15/24 History calcium carbonate (Calcium 600) 1,200 mg PO DAILY 08/15/24 08/15/24 History cholecalciferol (vitamin D3) 50 50 mcg PO DAILY 08/15/24 08/15/24 History mcg (2,000 unit) tablet doxazosin 4 mg tablet (Cardura) 4 mg PO DAILY@1800 08/15/24 08/15/24 History hydralazine 100 mg tablet 100 mg PO TID@0900,1300,1800 08/15/24 08/15/24 History lorazepam 0.5 mg tablet 0.5 mg PO BEDTIME PRN Sleep 08/15/24 08/15/24 History nifedipine 90 mg tablet,extended 90 mg PO DAILY@1800 08/15/24 08/15/24 History release 24 hr solifenacin 10 mg tablet 10 mg PO DAILY 08/15/24 08/15/24 History Allergies Allergy/AdvReac Type Severity Reaction Status Date / Time levofloxacin [From LEVAQUIN] Allergy Severe ANGIOEDEMA Verified 08/15/24 04:10 (EXACT SOURCE UNCERTAIN) lisinopril [LISINOPRIL] Allergy Severe ANGIOEDEMA Verified 08/15/24 04:10 ( EXACT SOURCE UNCERTAIN) Exam Vital signs: Vital Signs Temp 98.1 F 08/15/24 13:46 Pulse 71 08/15/24 13:46 Resp 13 08/15/24 13:46 BP 131/54 L 08/15/24 13:46 Pulse Ox 98 08/15/24 12:32 O2 Del Method Room Air 08/15/24 12:32 Intake & Output 08/14/24 08/15/24 08/15/24 18:59 06:59 18:59 Intake Total 1000 / 1000 750.5 / 750.5 Balance 1000 / 1000 750.5 / 750.5 Intake: Intake (Blood Product) Amount 700 / 700 Red Blood Cells (E0336) Unit 350 / 350 [id number] Red Blood Cells (E0336) Unit 350 / 350 [id number] Thawed Plasma (E2684) Unit 0 / 0 [id number] Intake, IV Amount 1000 / 1000 50.5 / 50.5 0.9 % Sodium Chloride 1,000 ml 1000 / 1000 @ 999 mls/hr IV .Q1H1M ONE Rx#: [id number] Phytonadione (Vit K1) 5 mg In 0 50.5 / 50.5 .9 % Sodium Chloride 50 ml @ 50 .5 mls/hr IV ONCE ONE Rx#: [id number] Other: Weight 63.4 kg Weight 63.4 kg BMI result Body Mass Index 21.3 - Constitutional Present: no acute distress, mild distress, chronically ill appearing - Routine HEENT Exam Head: Present: atraumatic, normal inspection Eye: Present: conjunctivae pale ENT: Present: mucous membranes moist - Routine Neck Exam Present: full ROM - Routine Respiratory Exam Present: decreased breath sounds - Routine Cardiovascular Exam Cardiovascular: Present: RRR - Routine Abdominal Exam Present: diminished bowel sounds - Routine Extremities Exam Present: nontender Data - Labs CBC & Chem 7: 08/15/24 05:10 08/15/24 05:10 Labs: Laboratory Last Values WBC 11.8 X10*3/uL (4.8-10.8) H 08/15/24 05:10 RBC 2.41 X10*6/uL (4.60-5.80) L D 08/15/24 05:10 Hgb 6.1 g/dl (14.0-18.0) L* D 08/15/24 05:10 Hct 19.6 % (42.0-52.0) L* D 08/15/24 05:10 MCV 81.3 fL (80.0-98.0) 08/15/24 05:10 MCH 25.3 pg (27.0-33.0) L 08/15/24 05:10 MCHC 31.1 g/dl (31.0-36.0) 08/15/24 05:10 RDW 20.5 % (11.0-16.0) H 08/15/24 05:10 Plt Count 418 X10*3/uL (160-400) H 08/15/24 05:10 MPV 10.9 fL (9.4-12.4) 08/15/24 05:10 Immature Gran % (Auto) 1.1 % (0.0-0.4) H 08/15/24 05:10 Neut % (Auto) 80.4 % (45-73) H 08/15/24 05:10 Lymph % (Auto) 7.4 % (20-40) L 08/15/24 05:10 [place] % (Auto) 7.0 % (2-11) 08/15/24 05:10 Eos % (Auto) 3.1 % (0-4) 08/15/24 05:10 Baso % (Auto) 1.0 % (0-2) 08/15/24 05:10 Lymph # (Auto) 0.9 X10*3/uL (1.2-4.9) L 08/15/24 05:10 [place] # (Auto) 0.8 X10*3/uL (0.1-1.2) 08/15/24 05:10 Eos # (Auto) 0.4 X10*3/uL (0.0-0.4) 08/15/24 05:10 Baso # (Auto) 0.1 X10*3/uL (0.0-0.2) 08/15/24 05:10 Abs Immat Gran (auto) 0.13 X10*3/uL (0.00-0.03) H 08/15/24 05:10 Absolute Neuts (auto) 9.5 x10*3/uL (2.0-8.3) H 08/15/24 05:10 Absolute Nucleated RBC 0.000 X10*3/uL (0.0-0.012) 08/15/24 05:10 Nucleated RBC % (auto) 0.0 /100WBC (0.0-0.2) 08/15/24 05:10 PT 28.1 SEC (10.9-12.4) H D 08/15/24 05:10 INR 2.4 (0.9-1.1) H 08/15/24 05:10 APTT 38.1 SEC (26.0-36.8) H 08/15/24 05:10 Sodium 136 mmol/L (135-145) 08/15/24 05:10 Potassium 4.2 mmol/L (3.3-5.1) 08/15/24 05:10 Chloride 101 mmol/L (96-108) 08/15/24 05:10 Carbon Dioxide 24 mmol/L (22-29) 08/15/24 05:10 Anion Gap 15 (12-20) 08/15/24 05:10 BUN 22 mg/dL (9-16) H 08/15/24 05:10 Creatinine 0.97 mg/dL (0.5-1.4) 08/15/24 05:10 Estim Creat Clear Calc 46.2 08/15/24 05:10 Estimated GFR > 60 08/15/24 05:10 POC Glucose 130 mg/dL (60-115) H 08/15/24 12:44 Random Glucose 186 mg/dL (60-115) H 08/15/24 05:10 Calcium 8.0 mg/dL (8.4-10.2) L D 08/15/24 05:10 Total Bilirubin 0.5 mg/dL (0.0-1.0) 08/15/24 05:10 AST 22 U/L (5-37) 08/15/24 05:10 ALT < 6 U/L (0-40) 08/15/24 05:10 Alkaline Phosphatase 109 U/L (39-117) 08/15/24 05:10 Total Protein 5.4 g/dL (6.5-8.0) L 08/15/24 05:10 Albumin 2.6 g/dL (3.5-5.0) L 08/15/24 05:10 Influenza Type A (PCR) NEGATIVE (Negative) 08/15/24 10:53 Influenza Type B (PCR) NEGATIVE (Negative) 08/15/24 10:53 RSV RNA Qual (PCR) NEGATIVE (Negative) 08/15/24 10:53 SARS-CoV-2 RNA (RT-PCR) NEGATIVE (Negative) 08/15/24 10:53 Blood Type B Positive 08/15/24 06:09 Antibody Screen NEGATIVE 08/15/24 06:09 Crossmatch See Detail 08/15/24 06:09 Assessment and Plan Patient Active problem list reviewed?: Yes (1) Coagulopathy Status: Acute Assessment and plan: The bleeding hasstopped. He had an INR of 2.4 with normal platelets and WBCs. GI is involved. He has been transfused with red cells and given vitamin K. He says he has never been on blood thinners of any kind and his last aspirin was years ago. Agree with vitamin K. Recommend we proceed with GI evaluation. Would do daily PT and LNR and once a D-dimer. - Time Spent With Patient Time Spent with Patient (in minutes): 30
[2024-08-15 16:39] LABS: Glucose, Whole Blood 145 mg/dL (60-115)
[2024-08-15] MEDS: 0.9 % Sodium Chloride Flush 3 ML SYRINGE IVFLUSH (16:43)
[2024-08-15 19:40] LABS: Glucose, Whole Blood 192 mg/dL (60-115)
[2024-08-15] MEDS: DAROLUTAMIDE 300 MG 600 EACH PO (21:16)
[2024-08-15] MEDS: Insulin Lispro 100 UNIT/ML 3 ML VIAL SUBCUT (21:16)
[2024-08-16] MEDS: Morphine Sulfate ER 15 MG TABLET.ER PO ×2 (00:01→11:54)
[2024-08-16] MEDS: 0.9 % Sodium Chloride Flush 3 ML SYRINGE IVFLUSH ×3 (00:19→17:10)
[2024-08-16 03:31] VITALS: BP 149/68; PULSE 77; RESP 16; TEMP 36.6; O2SAT 96
[2024-08-16 07:40] VITALS: BP 175/76; PULSE 76; RESP 18; TEMP 36.2; O2SAT 96
[2024-08-16 07:47] LABS: Hematocrit 25.6 % (42.0-52.0); Hemoglobin 8.4 g/dl (14.0-18.0); Mean Corpuscular HGB Conc 32.8 g/dl (31.0-36.0); Mean Corpuscular Hemoglobin 27.9 pg (27.0-33.0); Mean Platelet Volume 10.9 fL (9.4-12.4); Platelet Count 319 X10*3/uL (160-400); Red Blood Count 3.01 X10*6/uL (4.60-5.80); Red Cell Distribution Width 18.7 % (11.0-16.0); White Blood Count 9.5 X10*3/uL (4.8-10.8)
[2024-08-16 07:49] LABS: INTERNATIONAL NORM RATIO 1.1 (0.9-1.1); Prothrombin Time 12.8 SEC (10.9-12.4)
[2024-08-16 07:52] LABS: Partial Thromboplastin Time 30.9 SEC (26.0-36.8)
[2024-08-16 07:53] LABS: Glucose, Whole Blood 125 mg/dL (60-115)
[2024-08-16 07:58] LABS: Anion Gap 14 (12-20); Blood Urea Nitrogen 15 mg/dL (9-16); Calcium 7.4 mg/dL (8.4-10.2); Carbon Dioxide 22 mmol/L (22-29); Chloride 103 mmol/L (96-108); Creatinine Clr Calc Pharmacy 70.2; Estimated Glomerular Filt Rate > 60; Glucose Random 120 mg/dL (60-115); Potassium 3.6 mmol/L (3.3-5.1); Sodium 135 mmol/L (135-145)
[2024-08-16] MEDS: Cholecalciferol (Vitamin D3) 25 MCG TABLET 50 MCG PO (08:04)
[2024-08-16] MEDS: Tolterodine Tartrate LA 4 MG CAP.ER.24H PO (08:04)
[2024-08-16] MEDS: Fenofibrate 160 MG TABLET PO (08:05)
[2024-08-16] MEDS: Calcium Carbonate 750 MG TAB.CHEW 1500 MG PO (08:05)
[2024-08-16] MEDS: Leflunomide 10 MG TABLET 20 MG PO (08:05)
[2024-08-16] MEDS: allopurinoL 100 MG TABLET PO (08:05)
[2024-08-16] MEDS: DAROLUTAMIDE 300 MG 600 EACH PO ×2 (08:06→21:32)
--- NOTE | 2024-08-16 09:32 | HO.PM.IMPN ---
Subjective Subjective Date of Service: 08/16/24 Interval History: appetite improved Physical Exam Vital Signs: Vital Signs: Last Vital Signs Temp 97.1 F 08/16/24 07:40 Pulse 76 08/16/24 07:40 Resp 18 08/16/24 07:40 BP 175/76 H 08/16/24 07:40 Pulse Ox 96 08/16/24 07:40 O2 Del Method Room Air 08/16/24 07:40 BMI result Body Mass Index 21.3 EXAM: GENERAL: The patient is weak VITAL SIGNS:see workflow HEENT: Nonicteric sclerae, PERRLA, EOMI. Oropharynx clear. Moist mucous membranes. Conjunctivae appear well perfused. No thyroid mass. CHEST: Chest wall is nontender. HEART: Regular rate and rhythm with ESM at aortic area LUNGS: Clear to auscultation bilaterally. ABDOMEN: Soft, positive bowel sounds, nontender, no organomegaly.no flank tenderness SKIN: No rash, few bruises on arms, petechiae, or purpura. NEUROLOGIC: Cranial nerves II-XII intact without motor/sensory deficit. Psych: normal affect Objective Data Active Medications Acetaminophen (Acetaminophen 325 Mg Tablet) 650 mg PO Q6H PRN PRN Reason: Pain, Mild 1-3,fever,headache Allopurinol (Allopurinol 100 Mg Tablet) 100 mg PO DAILY [facility] Last Admin: 08/16/24 08:05 Dose: 100 mg Documented By: YARELIS Calcium Carbonate (Calcium Carbonate 750 Mg Tab.Chew) 750 mg PO Q4H PRN PRN Reason: Heartburn Calcium Carbonate (Calcium Carbonate 750 Mg Tab.Chew) 1,500 mg PO DAILY [facility] Last Admin: 08/16/24 08:05 Dose: 1,500 mg Documented By: YARELIS Dextrose (Dextrose 50 % 25 Gm/50 Ml Syringe) 25 gm IVPUSH Q15M PRN; Protocol PRN Reason: per Hypoglycemia Standing Ord. Fenofibrate (Fenofibrate 160 Mg Tablet) 160 mg PO DAILY [facility] Last Admin: 08/16/24 08:05 Dose: 160 mg Documented By: YARELIS Glucose (Glucose Gel 15 Gm Gel..Gram.) 15 gm PO Q15M PRN; Protocol PRN Reason: per Hypoglycemia Standing Ord. Insulin Human Lispro (Insulin Lispro 100 Unit/Ml 3 Ml Vial) 0 unit SUBCUT QIDACHS [facility]; Protocol Last Admin: 08/16/24 07:54 Dose: Not Given Documented By: YARELIS Non-Admin Reason: No Insulin Coverage Leflunomide (Leflunomide 10 Mg Tablet) 20 mg PO DAILY [facility] Last Admin: 08/16/24 08:05 Dose: 20 mg Documented By: YARELIS Lorazepam (Lorazepam 0.5 Mg Tablet) 0.5 mg PO BEDTIME PRN PRN Reason: Sleep Magnesium Hydroxide (Milk Of Magnesia 30 Ml Oral.Susp) 30 ml PO DAILY PRN PRN Reason: Constipation Melatonin (Melatonin 3 Mg Tablet) 6 mg PO BEDTIME PRN PRN Reason: Insomnia Morphine Sulfate (Morphine Sulfate Er 15 Mg Tablet.Er) 15 mg PO Q12H [facility] Last Admin: 08/16/24 00:01 Dose: 15 mg Documented By: ARLET Mccabe Own ( Darolutamide 300 Mg Tablet) 600 mg PO BID [facility] Last Admin: 08/16/24 08:06 Dose: 600 mg Documented By: YARELIS Ondansetron HCl (Ondansetron Odt 4 Mg Tab.Rapdis) 4 mg TRANSLINGU Q8H PRN PRN Reason: nausea and vomiting Oxycodone HCl (Oxycodone Hcl Immed Release 5 Mg Tablet) 5 mg PO Q6H PRN PRN Reason: Breakthrough Pain, Moderate Sodium Chloride (0.9 % Sodium Chloride Flush 3 Ml Syringe) 3 ml IVFLUSH QSHIFT [facility] Last Admin: 08/16/24 08:11 Dose: 3 ml Documented By: YARELIS Tolterodine Tartrate (Tolterodine Tartrate La 4 Mg Cap.Er.24h) 4 mg PO DAILY [facility] Last Admin: 08/16/24 08:04 Dose: 4 mg Documented By: YARELIS Vitamin D (Cholecalciferol (Vitamin D3) 25 Mcg Tablet) 50 mcg PO DAILY [facility] Last Admin: 08/16/24 08:04 Dose: 50 mcg Documented By: YARELIS Labs 08/16/24 06:55 08/16/24 06:55 Labs: Laboratory Results - last 24 hr 08/15/24 08/15/24 08/15/24 06:09 10:53 12:44 MCV MCH MCHC RDW Plt Count MPV Absolute Nucleated RBC Nucleated RBC % (auto) Hold Purple Top PT INR APTT Anion Gap Estim Creat Clear Calc Estimated GFR POC Glucose 130 H Random Glucose Calcium Influenza Type A (PCR) NEGATIVE Influenza Type B (PCR) NEGATIVE RSV RNA Qual (PCR) NEGATIVE SARS-CoV-2 RNA (RT-PCR) NEGATIVE Blood Type B Positive Antibody Screen NEGATIVE Crossmatch See Detail 08/15/24 08/15/24 08/16/24 16:34 19:09 06:54 MCV MCH MCHC RDW Plt Count MPV Absolute Nucleated RBC Nucleated RBC % (auto) Hold Purple Top PT 12.8 H D INR 1.1 APTT 30.9 Anion Gap Estim Creat Clear Calc Estimated GFR POC Glucose 145 H 192 H Random Glucose Calcium Influenza Type A (PCR) Influenza Type B (PCR) RSV RNA Qual (PCR) SARS-CoV-2 RNA (RT-PCR) Blood Type Antibody Screen Crossmatch 08/16/24 08/16/24 06:55 07:44 MCV 85.0 MCH 27.9 MCHC 32.8 RDW 18.7 H Plt Count 319 MPV 10.9 Absolute Nucleated RBC 0.000 Nucleated RBC % (auto) 0.0 Hold Purple Top SEE NOTE PT INR APTT Anion Gap 14 Estim Creat Clear Calc 70.2 Estimated GFR > 60 POC Glucose 125 H Random Glucose 120 H Calcium 7.4 L D Influenza Type A (PCR) Influenza Type B (PCR) RSV RNA Qual (PCR) SARS-CoV-2 RNA (RT-PCR) Blood Type Antibody Screen Crossmatch Assessment and Plan (1) Fracture of multiple ribs of both sides: Status: Acute Plan 89M PMH prostate ca, bladder ca, lytic bone lesions, RA, DM, htn, hld, presented with brbpr Acute blood loss anemia with coagulopathy Likely lower GI bleed, transfused 2 units PRBC, hemoglobin improved appropriately coagulaopathy due to vitk deficiency resolved bleeding stable, will advance to solids Diabetes Insulin sliding scale History of multiple malignancies with moderate protein claorie malnutrition Oncology following megace Hypertension Low normal blood pressure, hold meds and montior DVT prophylaxis-mechanical due to GI bleed Full Code reason for continued hospitalization:advancing diet Quality Stroke Does the patient have a stroke diagnosis?: No VTE Prior VTE?: No VTE Risk Level:: Medical - moderate - high VTE Device Contraindication: N/A - Device Ordered VTE Drug Contraindication: Treatment Not Indicated
[2024-08-16] MEDS: Megestrol Acetate 400 MG/10 ML ORAL.SUSP PO (10:46)
--- NOTE | 2024-08-16 11:07 | MHC.CM.PN ---
CM MET WITH PT AND DAUGHTER, [place], AT BEDSIDE PT LIVES WITH HIS AND IS ACTIVE WITH S [facility] HE USES A WALKER TO AMBULATE AND NO OTHER DME HE REPORTS HIS , [place], IS HIS [facility], COPY REQUESTED PCP: PHIL ORTIZ DELIVERED DCP: HOME RESUME [facility] FAMILY TO TRANSPORT
--- NOTE | 2024-08-16 11:11 | P.PNHO-ONC_ITS ---
Medical Summary - Medical Summary Date of Service: 08/16/24 Chief complaint: coagulopathy Primary Care Provider: Kenney Beal MD Vice President For Instruction Utilized?: No - Pashto Speaking Interval History Interval history: Corby Faith is a 89 year old gentleman presented with BRBR, at 1.30am today. He went to bathroom had small amount of stool with blood, then had 2-3 more mostly blood with clots. He denies abd pain, n/v/d. inr 2.4 patient not on AC. In ED hgb 6.1. Cat scan of abd: 1. No evidence of active gastrointestinal tract hemorrhage. 2. Nonspecific feces distended rectum. Correlate clinically for impaction. 3. Multiple radiolucent osseous lesions possible neoplastic or metabolic bone disease. Correlate with clinical and laboratory findings. 4. Nonspecific prostate gland heterogeneity. Correlate with clinical and laboratory findings for significance. Review of Systems - Constitutional Reports anorexia - Eyes Reports other - ENT Reports system reviewed and no additional complaints, except as documented - Cardiovascular Reports shortness of breath when lying down - Respiratory Reports dyspnea on exertion - Gastrointestinal Reports black, tarry stools - Genitourinary Genitourinary: Reports urinary urgency - Musculoskeletal Reports muscle weakness - Neurologic Reports system reviewed and no additional complaints, except as documented PMFSH Medical History: Medical History (Last Reviewed 08/15/24 @ 09:09 by Dalton King MD) Angioedema Bladder cancer Chronic pain syndrome CKD (chronic kidney disease) Diabetes mellitus Diabetes mellitus Disc degeneration, lumbar Essential hypertension Gout, arthritis Hypercholesterolemia Leg edema Podagra Seropositive rheumatoid arthritis Spinal stenosis Spondylosis of lumbar region without myelopathy or radiculopathy Swelling of both parotid glands Functional capacity: wheelchair bound Family History: Family History (Last Reviewed 08/15/24 @ 06:39 by Glenroy Lopez MD) Father Diabetes Cardiovascular disease Mother Diabetes Stomach cancer Brother No problems noted. Brother No problems noted. Sister No problems noted. Sister No problems noted. Son No problems noted. Son No problems noted. Daughter No problems noted. Daughter No problems noted. Daughter No problems noted. Other Mental health disorder Surgical History: Surgical History (Last Reviewed 08/15/24 @ 06:39 by Glenroy Lopez MD) History of back surgery History of bilateral cataract extraction History of bladder surgery History of cryosurgery History of endoscopy History of hernia repair Social History: Social History (Last Reviewed 08/15/24 @ 06:39 by Glenroy Lopez MD) Living Situation History: Household Members: Spouse Household Members: Family Housing: House Do you presently have visiting nurse or other home services: No Tobacco History: Patient Tobacco Use Status: Former Tobacco user e-Cigarette/Vaping Use: Never Used Second Hand Smoke Exposure: No Occupation Assessmet: service: No Current occupational status: retired Home Medications and Allergies Current Medications: Current Medications Acetaminophen (Acetaminophen 325 Mg Tablet) 650 mg PO Q6H PRN PRN Reason: Pain, Mild 1-3,fever,headache Allopurinol (Allopurinol 100 Mg Tablet) 100 mg PO DAILY [facility] Last Admin: 08/16/24 08:05 Dose: 100 mg Calcium Carbonate (Calcium Carbonate 750 Mg Tab.Chew) 750 mg PO Q4H PRN PRN Reason: Heartburn Calcium Carbonate (Calcium Carbonate 750 Mg Tab.Chew) 1,500 mg PO DAILY [facility] Last Admin: 08/16/24 08:05 Dose: 1,500 mg Dextrose (Dextrose 50 % 25 Gm/50 Ml Syringe) 25 gm IVPUSH Q15M PRN; Protocol PRN Reason: per Hypoglycemia Standing Ord. Fenofibrate (Fenofibrate 160 Mg Tablet) 160 mg PO DAILY [facility] Last Admin: 08/16/24 08:05 Dose: 160 mg Glucose (Glucose Gel 15 Gm Gel..Gram.) 15 gm PO Q15M PRN; Protocol PRN Reason: per Hypoglycemia Standing Ord. Insulin Human Lispro (Insulin Lispro 100 Unit/Ml 3 Ml Vial) 0 unit SUBCUT QIDACHS [facility]; Protocol Last Admin: 08/16/24 07:54 Dose: Not Given Leflunomide (Leflunomide 10 Mg Tablet) 20 mg PO DAILY [facility] Last Admin: 08/16/24 08:05 Dose: 20 mg Lorazepam (Lorazepam 0.5 Mg Tablet) 0.5 mg PO BEDTIME PRN PRN Reason: Sleep Magnesium Hydroxide (Milk Of Magnesia 30 Ml Oral.Susp) 30 ml PO DAILY PRN PRN Reason: Constipation Megestrol Acetate (Megestrol Acetate 400 Mg/10 Ml Oral.Susp) 400 mg PO DAILY [facility] Last Admin: 08/16/24 10:46 Dose: 400 mg Melatonin (Melatonin 3 Mg Tablet) 6 mg PO BEDTIME PRN PRN Reason: Insomnia Morphine Sulfate (Morphine Sulfate Er 15 Mg Tablet.Er) 15 mg PO Q12H [facility] Last Admin: 08/16/24 00:01 Dose: 15 mg Pat Own ( Darolutamide 300 Mg Tablet) 600 mg PO BID [facility] Last Admin: 08/16/24 08:06 Dose: 600 mg Ondansetron HCl (Ondansetron Odt 4 Mg Tab.Rapdis) 4 mg TRANSLINGU Q8H PRN PRN Reason: nausea and vomiting Oxycodone HCl (Oxycodone Hcl Immed Release 5 Mg Tablet) 5 mg PO Q6H PRN PRN Reason: Breakthrough Pain, Moderate Sodium Chloride (0.9 % Sodium Chloride Flush 3 Ml Syringe) 3 ml IVFLUSH QSHIFT [facility] Last Admin: 08/16/24 08:11 Dose: 3 ml Tolterodine Tartrate (Tolterodine Tartrate La 4 Mg Cap.Er.24h) 4 mg PO DAILY [facility] Last Admin: 08/16/24 08:04 Dose: 4 mg Vitamin D (Cholecalciferol (Vitamin D3) 25 Mcg Tablet) 50 mcg PO DAILY [facility] Last Admin: 08/16/24 08:04 Dose: 50 mcg Home Medications ?Medication ?Instructions ?Recorded ?Confirmed ?Type blood-glucose meter (Wetpaintyle #1 ea 10/24/21 07/14/24 History Lite Meter kit) TUMERIC 1 cap PO DAILY 08/15/24 History calcium carbonate (Calcium 600) 1,200 mg PO DAILY 08/15/24 08/15/24 History cholecalciferol (vitamin D3) 50 50 mcg PO DAILY 08/15/24 08/15/24 History mcg (2,000 unit) tablet doxazosin 4 mg tablet (Cardura) 4 mg PO DAILY@1800 08/15/24 08/15/24 History hydralazine 100 mg tablet 100 mg PO TID@0900,1300,1800 08/15/24 08/15/24 History lorazepam 0.5 mg tablet 0.5 mg PO BEDTIME PRN Sleep 08/15/24 08/15/24 History nifedipine 90 mg tablet,extended 90 mg PO DAILY@1800 08/15/24 08/15/24 History release 24 hr solifenacin 10 mg tablet 10 mg PO DAILY 08/15/24 08/15/24 History Allergies Allergy/AdvReac Type Severity Reaction Status Date / Time levofloxacin [From LEVAQUIN] Allergy Severe ANGIOEDEMA Verified 08/15/24 04:10 (EXACT SOURCE UNCERTAIN) lisinopril [LISINOPRIL] Allergy Severe ANGIOEDEMA Verified 08/15/24 04:10 ( EXACT SOURCE UNCERTAIN) Exam Vital signs: Vital Signs Temp 97.1 F 08/16/24 07:40 Pulse 76 08/16/24 07:40 Resp 18 08/16/24 07:40 BP 175/76 H 08/16/24 07:40 Pulse Ox 96 08/16/24 07:40 O2 Del Method Room Air 08/16/24 07:40 Intake & Output 08/15/24 08/16/24 08/16/24 18:59 06:59 18:59 Intake Total 2267.5 / 3367.5 1100 / 3367.5 Output Total 850 / 850 Balance 2267.5 / 2517.5 250 / 2517.5 Urine Output (Average ml/kg/hr) 1.12 Intake: Intake, Oral Amount 1200 / 2300 1100 / 2300 Intake (Blood Product) Amount 1017 / 1017 Red Blood Cells (E0336) Unit 350 / 350 [id number] Red Blood Cells (E0336) Unit 350 / 350 [id number] Thawed Plasma (E2684) Unit 317 / 317 [id number] Intake, IV Amount 50.5 / 50.5 Phytonadione (Vit K1) 5 mg In 0 50.5 / 50.5 .9 % Sodium Chloride 50 ml @ 50 .5 mls/hr IV ONCE ONE Rx#: [id number] Output: Output, Urine Amount 850 / 850 Other: Meal Refused No NPO No Breakfast % Eaten 0% Lunch % Eaten 0% Dinner % Eaten 75% 100% Eating (Feeding) Ability Independent Independent Number of Unmeasured Voids 1 Urine Urinal Urine Color Yellow Last Bowel Movement 08/15/24 Weight 63.5 kg [place] Weight in Grams 23293 Weight 63.5 kg BMI result Body Mass Index 21.3 - Constitutional Present: no acute distress, mild distress, chronically ill appearing - Routine HEENT Exam Head: Present: atraumatic, normal inspection Eye: Present: normal appearance ENT: Present: mucous membranes moist - Routine Neck Exam Present: full ROM - Routine Respiratory Exam Present: decreased breath sounds - Routine Cardiovascular Exam Cardiovascular: Present: RRR - Routine Abdominal Exam Present: diminished bowel sounds - Routine Extremities Exam Present: nontender - Routine Back/Spine/Pelvis Exam Back/Spine: Present: full ROM - Routine Skin Exam Present: intact - Routine Neurological Exam Present: alert, oriented X3 - Routine Psychiatric Exam Present: normal affect Data - Labs CBC & Chem 7: 08/16/24 06:55 08/16/24 06:55 Assessment and Plan Patient Active problem list reviewed?: Yes (1) Coagulopathy Status: Acute Assessment and plan: The bleeding hasstopped. He had an INR of 2.4 with normal platelets and WBCs. GI is involved. He has been transfused with red cells and given vitamin K. He says he has never been on blood thinners of any kind and his last aspirin was years ago. Agree with vitamin K. Recommend we proceed with GI evaluation. Would do daily PT and LNR and once a D-dimer. - Time Spent With Patient Time Spent with Patient (in minutes): 15
[2024-08-16 11:28] LABS: Glucose, Whole Blood 194 mg/dL (60-115)
[2024-08-16] MEDS: polyethylene glycoL 3350 17 GM POWD.PACK PO (11:53)
[2024-08-16] MEDS: Insulin Lispro 100 UNIT/ML 3 ML VIAL SUBCUT (11:55)
[2024-08-16] MEDS: PEG 3350/Na Sulf,Bicarb,Cl/KCL 4,000 ML SOLN.RECON 4000 ML PO (14:30)
--- NOTE | 2024-08-16 14:35 | P.PNGI_ITS ---
Subjective Subjective Date of Service: 08/16/24 Interval History: relaxed no further rectal bleeding hgb has been stable Critical Care Time (minutes): 0 Physical Exam 2 Vital Signs: Vital Signs: Last Vital Signs Temp 97.1 F 08/16/24 07:40 Pulse 76 08/16/24 07:40 Resp 18 08/16/24 07:40 BP 175/76 H 08/16/24 07:40 Pulse Ox 96 08/16/24 07:40 O2 Del Method Room Air 08/16/24 07:40 BMI result Body Mass Index 21.3 EXAM: GENERAL: The patient is frail VITAL SIGNS:see workflow HEENT: Nonicteric sclerae, PERRLA, EOMI. Oropharynx clear. Moist mucous membranes. Conjunctivae appear well perfused. No thyroid mass. CHEST: Chest wall is nontender. HEART: Regular rate and rhythm with ESM LUNGS: Clear to auscultation bilaterally. ABDOMEN: Soft, positive bowel sounds, nontender, no organomegaly.no flank tenderness SKIN: No rash, no excessive bruising, petechiae, or purpura. NEUROLOGIC: Cranial nerves II-XII intact without motor/sensory deficit. Psych: normal affect Objective Data Labs 08/16/24 06:55 08/16/24 06:55 Labs: Laboratory Results - last 24 hr 08/15/24 08/15/24 08/16/24 16:34 19:09 06:54 WBC RBC Hgb Hct MCV MCH MCHC RDW Plt Count MPV Absolute Nucleated RBC Nucleated RBC % (auto) Hold Purple Top PT 12.8 H D INR 1.1 APTT 30.9 Sodium Potassium Chloride Carbon Dioxide Anion Gap BUN Creatinine Estim Creat Clear Calc Estimated GFR POC Glucose 145 H 192 H Random Glucose Calcium 08/16/24 08/16/24 08/16/24 06:55 07:44 11:18 WBC 9.5 RBC 3.01 L D Hgb 8.4 L D Hct 25.6 L D MCV 85.0 MCH 27.9 MCHC 32.8 RDW 18.7 H Plt Count 319 MPV 10.9 Absolute Nucleated RBC 0.000 Nucleated RBC % (auto) 0.0 Hold Purple Top SEE NOTE PT INR APTT Sodium 135 Potassium 3.6 Chloride 103 Carbon Dioxide 22 Anion Gap 14 BUN 15 Creatinine 0.64 Estim Creat Clear Calc 70.2 Estimated GFR > 60 POC Glucose 125 H 194 H Random Glucose 120 H Calcium 7.4 L D Procedures Date of Service Date of Service: 08/16/24 Progress Note: A&P Assessment and plan (1) Anemia: Status: Acute Plan 1/ GI bleed with anemia, constipation, suspect stercoral colitis vs diverticular or hemrrhoidal bleed PLAN: 1/ recommend golyte tonight and keep on clears--if stool nml and no more bleeding then can hold on colo but he needs treatment for the constipation anyhow. 2/ iron supplement Time Spent With Patient Time: Total time managing care of this patient today ____ minutes. Quality Stroke Does the patient have a stroke diagnosis?: No VTE Prior VTE?: No VTE Risk Level:: Medical - moderate - high VTE Device Contraindication: N/A - Device Ordered VTE Drug Contraindication: Treatment Not Indicated
[2024-08-16 15:16] VITALS: BP 125/59; PULSE 80; RESP 18; TEMP 37; O2SAT 97
[2024-08-16 16:49] LABS: Glucose, Whole Blood 106 mg/dL (60-115)
[2024-08-16 19:41] VITALS: BP 140/65; PULSE 79; RESP 18; TEMP 36.7; O2SAT 96
[2024-08-16 20:02] LABS: Glucose, Whole Blood 123 mg/dL (60-115)
[2024-08-16] MEDS: Sennosides 8.6 MG TABLET 17.2 MG PO (21:32)
[2024-08-17] MEDS: Morphine Sulfate ER 15 MG TABLET.ER PO ×2 (00:37→12:16)
[2024-08-17] MEDS: 0.9 % Sodium Chloride Flush 3 ML SYRINGE IVFLUSH ×3 (01:14→12:17)
[2024-08-17 03:08] VITALS: BP 174/73; PULSE 71; RESP 18; TEMP 36.7; O2SAT 100
--- NOTE | 2024-08-17 06:37 | PC.NURSE ---
patient incontinent several watery BM mostly liquid with rust tint after go-lytely prep. Patient drank most of prep, could not finish by midnight, small amount left in jug bedside.
[2024-08-17 07:20] VITALS: BP 154/58; PULSE 78; RESP 18; TEMP 36.7; O2SAT 97
[2024-08-17 07:46] LABS: Glucose, Whole Blood 125 mg/dL (60-115)
[2024-08-17] MEDS: Fenofibrate 160 MG TABLET PO (08:34)
[2024-08-17] MEDS: allopurinoL 100 MG TABLET PO (08:34)
[2024-08-17] MEDS: Cholecalciferol (Vitamin D3) 25 MCG TABLET 50 MCG PO (08:34)
[2024-08-17] MEDS: Calcium Carbonate 750 MG TAB.CHEW 1500 MG PO (08:34)
[2024-08-17] MEDS: Tolterodine Tartrate LA 4 MG CAP.ER.24H PO (08:34)
[2024-08-17] MEDS: Leflunomide 10 MG TABLET 20 MG PO (08:34)
--- NOTE | 2024-08-17 08:58 | P.PNIM_ITS ---
Subjective Subjective Date of Service: 08/17/24 Interval History: did well with prep, mostly clear stool, no blood Physical Exam 2 Vital Signs: Vital Signs: Last Vital Signs Temp 98.0 F 08/17/24 07:20 Pulse 78 08/17/24 07:20 Resp 18 08/17/24 07:20 BP 154/58 H 08/17/24 07:20 Pulse Ox 97 08/17/24 07:20 O2 Del Method Room Air 08/17/24 07:20 BMI result Body Mass Index 21.3 EXAM: GENERAL: The patient is weak VITAL SIGNS:see workflow HEENT: Nonicteric sclerae, PERRLA, EOMI. Oropharynx clear. Moist mucous membranes. Conjunctivae appear well perfused. No thyroid mass. CHEST: Chest wall is nontender. HEART: Regular rate and rhythm with ESM at aortic area LUNGS: Clear to auscultation bilaterally. ABDOMEN: Soft, positive bowel sounds, nontender, no organomegaly.no flank tenderness SKIN: No rash, few bruises on arms, petechiae, or purpura. NEUROLOGIC: Cranial nerves II-XII intact without motor/sensory deficit. Psych: normal affect Objective Data Active Medications Acetaminophen (Acetaminophen 325 Mg Tablet) 650 mg PO Q6H PRN PRN Reason: Pain, Mild 1-3,fever,headache Allopurinol (Allopurinol 100 Mg Tablet) 100 mg PO DAILY [facility] Last Admin: 08/17/24 08:34 Dose: 100 mg Documented By: DELIA Calcium Carbonate (Calcium Carbonate 750 Mg Tab.Chew) 750 mg PO Q4H PRN PRN Reason: Heartburn Calcium Carbonate (Calcium Carbonate 750 Mg Tab.Chew) 1,500 mg PO DAILY [facility] Last Admin: 08/17/24 08:34 Dose: 1,500 mg Documented By: DELIA Dextrose (Dextrose 50 % 25 Gm/50 Ml Syringe) 25 gm IVPUSH Q15M PRN; Protocol PRN Reason: per Hypoglycemia Standing Ord. Fenofibrate (Fenofibrate 160 Mg Tablet) 160 mg PO DAILY [facility] Last Admin: 08/17/24 08:34 Dose: 160 mg Documented By: DELIA Glucose (Glucose Gel 15 Gm Gel..Gram.) 15 gm PO Q15M PRN; Protocol PRN Reason: per Hypoglycemia Standing Ord. Insulin Human Lispro (Insulin Lispro 100 Unit/Ml 3 Ml Vial) 0 unit SUBCUT QIDACHS [facility]; Protocol Last Admin: 08/17/24 07:58 Dose: Not Given Documented By: DELIA Non-Admin Reason: No Insulin Coverage Leflunomide (Leflunomide 10 Mg Tablet) 20 mg PO DAILY [facility] Last Admin: 08/17/24 08:34 Dose: 20 mg Documented By: DELIA Lorazepam (Lorazepam 0.5 Mg Tablet) 0.5 mg PO BEDTIME PRN PRN Reason: Sleep Magnesium Hydroxide (Milk Of Magnesia 30 Ml Oral.Susp) 30 ml PO DAILY PRN PRN Reason: Constipation Megestrol Acetate (Megestrol Acetate 400 Mg/10 Ml Oral.Susp) 400 mg PO DAILY [facility] Last Admin: 08/17/24 07:54 Dose: Not Given Documented By: DELIA Non-Admin Reason: Physician Approved Melatonin (Melatonin 3 Mg Tablet) 6 mg PO BEDTIME PRN PRN Reason: Insomnia Morphine Sulfate (Morphine Sulfate Er 15 Mg Tablet.Er) 15 mg PO Q12H [facility] Last Admin: 08/17/24 00:37 Dose: 15 mg Documented By: ZANA Mccabe Own ( Darolutamide 300 Mg Tablet) 600 mg PO BID [facility] Last Admin: 08/17/24 07:59 Dose: Not Given Documented By: DELIA Non-Admin Reason: See Note Comments: Med to be administered with food pt currently npo. Ondansetron HCl (Ondansetron Odt 4 Mg Tab.Rapdis) 4 mg TRANSLINGU Q8H PRN PRN Reason: nausea and vomiting Oxycodone HCl (Oxycodone Hcl Immed Release 5 Mg Tablet) 5 mg PO Q6H PRN PRN Reason: Breakthrough Pain, Moderate Polyethylene Glycol (Polyethylene Glycol 3350 17 Gm Powd.Pack) 17 gm PO DAILY [facility] Last Admin: 08/17/24 07:54 Dose: Not Given Documented By: DELIA Non-Mark Reason: Physician Approved Comments: Pt just completed Golytely bowel prep and is NPO for possible colonoscopy. Senna (Sennosides 8.6 Mg Tablet) 17.2 mg PO BEDTIME [facility] Last Admin: 08/16/24 21:32 Dose: 17.2 mg Documented By: JOSEFINA Sodium Chloride (0.9 % Sodium Chloride Flush 3 Ml Syringe) 3 ml IVFLUSH QSHIFT [facility] Last Admin: 08/17/24 08:40 Dose: 3 ml Documented By: DELIA Tolterodine Tartrate (Tolterodine Tartrate La 4 Mg Cap.Er.24h) 4 mg PO DAILY [facility] Last Admin: 08/17/24 08:34 Dose: 4 mg Documented By: DELIA Vitamin D (Cholecalciferol (Vitamin D3) 25 Mcg Tablet) 50 mcg PO DAILY [facility] Last Admin: 08/17/24 08:34 Dose: 50 mcg Documented By: DELIA Labs 08/16/24 06:55 08/16/24 06:55 Labs: Laboratory Results - last 24 hr 08/16/24 08/16/24 08/16/24 11:18 16:45 19:43 POC Glucose 194 H 106 123 H 08/17/24 07:24 POC Glucose 125 H Assessment and Plan (1) Fracture of multiple ribs of both sides: Status: Acute Plan 89M PMH prostate ca, bladder ca, lytic bone lesions, RA, DM, htn, hld, presented with brbpr Acute blood loss anemia with coagulopathy Likely lower GI bleed, transfused 2 units PRBC, hemoglobin improved appropriately coagulaopathy due to vitk deficiency resolved s/p prep, ? plan for scope today monitor hgb Diabetes Insulin sliding scale History of multiple malignancies with moderate protein calorie malnutrition Oncology following megace Hypertension Low normal blood pressure, hold meds and montior DVT prophylaxis-mechanical due to GI bleed Full Code reason for continued hospitalization:advancing diet Quality Stroke Does the patient have a stroke diagnosis?: No VTE Prior VTE?: No VTE Risk Level:: Medical - moderate - high VTE Device Contraindication: N/A - Device Ordered VTE Drug Contraindication: Treatment Not Indicated
[2024-08-17 10:12] LABS: Hematocrit 27.4 % (42.0-52.0); Hemoglobin 8.9 g/dl (14.0-18.0); Mean Corpuscular HGB Conc 32.5 g/dl (31.0-36.0); Mean Corpuscular Volume 86.2 fL (80.0-98.0); Mean Platelet Volume 10.4 fL (9.4-12.4); Platelet Count 385 X10*3/uL (160-400); Red Blood Count 3.18 X10*6/uL (4.60-5.80); Red Cell Distribution Width 18.7 % (11.0-16.0); White Blood Count 8.9 X10*3/uL (4.8-10.8)
[2024-08-17 10:27] LABS: Anion Gap 15 (12-20); Blood Urea Nitrogen 10 mg/dL (9-16); Calcium 7.3 mg/dL (8.4-10.2); Carbon Dioxide 24 mmol/L (22-29); Chloride 103 mmol/L (96-108); Creatinine Clr Calc Pharmacy 77.5; Estimated Glomerular Filt Rate > 60; Glucose Random 120 mg/dL (60-115); Potassium 3.3 mmol/L (3.3-5.1); Sodium 139 mmol/L (135-145)
[2024-08-17] MEDS: Iron Sucrose Complex 200 MG, Iron Sucrose Complex 100 MG in 0.9 % Sodium Chloride 250 ML 176.67 MG IV (10:43)
--- NOTE | 2024-08-17 11:09 | PM.DS ---
DS: Providers Provider Date of Service: 08/17/24 Date of admission: 08/15/24 08:52 Date of discharge: 08/17/24 Primary care physician: Kenney Beal MD Consults: 08/15/24 08:47 Consult to Gastroenterology Routine Consulting Provider: Ananda Herring Reason for consultation: lower gi bleed Consult to Hematology / Oncology Routine Consulting Provider: [facility] [place] Reason for consultation: multiple malignancies, coagulopathy of unclear etiology 08/17/24 06:20 Consult to Wound Care Routine Reason for consultation: scab and redness to spine low back, patient reports from back surgery DS: Diagnosis Discharge Diagnosis (1) Fracture of multiple ribs of both sides: Status: Acute DS: Summary Hospital Course Hospital Course: from initial hpi: 89M PMH prostate ca, bladder ca, lytic bone lesions, RA, DM, htn, hld, presented with brbpr. at 130am on day of presentation went to bathroom had small amount of stool with blood, then had 2-3 more mostly blood with clots. in ED hgb 6.1. ct abd pending. denies abd pain, n/v/d. inr 2.4 patient not on AC. hospital course: Patient was admitted for acute blood loss anemia with coagulopathy. This was likely a lower GI bleed. He was transfused 2 units of PRBC. Hemoglobin improved appropriately and is 8.9 at time of discharge. Had no further bleeding. For coagulopathy was given vitamin K and FFP and INR returned to normal. Likely this is vitamin K deficiency due to poor p.o. intake. Patient underwent bowel prep and had no bleeding during prep. Therefore, decided to defer colonoscopy for now. Recommendations were to maintain bowel regimen to avoid constipation. For history of multiple malignancies with moderate protein calorie malnutrition we will continue follow with Oncology as outpatient. Was started on Megace to promote appetite. For diabetes was continued on insulin sliding scale. For hypertension noted to have low normal blood pressures, hydralazine and nifedipine have been discontinued. Patient is feeling better will be discharged home. Time Attestation Discharge Coordination Time (in mins): 33 Quality: Safe Use of Opioids Does Pt have an Active Cancer Diagnosis on the Problem List?: Yes Opioid Measure Date for [facility] Report: 07/18/24 Opioid Measure Time for [facility] Report: 11:09 Quality: Stroke Does the patient have a stroke diagnosis?: No Physical Exam Vital Signs: Vital Signs: Last Vital Signs Temp 98.0 F 08/17/24 07:20 Pulse 78 08/17/24 07:20 Resp 18 08/17/24 07:20 BP 154/58 H 08/17/24 07:20 Pulse Ox 97 08/17/24 07:20 O2 Del Method Room Air 08/17/24 07:20 BMI result Body Mass Index 21.3 EXAM: GENERAL: The patient is weak VITAL SIGNS:see workflow HEENT: Nonicteric sclerae, PERRLA, EOMI. Oropharynx clear. Moist mucous membranes. Conjunctivae appear well perfused. No thyroid mass. CHEST: Chest wall is nontender. HEART: Regular rate and rhythm with ESM at aortic area LUNGS: Clear to auscultation bilaterally. ABDOMEN: Soft, positive bowel sounds, nontender, no organomegaly.no flank tenderness SKIN: No rash, few bruises on arms, petechiae, or purpura. NEUROLOGIC: Cranial nerves II-XII intact without motor/sensory deficit. Psych: normal affect DS: Data Data Completed and Pending Labs on day of discharge: Laboratory Results - last 24 hr 08/16/24 08/16/24 08/16/24 11:18 16:45 19:43 WBC RBC Hgb Hct MCV MCH MCHC RDW Plt Count MPV Absolute Nucleated RBC Nucleated RBC % (auto) Sodium Potassium Chloride Carbon Dioxide Anion Gap BUN Creatinine Estim Creat Clear Calc Estimated GFR POC Glucose 194 H 106 123 H Random Glucose Calcium 08/17/24 08/17/24 07:24 09:28 WBC 8.9 RBC 3.18 L Hgb 8.9 L Hct 27.4 L MCV 86.2 MCH 28.0 MCHC 32.5 RDW 18.7 H Plt Count 385 MPV 10.4 Absolute Nucleated RBC 0.000 Nucleated RBC % (auto) 0.0 Sodium 139 Potassium 3.3 Chloride 103 Carbon Dioxide 24 Anion Gap 15 BUN 10 Creatinine 0.58 Estim Creat Clear Calc 77.5 Estimated GFR > 60 POC Glucose 125 H Random Glucose 120 H Calcium 7.3 L Discharge Plan Discharge Anticipated Discharge Date/Time: 08/17/24 11:04 Patient Disposition: Home Health Service Discharge Diagnosis: lower gi bleed Referrals: Kenney Beal MD [Primary Care Provider] - 1 Week Discharge Medications: New polyethylene glycol 3350 17 gram Powder In Packet 17 g PO DAILY Qty: 100 0RF sennosides [Senna Lax] 8.6 mg Tablet 17.2 mg PO BEDTIME Qty: 180 0RF megestrol 400 mg/10 mL (10 mL) Suspension 400 mg PO DAILY Qty: 1000 0RF Continued spironolactone 25 mg tablet 25 mg PO DAILY 90 Days Qty: 90 3RF (DME) blood-glucose meter Misc See Rx Instructions .Route Qty: 1 0RF Rx Instructions: Test Daily - [place] Blood glucose Meter fenofibrate nanocrystallized 145 mg tablet 145 mg PO DAILY Qty: 90 3RF carvedilol [Coreg] 25 mg tablet 37.5 mg PO BID 90 Days Qty: 270 3RF Rx Instructions: must administer with a meal/food allopurinol 100 mg tablet 100 mg PO DAILY Qty: 90 1RF (DME) FreeStyle Lite Strips Strip See Rx Instructions .ROUTE .COMPLEX Qty: 50 1RF Dose Instruction: USE TO TEST DAILY Rx Instructions: USE TO TEST DAILY torsemide 10 mg tablet 10 mg PO DAILY Qty: 90 1RF (DME) lancets [FreeStyle Lancets] 28 gauge misc See Rx Instructions .ROUTE .COMPLEX Qty: 100 1RF Dose Instruction: USE TO TEST DAILY Rx Instructions: USE TO TEST DAILY metformin 500 mg tablet 500 mg PO DAILY 90 Days Qty: 90 1RF darolutamide 300 mg tablet 600 mg PO BID 30 Days Qty: 120 6RF Rx Instructions: Take medication with food leflunomide 20 mg tablet 20 mg PO DAILY Qty: 90 1RF oxycodone 5 mg Tablet 5 mg PO Q6H PRN (Reason: Breakthrough Pain, Moderate) Qty: 50 0RF Rx Instructions: Partial Fill upon patient request. morphine [MS Contin] 15 mg Tablet Extended Release 15 mg PO Q12H Qty: 60 0RF Rx Instructions: Partial Fill upon patient request. Note: MS Contin 30 was too strong for patient, so switched over to lesser dose. ondansetron 4 mg tablet,disintegrating 4 mg PO Q8H PRN (Reason: nausea and vomiting) Qty: 20 0RF solifenacin 10 mg Tablet 10 mg PO DAILY doxazosin [Cardura] 4 mg tablet 4 mg PO DAILY@1800 lorazepam 0.5 mg tablet 0.5 mg PO BEDTIME PRN (Reason: Sleep) cholecalciferol (vitamin D3) 50 mcg (2,000 unit) Tablet 50 mcg PO DAILY calcium carbonate [Calcium 600] 600 mg calcium (1,500 mg) Tablet 1,200 mg PO DAILY TUMERIC 1 cap PO DAILY (DME) blood-glucose meter [FreeStyle Lite Meter] Kit See Rx Instructions .ROUTE DAILY Qty: 1 Rx Instructions: As directed Discontinued nifedipine 90 mg tablet extended release 24hr 90 mg PO DAILY@1800 hydralazine 100 mg tablet 100 mg PO TID@0900,1300,1800 Discharge Orders: Discharge Order (Routine); Ordered 08/17/24 Ordered By: Dalton King Diet: Advance to usual diet Activity on Discharge: As tolerated Stand Alone Forms: Patient Portal Discharge page Print Language: Bruneian Care Plan Goals: recovery Health Concerns: gi bleed, anemia Plan of Treatment: see med rec started meds to prevent constipation stopped some blood pressure meds to avoid too low blood pressures Assessment: see above
--- NOTE | 2024-08-17 11:12 | W.MHC.F2F ---
Service Date Service Date: 08/17/24 Encounter Date of encounter: 08/17/24 Reasons for Services Signs and symptoms assessed: difficlutly ambulating Reason for longterm: medication management, medication treatment and teach disease management Reason for physical therapy: home safety and mobility, therapeutic exercises and gait/transfer training Homebound: Leaving the home is medically contraindicated at this time without the asist of a device and/or another person due th the listed conditions above and below. Reason homebound: unsteady gait / fall risk Certification: Based on the above findings, I certify that this patient is confined to the home and needs intermittent longterm care, physical therapy and/or speech therapy, or continues to need occupational therapy. The patient is under my care, and I have initiated the establishment of the plan of care. The patient will be followed by a physician who will periodically review the plan of care. Time Spent With Patient Time: Total time managing care of this patient today ____ minutes.
[2024-08-17 11:19] LABS: Glucose, Whole Blood 120 mg/dL (60-115)
--- NOTE | 2024-08-17 15:17 | P.PNGI_ITS ---
Subjective Subjective Date of Service: 08/17/24 Interval History: he had good stool o/p with golyte rust colored stool no active bleeding repeat HGB 9 g/dl he has good appetite and no abdominal pain Critical Care Time (minutes): 0 Physical Exam 2 Vital Signs: Vital Signs: Last Vital Signs Temp 98.0 F 08/17/24 07:20 Pulse 78 08/17/24 07:20 Resp 18 08/17/24 07:20 BP 154/58 H 08/17/24 07:20 Pulse Ox 97 08/17/24 07:20 O2 Del Method Room Air 08/17/24 07:20 BMI result Body Mass Index 21.3 EXAM: GENERAL: The patient is frail VITAL SIGNS:see workflow HEENT: Nonicteric sclerae, PERRLA, EOMI. Oropharynx clear. Moist mucous membranes. Conjunctivae appear well perfused. No thyroid mass. CHEST: Chest wall is nontender. HEART: Regular rate and rhythm without murmurs. LUNGS: Clear to auscultation bilaterally. ABDOMEN: Soft, positive bowel sounds, nontender, no organomegaly.no flank tenderness SKIN: No rash, no excessive bruising, petechiae, or purpura. NEUROLOGIC: Cranial nerves II-XII intact without motor/sensory deficit. Psych: normal affect Objective Data Labs 08/17/24 09:28 08/17/24 09:28 Labs: Laboratory Results - last 24 hr 08/16/24 08/16/24 08/17/24 16:45 19:43 07:24 WBC RBC Hgb Hct MCV MCH MCHC RDW Plt Count MPV Absolute Nucleated RBC Nucleated RBC % (auto) Sodium Potassium Chloride Carbon Dioxide Anion Gap BUN Creatinine Estim Creat Clear Calc Estimated GFR POC Glucose 106 123 H 125 H Random Glucose Calcium 08/17/24 08/17/24 09:28 11:11 WBC 8.9 RBC 3.18 L Hgb 8.9 L Hct 27.4 L MCV 86.2 MCH 28.0 MCHC 32.5 RDW 18.7 H Plt Count 385 MPV 10.4 Absolute Nucleated RBC 0.000 Nucleated RBC % (auto) 0.0 Sodium 139 Potassium 3.3 Chloride 103 Carbon Dioxide 24 Anion Gap 15 BUN 10 Creatinine 0.58 Estim Creat Clear Calc 77.5 Estimated GFR > 60 POC Glucose 120 H Random Glucose 120 H Calcium 7.3 L Procedures Date of Service Date of Service: 08/17/24 Progress Note: A&P Assessment and plan (1) Lower gastrointestinal hemorrhage: Status: Acute Plan 1/ Acute blood loss anemia suspect stercoral colitis in setting of raised INR and constipation, now resolved, less likely diverticular bleed PLAN: 1/ Advance diet as tolerated 2/ if HGB steady and no further bleeding then home--can re consider flex sig or colonoscopy if has recurrence 3/ make sure on good laxative regimen, e.g miralax daily with colace -avoid straining at stool Time Spent With Patient Time: Total time managing care of this patient today ____ minutes. Quality Stroke Does the patient have a stroke diagnosis?: No VTE Prior VTE?: No VTE Risk Level:: Medical - moderate - high VTE Device Contraindication: N/A - Device Ordered VTE Drug Contraindication: Treatment Not Indicated
[2024-08-17 15:26] VITALS: BP 180/80; PULSE 88; RESP 18; TEMP 36.5; O2SAT 97
[2024-08-17 15:35] LABS: Glucose, Whole Blood 221 mg/dL (60-115)
[2024-08-17 15:59] VITALS: BP 156/64
--- NOTE | 2024-08-17 16:23 | MHC.CM.PN ---
PT WILL DC HOME TODAY WITH [facility]TION OF [facility] NOTIFIED VIA T/C [phone] SIGNED DCS AND F2F FAXED TO THEM AT [phone] FAMILY PROVIDED TRANSPORT
[2024-08-21 21:12] LABS: Mixing Study - PT 13.6 sec (9.0-11.5); PT Mix 12.7 sec (< OR = 11.5); PTT LA 54 sec (< OR = 40); PTT-LA Mix NOT CORRECTED
== END 2024-08-17 16:00 | disposition home health service (06) | DRG 392 ==
LOC: HO.ED 08:58 → HO.EDOVER 09:10 → HO.S3 12:39
PROVIDERS: Internal Medicine; Admitting Provider Internal Medicine; Emergency Provider Emergency Medicine; PCP Internal Medicine; Visit Provider Internal Medicine
DX: K52.89 Other specified noninfective gastroenteritis and colitis (principal); D62 Acute posthemorrhagic anemia; E44.0 Moderate protein-calorie malnutrition; D68.9 Coagulation defect, unspecified; K62.5 Hemorrhage of anus and rectum; M06.00 Rheumatoid arthritis without rheumatoid factor, unspecified site; E11.9 Type 2 diabetes mellitus without complications; I10 Essential (primary) hypertension; G89.4 Chronic pain syndrome; K59.00 Constipation, unspecified; Z85.46 Personal history of malignant neoplasm of prostate; Z85.51 Personal history of malignant neoplasm of bladder; Z68.21 Body mass index [BMI] 21.0-21.9, adult; Z20.822 Contact with and (suspected) exposure to COVID-19; Z87.891 Personal history of nicotine dependence; Z79.899 Other long term (current) drug therapy
CPT/HCPCS: 0241U; 36415; 74178; 80048; 80053; 82947; 85025; 85027; 85610; 85611; 85730; 85732; 86850; 86900; 86901; 86923; 96372; 96402; 99285; J0897; J1756; J3430; J9217; P9016; P9017; Q9967

== ENCOUNTER → 2024-08-15 04:27 | Outpatient (BNV) | payer MEDICARE, SELFPAY | PROVIDERS: Emergency Provider Emergency Medicine; PCP Internal Medicine; Visit Provider Specialist | DX: K59.00 Constipation, unspecified (principal); K62.5 Hemorrhage of anus and rectum | CPT/HCPCS: 74178 ==

== ENCOUNTER → 2024-08-15 08:52 | Outpatient (BNV) | payer MEDICARE, SELFPAY | PROVIDERS: Admitting Provider Internal Medicine; Emergency Provider Emergency Medicine; PCP Internal Medicine; Visit Provider Internal Medicine | DX: D50.0 Iron deficiency anemia secondary to blood loss (chronic) (principal); E11.9 Type 2 diabetes mellitus without complications | CPT/HCPCS: 99222; 99232; 99239; G0180 ==

== ENCOUNTER → 2024-08-15 08:52 | Outpatient (BNV) | payer MEDICARE, SELFPAY | PROVIDERS: Admitting Provider Internal Medicine; Emergency Provider Emergency Medicine; PCP Internal Medicine; Visit Provider Internal Medicine Medical Oncology | DX: D62 Acute posthemorrhagic anemia (principal); K92.2 Gastrointestinal hemorrhage, unspecified | CPT/HCPCS: 99222 ==

== ENCOUNTER → 2024-08-15 08:52 | Outpatient (BNV) | payer MEDICARE, SELFPAY | PROVIDERS: Admitting Provider Internal Medicine; Emergency Provider Emergency Medicine; PCP Internal Medicine; Visit Provider Internal Medicine Gastroenterology | DX: K92.2 Gastrointestinal hemorrhage, unspecified (principal) | CPT/HCPCS: 99223; 99232 ==

== ENCOUNTER 2024-08-17 19:33 | Emergency (ER) | payer MEDICARE, SELFPAY ==
--- NOTE | ~2024-08-17 | XR_ITS ---
CLINICAL HISTORY: central line placement 1 view chest x-ray Comparison: CR - XR CHEST 1V - 08/17/24 22:51 EST Findings: Unchanged airspace opacification of the left base with effusion. Heart size is normal. Interval placement of right central venous catheter adequately positioned. No acute fracture. No complications are noted. IMPRESSION: 1. Interval placement of right central venous catheter adequately positioned. 2. Unchanged airspace opacification at the left base with effusion. This document has been electronically signed by: Vargas Lopez MD on 08/18/2024 00:39:36
--- NOTE | ~2024-08-17 | XR_ITS ---
CLINICAL HISTORY: fever 1 view chest x-ray Comparison: CR - XR CHEST 1V - 08/05/24 01:26 EST Findings: Opacities at the left lung base compatible with pneumonia. There may be a left effusion. Normal size heart. No acute fracture. IMPRESSION: 1. Left lower lobe pneumonia and likely effusion. This document has been electronically signed by: Vargas Lopez MD on 08/17/2024 23:30:03
[2024-08-17 20:02] VITALS: BP 112/58; BP 128/63; PULSE 105; PULSE 107; RESP 20; TEMP 36.6; O2SAT 93; O2SAT 96; BMI 19.5
[2024-08-17 21:03] LABS: Appearance Urine Turbid; Color Urine Yellow; Glucose Urine UA Negative (Negative); Hematocrit 27.4 % (42.0-52.0); Hemoglobin 9.1 g/dl (14.0-18.0); Leukocyte Esterase Urine Large (3+) (Negative); Mean Corpuscular HGB Conc 33.2 g/dl (31.0-36.0); Mean Corpuscular Hemoglobin 28.1 pg (27.0-33.0); Mean Corpuscular Volume 84.6 fL (80.0-98.0); Mean Platelet Volume 9.9 fL (9.4-12.4); Nitrite Urine Negative (Negative); PH 6.5 (5.0-9.0); Platelet Count 285 X10*3/uL (160-400); Red Blood Count 3.24 X10*6/uL (4.60-5.80); Red Cell Distribution Width 19.4 % (11.0-16.0); Specific Gravity - Urine 1.015 (1.005-1.025); UMIC TRIGGER UACC YES; Urine Blood Trace (Negative); Urine Ketones Trace mg/dL (Negative); Urine Protein 100 (2+) mg/dL (Neg-Trace); White Blood Count 14.2 X10*3/uL (4.8-10.8)
[2024-08-17 21:08] LABS: Bacteria Urine 4+ (None Seen); Hyaline Casts Urine 0-2 /LPF (0-2); Squamous Epithelial Cell Urine 0-2 /HPF (0-2); UACC Culture Trigger YES; WBC Urine >50 /HPF (0-5)
[2024-08-17 21:13] LABS: Alanine Aminotransferase < 6 U/L (0-40); Albumin Level 2.7 g/dL (3.5-5.0); Alkaline Phosphatase 165 U/L (39-117); Anion Gap 19 (12-20); Aspartate Amino Transferase 43 U/L (5-37); Bilirubin Direct 0.3 mg/dL (0.0-0.5); Bilirubin Total 0.6 mg/dL (0.0-1.0); Blood Urea Nitrogen 13 mg/dL (9-16); Calcium 6.9 mg/dL (8.4-10.2); Carbon Dioxide 18 mmol/L (22-29); Chloride 104 mmol/L (96-108); Creatinine Clr Calc Pharmacy 59.8; Estimated Glomerular Filt Rate > 60; Glucose Random 117 mg/dL (60-115); Potassium 3.6 mmol/L (3.3-5.1); Sodium 137 mmol/L (135-145); Total Protein 5.4 g/dL (6.5-8.0)
--- NOTE | 2024-08-17 21:21 | ED.GENADULT ---
HPI - General Adult General Chief complaint: General Medical Stated complaint: vomiting Time Seen by Provider: 08/17/24 21:07 Source: patient, family and EMS Mode of arrival: EMS Limitations: no limitations History of Present Illness ED Provider: Dr. Jess Dumont HPI narrative: Patient comes to the emergency room from home by ambulance, accompanied by his . Patient states that he has been vomiting all day since he was discharged from the hospital. Patient was admitted for anemia secondary to rectal bleeding my requiring blood transfusions. The dates that when they get home, they could not get the patient out of the car, he was too weak, nauseous and lightheaded. The patient is next door neighbor had to carry him out of the car to bring him inside the house. Since then, patient has had 5 episodes of vomiting, no diarrhea, no rectal bleeding. Patient states that he does not have significant abdominal pain, his just very nauseous. Related Data Home Medications ?Medication ?Instructions ?Recorded ?Confirmed blood-glucose meter (FreeStyle #1 ea 10/24/21 07/14/24 Lite Meter kit) TUMERIC 1 cap PO DAILY 08/15/24 calcium carbonate (Calcium 600) 1,200 mg PO DAILY 08/15/24 08/15/24 cholecalciferol (vitamin D3) 50 50 mcg PO DAILY 08/15/24 08/15/24 mcg (2,000 unit) tablet doxazosin 4 mg tablet (Cardura) 4 mg PO DAILY@1800 08/15/24 08/15/24 lorazepam 0.5 mg tablet 0.5 mg PO BEDTIME PRN Sleep 08/15/24 08/15/24 solifenacin 10 mg tablet 10 mg PO DAILY 08/15/24 08/15/24 Previous Rx's ?Medication ?Instructions ?Recorded spironolactone 25 mg tablet 25 mg PO DAILY 90 days #90 tabs 03/29/20 blood-glucose meter #1 ea 08/03/21 fenofibrate nanocrystallized 145 145 mg PO DAILY #90 tabs 10/11/23 mg tablet carvedilol 25 mg tablet (Coreg) 37.5 mg (1.5 x 25 mg) PO BID 90 03/17/24 days #270 tabs allopurinol 100 mg tablet 100 mg PO DAILY #90 tabs 05/08/24 blood sugar diagnostic (FreeStyle #50 strips 05/27/24 Lite Strips) torsemide 10 mg tablet 10 mg PO DAILY #90 tabs 07/03/24 lancets 28 gauge (FreeStyle #100 ea 07/12/24 Lancets) oxycodone 5 mg tablet 5 mg PO Q6H PRN Breakthrough Pain, 07/24/24 Moderate #50 tabs metformin 500 mg tablet 500 mg PO DAILY 90 days #90 tabs 07/27/24 ondansetron 4 mg disintegrating 4 mg PO Q8H PRN nausea and 08/01/24 tablet vomiting #20 tabs darolutamide 300 mg tablet 600 mg (2 x 300 mg) PO BID 08/04/24 Metastatic prostate cancer 30 days #120 tabs morphine 15 mg tablet,extended 15 mg PO Q12H #60 tabs 08/04/24 release (MS Contin) leflunomide 20 mg tablet 20 mg PO DAILY #90 tabs 08/12/24 megestrol 400 mg/10 mL (10 mL) 400 mg (10 mL) PO DAILY #1,000 mL 08/17/24 oral suspension polyethylene glycol 3350 17 gram 17 g PO DAILY #100 ea 08/17/24 oral powder packet sennosides 8.6 mg tablet (Senna 17.2 mg (2 x 8.6 mg) PO BEDTIME 08/17/24 Lax) #180 tabs Allergies Allergy/AdvReac Type Severity Reaction Status Date / Time levofloxacin [From LEVAQUIN] Allergy Severe ANGIOEDEMA Verified 08/17/24 20:08 (EXACT SOURCE UNCERTAIN) lisinopril [LISINOPRIL] Allergy Severe ANGIOEDEMA Verified 08/17/24 20:08 ( EXACT SOURCE UNCERTAIN) Review of Systems Review of Systems: Constitutional : No Weight loss, No Fever, No Chills, No Night Sweats, complaining of fatigue my generalized malaise ENT/Mouth : No Hearing loss, No Ear Pain, No Nasal Congestion, No Sinus Pain, No Hoarseness, No sore throat, No Rhinorrhea, No Swallowing Difficulty Eyes: No Eye Pain, No Swelling, No Redness, No Foreign Body, No Discharge, No Vision Changes Cardiovascular : No Chest Pain, No SOB, No Dyspnea on Exertion, No Orthopnea, No Edema, No Palpitations Respiratory : No Cough, No Sputum, No Wheezing, No Smoke Exposure, No Dyspnea Gastrointestinal : Complaining of nausea and vomiting No Diarrhea, No Constipation, No abdominal Pain, No Hematochezia, No Melena Genitourinary : no irregular bleeding, No Dysuria, No Urinary Frequency, No Hematuria, No Urinary Incontinence, No Urgency, No Flank Pain, No Urinary Flow Changes, No Hesitancy Musculoskeletal : No joint pain, No Myalgias, No Joint Swelling Skin : No Skin Lesions, No rash Neuro : No Weakness, No Numbness, No Paresthesias, No Loss of Consciousness, No Dizziness, No Headache Psych : No Anxiety/Panic, No Depression, No SI/HI/AH/VH, No Social Issues, Heme/Lymph: No Bruising, No Bleeding,No Lymphadenopathy Endocrine : No Polyuria, No Polydipsia, No Temperature Intolerance [facility] Past Medical History Medical History Bladder cancer CKD (chronic kidney disease) Diabetes mellitus Disc degeneration, lumbar Chronic pain syndrome Gout, arthritis Spinal stenosis Spondylosis of lumbar region without myelopathy or radiculopathy Diabetes mellitus Swelling of both parotid glands Podagra Seropositive rheumatoid arthritis Hypercholesterolemia Leg edema Essential hypertension Angioedema Surgical History History of back surgery History of cryosurgery History of endoscopy History of bladder surgery History of bilateral cataract extraction History of hernia repair Family History Family History Father Diabetes Cardiovascular disease Mother Diabetes Stomach cancer Brother No problems noted. Brother No problems noted. Sister No problems noted. Sister No problems noted. Son No problems noted. Son No problems noted. Daughter No problems noted. Daughter No problems noted. Daughter No problems noted. Other Mental health disorder Social History Social History Household Members: Spouse and Family Housing: House Do you presently have visiting nurse or other home services: No Alcohol intake: never Comment: sullivan catheter Patient Tobacco Use Status: Former Tobacco user e-Cigarette/Vaping Use: Never Used Second Hand Smoke Exposure: No Advance Directives: No Advance Directives Information Provided: No Do you have a plan to hurt others: No Plan service: No Current occupational status: retired Cognitive needs: No Hearing needs: Yes (hearing aide) Vision needs: No Physical Exam ED Vital Signs: Vital Signs - 24 hr 08/17/24 20:02 08/17/24 21:56 08/17/24 22:25 Temperature 97.9 F 101.6 F H Pulse Rate 105 H 92 95 Respiratory Rate 20 16 16 Blood Pressure 128/63 102/45 L 87/39 L Pulse Oximetry 93 93 93 Oxygen Delivery Method Room Air Room Air Room Air 08/17/24 23:00 08/18/24 01:13 08/18/24 01:30 Temperature 99.8 F Pulse Rate 91 92 93 Respiratory Rate 19 17 19 Blood Pressure 83/37 L 93/40 L 81/35 L Pulse Oximetry 94 93 92 Oxygen Delivery Method Room Air Room Air Room Air 08/18/24 01:45 08/18/24 02:03 08/18/24 02:05 Temperature Pulse Rate 90 86 86 Respiratory Rate 16 13 Blood Pressure 76/34 L 72/34 L 72/34 L Pulse Oximetry 93 92 Oxygen Delivery Method Room Air 08/18/24 02:08 08/18/24 02:13 08/18/24 02:18 Temperature Pulse Rate 85 87 83 Respiratory Rate Blood Pressure 76/34 L 74/33 L 73/33 L Pulse Oximetry Oxygen Delivery Method 08/18/24 02:27 08/18/24 02:33 08/18/24 02:38 Temperature Pulse Rate 82 84 87 Respiratory Rate Blood Pressure 83/39 L 85/39 L 86/39 L Pulse Oximetry Oxygen Delivery Method 08/18/24 02:47 08/18/24 02:53 08/18/24 02:58 Temperature Pulse Rate 87 84 83 Respiratory Rate Blood Pressure 91/40 L 93/41 L 93/41 L Pulse Oximetry Oxygen Delivery Method 08/18/24 02:59 Temperature Pulse Rate 82 Respiratory Rate 12 Blood Pressure 93/41 L Pulse Oximetry 90 L Oxygen Delivery Method Room Air BMI result Body Mass Index 19.5 Const Other: Appearance: Alert. Oriented X3. Ill-appearing , weak Eyes: Pupils equal, round and reactive to light. ENT: Pharynx normal. Neck: Normal inspection. Neck supple. No lymph nodes noted. No crepitus CVS: Normal heart rate and rhythm. Pulses normal. Normal S1 and S2 Respiratory: No respiratory distress. Breath sounds normal. No Wheezing. No rales Abdomen: Soft and nontender. No rigidity. No distention. Skin: Skin warm and clammy, pale skin color, Normal skin turgor. In the middle back, there is a stage I ulcer, covered with the cushioning pad in a 2nd ulcer in the coccyx, both proximally 0.5 cm, no signs of infection at this time Extremities: No lower extremity edema. No Lacerations. No Rash Neuro: Oriented X 3. No motor deficit. No sensory deficit. Moving all extremities. No slurred speech. CN 2 through 12 grossly intact Psych: calm, cooperative, normal affect Course Course Course Narrative: Patient receiving IV fluids, Zofran. I reviewed patient's records. Patient was admitted and discharged today for anemia and GI bleed. According to GI, patient an acute blood loss anemia, suspected stercoral colitis setting of rays INR and constipation, now resolved. Per Hematology/Oncology recommendations, patient was transfused 2 units of red blood cells, given vitamin K Upon returned to the hospital, patient denies any diarrhea or bright red blood per rectum Medications Administered Generic Name Dose Route Start Last Admin Trade Name Freq PRN Reason Stop Dose Admin Albumin Human 100 mls @ 100 mls/hr 08/18/24 00:15 08/18/24 02:24 Kedbumin 25 % IV 08/18/24 19:14 100 mls/hr Q6H JEANE Administration Norepinephrine Bitartrate 8 mg in 250 mls @ 0 mls/hr 08/18/24 02:00 08/18/24 02:58 Levophed IVCONT 0.27 mcg/kg/min .Q0M JEANE 29.41 mls/hr Titration Protocol Per Protocol Sodium Chloride 1,000 mls @ 999 mls/hr 08/18/24 02:31 08/18/24 02:32 Ns IV 08/18/24 03:31 999 mls/hr .Q1H1M STA Administration Discontinued Medications Generic Name Dose Route Start Last Admin Trade Name Freq PRN Reason Stop Dose Admin Acetaminophen 650 mg 08/18/24 00:45 08/18/24 01:19 Acetaminophen Supp 650 Mg Supp.Rect [place] 08/18/24 00:46 650 mg ONCE ONE Administration Ceftriaxone Sodium 1 gm 08/17/24 21:19 08/18/24 00:24 Ceftriaxone Sodium 1 Gm Vial IVPUSH 08/17/24 21:20 1 gm ONCE ONE Administration Lactated Ringer's 1,000 mls @ 999 mls/hr 08/17/24 21:30 08/18/24 01:30 Lr IV 08/17/24 22:30 Infused .Q1H1M JEANE Infusion Lactated Ringer's 1,000 mls @ 999 mls/hr 08/17/24 21:30 08/18/24 02:08 Lr IV 08/17/24 22:30 Infused .Q1H1M JEANE Infusion Vancomycin HCl 1,500 mg/ 500 mls @ 333.333 mls/hr 08/18/24 00:15 08/18/24 02:43 Sodium Chloride IV 08/18/24 01:44 Infused ONCE ONE Infusion Ondansetron HCl 4 mg 08/17/24 21:16 08/18/24 00:25 Ondansetron Hcl 4 Mg/2 Ml Vial IVPUSH 08/17/24 21:17 4 mg ONCE ONE Administration Procedures Central Line Placement Right IJ: Time Out Performed: Yes Patient Placed on Monitor/Pulse Ox: Yes MD Prep: mask Central Line Prep: Chlorhexidine scrub Local Anesthetic: lidocaine 1% Amount of anesthesia used (mL): 5 Ultrasound Used for Placement: Yes Central Line Lumen Inserted: triple Post Procedure: sutured in place, good blood return, all ports aspirated, flushed, capped and sterile dressing applied Post Procedure X-Ray: tip of catheter in good position and no pneumothorax seen Patient Tolerated Procedure: well and no complications Complications: none Medical Decision Making Medical Decision Making MDM Narrative: Urinalysis results resolved 1st, before labs. Patient has a UTI. Patient was empirically treated with IV fluids and ceftriaxone. I reviewed patient's microbiology reports, susceptible to ceftriaxone. My interpretation of labs. Patient's white blood cell count 14.2. Earlier today prior to discharge was 8.9. Patient's hemoglobin improve, now 9.1, hematocrit 27.4. No significant abnormality in patient's chemistry, other than the bicarb his slightly decreased at 18. Patient has a UTI Sepsis alert was called at 22:24. As mentioned above, patient has already been treated with IV fluids and antibiotics I discussed the patient with Dr. Ordonez, patient being admitted Chest x-ray and serology results pending I was informed by the patient's nurse they blood pressure is gradually decreasing, high 70s low 80s. My colleague SOHEILA Lux attempted given started peripheral line, patient is a hard stick. Then my colleague Dr. Soler attempted inserting a line on the external jugular vein, this was also not possible. I discussed with the patient's that the patient will need a central line. Agrees and consents with procedure. A right IJ was inserted. Chest x-ray shows now a left lower lobe pneumonia with the fusions. Patient has no cough, no URI symptoms, and no oxygen desaturations. Vancomycin was prophylactically started as well. Patient also receiving IV albumin 24:45: FOCUS exam performed We do not have any ICU beds available here at [facility]. I discussed with the patient's that we need to extend our search. Patient's willing to have the patient transferred anywhere with an ICU bed availability. We tried calling our local hospitals including [facility], extended our search to [facility] and [place]. Unfortunately, there are no beds available. I discussed the patient with Dr. Cadet from the ICU at [facility], pt being accepted to their ICU In total, patient received 3 L of fluids, patient is currently on his 2nd dose of IV albumin. Ceftriaxone, vancomycin to cover for possible HCAP, Patient is on 0.25 micrograms/kilogram of Levophed. There was informed by the patient's nurse that the blood pressure is still in the high 80s with a map in the mid 50s. Vasopressin IV drip was added Differential Diagnosis Differential Diagnoses: The differential diagnosis associated with the presentation includes (Anemia, dehydration, UTI, viral syndrome) Admission/Observation Consideration of admission/observation: Escalation of care including admission/observation considered Consult Healthcare Provider Management of the patient was discussed with: Hospitalist Lab Data [facility] Lab Attestation statement: I reviewed the patient's lab results. 08/17/24 20:51 08/17/24 20:51 Labs: Lab Results 08/17/24 08/17/24 08/17/24 Range/Units 20:51 23:20 23:52 WBC 14.2 H (4.8-10.8) X10*3/uL RBC 3.24 L (4.60-5.80) X10*6/uL Hgb 9.1 L (14.0-18.0) g/dl Hct 27.4 L (42.0-52.0) % MCV 84.6 (80.0-98.0) fL MCH 28.1 (27.0-33.0) pg MCHC 33.2 (31.0-36.0) g/dl RDW 19.4 H (11.0-16.0) % Plt Count 285 D (160-400) X10*3/uL MPV 9.9 (9.4-12.4) fL Immature Gran % (Auto) Cancelled Neut % (Auto) Cancelled Lymph % (Auto) Cancelled [place] % (Auto) Cancelled Eos % (Auto) Cancelled Baso % (Auto) Cancelled Lymph # (Auto) Cancelled [place] # (Auto) Cancelled Eos # (Auto) Cancelled Baso # (Auto) Cancelled Abs Immat Gran (auto) Cancelled Absolute Neuts (auto) Cancelled Absolute Nucleated RBC 0.000 (0.0-0.012) X10*3/uL Nucleated RBC % (auto) 0.0 (0.0-0.2) /100WBC Neutrophils % (Manual) 78 H (45-73) % Band Neutrophils % 17 H (3-5) % Monocytes % (Manual) 1 L (2-11) % Basophils % (Manual) 1 (0-2) % Metamyelocytes % 2 % Myelocytes % 1 % Abs Neuts (Manual) 13.5 H (2.0-8.3) X10*3/uL Monocytes # (Manual) 0.1 (0.1-1.2) X10*3/uL Basophils # (Manual) 0.1 (0.0-0.2) X10*3/uL Metamyelocytes # 0.3 X10*3/uL Myelocytes # 0.1 X10*/uL Hypersegmented Neuts PRESENT Toxic Vacuolation PRESENT Platelet Estimate SLIGHTLY INCREASED (NORMAL) Giant Platelets PRESENT Plt Morphology Comment NOTED RBC Morphology NOTED Microcytosis 1+ (5-14) /OIF [place] Cells 1+ (0-2) /OIF Schistocytes 1+ (0-2) /OIF Sodium 137 (135-145) mmol/L Potassium 3.6 (3.3-5.1) mmol/L Chloride 104 (96-108) mmol/L Carbon Dioxide 18 L (22-29) mmol/L Anion Gap 19 (12-20) BUN 13 (9-16) mg/dL Creatinine 0.81 (0.5-1.4) mg/dL Estim Creat Clear Calc 59.8 Estimated GFR > 60 Random Glucose 117 H (60-115) mg/dL Lactic Acid 3.6 H* (0.5-2.0) mmol/L Lactic Acid F/U @ 2Hr (0.5-2.0) mmol/L Calcium 6.9 L (8.4-10.2) mg/dL Total Bilirubin 0.6 (0.0-1.0) mg/dL Direct Bilirubin 0.3 (0.0-0.5) mg/dL AST 43 H (5-37) U/L ALT < 6 (0-40) U/L Alkaline Phosphatase 165 H (39-117) U/L Total Protein 5.4 L (6.5-8.0) g/dL Albumin 2.7 L (3.5-5.0) g/dL Urine Color Yellow Urine Appearance Turbid Urine pH 6.5 (5.0-9.0) Ur Specific Alvin 1.015 (1.005-1.025) Urine Protein 100 (2+) H (Neg-Trace) mg/dL Urine Glucose (UA) Negative (Negative) mg/dL Urine Ketones Trace (Negative) mg/dL Urine Blood Trace H (Negative) Urine Nitrite Negative (Negative) Ur Leukocyte Esterase Large (3+) H (Negative) Urine RBC 3-5 H (0-2) /HPF Urine WBC >50 H (0-5) /HPF Ur Squamous Epith Cells 0-2 (0-2) /HPF Urine Bacteria 4+ (None Seen) Hyaline Casts 0-2 (0-2) /LPF Influenza Type A (PCR) NEGATIVE (Negative) Influenza Type B (PCR) NEGATIVE (Negative) RSV RNA Qual (PCR) NEGATIVE (Negative) SARS-CoV-2 RNA (RT-PCR) NEGATIVE (Negative) 08/18/24 Range/Units 01:45 WBC (4.8-10.8) X10*3/uL RBC (4.60-5.80) X10*6/uL Hgb (14.0-18.0) g/dl Hct (42.0-52.0) % MCV (80.0-98.0) fL MCH (27.0-33.0) pg MCHC (31.0-36.0) g/dl RDW (11.0-16.0) % Plt Count (160-400) X10*3/uL MPV (9.4-12.4) fL Immature Gran % (Auto) Neut % (Auto) Lymph % (Auto) [place] % (Auto) Eos % (Auto) Baso % (Auto) Lymph # (Auto) [place] # (Auto) Eos # (Auto) Baso # (Auto) Abs Immat Gran (auto) Absolute Neuts (auto) Absolute Nucleated RBC (0.0-0.012) X10*3/uL Nucleated RBC % (auto) (0.0-0.2) /100WBC Neutrophils % (Manual) (45-73) % Band Neutrophils % (3-5) % Monocytes % (Manual) (2-11) % Basophils % (Manual) (0-2) % Metamyelocytes % % Myelocytes % % Abs Neuts (Manual) (2.0-8.3) X10*3/uL Monocytes # (Manual) (0.1-1.2) X10*3/uL Basophils # (Manual) (0.0-0.2) X10*3/uL Metamyelocytes # X10*3/uL Myelocytes # X10*/uL Hypersegmented Neuts Toxic Vacuolation Platelet Estimate (NORMAL) Giant Platelets Plt Morphology Comment RBC Morphology Microcytosis /OIF Valentine Cells /OIF Schistocytes /OIF Sodium (135-145) mmol/L Potassium (3.3-5.1) mmol/L Chloride (96-108) mmol/L Carbon Dioxide (22-29) mmol/L Anion Gap (12-20) BUN (9-16) mg/dL Creatinine (0.5-1.4) mg/dL Estim Creat Clear Calc Estimated GFR Random Glucose (60-115) mg/dL Lactic Acid (0.5-2.0) mmol/L Lactic Acid F/U @ 2Hr 2.1 H* (0.5-2.0) mmol/L Calcium (8.4-10.2) mg/dL Total Bilirubin (0.0-1.0) mg/dL Direct Bilirubin (0.0-0.5) mg/dL AST (5-37) U/L ALT (0-40) U/L Alkaline Phosphatase (39-117) U/L Total Protein (6.5-8.0) g/dL Albumin (3.5-5.0) g/dL Urine Color Urine Appearance Urine pH (5.0-9.0) Ur Specific Alvin (1.005-1.025) Urine Protein (Neg-Trace) mg/dL Urine Glucose (UA) (Negative) mg/dL Urine Ketones (Negative) mg/dL Urine Blood (Negative) Urine Nitrite (Negative) Ur Leukocyte Esterase (Negative) Urine RBC (0-2) /HPF Urine WBC (0-5) /HPF Ur Squamous Epith Cells (0-2) /HPF Urine Bacteria (None Seen) Hyaline Casts (0-2) /LPF Influenza Type A (PCR) (Negative) Influenza Type B (PCR) (Negative) RSV RNA Qual (PCR) (Negative) SARS-CoV-2 RNA (RT-PCR) (Negative) Independent Interpretation I performed an independent interpretation of an: EKG and Plain X-Ray Radiology Impression Discussion of test interpretation with radiology: I have reviewed the radiologist's reading. Radiologist Impression: Unchanged airspace opacification of the left base with effusion. Heart size is normal. Interval placement of right central venous catheter adequately positioned. No acute fracture. No complications are noted. IMPRESSION: 1. Interval placement of right central venous catheter adequately positioned. 2. Unchanged airspace opacification at the left base with effusion. Independent Historian Clinical information obtained from an independent historian. History obtained from or confirmed by: Spouse and EMS External Record Review External record reviewed: Inpatient record Critical Care Time Critical Care Time Critical Care Time: Yes Total Critical Care Time: 90 Attestation: I have personally provided critical care time. Time includes review of lab data, radiology results, discussion with consultants, and monitoring for potential decompensation. Intervention performed as documented. Discharge Plan Discharge Clinical Impression: Sepsis secondary to UTI Patient Disposition: [facility] Transfer Details: [facility] ICU, Dr. Gonzales Prescriptions: No Action spironolactone 25 mg tablet 25 mg PO DAILY 90 Days Qty: 90 3RF (DME) blood-glucose meter Misc See Rx Instructions .Route Qty: 1 0RF Rx Instructions: Test Daily - [place] Blood glucose Meter fenofibrate nanocrystallized 145 mg tablet 145 mg PO DAILY Qty: 90 3RF carvedilol [Coreg] 25 mg tablet 37.5 mg PO BID 90 Days Qty: 270 3RF Rx Instructions: must administer with a meal/food allopurinol 100 mg tablet 100 mg PO DAILY Qty: 90 1RF (DME) FreeStyle Lite Strips Strip See Rx Instructions .ROUTE .COMPLEX Qty: 50 1RF Dose Instruction: USE TO TEST DAILY Rx Instructions: USE TO TEST DAILY torsemide 10 mg tablet 10 mg PO DAILY Qty: 90 1RF (DME) lancets [FreeStyle Lancets] 28 gauge misc See Rx Instructions .ROUTE .COMPLEX Qty: 100 1RF Dose Instruction: USE TO TEST DAILY Rx Instructions: USE TO TEST DAILY metformin 500 mg tablet 500 mg PO DAILY 90 Days Qty: 90 1RF darolutamide 300 mg tablet 600 mg PO BID 30 Days Qty: 120 6RF Rx Instructions: Take medication with food leflunomide 20 mg tablet 20 mg PO DAILY Qty: 90 1RF oxycodone 5 mg Tablet 5 mg PO Q6H PRN (Reason: Breakthrough Pain, Moderate) Qty: 50 0RF Rx Instructions: Partial Fill upon patient request. morphine [MS Contin] 15 mg Tablet Extended Release 15 mg PO Q12H Qty: 60 0RF Rx Instructions: Partial Fill upon patient request. Note: MS Contin 30 was too strong for patient, so switched over to lesser dose. ondansetron 4 mg tablet,disintegrating 4 mg PO Q8H PRN (Reason: nausea and vomiting) Qty: 20 0RF solifenacin 10 mg Tablet 10 mg PO DAILY doxazosin [Cardura] 4 mg tablet 4 mg PO DAILY@1800 lorazepam 0.5 mg tablet 0.5 mg PO BEDTIME PRN (Reason: Sleep) cholecalciferol (vitamin D3) 50 mcg (2,000 unit) Tablet 50 mcg PO DAILY calcium carbonate [Calcium 600] 600 mg calcium (1,500 mg) Tablet 1,200 mg PO DAILY TUMERIC 1 cap PO DAILY polyethylene glycol 3350 17 gram Powder In Packet 17 g PO DAILY Qty: 100 0RF sennosides [Senna Lax] 8.6 mg Tablet 17.2 mg PO BEDTIME Qty: 180 0RF megestrol 400 mg/10 mL (10 mL) Suspension 400 mg PO DAILY Qty: 1000 0RF (DME) blood-glucose meter [FreeStyle Lite Meter] Kit See Rx Instructions .ROUTE DAILY Qty: 1 Rx Instructions: As directed Print Language: Malagasy
[2024-08-17 21:45] LABS: Neutrophils Percent Manual 78 % (45-73)
[2024-08-17 21:46] LABS: Band Neutrophils Percent 17 % (3-5); Basophils Abs Manual 0.1 X10*3/uL (0.0-0.2); Basophils Percent Manual 1 % (0-2); Giant Platelet PRESENT; Metamyelocytes Absolute 0.3 X10*3/uL; Metamyelocytes Percent 2 %; Microcytosis 1+ (5-14) /OIF; Monocytes Absolute Manual 0.1 X10*3/uL (0.1-1.2); Monocytes Percent Manual 1 % (2-11); Myelocytes Absolute 0.1 X10*/uL; Myelocytes Percent 1 %; Neutrophils Absolute Manual 13.5 X10*3/uL (2.0-8.3); Platelet Estimate SLIGHTLY INCREASED (NORMAL); Platelet Morphology Comment NOTED; RBC Morphology NOTED
[2024-08-17 21:47] LABS: Burr Cells 1+ (0-2) /OIF; Hypersegmented Neutrophils PRESENT; Schistocytes 1+ (0-2) /OIF; Toxic Vacuolation PRESENT
[2024-08-17 21:56] VITALS: BP 102/45; PULSE 92; RESP 16; TEMP 38.7; O2SAT 93
--- NOTE | 2024-08-17 22:11 | PC.NURSE ---
Pt has been relocated to ed bed 8 from 6h. The pt is resting comfortably in stretcher with eyes closed, respirations even and unlabored without distress noted. He is easily arousable to verbal stimuli at which time he is A&Ox3 with spouse at bedside. RN has been to bedside in an attempt to obtained IV access without success x2. acrylic fabricator currently at bedside attempting to gain IV access for medication administration. MD aware of patient's rectal temp, he has been placed on the sales agent fire insurance and blankets limited s/t fever.
--- NOTE | 2024-08-17 22:20 | PC.NURSE ---
radio survey worker unsuccessful with obtaining IV access. PUMP STITCHER Barcome to bedside to attempt US guided IV access
[2024-08-17 22:25] VITALS: BP 87/39; PULSE 95; RESP 16; O2SAT 93
[2024-08-17 23:00] VITALS: BP 83/37; PULSE 91; RESP 19; O2SAT 94
--- NOTE | 2024-08-17 23:58 | PC.NURSE ---
Primary RN to bedside to assist MD Monique place an EJ as CHIEF RESERVOIR ENGINEERING was unsuccesful with US guided line placement. Unfortunately there were multiple failed attempts. Pt found and noted to be hypotensive at approx 2300. MD laery to bedside, attempts still being made at obtaining IV access. MD Leary ultimately placed a central line to the right neck d/t multiple failed attempts at obtaining access. The pt's bp remains low, he was placed in trendelenburg for brain perfussion. remains at bedside. aware of current plan.
[2024-08-18] VITALS (23 sets, daily range): BP systolic 72–109; BP diastolic 33–48; PULSE 82–93; RESP 12–19; TEMP 36.5–37.7; O2SAT 90–93
[2024-08-18 00:05] LABS: Lactic Acid 3.6 mmol/L (0.5-2.0)
[2024-08-18] MEDS: cefTRIAXone sodium 1 GM VIAL IVPUSH (00:24)
[2024-08-18] MEDS: Lactated Ringers 1,000 ML 999 ML IV ×2 (00:24)
[2024-08-18] MEDS: ondansetron HCL 4 MG/2 ML VIAL IVPUSH (00:25)
[2024-08-18 00:39] LABS: Influenza A PCR NEGATIVE (Negative); Influenza B PCR NEGATIVE (Negative); Resp Syncy Virus RNA Qual PCR NEGATIVE (Negative); SARS COV2 PCR INHOUSE NEGATIVE (Negative)
[2024-08-18] MEDS: Albumin Human 25 % 100 ML IV ×2 (01:03→02:24)
[2024-08-18] MEDS: vancomycin HCL 1,500 MG in 0.9 % Sodium Chloride 500 ML 333.33 MG IV (01:07)
[2024-08-18] MEDS: Acetaminophen Supp 650 MG SUPP.RECT PR (01:19)
[2024-08-18 01:24] LABS: Reflex Lactate? Lactic Acid Added
[2024-08-18] MEDS: Norepinephrine Bitartrate/D5W 8 MG/250 ML PLAST..BAG 5.45 MG IVCONT (02:03)
[2024-08-18 02:09] LABS: ~Lactic Acid-LAB USE ONLY 2.1 mmol/L (0.5-2.0)
--- NOTE | 2024-08-18 02:19 | PC.NURSE ---
LEVOPHED DRIP INCREASED FROM 0.09MCG/KG/MIN TO 0.15MCG/KG/MIN PER MD VERDUGO VERBAL ORDER AT BEDSIDE. PT'S SECOND BAG OF ALBUMIN AND A THIRD LITER OF IVF TO BE HUNG
[2024-08-18] MEDS: 0.9 % Sodium Chloride 1,000 ML 999 ML IV (02:32)
--- NOTE | 2024-08-18 02:50 | PC.NURSE ---
rn to speak with md leary regarding adding an adjunct to the levophed per the protocol. she is currently on the phone attempting to give report in order to get the patient transferred. pt continues to rest at this time without outward expressions of distress noted. BP is responding to medications at this time although continues to remain lower than his baseline.
--- NOTE | 2024-08-18 02:55 | PC.NURSE ---
MD leary made aware of levophed protocol recommendations for adding an adjunct. Per MD leary, we are to hold off on adding any adjunct medications and will continue with the levophed titration per protocol. Pt has been accepted to [facility] in [place], [place]. aware of plan and agreeable.
[2024-08-18] MEDS: Vasopressin 20 UNIT/100 ML INFUS..BTL 3 UNIT IVCONT (03:13)
[2024-08-18 03:48] LABS: Reflex Lactate? 2 Y
--- NOTE | 2024-08-18 03:49 | PC.NURSE ---
EMS present for transport. They were unaware that the pt is currently on two pressers which per them is in their protocol to not take a patient with more than 2 presser running. MD Dumont gave the okay for the vasopressin to be stopped and the pt to be transported. However EMS is concerned as the pt's BP before the vasopressin was seen to be in the 90s systolic at it's highest. EMS is concerned with the length of the drive and the pt's bp maintaining with just the norepi drip. Staff will continue to monitor.
[2024-08-18 04:19] LABS: ~Lactic Acid-LAB USE ONLY 1.3 mmol/L (0.5-2.0)
== END 2024-08-18 04:51 | disposition short-term general hospital (02) ==
PROVIDERS: Emergency Provider Emergency Medicine; PCP Internal Medicine
DX: A41.9 Sepsis, unspecified organism (principal); N39.0 Urinary tract infection, site not specified; J18.1 Lobar pneumonia, unspecified organism; R03.1 Nonspecific low blood-pressure reading; E11.22 Type 2 diabetes mellitus with diabetic chronic kidney disease; I12.9 Hypertensive chronic kidney disease with stage 1 through stage 4 chronic kidney disease, or unspecified chronic kidney disease; N18.9 Chronic kidney disease, unspecified; Z03.818 Encounter for observation for suspected exposure to other biological agents ruled out
CPT/HCPCS: 0241U; 36415; 36556; 71045; 80053; 81001; 82248; 83605; 85007; 85025; 85027; 87040; 87086; 87088; 87186; 96361; 96365; 96366; 96367; 96375; 99285; J0696; J2405; J2598; J3371; J7120; P9047

== ENCOUNTER → 2024-08-17 22:42 | Outpatient (BNV) | payer MEDICARE, SELFPAY | PROVIDERS: Emergency Provider Emergency Medicine; PCP Internal Medicine; Visit Provider Radiology Diagnostic Radiology | DX: J18.9 Pneumonia, unspecified organism (principal); R50.9 Fever, unspecified; Z45.2 Encounter for adjustment and management of vascular access device | CPT/HCPCS: 71045 ==